=== PATIENT | female | born 1950 | race Caucasian/White ===

== ENCOUNTER 2019-06-19 08:33 | Emergency (ER) | payer OTHER ==
--- OUTSIDE RECORDS SUMMARY | 2019-06-19 08:35 | XMS REPORT ---
:1950 [facility] Address [address] [place] [address] Dr. Roach [address] [place] [id number] Care Team Providers Name Role Phone GURJIT GONZALES Unavailable Unavailable Problems This patient has no known problems. Allergies, Adverse Reactions, Alerts This patient has no known allergies or adverse reactions. Medications This patient has no known medications. Results Test Description Test Time Test Comments Text Results Atomic Results Result Comments POCT-GLUCOSE METER 2018-01-10 12:58:00 Test Item Value Reference Range Comments POC-GLUCOSE METER (BEAKER) (test 150 mg/dL 70-110 TESTED AT [facility] [address] [facility] rdoi=[id number]) [facility] [address] BASIC METABOLIC [id number] 10:59:00 Test Item Value Reference Range Comments SODIUM (BEAKER) (test 138 meq/L 136-145 dfht=870) POTASSIUM (BEAKER) (test 3.2 meq/L 3.5-5.1 sdsq=823) CHLORIDE (BEAKER) (test 107 meq/L 98-107 moyf=675) CO2 (BEAKER) (test 20 meq/L 22-29 dsin=060) BLOOD UREA NITROGEN 26 mg/dL 7-21 (BEAKER) (test kkke=366) CREATININE (BEAKER) (test 1.56 mg/dL 0.57-1.25 sino=222) GLUCOSE RANDOM (BEAKER) 142 mg/dL 70-105 (test yztg=662) CALCIUM (BEAKER) (test 10.2 mg/dL 8.4-10.2 ttfk=316) EGFR (BEAKER) (test 33 mL/min/1.73 sq m ESTIMATED GFR IS NOT fqhq=1651) ACCURATE CREATININE CLEARANCE IN PREDICTING GLOMERULAR FILTRATION RATE. ESTIMATED GFR IS NOT APPLICABLE FOR DIALYSIS PATIENTS. PROTHROMBIN TIME/[id number] 10:51:00 Test Item Value Reference Range Comments PROTIME (BEAKER) (test fnux=799) 14.0 seconds 11.7-14.7 INR (BEAKER) (test vhvp=878) 1.1 <=5.9 RECOMMENDED COUMADIN/WARFARIN INR THERAPY RANGESSTANDARD DOSE: 2.0 - 3.0 Includes: PROPHYLAXIS forvenous thrombosis, systemic embolization; TREATMENT for venous thrombosis and/or pulmonary embolus.HIGH RISK: Target INR is 2.5-3.5 for patients with mechanical heart valves.CBC W/PLT COUNT & AUTO [id number] 10:38:00 Test Item Value Reference Range Comments WHITE BLOOD CELL COUNT (BEAKER) (test dgqn=339) 10.4 K/ L 3.5-10.5 RED BLOOD CELL COUNT (BEAKER) (test aglg=949) 4.39 M/ L 3.93-5.22 HEMOGLOBIN (BEAKER) (test ueer=755) 13.1 GM/DL 11.2-15.7 HEMATOCRIT (BEAKER) (test uzyq=456) 39.8 % 34.1-44.9 MEAN CORPUSCULAR VOLUME (BEAKER) (test tksn=059) 90.7 fL 79.4-94.8 MEAN CORPUSCULAR HEMOGLOBIN (BEAKER) (test 29.8 pg 25.6-32.2 nqla=548) MEAN CORPUSCULAR HEMOGLOBIN CONC (BEAKER) (test 32.9 GM/DL 32.2-35.5 cfsf=234) RED CELL DISTRIBUTION WIDTH (BEAKER) (test 11.9 % 11.7-14.4 soqb=042) PLATELET COUNT (BEAKER) (test beor=350) 257 K/CU MM 150-450 MEAN PLATELET VOLUME (BEAKER) (test ssji=730) 10.5 fL 9.4-12.3 NUCLEATED RED BLOOD CELLS (BEAKER) (test 0 /100 WBC 0-0 zerm=412) NEUTROPHILS RELATIVE PERCENT (BEAKER) (test 67 % zuxg=155) LYMPHOCYTES RELATIVE PERCENT (BEAKER) (test 21 % iidg=030) MONOCYTES RELATIVE PERCENT (BEAKER) (test 9 % mcta=931) EOSINOPHILS RELATIVE PERCENT (BEAKER) (test 2 % vmkz=732) BASOPHILS RELATIVE PERCENT (BEAKER) (test 1 % eidm=794) NEUTROPHILS ABSOLUTE COUNT (BEAKER) (test 6.97 K/ L 1.56-6.13 smpm=456) LYMPHOCYTES ABSOLUTE COUNT (BEAKER) (test 2.15 K/ L 1.18-3.74 qgom=452) MONOCYTES ABSOLUTE COUNT (BEAKER) (test 0.95 K/ L 0.24-0.36 lchl=296) EOSINOPHILS ABSOLUTE COUNT (BEAKER) (test 0.22 K/ L 0.04-0.36 lgja=016) BASOPHILS ABSOLUTE COUNT (BEAKER) (test 0.08 K/ L 0.01-0.08 lryx=631) IMMATURE GRANULOCYTES-RELATIVE PERCENT (BEAKER) 0 % 0-1 (test afzj=9464)
[2019-06-19] MEDS ORDERED: SILVER NITRATE 1 APPL TOP ONE (10:01)
--- NOTE | 2019-06-19 10:17 | ER ---
Nurse's Notes [facility] Name: Joana Zarate Age: 68 yrs Sex: Female : 1950 Arrival Date: 06/19/2019 Time: 08:36 Bed 5 Private MD: Katalina Lentz C Diagnosis: Bitten by dog;Puncture wound without foreign body of right hand Presentation: 06/19 08:46 Presenting complaint: Patient states: puncture wound to R hand that will not stop ss oozing blood since last night after her dog bit her. Pt reports that the dog is up to date with all vaccinations. Transition of care: patient was not received from another setting of care. Onset of symptoms was June 18, 2019. Risk Assessment: Do you want to hurt yourself or someone else? Patient reports no desire to harm self or others. Initial Sepsis Screen: Does the patient meet any 2 criteria? HR > 90 bpm. Does the patient have a suspected source of infection? No. Patient's initial sepsis screen is negative. Care prior to arrival: None. 08:46 Acuity: GOLDY 3 ss 08:46 Method Of Arrival: Ambulatory ss Triage Assessment: 08:50 Bite description: animal information: Appearance: appeared well, is superficial, from sg animal, vaccination(s) is current, Animal status: known and can be quarantined. 10:00 Bite description: animal information: Animal control has been notified. sg Historical: - Allergies: 08:48 PENICILLINS; ss - PMHx: 08:48 Hypertension; stroke x2; ss - PSHx: 08:48 Micro pacemaker; ss - Immunization history:: Adult Immunizations up to date, Last tetanus immunization: up to date. - Coronavirus screen:: The patient has NOT traveled to [place], [place], or [place] in the past 14 days. Proceed with normal triage process as indicated. - Social history:: Smoking status: Patient denies any tobacco usage or history of. - Ebola Screening: : Patient denies exposure to infectious person Patient denies travel to an Ebola-affected area in the 21 days before illness onset. Screenin:46 Abuse screen: Denies threats or abuse. Denies injuries from another. Nutritional sg screening: No deficits noted. Tuberculosis screening: No symptoms or risk factors identified. Never had TB. Fall Risk None identified. Assessment: 08:52 General: Appears in no apparent distress. well groomed, well developed, well nourished, sg Behavior is calm, cooperative, appropriate for age. Pain: Complains of pain in dorsum of right hand Quality of pain is described as throbbing. Neuro: Level of Consciousness is awake, alert, obeys commands. Cardiovascular: Patient's skin is warm and dry. Chest pain is denied. Respiratory: Airway is patent Respiratory effort is even, unlabored, Respiratory pattern is regular, symmetrical. GI: No signs and/or symptoms were reported involving the gastrointestinal system. : No signs and/or symptoms were reported regarding the genitourinary system. EENT: No signs and/or symptoms were reported regarding the EENT system. Derm: Skin is intact, is healthy with good turgor, Skin is normal. Musculoskeletal: Circulation, motion, and sensation intact. Range of motion: intact in all extremities. 10:25 Reassessment: Patient appears in no apparent distress at this time. Patient and/or sg family updated on plan of care and expected duration. Pain level reassessed. Patient is alert, oriented x 3, equal unlabored respirations, skin warm/dry/pink. [employer] contacted for Dog Bite, pt stated understanding. 10:25 Reassessment: Ornamental Bronze Worker at bedside, pt has been discharged to home. intelligence officer basic sg to follow up with patient. Vital Signs: 08:48 BP 159 / 96; Pulse 116; Resp 20; Temp 98.6(TE); Pulse Ox 99% on R/A; Weight 65.77 kg; ss Height 5 ft. 4 in. (162.56 cm); Pain 0/10; 09:55 BP 141 / 83; Pulse 67; Resp 16; Pulse Ox 99% ; sv 08:48 Body Mass Index 24.89 (65.77 kg, 162.56 cm) ED Course: 08:36 Patient arrived in ED. mr 08:37 Katalina Lentz MD is Private Physician. mr 08:39 [facility] Spaulding [facility] jr8 08:39 Genaro Whalen MD is Attending Physician. jr8 08:47 Triage completed. ss 08:48 Arm band placed on right wrist. ss 08:50 Joselito Marquez, DIEGO is Primary Nurse. sg 08:51 Wound care: to puncture located on dorsum of right hand was cleaned with with Hibiclens sg and Betadine, dressed with Neosporin, Patient tolerated well. 08:52 Patient has correct armband on for positive identification. Bed in low position. sv 09:03 XRAY Hand RIGHT 3 View Sent. sv 10:14 Silver nitrate applied to pt's puncture wound to the right hand. sv 10:16 Katalina Lentz MD is Referral Physician. jr8 10:25 Patient did not have IV access during this emergency room visit. sg Administered Medications: 10:15 Drug: Silver Nitrate Applicators 1 application {Note: applied by Ambrosio OZUNA.} Route: sg Topical; Site: affected area; Outcome: 10:16 Discharge ordered by . jr8 10:25 Discharged to home ambulatory. sg 10:25 Condition: good 10:25 Discharge instructions given to patient, pt to await evaluation by Ornamental Bronze Worker prior to leaving, pt stated understanding Instructed on discharge instructions, follow up and referral plans. no drinking with medication, safety practices, wound care, Demonstrated understanding of instructions, follow-up care, medications, wound care, Prescriptions given X 1. 10:49 Patient left the ED. sg Signatures: Alejandra Ernandez, RN DIEGO Joselito Marquez RN RN sg Rivera, Mary mr Stefanie Palmer, RN Raheem Guerrero PA PA jr
--- NOTE | 2019-06-19 10:17 | EDPHYS ---
Physician Documentation [facility] Name: Joana Zarate Age: 68 yrs Sex: Female : 1950 Arrival Date: 06/19/2019 Time: 08:36 Bed 5 Private MD: Katalina Lentz C ED Physician Genaro Whalen HPI: 06/19 09:05 This 68 yrs old Female presents to ER via Ambulatory with complaints of Dog jr8 Bite. 09:05 The patient was bitten on the right hand, by a dog, for an unknown reason, at home. jr8 Onset: The symptoms/episode began/occurred acutely, last night. Animal information: The animal was reported to appear healthy. Animal's vaccinations are up to date. The animal is known and can be quarantined, Animal control has been notified. Secondary to the bite the patient reports multiple puncture wounds, that are deep, the largest being 1 cm(s). Associated signs and symptoms: The patient has no apparent associated signs or symptoms. Severity of symptoms: At their worst the symptoms were moderate, in the emergency department the symptoms are unchanged. The patient has not experienced similar symptoms in the past. The patient has not recently seen a physician. 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 Occasionally will bite from time to time for unknown reasons. Historical: - Allergies: 08:48 PENICILLINS; ss - PMHx: 08:48 Hypertension; stroke x2; ss - PSHx: 08:48 Micro pacemaker; ss - Immunization history:: Adult Immunizations up to date, Last tetanus immunization: up to date. - Coronavirus screen:: The patient has NOT traveled to [place], [place], or [place] in the past 14 days. Proceed with normal triage process as indicated. - Social history:: Smoking status: Patient denies any tobacco usage or history of. - Ebola Screening: : Patient denies exposure to infectious person Patient denies travel to an Ebola-affected area in the 21 days before illness onset. ROS: 10:12 Eyes: Negative for injury, pain, redness, and discharge, ENT: Negative for injury, jr8 pain, and discharge, Neck: Negative for injury, pain, and swelling, Cardiovascular: Negative for chest pain, palpitations, and edema, Respiratory: Negative for shortness of breath, cough, wheezing, and pleuritic chest pain, Abdomen/GI: Negative for abdominal pain, nausea, vomiting, diarrhea, and constipation, Back: Negative for injury and pain, Neuro: Negative for headache, weakness, numbness, tingling, and seizure. 10:12 MS/extremity: Positive for ecchymosis, pain, puncture, of the dorsum of right hand. Exam: 10:12 Eyes: Pupils equal round and reactive to light, extra-ocular motions intact. Lids and jr8 lashes normal. Conjunctiva and sclera are non-icteric and not injected. Cornea within normal limits. Periorbital areas with no swelling, redness, or edema. ENT: Nares patent. No nasal discharge, no septal abnormalities noted. Tympanic membranes are normal and external auditory canals are clear. Oropharynx with no redness, swelling, or masses, exudates, or evidence of obstruction, uvula midline. Mucous membranes moist. Neck: Trachea midline, no thyromegaly or masses palpated, and no cervical lymphadenopathy. Supple, full range of motion without nuchal rigidity, or vertebral point tenderness. No Meningismus. Cardiovascular: Regular rate and rhythm with a normal S1 and S2. No gallops, murmurs, or rubs. Normal PMI, no JVD. No pulse deficits. Respiratory: Lungs have equal breath sounds bilaterally, clear to auscultation and percussion. No rales, rhonchi or wheezes noted. No increased work of breathing, no retractions or nasal flaring. Abdomen/GI: Soft, non-tender, with normal bowel sounds. No distension or tympany. No guarding or rebound. No evidence of tenderness throughout. Back: No spinal tenderness. No costovertebral tenderness. Full range of motion. Skin: Warm, dry with normal turgor. Normal color with no rashes, no lesions, and no evidence of cellulitis. Neuro: Awake and alert, GCS 15, oriented to person, place, time, and situation. Cranial nerves II-XII grossly intact. Motor strength 5/5 in all extremities. Sensory grossly intact. Cerebellar exam normal. Normal gait. 10:12 Musculoskeletal/extremity: Extremities: grossly normal except: noted in the dorsum of right hand: multiple puncture wounds to dorsum right hand. one with constant oozing of blood. Vital Signs: 08:48 BP 159 / 96; Pulse 116; Resp 20; Temp 98.6(TE); Pulse Ox 99% on R/A; Weight 65.77 kg; ss Height 5 ft. 4 in. (162.56 cm); Pain 0/10; 09:55 BP 141 / 83; Pulse 67; Resp 16; Pulse Ox 99% ; sv 08:48 Body Mass Index 24.89 (65.77 kg, 162.56 cm) ss Procedures: 10:12 Performed Silver Nitrate. Hand cleaned with Hibiclens. Irrigated with NS. Dried and jr8 then small amount of Silver Nitrate applied to small oozing puncture wound. Rest of bites left open for draining to resist against infection. Pressure dressing applied . MDM: 08:43 Patient medically screened. ale 10:12 Data reviewed: vital signs, nurses notes, radiologic studies, plain films, and as a jr8 result, I will discharge patient. Data interpreted: Pulse oximetry: on room air is 99 %. Interpretation: normal. Counseling: I had a detailed discussion with the patient and/or guardian regarding: the historical points, exam findings, and any diagnostic results supporting the discharge/admit diagnosis, radiology results, the need for outpatient follow up, a family practitioner, to return to the emergency department if symptoms worsen or persist or if there are any questions or concerns that arise at home. ED course: Patient up to date on Tetanus . 06/19 08:47 Order name: XRAY Hand RIGHT 3 View jr8 Administered Medications: 10:15 Drug: Silver Nitrate Applicators 1 application {Note: applied by Ambrosio HONEYCUTT} Route: sg Topical; Site: affected area; Disposition: 06/19/19 10:16 Discharged to Home. Impression: Bitten by dog, Puncture wound without foreign body of right hand. - Condition is Stable. - Discharge Instructions: Puncture Wound, Animal Bite. - Prescriptions for Doxycycline Monohydrate 100 mg Oral Tablet - take 1 tablet by ORAL route every 12 hours for 14 days; 28 tablet. - Medication Reconciliation Form, Thank You Letter, Antibiotic Education, Prescription Opioid Use form. - Follow up: Katalina Lentz MD; When: 1 week; Reason: Wound Recheck, Recheck today's complaints, Continuance of care, Re-evaluation by your physician. - Problem is new. - Symptoms have improved. Addendum: 06/21/2019 07:53 Co-signature as Attending Physician, Genaro Whalen MD I agree with the assessment and c escobar plan of care. Signatures: Dispatcher [employer] Joselito Uriarte RN RN sg Anderson, Corey, MD MD cha Smirch, Shelby RN RN Raheem Muñoz PA PA jr8 Corrections: (The following items were deleted from the chart) 06/19 10:49 10:16 06/19/2019 10:16 Discharged to Home. Impression: Bitten by dog; Puncture wound sg without foreign body of right hand. Condition is Stable. Forms are Medication Reconciliation Form, Thank You Letter, Antibiotic Education, Prescription Opioid Use. Follow up: Katalina Lentz; When: 1 week; Reason: Wound Recheck, Recheck today's complaints, Continuance of care, Re-evaluation by your physician. Problem is new. Symptoms have improved. jr8
--- NOTE | 2019-06-19 10:53 | RAD REPORT ---
EXAM DESCRIPTION: RAD - Hand Right 3 View - 06/19/2019 9:12 am CLINICAL HISTORY: Pain;Animal bite COMPARISON: No comparisons FINDINGS: Soft tissue swelling is seen affecting the second finger. Tiny avulsion bony fragment may be present along the dorsal aspect of the DIP joint.
[2019-06-21 04:07] VITALS: TEMP 98.6; O2SAT 99
[2019-06-21 04:09] VITALS: BP 141/83
== END 2019-06-19 10:49 | disposition home or self-care (01) ==
LOC: ER 08:33
DX: S61.431A Puncture wound without foreign body of right hand, initial encounter (principal); W54.0XXA Bitten by dog, initial encounter; Y93.9 Activity, unspecified; Y92.019 Unspecified place in single-family (private) house as the place of occurrence of the external cause; Z88.0 Allergy status to penicillin
CPT/HCPCS: 99284

== ENCOUNTER 2020-08-20 17:16 | Inpatient (IN) | payer OTHER ==
--- OUTSIDE RECORDS SUMMARY | 2020-08-20 17:21 | XMS REPORT | Continuity of Care Document ---
:[address] [facility] [place], [place] t Address [address] [place] [address] Care Team Providers Name Role Phone Georgina Lentz MD Primary Care Physician RADHA GONZALES Attending Clinician Unavailable Tameka Butler Attending Clinician Lashonda Figueroa Attending Clinician Gracia Case Attending Clinician RADHA GONZALES Admitting Clinician Unavailable Tameka Butler Admitting Clinician Gracia Case Admitting Clinician Problems Condition Condition Condition Status Onset Resolution Last Treating Co mments Source Name Details Category Date Date Treatment Clinician Date Primary Primary Disease Active [facility] osteoarthr osteoarthr 01-31 Me thodi itis of itis of 00:00: st right knee right knee 00 Encounter Encounter Disease Active [facility] 01-10 [facility] recorder recorder 00:00: Medica l at end of at end of 00 Cent er battery battery life life Symptomati Symptomati Disease Active [facility] c 1-22 [facility] - bradycardi bradycardi 00:00: Me dical a a 00 Center 225.3 - Diagnosis Active 2013-052014-08-04 Me moria BENIGN HEIKE 2-01 11:04:00 l SPIN 225.3 - 00:01: [place] BENIGN HEIKE 00 SPIN Active 04/08/2014 [facility] OPID [place] POSSIBLE Diagnosis Active 2013-052014-03-11 M emoria CVA VS TIA 05-10 18:31:00 l POSSIBLE 00:00: [place] hancock CVA VS TIA 00 Active 03/10/[address] [facility] ISCHEMIC Diagnosis Active 2013-11-13 M emoria STROKE;194 11-07 15:36:00 l 5 ONSET OF ISCHEMIC 00:00: He cemann S/S STROKE;194 00 5 ONSET OF S/S Active 11/07/[address] [facility] ISCHEMIC Diagnosis Active 2011-06-17 M emoria STROKE 06-15 09:59:00 l ISCHEMIC 00:00: [place] n STROKE 00 Active 06/15/[address] [facility] N Diagnosis Active 2011-06-17 Mem oria 06-15 10:00:00 l N 00:00: [place] 00 Active 06/15/[address] [facility] Cerebrovas Problem Resolve 2014-03-13 Memoria cular d 23:33:16 l accident Estuardo (disorder) Cerebrovas cular accident (disorder) Resolved Problem 03/13/2014 [facility] OPIAbbie Kimball[place] Hyperlipid Problem Resolve 2014-03-13 Memoria emia d 23:33:16 l (disorder) [place] hancock Hyperlipid emia (disorder) Resolved Problem 03/13/2014 [facility] OPIAbbie Marte Hypertensi Problem Resolve 2014-03-13 Memoria ve d 23:33:16 l disorder, Estuardo systemic Hypertensi arterial ve (disorder) disorder, systemic arterial (disorder) Resolved Problem 03/13/2014 [facility] OPIAbbie Marte Hypothyroi Problem Resolve 2014-03-13 Memoria dism d 23:33:16 l (disorder) [place] n Hypothyroi dism (disorder) Resolved Problem 03/13/2014 [facility] OPID [place] Cardiac Problem Resolve 2014-03-13 Mem oria implant d 23:33:16 l (physical Cardiac Herm teressa object) implant (physical object) Resolved Problem 03/13/[address] [facility] Depressive Problem Resolve 2014-03-13 Memoria disorder d 23:33:16 l (disorder) [place] n Depressive disorder (disorder) Resolved Problem 03/13/[address] [facility] Intracrani Problem Resolve 2014-03-13 Memoria al d 23:33:16 l meningioma [place] n (disorder) Intracrani al meningioma (disorder) Resolved Problem 03/13/[address] [facility] Heart Problem Resolve 2014-03-13 Fabrizio ruchi murmur d 23:33:16 l (finding) Heart [place] n murmur (finding) Resolved Problem 03/13/[address] [facility] Sleep Problem Resolve 2014-03-13 Fabrizio ruchi apnea d 23:33:16 l (finding) Sleep [place] n apnea (finding) Resolved Problem 03/13/[address] [facility] BRAIN Diagnosis Active 2013-11-13 Mem oria CONDITION 15:36:00 l NOS BRAIN [place] CONDITION NOS Active [facility] CVA Diagnosis Active 2014-03-11 Mem oria 18:31:[address] l [address]A [address] Active [facility] Allergies, Adverse Reactions, Alerts Allergy Allergy Status Severity Reaction(s) Onset Inactive Treating Comm ents Source Name Type Date Date Clinician Penicill Propensi Active Rash "as a [place] ins ty to 4-17 child" Methodi adverse 00:00: st reaction 00 s to drug Penicill Drug Active Rash [facility] - [facility] Medical 00 [place] penicill penicill Active Memori a ins ins l Estuardo Family History Family Member Diagnosis Comments Start Date Stop Date Source Natural father Dementia [facility] Natural father Diabetes [facility] Natural mother Heart disease [facility] Natural [facility] Natural sister Diabetes [facility] Social History Social Habit Start Date Stop Date Quantity Comments Source Sex Assigned At [facility] Tobacco use and 2019-02-06 2019-02-06 Never used [facility] ethodist exposure 00:00:00 00:00:00 Alcohol Comment 2019-01-24 2019-01-24 occasional [facility] ethodist 00:00:00 00:00:00 Alcohol intake 2018-01-11 2018-01-11 Current [facility] es - 00:00:00 00:00:00 non-drinker of Medical Ce nter alcohol (finding) Social History 2014-03-10 2014-03-10 [facility] ermteressa 09:14:22 09:14:22 Smoking Status Start Date Stop Date Source Never smoker [facility] Medications Ordered Filled Start Stop Current Ordering Indication Dosage Frequency Signature Comments Components Source Medication Medication Date Date Medication? Clinician (SIG) Name Name aspirin 2018-05 Yes 81mg QD Take 81 mg [place] (ECOTRIN) 0-01 by mouth Method i 81 MG 12:35: daily. st enteric 45 coated tablet cyanocobala 2018-05 Yes QD Take by Kelly ston min, 0-01 mouth Methodi vitamin 12:35: daily. st B-12, 45 (VITAMIN B-12 ORAL) levothyroxi Yes 50ug QD Take 50 Kelly ston ne 4-14 mcg by Methodi (SYNTHROID, 00:00: mouth st LEVOXYL) 50 00 every mcg tablet morning. rosuvastati Yes 20mg QD Take 20 mg [facility] n (CRESTOR) 4-05 by mouth Meth el 20 MG 00:00: every st tablet 00 morning. metFORMIN Yes 500mg QD Take [address] (GLUCOPHAGE 2-24 mg by Methodi ) 500 mg 00:00: mouth st tablet 00 nightly. amLODIPine Yes 5mg QD Take 5 mg [place] (NORVASC) 5 2-24 by mouth Meth el mg tablet 00:00: nightly. st 00 clopidogrel Yes 75mg QD Take 75 mg [place] (PLAVIX) 75 2-14 by mouth Meth el mg tablet 00:00: daily. st 00 valsartan Yes 160mg QD Take [address] (DIOVAN) 1-29 mg by Methodi 160 MG 00:00: mouth st tablet 00 every morning. LEVOTHYROXI Yes 50ug QD Take [address] SODIUM 9-04 mcg by [facility] - (SYNTHROID 13:45: mouth Medica l ORAL) 07 daily . [place] metFORMIN Yes 500mg QD Take [address] (GLUCOPHAGE 9-04 mg by [facility] - ) 500 MG 13:45: mouth Medical tablet 07 daily . [place] aspirin 81 Yes 81mg QD Take [address] MG EC 9-04 by mouth [facility] - tablet 13:45: daily. Medical 07 [place] rosuvastati Yes 40mg QD Take [address] [facility] (CRESTOR) 9-04 by mouth Luke s - 40 MG 13:45: daily. Medical tablet 07 [place] valsartan Yes 160mg QD Take [address] (DIOVAN) 9-04 mg by [facility] - 160 MG 13:45: mouth Medical tablet 07 daily. Center amLODIPine Yes 5mg QD Take [address] (NORVASC) 5 04 by mouth Luke s - MG tablet 13:45: daily. Medica l 07 [place] clopidogrel Yes 75mg QD Take [address] (PLAVIX) 75 04 by mouth Luke s - mg tablet 13:45: daily. Medica l 07 [place] atorvastati 2013-05 Yes 80 mg = 1 M emoria n 80 mg -03 tab, PO, l oral tablet 18:09: Bedtime, 0 [place] 00 Refill(s) topiramate 2013-05 Yes Special Fabrizio ruchi 25 MG Oral 05-11 Instructio l Tablet 18:09: ns: Please Hillary nn [Topamax] 00 take one tablet at bedtime for on week, then take 2 tablets at bedtime from there on until your appointmen t. Levothroid 2013-05 No Notes: Memor ia 05-11 Take 1 l 12:30: hour [place] 00 before or 2 hours after meal; Enteral feeds may interefere with the absorption of this medication . (Same as:Levothr oid) Versed 2013-05 No Notes: Memoria 05-11 (Same as: l 12:22: Versed) [place] 00 Lipitor 2013-05 No Notes: Memoria 05-11 Same as l 03:00: Lipitor Estuardo 00 120 ACTUAT 2013-05 Yes Special Fabrizio ruchi Triamcinolo 05-11 Instructio l ne 00:50: ns: in [place] Acetonide 00 each 0.055 nostril MG/ACTUAT Nasal Inhaler Metformin 2013-05 Yes 250 mg = Fabrizio ruchi hydrochlori 05-11 0.5 tab, l de 500 MG 00:50: PO, Daily, He rmann Oral Tablet 00 0 Refill(s) atorvastati 2013-05 No 80 mg = 1 M emoria n 80 MG 1-03 tab, PO, l Oral Tablet 00:50: Bedtime, # Estuardo [Lipitor] 00 30 tab, 0 Refill(s) hydrochloro 2013-05 Yes 12.5 mg = M emoria thiazide -03 1 tab, PO, l 12.5 mg 00:50: Daily, # [place] n oral tablet 00 30 tab, 0 Refill(s) Olmesartan 2013-05 Yes 40 mg = 1 Me moria medoxomil 1-03 tab, PO, l 40 MG Oral 00:50: Daily, # Her damian Tablet 00 30 tab, 0 [Benicar] Refill(s) Levothyroxi 2013-05 Yes 37.5 Memori a ne Sodium 1-03 microgram l 0.025 MG 00:50: = 1.5 tab, Her damian Oral Tablet 00 PO, Daily, [Synthroid] # 30 tab, 0 Refill(s) clopidogrel 2013-05 Yes 75 mg = 1 M emoria 75 MG Oral -03 tab, PO, l Tablet 00:50: Daily, # Estuardo [Plavix] 00 30 tab, 0 Refill(s) Iohexol 2013-05 No Notes: Memoria - (Same l 16:33: as:Omnipaq Estuardo 00 ue 350). Docusate 2013-05 No Notes: Memoria Sodium 100 05-10 (Same as: l MG Oral 15:00: Colace) [place] Capsule 00 (Do Not Crush) sennosides, 2013-05 No Notes: Fabrizio ruchi RETIREMENT 8.6 MG 05-10 (Same as: l Oral Tablet 15:00: Senokot) He rmann Saline 2013-05 No Notes: Memoria Flush 0.9% 05-10 (Same as: l 15:00: BD [place] 00 Posiflush) Aspirin 81 2013-05 No Notes: Do Me moria MG Enteric 05-10 not crush l Coated 15:00: or chew. Estuardo Tablet 00 (Same As: Ecotrin) pneumococca 2013-05 No Notes: Fabrizio ruchi l capsular 05-10 (Same as: l polysacchar 15:00: Pneumovax H ermann vito type 1 00 23) vaccine / Refrigerat pneumococca e l capsular polysacchar vito type 10A vaccine / pneumococca l capsular polysacchar vito type 11A vaccine / pneumococca l capsular polysacchar vito type 12F vaccine / pneumococca l capsular polysacchar heparin, 2013-05 No Notes: Memoria porcine 05-10 porcine l 14:00: heparin [place] 00 Hydrochloro 2013-05 No 12.5 mg, Me moria thiazide 1-02 PO, Daily l 13:16: Estuardo clopidogrel 2013-05 No 75 mg = 1 M emoria 75 MG Oral 05-10 tab, PO, l Tablet 13:16: Daily Estuardo [Plavix] 00 Metformin 2013-05 No 250 mg, Memor ia 02 Daily l 13:16: [place] Triamcinolo 2013-05 No = 1 spray, Memoria ne 05-10 INHALATION l Acetonide 13:16: , BID [place] Thyroxine 2013-05 No 37.5 Memoria 05-10 microgram, l 13:16: PO, Daily Estuardo atorvastati 2013-05 No 80 mg = 1 M emoria n 80 MG 05-10 tab, PO, l Oral Tablet 13:16: Daily Hillary nn [Lipitor] Olmesartan 2013-05 No 40 mg = 1 Me moria medoxomil 05-10 tab, PO, l 40 MG Oral 13:16: Daily [place] n Tablet 00 [Benicar] Saline 2013-05 No Notes: Memoria Flush 0.9% 05-10 (Same as: l 09:11: BD [place] Posiflush) Labetalol 2013-05 No 105mmHg Fabrizio ruchi 05-10 l 09:11: [place] 00 Acetaminoph 2013-05 No Notes: Do M emoria en 05-10 not exceed l 09:11: 4 gm/day. Estuardo 00 (Same as: Tylenol) olmesartan Yes 40 mg = 2 Me moria 20 mg oral 04 tab, PO, l tablet 21:54: Daily, # [place] 00 60 tab, 3 Refill(s) Hydrochloro Yes 12.5 mg = M emoria thiazide 11-09 1 cap, PO, l 12.5 MG 21:54: Daily-12N, Herm teressa Oral 00 # 30 cap, Capsule 3 Refill(s) clopidogrel Yes 75 mg = 1 M emoria 75 mg oral 7-04 tab, PO, l tablet 21:54: Daily, # Estuardo 00 30 tab, 3 Refill(s) atorvastati Yes 80 mg = 1 M emoria n 80 mg 7-04 tab, PO, l oral tablet 21:54: Daily, # He rmann 00 30 tab, 3 Refill(s) Benicar No 40 mg, 2 Memori a 11-09 tab, l 21:00: Route: PO, Estuardo 00 Drug form: TAB, Daily, Start date: 11/09/13 16:00:00, Duration: 30 day, Stop date: 12/09/13 9:00:00 Microzide No Notes: Memori a 11-09 (Same as: l 17:00: Microzide) With food. Hydrochloro No 1 tab, Fabrizio ruchi thiazide 11-09 Route: PO, l 12.5 MG / 15:30: Drug Form: Papi cemann Olmesartan 00 TAB, medoxomil Dosing 40 MG Oral Weight Tablet 74.545, kg, Daily, Start date: 11/09/13 10:30:00, Duration: 30 day, Stop date: 12/09/13 9:00:00 Versed No Notes: Memoria 11-09 (Same as: l 12:38: Versed) aspirin 81 No Notes: Do Me moria mg tablet, 11-09 not crush l enteric 04:00: or chew. [place] n coated 00 (Same As: Ecotrin) heparin, No Notes: Memoria porcine 11-09 porcine l 04:00: heparin Plavix No Notes: Memoria 11-09 (Same As: l 03:30: Plavix) Triamcinolo No NASAL, Fabrizio ruchi ne 11-09 PRN, 0 l Acetonide 03:19: Refill(s) Her damian 00 Hydrochloro No 1 tab, PO, Memoria thiazide 11-09 Daily, # l 12.5 MG / 03:19: 90 tab, 0 Her damian Olmesartan 00 Refill(s) medoxomil 40 MG Oral Tablet [Benicar HCT 40/12.5] levothyroxi Yes 1.5, PO, Me moria ne 25 mcg 11-09 Daily, # l (0.025 mg) 03:19: 90 tab, 0 He rmann oral tablet 00 Refill(s) Crestor No 20 mg, Memoria 11-09 Route: PO, l 02:00: Drug form: [place] 00 TAB, Bedtime, Dosing Weight 74.545, kg, Start date: 11/08/13 21:00:00, Duration: 30 day, Stop date: 12/07/13 21:00:00 Midazolam No Notes: Memori a 11-08 (Same as: l 22:21: Versed) Estuardo 00 Levothroid No Notes: Memor ia 11-08 Take 1 l 16:00: hour [place] 00 before or 2 hours after meal; Enteral feeds may interefere with the absorption of this medication . (Same as:Levothr oid) Saline No Notes: Memoria Flush 0.9% 11-08 (Same as: l 14:00: BD Posiflush) Lipitor No Notes: Memoria 03 Same as l 14:00: Lipitor Docusate No Notes: Memoria Sodium 100 11-08 (Same as: l MG Oral 14:00: Colace) Estuardo Capsule 00 (Do Not Crush) sennosides, No Notes: Fabrizio ruchi RETIREMENT 8.6 MG 11-08 (Same as: l Oral Tablet 14:00: Senokot) He rm aspirin 325 No 325 mg = 1 Memoria mg tablet 03 tab, PO, l 13:31: Daily, # [place] 00 90 tab, 0 Refill(s) levothyroxi No 37.5 Memori a ne 25 mcg 11-08 microgram l (0.025 mg) 13:31: = 1.5 tab, H ermann oral tablet 00 Daily, 0 Refill(s) Rosuvastati Yes 20 mg = 1 M emoria n calcium 03 tab, PO, l 20 MG Oral 13:31: Bedtime, # H ermann Tablet 00 30 tab, 0 [Crestor] Refill(s) Hydrochloro No 1 tab, PO, Memoria thiazide 7-03 Daily, # l 12.5 MG / 13:31: 30 tab, 0 Her damian Olmesartan 00 Refill(s) medoxomil 40 MG Oral Tablet [Benicar HCT 40/12.5] Aspirin / No 81 mg, Memori a Calcium 11-08 Route: PO, l Carbonate 12:17: Drug form: He rm 00 ECTAB, Daily, Dosing Weight 74.545, kg, Start date: 11/08/13 7:17:00, Duration: 30 day, Stop date: 12/07/13 9:00:00 NS 1,000 mL No 1,000 mL, Salud emoria 11-08 Rate: 75 l 11:55: ml/hr, Infuse over: 13.3 hr, Route: IV, Dosing Weight 74.545 kg, Total Volume: 1,000, Start date: 11/08/13 6:55:00, Duration: 30 day, Stop date: 12/08/13 6:54:00 Iohexol No Special Memoria 11-08 Instructio l 07:00: ns: Dose = Estuardo 00 2.2ml/kg, Max dose = 100ml -- "To be infused by Radiology Staff ONLY" Versed No Notes: Memoria 11-08 (Same as: l 05:59: Versed) Estuardo Regular No 60 Memoria Insulin, 11-08 units) l Human 100 04:52: Stable for He rmann UNT/ML 00 28 days at Injectable room Solution temperatur e Expires in days from ____Date Dextrose No 6.25 gm, Memor ia 50% Syringe 11-08 12.5 mL, l 04:52: Route: IVP, Drug Form: INJ, Dosing Weight 74.545, kg, PRN, PRN Abnormal Lab Result, Start date: 11/07/13 23:52:00, Duration: 30 day, Stop date: 12/07/13 23:51:00 Saline No Notes: Memoria Flush 0.9% 11-08 (Same as: l 04:51: BD Posiflush) Acetaminoph No Notes: Do Salud martinesa en 11-08 not exceed l 04:51: 4 gm/day. (Same as: Tylenol) Labetalol No 105mmHg Fabrizio ruchi 11-08 l 04:51: [place] 00 Vital Signs Vital Name Observation Time Observation Value Comments Source Systolic (mm Hg) 2014-03-11 20:15:00 Fabrizio rial [place] Diastolic (mm Hg) 2014-03-11 20:15:00 Mem orial [place] Respitory Rate 2014-03-11 20:15:00 Memori al Estuardo Heart Rate 2014-03-11 19:45:00 Memorial Estuardo Diastolic (mm Hg) 2014-03-11 19:45:00 Mem orial [place] Systolic (mm Hg) 2014-03-11 19:45:00 Fabrizio rial [place] Heart Rate 2014-03-11 19:30:00 Memorial [place] Respitory Rate 2014-03-11 17:00:00 Memori al [place] Respitory Rate 2014-03-11 16:00:00 Memori al Estuardo Temperature Oral (F) 2014-03-10 10:00:00 96.4 F Memorial Estuardo Height 2014-03-10 09:02:00 165.1 cm [facility] [place] BMI Calculated 2014-03-10 09:02:00 Memori al [place]uardo Weight 2014-03-10 09:02:00 Memorial Estuardo Respitory Rate 2013-11-09 21:30:00 Memori al Estuardo Diastolic (mm Hg) 2013-11-09 21:30:00 Mem orial [place] Systolic (mm Hg) 2013-11-09 21:30:00 Fabrizio rial Estuardo Heart Rate 2013-11-09 21:30:00 Memorial Estuardo Temperature Oral (F) 2013-11-09 21:30:00 98.4 F [facility] [place] Diastolic (mm Hg) 2013-11-09 17:26:00 Mem orial [place] Systolic (mm Hg) 2013-11-09 17:26:00 Fabrizio rial [place] Heart Rate 2013-11-09 17:26:00 [facility] [place] Temperature Oral (F) 2013-11-09 17:26:00 97.3 F [facility] [place] Systolic (mm Hg) 2013-11-09 13:15:00 Fabrizio rial [place] Diastolic (mm Hg) 2013-11-09 13:15:00 Mem orial Estuardo Respitory Rate 2013-11-09 12:50:00 Memori al Estuardo Respitory Rate 2013-11-09 12:06:00 Memori al [place] Heart Rate 2013-11-08 22:15:00 Hernán Marte Weight 2013-11-08 04:39:00 Hernán Marte Height 2013-11-08 04:39:00 165.1 cm Hernán Marte BMI Calculated 2013-11-08 04:39:00 Bill Soto Procedures Procedure Date / Time Performed Performing Clinician [facility] e Cardiac conduit operation Bill Soto CAT scan of head Hernán hancock MRI - Magnetic resonance Jony Marte imaging Plan of Care Planned Activity Planned Date Details Comments Source Future Scheduled 2020-12-07 INFLUENZA VACCINE [place] [facility] Test 00:00:00 [code = INFLUENZA VACCINE] Future Scheduled 2020-05-[address] [facility] - Test 00:00:00 (12+) [code = Medical Center DEPRESSION SCREENING (12+)] Future Scheduled 2020-01-08 INFLUENZA VACCINE (#1) [facility]:00 [code = INFLUENZA Medical Ce nter VACCINE (#1)] Future Scheduled 2017-12-[address] [facility] [facility] - Test 00:00:00 WELLNESS (YEAR 2 or Medical Center FIRST YEAR if no IPPE) [code = MEDICARE ANNUAL WELLNESS (YEAR 2 or FIRST YEAR if no IPPE)] Future Scheduled 2016-12-22 PNEUMOCOCCAL 65+ YRS [facility] - Test 00:00:00 (1 of 1 - [facility] [id number]) [code = PNEUMOCOCCAL 65+ YRS (1 of 1 - [id number] PCV13)] Future Scheduled 2016-12-22 65+ PNEUMOCOCCAL [facility] Test 00:00:00 VACCINE (1 of 1 - PPSV23) [code = 65+ PNEUMOCOCCAL VACCINE (1 of 1 - PPSV23)] Future Scheduled 2001-12-22 BREAST CANCER [facility] Test 00:00:00 SCREENING [code = BREAST CANCER SCREENING] Future Scheduled 2001-12-22 COLONOSCOPY SCREENING [place] [facility] Test 00:00:00 [code = COLONOSCOPY SCREENING] Future Scheduled 2001-12-22 SHINGLES VACCINES (#1) [facility] Test 00:00:00 [code = SHINGLES VACCINES (#1)] Future Scheduled 1969-12-22 Hepatitis C screening [place] [facility] Test 00:00:00 (procedure) [code = 745071529] Future Scheduled 1966 COVID-19 VACCINE (1) [facility] Test 00:00:00 [code = COVID-19 VACCINE (1)] Future Scheduled [address] [facility] Test 00:00:00 [facility] breast (procedure) [code = 444467269] Future Scheduled [address] [facility] - Test 00:00:00 [facility] colon (procedure) [code = 512853708] Encounters Start End Encounter Admission Attending Care Care Encounter Source Date/Time Date/Time Type Type Clinicians Facility Department ID 2014-03-10 2014-03-11 Outpatient Carrie, [facility] [id number] 02:48:00 15:20:00 Afshin English 2013-11-22 2013-11-22 Outpatient Carolina, [facility] [id number] 18:13:00 23:59:00 Shubham Osullivan 2013-11-07 2013-11-09 Outpatient Manpreet [facility] [id number] 23:00:00 18:09:00 Shanel 67 Gracia Results Test Description Test Time Test Comments Results Result Comments Source POCT-GLUCOSE METER 2018-01-10 12:58:00 Test Item Value Reference Range Interpretation Comme [facility] POC-GLUCOSE METER (BEAKER) (test 150 mg/dL 70-110 H TESTED AT [facility] [address] [facility] = 1538) [facility]703 [facility] BASIC METABOLIC [id number] 10:59:00 Test Item Value Reference Range Interpretation Comments SODIUM (BEAKER) 138 meq/L 136-145 (test code = 381) POTASSIUM (BEAKER) 3.2 meq/L 3.5-5.1 L (test code = 379) CHLORIDE (BEAKER) 107 meq/L 98-107 (test code = 382) CO2 (BEAKER) (test 20 meq/L 22-29 L code = 355) BLOOD UREA NITROGEN 26 mg/dL 7-21 H (BEAKER) (test code = 354) CREATININE (BEAKER) 1.56 mg/dL 0.57-1.25 H (test code = 358) GLUCOSE RANDOM 142 mg/dL 70-105 H (BEAKER) (test code = 652) CALCIUM (BEAKER) 10.2 mg/dL 8.4-10.2 (test code = 697) EGFR (BEAKER) (test 33 mL/min/1.73 ESTIMA DORA GFR IS code = 1092) sq m NOT ACCURATE CREATININE CLEARANCE IN PREDICTING GLOMERULAR FILTRATION RATE . ESTIMATED GFR I S NOT APPLICABLE FOR DIALYSIS PATIEN TS. PROTHROMBIN TIME/[id number] 10:51:00 Test Item Value Reference Range Interpretation Comments PROTIME (BEAKER) (test code = 14.0 seconds 11.7-14.7 759) INR (BEAKER) (test code = 370) 1.1 <=5.9 RECOMMENDED COUMADIN/WARFARIN INR THERAPY RANGESSTANDARD DOSE: 2.0 - 3.0 Includes: PROPHYLAXIS forvenous thrombosis, systemic embolization; TREATMENT for venous thrombosis and/or pulmonary embolus.HIGH RISK: Target INR is 2.5-3.5 for patients with mechanical heart valves.CBC W/PLT COUNT & AUTO DIFFERENTIAL 2018-01-10 10:38:00 Test Item Value Reference Range Interpretation Comments WHITE BLOOD CELL COUNT (BEAKER) 10.4 K/ L 3.5-10.5 (test code = 775) RED BLOOD CELL COUNT (BEAKER) 4.39 M/ L 3.93-5.22 (test code = 761) HEMOGLOBIN (BEAKER) (test code = 13.1 GM/DL 11.2-15.7 410) HEMATOCRIT (BEAKER) (test code = 39.8 % 34.1-44.9 411) MEAN CORPUSCULAR VOLUME (BEAKER) 90.7 fL 79.4-94.8 (test code = 753) MEAN CORPUSCULAR HEMOGLOBIN 29.8 pg 25.6-32.2 (BEAKER) (test code = 751) MEAN CORPUSCULAR HEMOGLOBIN CONC 32.9 GM/DL 32.2-35.5 (BEAKER) (test code = 752) RED CELL DISTRIBUTION WIDTH 11.9 % 11.7-14.4 (BEAKER) (test code = 412) PLATELET COUNT (BEAKER) (test 257 K/CU MM 150-450 code = 756) MEAN PLATELET VOLUME (BEAKER) 10.5 fL 9.4-12.3 (test code = 754) NUCLEATED RED BLOOD CELLS 0 /100 WBC 0-0 (BEAKER) (test code = 413) NEUTROPHILS RELATIVE PERCENT 67 % (BEAKER) (test code = 429) LYMPHOCYTES RELATIVE PERCENT 21 % (BEAKER) (test code = 430) MONOCYTES RELATIVE PERCENT 9 % (BEAKER) (test code = 431) EOSINOPHILS RELATIVE PERCENT 2 % (BEAKER) (test code = 432) BASOPHILS RELATIVE PERCENT 1 % (BEAKER) (test code = 437) NEUTROPHILS ABSOLUTE COUNT 6.97 K/ L 1.56-6.13 H (BEAKER) (test code = 670) LYMPHOCYTES ABSOLUTE COUNT 2.15 K/ L 1.18-3.74 (BEAKER) (test code = 414) MONOCYTES ABSOLUTE COUNT (BEAKER) 0.95 K/ L 0.24-0.36 H (test code = 415) EOSINOPHILS ABSOLUTE COUNT 0.22 K/ L 0.04-0.36 (BEAKER) (test code = 416) BASOPHILS ABSOLUTE COUNT (BEAKER) 0.08 K/ L 0.01-0.08 (test code = 417) IMMATURE GRANULOCYTES-RELATIVE 0 % 0-1 PERCENT (BEAKER) (test code = 2801) CHEM [id number] 07:10:90104Jnnlotlo HermannCHEM [id number] 07:10:03481 [facility] HermannCHEM [id number] 07:10:0018[facility] HermannHEMATOLOGY 2014-03-11 07:10:002.4[facility] [id number] 07:10:003.2[facility] [id number] 07:10:005.6[facility] [id number] 07:10:000.7[facility] ZtnvwggVEGIIBFLPS8549-11-03 07:10:000.2[facility] [place] [id number] 07:10:001.0[facility] XmtnlrsEZWXFHZOLV7765-70-67 07:10:009.9 Memorial [id number] 07:10:000.1[facility] HermannHEMATOLOGY 2014-03-11 07:10:0055.1[facility] MtsvbuwPGDDYNSZRL7759-69-58 07:10:0031.9[facility] RxreameWTUYKXDUWM4050-24-08 07:10:009.6[facility] SfbdbsbXEGSXPRFJY1187-49-62 07:10:00 Test Item Value Reference Range Interpretation Comments MCH (test code = MCH) 31.4 pg 27.0-31.0 [facility] GalbjxcVLWVHMJNGI3895-29-60 07:10:49584Oacocdri HermannHEMATOLOGY 2014-03-11 07:10:0012.9[facility] TalifooWOKBHGTEBK2092-19-27 07:10:0034.4[facility] DssclohZYXXAPYRTX2180-35-11 07:10:003.97[facility] WruuwmhFNRJFGUUXU1652-20-49 07:10:0010.1[facility] JpmibgfVQVZRKLLGC9976-72-73 07:10:0091.4[facility] ZPGEJRKHCP2320-09-72 07:10:0036.3[facility] XtjmcjuCXQHUBLSXG5800-35-29 07:10:00 12.5[facility] HermannPARATHYROID ESDMPSN5261-70-02 07:10:001.16[facility] PARATHYROID ZNPYUWV3317-76-55 07:10:001.19[facility] HermannCHEM OZHGA3433-22-11 07:10:004.2[facility]annCHEM NAKFR2504-30-02 07:10:001.8[facility]annCHEM OGODX3186-15-97 07:10:0079[facility]annCHE[facility] BKIYL1068-82-64 07:10:0026 [facility]CHE[facility] MSTWG6330-23-73 07:10:0012.3[facility]annCHEM PANEL 2014-03-11 07:10:009.0[facility]annCHE[facility] DQMXO7810-05-52 07:10:000.8[facility]annCHEM BOCTB8661-77-43 07:10:64007Cayoxaul HermannCHEM LSTTO3760-13-24 07:10:004.3[facility] HermannDRUG NCWDYS4678-78-71 09:51:00See Note 5*NA*(03/10/14 3:51 AM)[facility] QSVASL0250-13-59 09:51:00Negative *NA*(03/10/14 3:51 AM)[facility] DVIUCR8730-62-29 09:51:00Negative *NA*(03/10/14 3:51 AM) [facility] WZMYXQ9164-32-09 09:51:00Negative *NA*(03/10/14 3:51 AM) [facility] BAPOBK3319-23-83 09:51:00Negative *NA*(03/10/14 3:51 AM) [facility] MTILIQ4343-07-73 09:51:00Negative *NA*(03/10/14 3:51 AM) [facility] FPUQUZ7690-58-21 09:51:00Negative *NA*(03/10/14 3:51 AM) [facility] DNJNRA7015-66-04 09:51:00Negative *NA*(03/10/14 3:51 AM) [facility] YztgbqaMJISDKJVMXLY7722-81-71 09:51:0011.3[facility] HermannELECTROLYTES 2014-03-10 09:51:001.5[facility] EmmexpqQHGLAROYFGJP7241-51-02 09:51:0021[facility] HbmfrtcHXQOSRZMBNQQ2458-60-79 09:51:002.5[facility] WldotizJGUFFDBWFXXN7152-38-14 09:51:0079[facility] TbjafodPYNCGBZYWLFM2090-59-10 09:51:0017[facility] HMEQEIBNKWGG7279-82-68 09:51:0031[facility] LynpnlqSZYSRGUREXMC1817-39-81 09:51:00 0.3[facility] MiqmjecXZKHVILZJBEN0345-49-58 09:51:0063[facility] HermannELECTROLYTES 2014-03-10 09:51:008.7[facility] IldcdxzAIEJHXKULZZX1608-79-62 09:51:006.2[facility] ZhzfbcwRJKMEICKQWGV3859-65-27 09:51:003.7[facility] JtknfspYZUDNAAJHGJI5450-22-99 09:51:28588Jpkyhqfs QqlcibmUANLOSRYLJHY2823-11-21 09:51:000.8[facility] HAVTSBXXXTOF8396-54-15 09:51:0017[facility] LxtejgnPFONLJBHWPUH4629-57-71 09:51:00 118[facility] JlzmkkmSRFFACTVOTPM2867-30-69 09:51:003.3[facility] MOYVRJZRRXCQ7139-93-26 09:51:0026[facility] GddqydkNHCMKYFAUHIM3609-06-74 09:51:00 109[facility] JpjojzdINPOVOPWLR1686-09-21 09:51:00 Test Item Value Reference Range Interpretation Comments PT (test code = PT) 13.3 s 12.0-14.7 [facility] EuqzpzhDIORJPMIXH0408-48-46 09:51:001.01[facility] HermannHEMATOLOGY 2014-03-10 09:51:00 Test Item Value Reference Range Interpretation Comments PTT (test code = PTT) 29.4 s 22.9-35.8 [facility] RmsotlbPVBIVC7800-56-64 09:51:002.72[facility] FrkxhcaBVKQSQ0743-74-69 09:51:0062[facility] BnevdxgEEZTUI0492-26-50 09:51:0017[facility] HermannLIPIDS 2014-03-10 09:51:0046[facility] LstkbnnGPOVKK4597-83-65 09:51:71731Edngjmzg FrmkyueKZNUSO0003-17-81 09:51:0083[facility]annSPECIAL INOFCVLCG5947-75-88 09:51:006.6[facility]annURINE AND WLTTZ1385-95-94 09:51:00Negative *NA*(03/10/14 3:51 AM)[facility] BJSCV2376-44-83 09:51:00Negative (03/10/14 3:51 AM)[facility] WJQUJ2796-39-77 09:51:00Negative (03/10/14 3:51 AM)[facility] HNUUQ0995-58-01 09:51:00Negative (03/10/14 3:51 AM)[facility] IHIEZ7184-32-45 09:51:001.007[facility] AND FTFRS4499-43-99 09:51:00Clear (03/10/14 3:51 AM)[facility] URINE AND HPIDB9688-11-30 09:51:006.5[facility] AND JENIR0390-57-36 09:51:00Yellow *NA*(03/10/14 3:51 AM)[facility] DiymlyvWNNRVSYDOADF0461-10-74 08:00:003.6[facility] NzxjdqzUPGHEXJCEBQG4825-66-52 08:00:83886[facility] YJFSMIIFZPYI6205-74-28 08:00:000.9[facility] EnhekstBTJLGECMZTUO5388-75-57 08:00:0017[facility] FqssjbaTMEWQKLXOVKW0503-46-04 08:00:94844[facility]jqk [facility] TOHUIYKBITLM2988-16-60 08:00:0022[facility] UekkqhbFYAIQTSMRGUK5611-10-82 08:00:00 108[facility] FwkehwkQCKWBINICKVQ1395-32-08 08:00:008.5[facility] FHAYUXLQDSPR7260-44-16 08:00:0069[facility] TsttwdtMAEWSQOOISGE3457-25-38 08:00:00 16.6[facility] TqmpcfdNEHJEYFPZE3314-11-97 08:00:000.9[facility] HermannHEMATOLOGY 2013-11-09 08:00:000.1[facility] PuvkmwjRLDXEXHGEO7203-68-58 08:00:002.4[facility] ZxqgfjiXAREFNJGHI5967-25-44 08:00:000.5[facility] RmeqxofVMEZNGFDYD8111-51-31 08:00:005.5[facility] SvlvzkgTKRHOMNRGS6919-55-66 08:00:001.1[facility] ZRQRFDDQQS0620-12-82 08:00:009.9[facility] KgsbxhcDEYOZVBQIP3951-11-66 08:00:00 26.5[facility] HgalavzIRZVQFUXBY2290-26-50 08:00:0062.0[facility]annHEMATOLOGY 2013-11-09 08:00:41791Jtnabcgu QwodtdqNRLTKFXGJF8729-96-39 08:00:009.0[facility] CpkisyrOEBBCLJXXL6898-96-93 08:00:0089.9[facility] GhvoebgPVGNSUBHZO1939-69-13 08:00:0032.9[facility] TlcdjihKXDTKXKPYT8168-58-31 08:00:0012.7[facility] KZFENAVMQV0252-34-02 08:00:0033.6[facility] RxfxqnkMNBTFUCWTH8897-82-06 08:00:00 Test Item Value Reference Range Interpretation Comments MCH (test code = MCH) 30.2 pg 27.0-31.0 [facility] AilarqqVBOBJFFGTC8639-09-96 08:00:008.9[facility]annHEMATOLOGY 2013-11-09 08:00:0011.1[facility] JrwfrssEWSYORUFDB4425-94-76 08:00:003.66[facility] HermannBACTERIAL - SGPWHXOU8721-51-67 01:05:50Negative (11/08/13 8:05 PM)[facility] YcdytjgAWYLHJXAEX9724-79-09 01:05:1939[facility] HermannVIRAL - UXMXUGHF5838-48-16 01:00:05Negative 7(11/08/13 8:00 PM)[facility] HermannVIRAL - PCTCCEIT1088-80-67 01:00:05Negative (11/08/13 8:00 PM)[facility] HermannANEMIA UXUWL2529-57-58 17:15:00 381[facility] DblhngsYNWLDOMCUW3959-91-36 17:15:0012.9[facility]annHEMATOLOGY 2013-11-08 17:15:005[facility] XrtarirQBCRUAMDNH5677-00-41 17:15:000.80[facility] IxmzkbaBDKIIYLPYB5962-29-96 17:15:00Negative (11/08/13 12:15 PM)[facility] HHRDPMZHYH7601-20-46 17:15:52601Ovsmjkdb CgqyhwnJUHEVRGQFX4937-17-74 17:15:39313 [facility] SlhsiqbDSGKJJMVWF3594-55-22 17:15:0095[facility]annHEMATOLOGY 2013-11-08 17:15:82105Utkbijdy CyigjvkVHYAKXNZWJ4451-74-32 17:15:001:80 *ABN*(11/08/13 12:15 PM)[facility] SldtdyyALOVBNWNYW6586-49-92 17:15:00<1.4 [facility] LtlknkvICWYUDBECX8556-17-81 17:15:0011.3[facility] HermannIMMUNOLOGY 2013-11-08 17:15:000.8[facility] IwjwdarXZNUSVGTIY2215-75-06 17:15:0012.6[facility] DagfzoiZONPUEGVCM1087-10-82 17:15:00Negative *NA*(11/08/13 12:15 PM)[facility] GdcuqotFKIHIOVGUU9830-62-24 17:15:0011.8[facility] PhusosjTMZDWHMLAY7678-61-94 17:15:00<1.6[facility] RmekghsFVXHAGWIGO1121-43-51 17:15:001.2[facility] DADHFSQRSL0885-33-30 17:15:0025[facility] VbmihtjLQOVVRQKWE3688-44-70 17:15:28263 [facility] ZlpwargGBPGFGOIEQ5118-00-56 17:15:00<2.9[facility] HermannIMMUNOLOGY 2013-11-08 17:15:00<0.2[facility] EapxzutJMEVJLXEFA1177-95-72 17:15:00<0.2 [facility] CzqautgAZPHZKTBQF9456-42-85 17:15:00Negative (11/08/13 12:15 PM)[facility] XgwhbcwXYYVOLWAOH6848-35-58 17:15:00Negative (11/08/13 12:15 PM)[facility] XSASYBCVPN0456-18-16 17:15:00Positive *ABN*(11/08/13 12:15 PM)[facility] IVAWEVCDXI6701-75-56 17:15:00Negative (11/08/13 12:15 PM)[facility] KGGBKQINND1750-19-99 17:15:00Non Reactive *NA*(11/08/13 12:15 PM)[facility] PAGXLMKBDY1009-09-64 05:35:34 Test Item Value Reference Range Interpretation Comments PTT (test code = PTT) 24.7 s 22.9-35.8 [facility] YizxeoxNGCGJTOPGL7531-08-32 05:35:341.03[facility] HermannHEMATOLOGY 2013-11-08 05:35:34 Test Item Value Reference Range Interpretation Comments PT (test code = PT) 13.4 s 12.0-14.7 [facility]annCHEM GROTE5024-80-16 05:35:0094[facility] HermannCHEM PANEL 2013-11-08 05:35:62870Drulenuf HermannCHEM YGCEX4818-73-30 05:35:80578Cbjgqgsw HermannCHEM HMJXU9652-36-83 05:35:000.7[facility] HermannCHEM LPFYP2205-34-68 05:35:0023[facility]annCHEM HKJMB5354-15-24 05:35:0023[facility]annCHEM XVCLY1138-95-51 05:35:000.4[facility]annCHEM MUZCO6009-94-92 05:35:0049 [facility]annCHEM QJDPO6818-27-11 05:35:003.6[facility] HermannCHEM PANEL 2013-11-08 05:35:004.1[facility]annCHEM OCRYT7347-99-04 05:35:007.0[facility]annCHEM HYOUE0329-21-88 05:35:0020[facility]annCHEM XJOAE4353-34-70 05:35:18670Pzutqony HermannCHEM CXYOP7393-90-78 05:35:0028[facility]annCHEM EPPCY9990-67-11 05:35:008.8[facility] HermannCHEM IVDMR8729-09-56 05:35:0033 [facility]annCHEM OSTDV8770-86-50 05:35:001.4[facility] HermannCHEM PANEL 2013-11-08 05:35:002.9[facility] HermannCHEM HVLUJ4443-81-25 05:35:0012.6[facility] KuggizaPYAPCBVCJD3158-74-67 05:35:0090.1[facility] DnnbhlbZNMEBQXHCI9705-73-39 05:35:00 Test Item Value Reference Range Interpretation Comments MCH (test code = MCH) 29.6 pg 27.0-31.0 [facility] KmuipoeSYNUQHSRCX0835-00-91 05:35:82446Owxyplpx HermannHEMATOLOGY 2013-11-08 05:35:0024.4[facility] FqleigrVFFGIBFSLZ1877-66-90 05:35:0012.5[facility] VbdntobNRUXYPGLMF6069-35-84 05:35:009.7[facility] TkvirjeAYWBXRPDTZ1728-19-30 05:35:0032.9[facility] HeyehbbILMEENZWPH3771-49-31 05:35:0036.6[facility] QTIBWTTZGW5641-13-20 05:35:0012.0[facility] QqhmqqtPDJUOOIPXD0178-06-77 05:35:00 4.07[facility] GknmitrHXFWIBSKJC1575-78-28 05:35:0022.0[facility] HermannHEMATOLOGY 2013-11-08 05:35:000.7[facility] VejtwueCMABVVELAU7078-35-95 05:35:000.0[facility] KzqdiwiILRLBVQNLE3374-07-68 05:35:001.7[facility] WjfryklDBNDMBDDUF6386-26-05 05:35:003.0[facility] HgfdhzuORKZBNDWJP9285-24-16 05:35:0090.0[facility] GDMBFQUHVP5502-97-30 05:35:000.0[facility] SzrgzxnEIWONFZSIS3931-12-69 05:35:00 Normal (11/08/13 12:35 AM)[facility] MeprdnkIJSFZHQXUG4401-94-76 05:35:007.0[facility] BceahreTLYRYOHKOI1320-57-59 05:35:001+ *ABN*(11/08/13 12:35 AM)[facility] MWCNSVOYNS0243-18-47 05:35:00Slight *ABN*(11/08/13 12:35 AM)[facility] HermannLIPIDS 2013-11-08 05:35:0014[facility] RmglgcgERBATJ3874-60-42 05:35:0077[facility] SESFTP9542-84-90 05:35:0046[facility] IsnkrqePEZZJD5179-88-51 05:35:67826Xinlxnxr SfvptluGSZPCH9827-20-85 05:35:0068[facility] ZvgeevlXXYJWC6150-19-19 05:35:002.98 [facility]annSPECIAL FPRAYXMHB0819-99-84 05:35:006.2[facility]annURINE AND KSRKX9079-43-60 05:35:002[facility]annURINE AND HYPOP1909-80-74 05:35:00 Negative (11/08/13 12:35 AM)[facility]URINE AND QIGTT5489-47-65 05:35:00 Negative (11/08/13 12:35 AM)[facility]UR[facility] AND TCCAC1628-85-67 05:35:00 Negative (11/08/13 12:35 AM)[facility]UR[facility] AND EVBKH1595-76-90 05:35:00 1.018[facility]annURINE AND ABDNC6048-22-59 05:35:005.5[facility]annUR[facility] AND ZHQVW0495-52-16 05:35:00Negative *NA*(11/08/13 12:35 AM)[facility]annUR[facility] AND CRKYF4603-76-34 05:35:00Yellow *NA*(11/08/13 12:35 AM)[facility]annURINE AND BHBOF8150-07-49 05:35:00Clear (11/08/13 12:35 AM)[facility]
[2020-08-20] MEDS ORDERED: ALTEPLASE 100 ML IV ONE (17:45)
[2020-08-20] MEDS ORDERED: ONDANSETRON 4 MG/2 ML VIAL ONE (17:53)
[2020-08-20 17:54] LABS: Absolute Lymphocytes (CBC) 2.4 K/uL (0.7-4.9); Basophils % 0.9 % (0-1.3); MPV 9.1 fL (7.6-11.3); RBC Red Blood Cell Count 4.59 M/uL (3.86-4.86)
--- NOTE | 2020-08-20 17:54 | RAD REPORT ---
EXAM DESCRIPTION: CT - Ct Stroke Brain Wo Cont - 08/20/2020 5:40 pm CLINICAL HISTORY: Visual disturbance COMPARISON: 2018 TECHNIQUE: Computed axial tomography of the head was obtained. All CT scans are performed using dose optimization technique as appropriate and may include automated exposure control or mA/KV adjustment according to patient size. FINDINGS: An intracranial bleed is not seen . The ventricles are normal in caliber. No extra-axial fluid collection is noted. 8 millimeter low-density left thalamus compatible with an old lacunar infarction. 14 millimeter mass abuts the anterior falx within the right frontal region. It is partially calcified and is compatible with a meningioma. No surrounding edema. It is without significant change from anna or exam. A parasellar mass measures approximately 10 millimeters and is without obvious change from the prior exam. Fluid within the sinuses/ mastoids is not seen. IMPRESSION: No acute intracranial abnormality seen. 14 millimeter meningioma along the frontal convexity abutting the anterior falx without change. No redd rrounding edema Parasellar mass without obvious change may represent a meningioma or pituitary adenoma. Nonemergent M RI pituitary gland is recommended. Dr Coates of the emergency room was notified at 5:35 p.m. August 20, 2020
[2020-08-20 17:56] LABS: Protime INR 0.97
[2020-08-20 18:16] LABS: ALT/SGPT 24 U/L (12-78); AST/SGOT 16 U/L (15-37); Albumin 4.7 g/dL (3.4-5.0); Alkaline Phosphatase 69 U/L (45-117); BUN Blood Urea Nitrogen 24 mg/dL (7-18); Bicarbonate 22 mmol/L (21-32); Bilirubin Direct 0.1 mg/dL (0-0.2); Bilirubin Total 0.6 mg/dL (0.2-1.0); Glucose Level 133 mg/dL (74-106); Magnesium 2.4 mg/dL (1.8-2.4); NT PRO-BNP 71 pg/mL (<125); Potassium 3.3 mmol/L (3.5-5.1); Protein, Total 8.3 g/dL (6.4-8.2); Sodium Level 140 mmol/L (136-145); Troponin (Emerg Dept Use Only) < 0.02 ng/mL (0.0-0.045)
--- NOTE | 2020-08-20 18:21 | RAD REPORT ---
EXAM DESCRIPTION: [facility] Single View08/20/2020 6:04 pm CLINICAL HISTORY: Dizziness COMPARISON: 2019 FINDINGS: The lungs appear clear of acute infiltrate. The heart is normal size. Cardiac monitors ov erlie the chest IMPRESSION: No acute abnormalities displayed
[2020-08-20] MEDS ORDERED: NA CHLORIDE 0.9% 500 ML ONE (18:38)
[2020-08-20] MEDS ORDERED: MECLIZINE HCL 12.5 MG TAB ONE (18:38)
[2020-08-20] MEDS ORDERED: PROMETHAZINE INJ 25 MG/ML AMP ONE (18:43)
--- NOTE | 2020-08-20 19:08 | EDPHYS ---
Physician Documentation [facility] Name: Joana Zarate Age: 69 yrs Sex: Female : 1950 Arrival Date: 08/20/2020 Time: 17:18 Bed 7 Private MD: ED Physician Robbie Coates HPI: 08/20 17:39 This 69 yrs old Female presents to ER via Unassigned with complaints of S/S cp of Possible Stroke. 17:39 The patient's problem is reported as visual difficulty, left eye blurry vision. Onset: cp The symptoms/episode began/occurred today, at 13:30. Duration: The episode is continuous. Associated signs and symptoms: Pertinent positives: dizziness, nausea, vomiting, Pertinent negatives: abdominal pain, chest pain, confusion, headache, weakness. Severity of symptoms: in the emergency department the symptoms are unchanged. Patient's baseline: Neuro: alert and fully oriented, Motor: no deficits, Ambulation: walks without assistance, Speech: normal, The patient has a previous history of CVA. Historical: - Allergies: 18:40 PENICILLINS; ld1 - PMHx: 18:40 Hypertension; micro pacemaker; stroke x2; ld1 - Immunization history:: Adult Immunizations up to date, Client reports receiving the 2nd dose of the Covid vaccine, Date received: July 16, 2020 Client reports receiving the 1st dose of the Covid vaccine, June 25, 2020. - Social history:: Smoking status: Patient denies any tobacco usage or history of. Patient/guardian denies using alcohol, street drugs. ROS: 17:40 Constitutional: Negative for body aches, chills, fever, poor PO intake. cp 17:40 Cardiovascular: Negative for chest pain, palpitations. 17:40 Respiratory: Negative for cough, shortness of breath, wheezing. 17:40 Abdomen/GI: Positive for nausea and vomiting, Negative for abdominal pain, diarrhea, constipation. 17:40 Neuro: Positive for dizziness, visual changes, Negative for altered mental status, headache, numbness, weakness. 17:40 All other systems are negative. Exam: 17:45 Constitutional: The patient appears in no acute distress, alert, awake, cp non-diaphoretic, non-toxic, well developed, well nourished, uncomfortable. 17:45 Head/Face: Normocephalic, atraumatic. cp 17:45 Eyes: Periorbital structures: appear normal, Pupils: equal, round, and reactive to light and accomodation, Extraocular movements: gaze deviation towards the lateral on left eye, Conjunctiva: normal, no exudate, no injection, Sclera: no appreciated abnormality, Lids and lashes: appear normal, bilaterally. 17:45 ENT: External ear(s): are unremarkable, Nose: is normal, Mouth: Lips: moist, Oral mucosa: pink and intact, moist, Posterior pharynx: Airway: no evidence of obstruction, patent. 17:45 Neck: ROM/movement: is normal, is supple, without pain, no range of motions limitations. 17:45 Chest/axilla: Inspection: normal, Palpation: is normal, no crepitus, no tenderness. 17:45 Cardiovascular: Rate: normal, Rhythm: regular, Edema: is not appreciated, JVD: is not appreciated. 17:45 Respiratory: the patient does not display signs of respiratory distress, Respirations: normal, no use of accessory muscles, no retractions, labored breathing, is not present, Breath sounds: are clear throughout, no decreased breath sounds, no stridor, no wheezing. 17:45 Abdomen/GI: Inspection: abdomen appears normal, Palpation: abdomen is soft and non-tender, in all quadrants. 17:45 Skin: no rash present. 17:45 Neuro: Orientation: to person, place \T\ time. Mentation: is normal, Cerebellar function: Romberg testing is negative, dysmetria is noted on the left, heel to hong testing is normal, Motor: moves all fours, strength is normal, Sensation: is normal. 17:47 Radiologist reports: no findings to indicate intracranial hemorrhage cp 17:50 ECG was reviewed by the Attending Physician. cp Vital Signs: 17:45 Weight 72.57 kg (M); sv 17:53 BP 135 / 70; Pulse 81; Resp 20; Pulse Ox 97% on R/A; Weight 72.57 kg (M); Height 5 ft. ld1 4 in. (162.56 cm); Pain 0/10; 21:01 BP 114 / 63; Pulse 77; Resp 18; Pulse Ox 99% on R/A; mg2 17:53 Body Mass Index 27.46 (72.57 kg, 162.56 cm) ld1 NIH Stroke Scale Scores: 17:45 NIHSS Score: 2 cp 17:52 NIHSS Score: 3 sv MDM: 17:28 Patient medically screened. cp 17:45 Differential diagnosis: CVA, TIA, metabolic disorder, drug effects. cp 17:54 Physician consultation: Krish Blanco MD was called at 17:53, was contacted at 17:53, cp regarding patient's condition, would like medications started, TPA, can admit and get MRI in morning. 18:37 Data reviewed: vital signs, nurses notes, lab test result(s), EKG, radiologic studies, cp CT scan, plain films, I have discussed the patient's presentation/case with the attending Emergency Department Physician; and as a result, I will admit patient. Physician consultation: Katalina Lentz MD was called at 18:36, left message on voicemail. 19:05 Physician consultation: Katalina Lentz MD was called at 19:05, left message on voicemail. cp 19:56 Physician consultation: Krish Blanco MD was called at 19:56, was contacted at 19:56, cp regarding admission, to the ICU. 08/20 17:23 Order name: Basic Metabolic Panel; Complete Time: 18:20 cp 08/20 18:20 Interpretation: Normal except: K 3.3; CL 108; GLUC 133; BUN 24; GFR 43. cp 08/20 17:23 Order name: CBC with Diff; Complete Time: 18:20 cp 08/20 18:20 Interpretation: Normal except: WBC 13.40. cp 08/20 17:23 Order name: LFT's; Complete Time: 18:20 cp 08/20 17:23 Order name: Magnesium; Complete Time: 18:20 cp 08/20 17:23 Order name: NT PRO-BNP; Complete Time: 18:20 cp 08/20 17:23 Order name: PT-INR; Complete Time: 18:20 cp 08/20 17:23 Order name: Troponin (emerg Dept Use Only); Complete Time: 18:20 cp 08/20 17:45 Order name: Glucose, Ancillary Testing; Complete Time: 18:20 EDMS 08/20 20:31 Order name: SARS-COV-2 RT PCR; Complete Time: 21:29 EDMS 08/20 23:36 Order name: Glucose, Ancillary Testing EDMS 08/21 05:44 Order name: Creatine Phosphokinase EDHI 08/21 05:44 Order name: CKMB Creatine Kinase MB EDHI 08/21 05:44 Order name: Troponin I EDHI 08/20 17:23 Order name: XRAY Chest (1 view); Complete Time: 21:29 cp 08/20 17:33 Order name: CT Stroke Brain w/o Contrast; Complete Time: 18:17 cp 08/20 18:25 Order name: CT Head Angio; Complete Time: 21:29 cp 08/20 18:25 Order name: CT Neck Angio; Complete Time: 21:29 cp 08/20 20:41 Order name: Echo with Doppler EDMS 08/20 20:41 Order name: Stroke Protocol EDHI 08/20 20:41 Order name: Carotid Artery Bilateral EDHI 08/21 05:44 Order name: Lipid Profile EDHI 08/21 07:34 Order name: Glucose, Ancillary Testing EDHI 08/21 08:34 Order name: US EDHI 08/21 08:58 Order name: Hemoglobin A1c EDHI 08/21 11:57 Order name: Glucose, Ancillary Testing EDHI 08/21 17:09 Order name: Glucose, Ancillary Testing EDHI 08/20 17:23 Order name: EKG; Complete Time: 17:24 cp 08/20 17:23 Order name: Cardiac monitoring; Complete Time: 17:43 cp 08/20 17:23 Order name: EKG - Nurse/Tech; Complete Time: 17:43 cp 08/20 17:23 Order name: IV Saline Lock; Complete Time: 17:43 cp 08/20 17:23 Order name: Labs collected and sent; Complete Time: 17:43 cp 08/20 17:23 Order name: O2 Per Protocol; Complete Time: 17:43 cp 08/20 17:23 Order name: O2 Sat Monitoring; Complete Time: 17:43 cp 08/20 20:34 Order name: CONS Physician Consult EDHI 08/20 20:41 Order name: Regular EDHI 08/21 10:18 Order name: Diet Ada 1800 Asif; Complete Time: 10:18 ld1 EC:50 Rate is 94 beats/min. Rhythm is regular. CA interval is normal. QRS interval is normal. cp QT interval is normal. Interpreted by me. Reviewed by me. Administered Medications: 17:35 Drug: Zofran (Ondansetron) 4 mg Route: IVP; Site: right antecubital; ld1 19:00 Follow up: Response: No adverse reaction ld1 17:45 Drug: Phenergan 12.5 mg Route: IVP; Site: right antecubital; ld1 18:20 Follow up: Response: Nausea is decreased ld1 17:52 Drug: Alteplase (Bolus for Stroke) - Activase 0.09 mg/kg {Co-Signature: narciso (Alejandra Ernandez RN).} Route: IV Thrombolytics; Infused Over: 1 mins; 23:35 Follow up: Response: No adverse reaction 17:53 Drug: Alteplase {Co-Signature: narciso (Alejandra Ernandez RN).} Route: IV Thrombolytics; Rate: ld1 calculated rate; 23:34 Follow up: Response: No adverse reaction 23:34 Follow up: Response: No adverse reaction 18:32 Drug: Meclizine 25 mg Route: PO; ld1 19:00 Follow up: Response: No adverse reaction ld1 18:32 Drug: NS 0.9% 500 ml Route: IV; Rate: bolus; Site: right antecubital; ld1 23:35 Follow up: Response: No adverse reaction; IV Status: Completed infusion 19:48 Drug: foLIC Acid 1 mg Route: IVPB; Site: left antecubital; mg2 23:34 Follow up: Response: No adverse reaction; IV Status: Completed infusion 19:49 Drug: Potassium Effervescent Tablet 50 mEq Route: PO; mg2 23:34 Follow up: Response: No adverse reaction Point of Care Testing: Blood Glucose: 17:31 Blood Glucose: 123 mg/dL; sv Ranges: Critical Glucose Levels:Adult <50 mg/dl or >400 mg/dl <40 mg/dl or >180 mg/dl Disposition: 19:10 Chart complete. cp 08/22 06:48 Co-signature as Attending Physician, Robbie Coates MD I agree with the assessment and kdr plan of care. Disposition: 08/20/20 19:07 Hospitalization ordered by Katalina Lentz for Inpatient Admission. Preliminary diagnosis are Nausea and vomiting, Visual disturbances - left eye, Dizziness and giddiness. - Bed requested for [facility] ER HOLD. - Status is Inpatient Admission. hb - Condition is Stable. - Problem is new. - Symptoms have improved. NIH Stroke Scale - NIH Stroke Score Date: 08/20/2020 Time: 17:45 Total Score = 2 1a. Level of Consciousness (LOC) - 0(Alert) 1b. Level of Consciousness (LOC) (Year \T\ Age) - 0(Both) 1c. LOC Commands (Open \T\ Closes Eyes/Gsa Coordinator) - 0(Both) 2. Best Gaze (Lateral Gaze Paresis) - 1(Partial gaze palsy) 3. Visual Field Loss - 0(No visual loss) 4. Facial Palsy - 0(Normal) 5a. Left Arm: Motor (10-second hold) - 0(No drift) 5b. Right Arm: Motor (10-second hold) - 0(No drift) 6a. Left Leg: Motor (5-second hold - always test supine) - 0(No drift) 6b. Right Leg: Motor (5-second hold - always test supine) - 0(No drift) 7. Limb Ataxia (finger/nose \T\ heel/hong - test with eyes open) - 1(Present in one limb) 8. Sensory Loss (pinprick arms/legs/face) - 0(Normal) 9. Best Language: Aphasia (description/naming/reading) - 0(No aphasia) 10. Dysarthria (speech clarity - read or repeat words) - 0(Normal) 11. Extinction and Inattention (visual/tactile/auditory/spatial/personal) - 0(No abnormality) Initials: cp NIH Stroke Scale - NIH Stroke Score Date: 08/20/2020 Time: 17:52 Total Score = 3 1a. Level of Consciousness (LOC) - 0(Alert) 1b. Level of Consciousness (LOC) (Year \T\ Age) - 0(Both) 1c. LOC Commands (Open \T\ Closes Eyes/Gsa Coordinator) - 0(Both) 2. Best Gaze (Lateral Gaze Paresis) - 1(Partial gaze palsy) 3. Visual Field Loss - 1(Partial hemianopia) 4. Facial Palsy - 0(Normal) 5a. Left Arm: Motor (10-second hold) - 0(No drift) 5b. Right Arm: Motor (10-second hold) - 0(No drift) 6a. Left Leg: Motor (5-second hold - always test supine) - 0(No drift) 6b. Right Leg: Motor (5-second hold - always test supine) - 0(No drift) 7. Limb Ataxia (finger/nose \T\ heel/hong - test with eyes open) - 1(Present in one limb) 8. Sensory Loss (pinprick arms/legs/face) - 0(Normal) 9. Best Language: Aphasia (description/naming/reading) - 0(No aphasia) 10. Dysarthria (speech clarity - read or repeat words) - 0(Normal) 11. Extinction and Inattention (visual/tactile/auditory/spatial/personal) - 0(No abnormality) Initials: sv Signatures: Dispatcher [employer] [facility] Robbie Coates MD MD kdr Obdulio Palmer, DIESEL MACHINIST-C DIESEL MACHINIST-Cla1 Genaro Vasquez PA PA cp Yolanda Posadas, RN RN Juanito Smith 2 Pawel Carlson RN RN [facility] Dana Naqvi RN RN ld1 Jana Connelly RN Alejandra Ernandez RN sv Corrections: (The following items were deleted from the chart) 08/20 18:24 18:15 Head Angio+CT.RAD.BRZ ordered. [facility] EDHI 18:24 18:15 Neck Angio+CT.RAD.BRZ ordered. [facility] EDHI 18:48 18:20 MR STROKE PROTOCOL+MRI.RAD.BRZ ordered. [facility] 19:12 19:07 Hospitalization Ordered by A Tor [place] for Inpatient Admission. Preliminary cp diagnosis is Cerebral infarction. Bed requested for Intensive Care Unit. Status is Inpatient Admission. Condition is Stable. Problem is new. Symptoms have improved. cp 19:50 17:43 CORONAVIRUS+MR.LAB.BRZ ordered. [facility] EDHI 21:25 19:12 08/20/2020 19:07 Hospitalization Ordered by A Tor [place] for Inpatient [facility] Admission. Preliminary diagnosis is Nausea and vomiting; Visual disturbances - left eye; Dizziness and giddiness. Bed requested for Intensive Care Unit. Status is Inpatient Admission. Condition is Stable. Problem is new. Symptoms have improved. cp 08/21 17:09 08/20 21:25 08/20/2020 19:07 Hospitalization Ordered by A Tor [place] for Inpatient Admission. Preliminary diagnosis is Nausea and vomiting; Visual disturbances - left eye; Dizziness and giddiness. Bed requested for [facility] ER HOLD. Status is Inpatient Admission. Condition is Stable. Problem is new. Symptoms have improved. mw2
--- NOTE | 2020-08-20 19:08 | ER ---
Nurse's Notes [facility] Name: Joana Zarate Age: 69 yrs Sex: Female : 1950 Arrival Date: 08/20/2020 Time: 17:18 Bed 7 Private MD: Diagnosis: Nausea and vomiting;Visual disturbances-left eye;Dizziness and giddiness Presentation: 08/20 17:25 Chief complaint: EMS states: EMS toned out for vision loss and N/V. Patient stated she ld1 had a stroke 5 years ago and received TPA for previous stroke. 17:25 Coronavirus screen: Client denies travel out of the [place] in the last 14 days. At this ld1 time, the client does not indicate any symptoms associated with coronavirus-19. Ebola Screen: No symptoms or risks identified at this time. 17:25 Method Of Arrival: EMS: [facility] ld1 18:35 An acute neurological deficit is present. The charge nurse has been notified. The ld1 patients blood glucose was checked prior to arriving to the hospital and was found to be hyperglycemic. The charge nurse has been notified. Initial Sepsis Screen: Does the patient meet any 2 criteria? No. Patient's initial sepsis screen is negative. Does the patient have a suspected source of infection? No. Patient's initial sepsis screen is negative. Risk Assessment: Do you want to hurt yourself or someone else? Patient reports no desire to harm self or others. Onset of symptoms was August 20, 2020 at 13:30. Care prior to arrival: Medication(s) given: zofran 8 mg. 18:35 Acuity: GOLDY 2 ld1 Triage Assessment: 18:40 The onset of the patients symptoms was more than three but less than six hours ago. ld1 General: Appears in no apparent distress. uncomfortable, Behavior is calm, cooperative, appropriate for age. Pain: Denies pain. EENT: Eyes Patient reports of vision loss/impairment of left eye.. Reports blurred vision in left eye Diplopia. Neuro: Level of Consciousness is awake, alert, obeys commands, Oriented to person, place, time, situation, Appropriate for age Operations Representative are equal bilaterally Moves all extremities. Weakness in left arm(s) Speech is normal, Facial symmetry appears normal, Intact Left eye deviates to the left.. Reports blurred vision diplopia, dizziness, since 08/20/2020 1330. Cardiovascular: Denies chest pain, Capillary refill < 3 seconds Patient's skin is warm and dry. Rhythm is regular. Respiratory: Airway is patent Respiratory effort is even, unlabored, Respiratory pattern is regular, symmetrical. GI: Pt is actively vomiting clear fluid, Reports nausea. : No deficits noted. Derm: No deficits noted. Musculoskeletal: No deficits noted. 18:58 The onset of the patients symptoms was. ld1 Stroke Activation: Symptom onset < 3 hours Physician: Stroke Attending; Name: ; Notified At: ; Arrived At: Physician: Chief Stroke Resident; Name: ; Notified At: ; Arrived At: Physician: Stroke Resident; Name: ; Notified At: ; Arrived At: Physician: ED Attending; Name: Dr. Coates; Notified At: 17:20; Arrived At: Physician: ED Resident; Name: ; Notified At: ; Arrived At: Historical: - Allergies: 18:40 PENICILLINS; ld1 - PMHx: 18:40 Hypertension; micro pacemaker; stroke x2; ld1 - Immunization history:: Adult Immunizations up to date, Client reports receiving the 2nd dose of the Covid vaccine, Date received: July 16, 2020 Client reports receiving the 1st dose of the Covid vaccine, June 25, 2020. - Social history:: Smoking status: Patient denies any tobacco usage or history of. Patient/guardian denies using alcohol, street drugs. Screenin:55 Abuse screen: Denies threats or abuse. Denies injuries from another. Nutritional ld1 screening: No deficits noted. Tuberculosis screening: No symptoms or risk factors identified. Fall Risk Total Torres Fall Scale indicates No Risk (0-24 pts). Assessment: 17:22 Reassessment: Pt to CT via stretcher by Dana CORTEZ. sv 17:30 Reassessment: Pt back from CT. sv 17:52 VAN Scoring: Arm Drift: Patients demonstrates NO arm weakness. Patient is VAN Negative. sv T-PA (Activase) Screening: Indications: Definite evidence of stroke, ischemic, embolic, or hypertensive: Yes. Treatment will start within 4.5 hours onset of symptoms: Yes. No evidence of intracranial hemorrhage or CT of head and no evidence of peripheral hemorrhage or recent CVA: Yes. Consent for thrombolytic therapy: Yes. 17:53 Reassessment: See TPA vital signs flowsheet. ld1 18:30 Patient has been NPO before screening. The patient is alert, and able to follow ld1 commands. The patient does not exhibit slurred or garbled speech. The patient is not exhibiting difficulty speaking. The patient does not exhibit difficulty understanding words. The patient is able to swallow own secretions with no drooling or need for suction. Patient tolerated one teaspoon of water. No drooling, immediate coughing, gurgling, or clearing of the throat was noted. The patient tolerated 90mL of water. No drooling, immediate coughing, gurgling, or clearing of the throat was noted. The patient passed the bedside swallow screening. Oral medications may be given as ordered. Contact Physician for further diet orders. Provider notified of bedside swallow screening results: Genaro OZUNA. 18:59 Reassessment: Patient appears in no apparent distress at this time. No changes from ld1 previously documented assessment. Patient and/or family updated on plan of care and expected duration. Pain level reassessed. Patient is alert, oriented x 3, equal unlabored respirations, skin warm/dry/pink. GI: Patient currently denies nausea. 19:10 General: Appears in no apparent distress. Behavior is calm, cooperative, appropriate wh for age. Pain: Denies pain. Neuro: Level of Consciousness is awake, alert, obeys commands, Oriented to person, place, time, situation, Appropriate for age Operations Representative are equal bilaterally Moves all extremities. Gait is steady, Speech is normal, Facial symmetry appears normal. Cardiovascular: Heart tones S1 S2. Respiratory: Airway is patent Respiratory effort is even, unlabored, Respiratory pattern is regular, symmetrical. GI: Abdomen is flat, non-distended. : No signs and/or symptoms were reported regarding the genitourinary system. EENT: No signs and/or symptoms were reported regarding the EENT system. Derm: Skin is intact, is healthy with good turgor, Skin is pink, warm \T\ dry. normal. Musculoskeletal: Circulation, motion, and sensation intact. 21:01 Reassessment: Patient appears in no apparent distress at this time. Patient and/or mg2 family updated on plan of care and expected duration. Pain level reassessed. Patient is alert, oriented x 3, equal unlabored respirations, skin warm/dry/pink. 22:00 Reassessment: Patient appears in no apparent distress at this time. Patient and/or wh family updated on plan of care and expected duration. Pain level reassessed. Patient is alert, oriented x 3, equal unlabored respirations, skin warm/dry/pink. Vital Signs: 17:45 Weight 72.57 kg (M); sv 17:53 BP 135 / 70; Pulse 81; Resp 20; Pulse Ox 97% on R/A; Weight 72.57 kg (M); Height 5 ft. ld1 4 in. (162.56 cm); Pain 0/10; 21:01 BP 114 / 63; Pulse 77; Resp 18; Pulse Ox 99% on R/A; mg2 17:53 Body Mass Index 27.46 (72.57 kg, 162.56 cm) ld1 NIH Stroke Scale Scores: 17:45 NIHSS Score: 2 cp 17:52 NIHSS Score: 3 sv ED Course: 17:18 Patient arrived in ED. ds1 17:18 Maintain EMS IV. Dressing intact. Good blood return noted. Site clean \T\ dry. Gauge \T\ sv site: 18G R AC. 17:22 Genaro Vasquez PA is PHCP. cp 17:22 Robbie Coates MD is Attending Physician. cp 17:39 CT Stroke Brain w/o Contrast In Process Unspecified. EDMS 17:40 Inserted saline lock: 18 gauge in left antecubital area, using aseptic technique. sv 18:04 XRAY Chest (1 view) In Process Unspecified. EDMS 18:18 Dana Naqvi, RN is Primary Nurse. ld1 18:38 Triage completed. ld1 18:55 No provider procedures requiring assistance completed. ld1 18:55 Patient has correct armband on for positive identification. Bed in low position. Call ld1 light in reach. Side rails up X2. weed eradicator on. Pulse ox on. NIBP on. Door closed. Noise minimized. Warm blanket given. 19:07 Katalina Lentz MD is Hospitalizing Provider. cp 19:14 Primary Nurse role handed off by Dana Naqvi, RN mw2 19:15 Report given to Pawel CORTEZ and Jana CORTEZ. sv 19:54 CT Head Angio In Process Unspecified. EDMS 19:54 CT Neck Angio In Process Unspecified. EDMS 21:01 Arm band placed on. mg2 22:00 Patient admitted, IV remains in place. 23:30 Jana Connelly RN is Primary Nurse. 08/21 08:37 Primary Nurse role handed off by Jana Connelly RN 09:31 Yolanda Posadas, RN is Primary Nurse. hb Administered Medications: 08/20 17:35 Drug: Zofran (Ondansetron) 4 mg Route: IVP; Site: right antecubital; ld1 19:00 Follow up: Response: No adverse reaction ld1 17:45 Drug: Phenergan 12.5 mg Route: IVP; Site: right antecubital; ld1 18:20 Follow up: Response: Nausea is decreased ld1 17:52 Drug: Alteplase (Bolus for Stroke) - Activase 0.09 mg/kg {Co-Signature: narciso (Alejandra Ernandez RN).} Route: IV Thrombolytics; Infused Over: 1 mins; 23:35 Follow up: Response: No adverse reaction 17:53 Drug: Alteplase {Co-Signature: narciso (Alejandra Ernandez RN).} Route: IV Thrombolytics; Rate: ld1 calculated rate; 23:34 Follow up: Response: No adverse reaction 23:34 Follow up: Response: No adverse reaction 18:32 Drug: Meclizine 25 mg Route: PO; ld1 19:00 Follow up: Response: No adverse reaction ld1 18:32 Drug: NS 0.9% 500 ml Route: IV; Rate: bolus; Site: right antecubital; ld1 23:35 Follow up: Response: No adverse reaction; IV Status: Completed infusion 19:48 Drug: foLIC Acid 1 mg Route: IVPB; Site: left antecubital; mg2 23:34 Follow up: Response: No adverse reaction; IV Status: Completed infusion 19:49 Drug: Potassium Effervescent Tablet 50 mEq Route: PO; mg2 23:34 Follow up: Response: No adverse reaction Point of Care Testing: Blood Glucose: 17:31 Blood Glucose: 123 mg/dL; sv Ranges: Outcome: 19:07 Decision to Hospitalize by Provider. cp 22:00 Admitted to ER Hold. Please see [facility] for further documentation. 22:00 Condition: stable 22:00 Instructed on the need for admit. 04/15 17:09 Patient left the ED. hb NIH Stroke Scale - NIH Stroke Score Date: 08/20/2020 Time: 17:45 Total Score = 2 1a. Level of Consciousness (LOC) - 0(Alert) 1b. Level of Consciousness (LOC) (Year \T\ Age) - 0(Both) 1c. LOC Commands (Open \T\ Closes Eyes/Director Of Catering) - 0(Both) 2. Best Gaze (Lateral Gaze Paresis) - 1(Partial gaze palsy) 3. Visual Field Loss - 0(No visual loss) 4. Facial Palsy - 0(Normal) 5a. Left Arm: Motor (10-second hold) - 0(No drift) 5b. Right Arm: Motor (10-second hold) - 0(No drift) 6a. Left Leg: Motor (5-second hold - always test supine) - 0(No drift) 6b. Right Leg: Motor (5-second hold - always test supine) - 0(No drift) 7. Limb Ataxia (finger/nose \T\ heel/hong - test with eyes open) - 1(Present in one limb) 8. Sensory Loss (pinprick arms/legs/face) - 0(Normal) 9. Best Language: Aphasia (description/naming/reading) - 0(No aphasia) 10. Dysarthria (speech clarity - read or repeat words) - 0(Normal) 11. Extinction and Inattention (visual/tactile/auditory/spatial/personal) - 0(No abnormality) Initials: cp NIH Stroke Scale - NIH Stroke Score Date: 08/20/2020 Time: 17:52 Total Score = 3 1a. Level of Consciousness (LOC) - 0(Alert) 1b. Level of Consciousness (LOC) (Year \T\ Age) - 0(Both) 1c. LOC Commands (Open \T\ Closes Eyes/Director Of Catering) - 0(Both) 2. Best Gaze (Lateral Gaze Paresis) - 1(Partial gaze palsy) 3. Visual Field Loss - 1(Partial hemianopia) 4. Facial Palsy - 0(Normal) 5a. Left Arm: Motor (10-second hold) - 0(No drift) 5b. Right Arm: Motor (10-second hold) - 0(No drift) 6a. Left Leg: Motor (5-second hold - always test supine) - 0(No drift) 6b. Right Leg: Motor (5-second hold - always test supine) - 0(No drift) 7. Limb Ataxia (finger/nose \T\ heel/hong - test with eyes open) - 1(Present in one limb) 8. Sensory Loss (pinprick arms/legs/face) - 0(Normal) 9. Best Language: Aphasia (description/naming/reading) - 0(No aphasia) 10. Dysarthria (speech clarity - read or repeat words) - 0(Normal) 11. Extinction and Inattention (visual/tactile/auditory/spatial/personal) - 0(No abnormality) Initials: sv Signatures: Dispatcher [employer] Alejandra Lema RN RN sv Kamila Smith ds1 Genaro Vasquez PA PA cp Baxter, Heather RN DIEGO Jana Connelly RN RN Juanito Smith mw2 Pawel Carlson RN RN [facility] Dana Naqvi RN RN ld1 Alejandra Ernandez RN sv Corrections: (The following items were deleted from the chart) 08/20 23:34 19:15 The onset of the patients symptoms was more than three but less than six wh hours ago, wh
[2020-08-20] MEDS ORDERED: POTASSIUM 25 MEQ EFFERV TAB ONE (19:42)
[2020-08-20] MEDS ORDERED: NA CHLORIDE 0.9% 100 ML ONE (19:42)
[2020-08-20] MEDS ORDERED: FOLIC ACID 5 MG/ML VIAL ONE (19:43)
--- NOTE | 2020-08-20 20:10 | RAD REPORT ---
EXAM DESCRIPTION: Daphnie Angio08/20/2020 7:54 pm CLINICAL HISTORY: Blurred vision COMPARISON: None TECHNIQUE: 50 cc Isovue 370 was administered intravenously. 3D MIP reconstruction performed All CT scans are performed using dose optimization technique as appropriate and may include automated exposure control or mA/KV adjustment according to patient size. FINDINGS: Mild plaque is present within the common, internal external carotid arteries. The vertebral arteries are codominant without visualization an abnormality. IMPRESSION: Mild plaque within the carotid arteries NASCET criteria used. Mild 0-49% stenosis Moderate 50-69% stenosis Severe 70-99% stenosis
--- NOTE | 2020-08-20 20:16 | RAD REPORT ---
EXAM DESCRIPTION: CTHead angio08/20/2020 7:54 pm CLINICAL HISTORY: Blurred vision COMPARISON: None TECHNIQUE: CT angiogram of the head was obtained. 3D MIPS reconstruction performed. All CT scans are performed using dose optimization technique as appropriate and may include automated exposure control or mA/KV adjustment according to patient size. FINDINGS: The basilar, internal carotid, anterior cerebral, middle cerebral and posterior cerebral a rteries are normal caliber. An aneurysm is not seen. origin of the posterior cerebral arteries. A significant stenosis is not noted. IMPRESSION: No acute abnormality is displayed
[2020-08-20] MEDS: NA CHLORIDE 0.9% 1,000 ML IV SCH (21:00)
[2020-08-21] MEDS ORDERED: NA CHLORIDE 0.9% 1,000 ML ONE (00:15)
[2020-08-21 01:16] VITALS: BMI 27.4
[2020-08-21 05:44] LABS: CKMB Creatine Kinase MB 1.4 ng/mL (0.3-3.6); Creatine Phosphokinase 72 U/L (26-192); HDL Cholesterol 54 mg/dL (40-60); LDL Cholesterol, Calculated 74 (<130); Troponin I < 0.02 ng/mL (0.0-0.045)
--- NOTE | 2020-08-21 06:17 | HP ---
Date of Admission: 08/20/2020 DICTATION ENDS HERE. KAE/MODL Voice ID: [id number] MTDD
[2020-08-21] MEDS ORDERED: D50W 25 GM/50 ML SYRINGE IV PRN (06:32)
[2020-08-21] MEDS ORDERED: GLUCAGON 1 MG/VIAL IM PRN (06:32)
[2020-08-21] MEDS: INSULIN -REGULAR HUMAN 50 UNIT/0.5 ML ML SQ SCH ×3 (07:28→16:30)
--- NOTE | 2020-08-21 07:35 | EKG ---
Test Date: 2020-08-20 Test Time: 17:35:13 Inventory Checker: JUAN CARLOS MEASUREMENT RESULTS: Intervals: Rate: 94 NM: 162 QRSD: 94 QT: 386 QTc: 482 [place]: P: 36 NM: 162 QRS: -20 T: 58 INTERPRETIVE STATEMENTS: Normal sinus rhythm Possible Left atrial enlargement Left ventricular hypertrophy Nonspecific ST and T wave abnormality Abnormal ECG Compared to ECG 05/15/2017 10:36:44 Left ventricular hypertrophy now present ST (T wave) deviation now present Myocardial infarct finding no longer present Electronically Signed On 08-21-20 07:34:33 CDT by Stephen Snyder
[2020-08-21] MEDS ORDERED: PNEUMOCOCCAL VACCINE 0.5 ML IMVAC ONE ×3 (08:00→10:01)
--- NOTE | 2020-08-21 08:34 | RAD REPORT ---
EXAM DESCRIPTION: US - CP - 08/21/2020 8:19 am CLINICAL HISTORY: left eye blurry vision Headache, drowsiness COMPARISON: Neck Angio dated 08/20/2020 TECHNIQUE: Real-time sonographic evaluation of both carotid systems was performed. Doppler interroga tion was performed with waveform tracing bilaterally. FINDINGS: Normal high resistance waveforms are noted in both external carotid arteries. The common c arotid arteries and internal carotid arteries show normal low resistance waveforms. Mild hard plaque is seen in both carotid bulbs. Peak systolic and end diastolic velocity values and t he ICA/CCA ratios are in the non-hemodynamically significant range. Antegrade flow seen in both vertebral arteries. IMPRESSION: Mild hard plaque is seen in both carotid bulbs. No evidence of a hemodynamically significant stenosis.
[2020-08-21] MEDS ORDERED: ASPIRIN EC 81 MG TAB PO SCH (09:00)
[2020-08-21] MEDS ORDERED: CLOPIDOGREL 75 MG TABLET PO SCH (09:00)
[2020-08-21] MEDS ORDERED: FOLIC ACID 1 MG TABLET PO SCH (09:00)
[2020-08-21] MEDS ORDERED: FOLIC ACID 1 MG TABLET ONE (09:29)
[2020-08-21] MEDS ORDERED: ASPIRIN EC 81 MG TAB PO ONE (09:29)
[2020-08-21] MEDS ORDERED: CLOPIDOGREL 75 MG TABLET ONE (09:29)
[2020-08-21 09:46] VITALS: O2SAT 96
[2020-08-21] MEDS: NA CHLORIDE 0.9% 1,000 ML IV SCH (10:20)
--- NOTE | 2020-08-21 10:44 | CON ---
Date of Consultation: 08/21/2020 Reason For Consultation: The patient was admitted on 08/20/[address] Lentz for CVA. I saw the zac ent on 08/21/2020. History Of Present Illness: Ms. Zarate is a 69-year-old woman. Has had CVA in the past. She has a hi story of pacemaker placed by Dr. Barnes in [place]. She has a history of hypertension, diabetes, dysl ipidemia. Came in with nystagmus of the left eye, sudden onset, slightly improved since yesterday, b ut is still there. No acute stroke noted by CTA. So far, she has an old lacunar infarct. She has m eningioma according to CTA of the head. She had a CTA of the neck arteries, which was negative. Car otid Doppler was pending. Echocardiogram is pending. She had an echo in 2018 that was normal. Her EKG showed normal sinus rhythm with left ventricular hypertrophy. The patient denied any palpitation , chest pain, nausea, vomiting, diaphoresis, PND, orthopnea, pedal edema, or syncope. Denied any fev er or chills. Past Medical History: As stated above. Medications: Include amlodipine, valsartan, Crestor, metformin, aspirin, and Plavix. Allergies: TO PENICILLIN. Review of Systems: Negative. Social History: Negative. Family History: Negative. Physical Examination: Vital Signs: Stable. Sinus rhythm. HEENT: Negative. Neck: Supple with no bruit. Chest: Clear. Cardiac: Revealed a regular rhythm and rate. No murmurs, gallops, or rubs. Abdomen: Benign. Extremities: Revealed no clubbing, cyanosis, or edema. Diagnostic Data: As stated earlier. Impression And Plan: Acute cerebrovascular accident affecting the left eye. Workup will include an echocardiogram MRI of her head. We will check her pacemaker by [employer]. We will check o n the results from Dr. Barnes's office to rule out atrial fibrillation . Neurology consulta tion is pending. I agree with increased Crestor from 20 to 40, continue aspirin and Plavix. Conside r increasing aspirin dose. Consider Aggrenox. I will leave that up to Dr. Lentz and Dr. Blanco. H er other issues including hypertension, diabetes, and dyslipidemia seem to be stable at this point. I will continue to follow her. I would consider getting a 1-month MRI as an outpatient. MIHAI Voice ID: [id number] Report ID: [id number]
[2020-08-21 16:53] VITALS: BP 118/74; TEMP 97.3
[2020-08-21] MEDS ORDERED: ENOXAPARIN 30 MG/0.3 ML SQ SCH (17:00)
--- NOTE | 2020-08-21 18:35 | HP ---
Date of Admission: 08/21/2020 Chief Complaint: Double vision and had nausea, vomiting. History Of Present Illness: This is a 69-year-old very pleasant female patient, who has a prior history of stroke about 5-6 years ago or so and at that time she received care in [place]. She has been doing very well and takes her medications regularly, sees her neurologist in [place] from time to time. She also sees outdoor adventure instructor, Dr. Barnes. The patient was doing fine in her normal usual state of health until yesterday afternoon all of a sudden she started to have problem where she describes has double vision and the objects that she was looking at were going in circles as she describes. She had nausea and vomiting associated with done. She called 911 and was brought into the emergency room. After she arrived in the emergency room, she was evaluated by ER physician and tPA was given. I was contacted for admission to the hospital yesterday evening. I saw her this morning. She was in the emergency room as an ICU admission. Overnight, her condition has remained stable and she denies any more nausea, vomiting. She still has some diplopia and the way she describes her eyesight objects that she looks goes in circles when she looks at it. No chest pain. No palpitation. No shortness of breath. No fever or chills. Allergies: TO PENICILLIN. Medications: Amlodipine 5 mg 2 times a day, aspirin 81 mg daily, Clopidogrel 75 mg daily, levothyroxine 75 mcg daily, metformin 500 mg daily, rosuvastatin 20 mg daily, valsartan 320 mg daily, and vitamin B12 500 mcg daily. Review of Systems: CRITICAL CARE CNS: As mentioned above. GI: As mentioned above. All other systems reviewed and negative. Past Medical History: Significant for prior history of stroke from which she has recovered completely and this was few years ago. Past Medical History also significant for hypothyroidism, type 2 diabetes mellitus, hypertension, hyperlipidemia, chronic kidney disease, and anemia due to chronic kidney disease. Past Surgical History: Cataract surgery, pacemaker placement, D and C, and knee surgery. Family History: Father had dementia, hypertension and diabetes. Mother had hypertension. Siblings with diabetes and hypertension. Social History: Negative for smoking. Use of alcohol occasionally. Physical Examination: Vital Signs: Last vital signs this morning; temperature 98, pulse 60, respiratory rate 17, blood pressure 111/60, height 5 feet 4 inches, weight 159 pounds. General: Awake, alert, oriented, not in distress. HEENT: Head atraumatic, normocephalic. Conjunctivae nonerythematous. Sclerae white. Mouth, no thrush or edema noted. Ears/Nose, no mass, lesion, discharge noted. Neck: Supple. No JVD, lymph nodes, bruit, thyromegaly noted. Lungs: Bilateral good equal air entry. Clear to auscultation. No rhonchi. No rales. Heart: Normal heart sounds, no murmur or gallop. Abdomen: Soft, bowel sounds normal. No guarding, rigidity, tenderness, mass, hepatosplenomegaly, distention, or bruit noted. Extremities: No leg edema. No calf tenderness. Skin: No rash, ulcer, cellulitis. Lymphatics: No lymph node enlargement in neck, supraclavicular, infraclavicular region. Neuro: The patient does have nystagmus present in her left eye. Otherwise, no focal neurological deficits noted on exam. Chest: Unremarkable. External Genitalia: Deferred. Rectal: Deferred. Laboratory Data: White count 13.4, hemoglobin 13.6, platelets 270. Sodium 140, potassium 3.3, chloride 108, bicarb 22, BUN 24, creatinine 1.23, glucose 133. Liver function tests unremarkable. Troponin less than 0.02. COVID-19 test negative. Chest x-ray, no acute cardiopulmonary changes. CAT scan of the head, no acute intracranial changes presence of 14 mm meningioma unchanged from before, and the patient also was noted to have parasellar mass which could be either meningioma or pituitary adenoma. CT angiogram of the intracranial arteries was negative. CT angiogram of the carotid shows mild plaquing. Impression: 1. Probable stroke. 2. Diplopia with nystagmus, left eye. 3. Hypertension. 4. Hyperlipidemia. 5. Type 2 diabetes mellitus. 6. Hypothyroidism. Plan: We will go ahead and admit the patient to hospital for further evaluation and management of this problem. The patient is appropriate for inpatient and is expected to spend 2 midnights in hospital. The patient received tPA last night and at home she takes aspirin and Plavix, which she reports that she has been taking those medications regularly along with all her other medications. We will continue aspirin and Plavix, start on folic acid, continue IV fluid, and Neurology consultation has been requested from Dr. Blanco who was contacted from emergency room yesterday. I did try to reach out to him and we will try to communicate with our outdoor adventure instructor and Neurology, and we will request evaluation from both of these services. At this point, we will not give any antihypertensive medication. Considering current blood pressure medication, diabetes will be managed with insulin sliding scale. We will consult Physical Therapy. I did call the patient's outdoor adventure instructor, Dr. 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 We will need to have [employer] get involved and Dr. Barnes believes that this is MRI compatible device plateau. We will need to have [employer] come out if possible interrogate this device as our concern is we need to find out if there is any possibility of atrial fibrillation or not. Echo will be done today. We will follow up on that, and details and plan of treatment discussed with the patient this morning. KAE/MODL Voice ID: [id number] VANDA
[2020-08-21] MEDS ORDERED: ROSUVASTATIN 10 MG TAB PO SCH (21:00)
--- NOTE | 2020-08-21 22:35 | CON ---
Reason For Consultation: Consultation called by Dr. Lentz because of possible stroke. History Of Present Illness: Ms. Zarate is a 69-year-old patient, who reportedly had a prior history of stroke and risk factors of hypertension, and 2 strokes. She also has a cardiac pacemaker. On the August around 1:30 in the afternoon, she developed onset of double vision with blurry vision in reportedly left eye, dizziness, nausea, and vomiting. She came to [facility] at 1718 hours . She had a negative head CT scan. Since she was within the timeframe for Alteplase and her contrai ndications were none, and she was on Plavix and aspirin, she received tPA per protocol, was 10% over minute and 90% over the remaining hour. The patient does note that her symptoms since onset yesterda y appeared to have improved slightly and she has less dizziness with nausea. Since she has a pacemak er, she is not able to get an MRI. Her head and neck CT angiogram did not identify any significant a bnormalities. Carotid artery ultrasound showed mild heart plaque with no evidence of hemodynamically significant stenosis. Since the possibility of additional stroke was identified and she did receive tPA and she could not get an MRI because of her pacemaker at least at [facility], she was transferred to [place] to have the study done there. Her EKG showed a normal sinus rhythm with left atrial enlargement, left ventricular hypertrophy. Her blood work showed a slightly elevated white b lood cell count of 13.4, but was otherwise unremarkable. Coagulation panel was normal. Chemistries show slightly low potassium of 3.4, chloride 108, BUN 24, glucose ranged from 105 to 133. Hemoglobin A1c 6.6. Liver function studies normal. LDL cholesterol 74, HDL cholesterol 54, triglycerides 75, cholesterol total 143. COVID-19 was negative. Past Medical History: As indicated. Allergies: PENICILLIN. Family History: Noncontributory. Social History: No alcohol, tobacco, or IV drug use. Review of Systems: She denies any recent fevers, chills, nausea, vomiting, myalgias, or arthralgias, and these are other than mentioned and psychiatric issues. No gastrointestinal or genitourinary issues. Physical Examination: Vital Signs: Blood pressure 118/74, pulse 89, respiratory rate 15, temperature 97.3, oxygen saturati on 100%. She is 159 pounds, 5 feet 4 inches. General: Ms. Zarate is resting in bed, in no acute distress. HEENT: She is normocephalic, atraumatic. Sclerae anicteric. Oropharynx is pink and moist. Neck: Supple. Chest: Clear. Heart: Regular. Extremities: No edema, cyanosis, or clubbing. Neurological: She is alert and oriented to situation, place, and person. Cranial nerves are remarka ble for a right medial rectus palsy with difficulty looking to the left where she has double vision a nd covering the right eye removes the outer image of the double vision from view and again while look ing to the left, she has [id number] double vision, covering the left eye removes the inner image. Otherwise, her cranial nerves are intact. Motor, 5/5 strength proximally and distally. Sensory exam intact in the upper and lower extremities. Coordination intact in the upper and lower extremities. Gait, she will ambulate with physical therapy. Assessment: Ms. 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 Her symptoms are improving. It is not clear that she has had a stroke and we can not get an MRI with pacemaker at this hospital. Plan: 1.Continue aspirin, Plavix, folic acid, statin. 2.She may be transferred to [place] to have MRI to rule out the presence of a stroke and for further management. The patient should have aggressive management of diabetes mellitus. 3.Follow up with Dr. Blanco's clinic 1 month later. GENA/HARINDER Voice ID: [id number] Report ID: [id number]
--- NOTE | 2020-08-22 00:26 | DS ---
Date of Discharge: 08/21/2020 Disposition: Transfer to [facility]. Discharge Diagnoses: 1. Stroke. 2. Hypertension. 3. Hyperlipidemia. 4. Diabetes mellitus, type 2. 5. Chronic kidney disease stage 3A. 6. Hypothyroidism. Discharge Medications And Instructions: See copy of transfer order for more details. Hospital Course: This is a 69-year-old very pleasant female patient with prior history of stroke, came into emergency room with complaints of double vision, little bit headache, nausea, vomiting. Please see dictated H and P for more information. After the patient was evaluated in the emergency room, she received tPA and she was admitted to the hospital overnight to ICU. Her condition got stabilized. When I saw her this morning, she did not have any headache, no nausea, no vomiting. She continued to have some diplopia and described her problem as if objects are going round and round when she looks at any object. No slurred speech. No difficulty with swallowing. No tingling, numbness, or weakness of extremities. Her neurological exam was significant for presence of nystagmus of the left eye. Hemodynamically, she was stable. Initially when she came into emergency room after CAT scan of the head which was done and came back negative for any acute intracranial changes, she received tPA. This morning, we started her anti-platelet therapy, which is aspirin 81 mg daily and Plavix 75 mg daily. We also started her on folic acid 1 mg daily. Normally at home, she takes Crestor 20 mg at bedtime and we decided to go up on the dose from 20 to 40 mg. She did not require any antihypertensive medication as her blood pressure was stable. Permissive hypertension will be allowed in the immediate phase and then strict blood pressure control will be necessary. We were planning to do MRI and I did talk to her district resource officer, Dr. Addison, this morning and he informed me that the patient actually had a 26 second long pause while she was sleeping and that required placement of pacemaker and what she has is an intraventricular wireless pacemaker that has been in place for last few years and this is [employer] Micra type of pacemaker. The patient also has a loop recorder in place. There is no prior history of atrial fibrillation, but that is one of the concern we have. [employer] was contacted by ER nurse and she called me back and notified me that as per her discussion with [employer], this pacemaker is compatible with MRI and there is certain protocol that Radiology Department will need to follow and nurse communicated this protocol with the Radiology Department, otherwise [employer] informed her that they did not need to do any further changes on the pacemaker setting prior to MRI and the rep did not need to come out to the hospital. Subsequently, I received a phone call from Radiology MRI Department, who informed me that she also called [employer] and talked to their [employer] rep and she was told that [employer] rep will need to come out, change the setting for the MRI and during this MRI, the patient will need to be on monitoring coordinator and our hospital does not have a monitoring coordinator that is compatible to go in the MRI room for monitoring purposes, so MRI of the brain was canceled and with that in mind, we decided to go ahead and transfer her to [place] for higher level of care. Her prior stroke was 5 to 6 years ago and she was at [facility] and that is where she requested to be transferred, so transfer was initiated and I did talk to Neurology fellow who contacted me per request and all the details were discussed with her. The patient was accepted and was transferred via ground ambulance in stable condition. Details and plan of treatment discussed with the patient. I also talked over district resource officer and neurologist, Dr. Blanco, and both of this specialists did evaluate the patient. KAE/MODL Voice ID: [id number] Report ID: [id number] VANDA
--- NOTE | 2020-08-22 07:51 | ECHO ---
HEIGHT: 5 ft 4 in WEIGHT: 159 lb 15.831 oz DATE OF STUDY: 08/21/[address]: Genaro Vasquez 2-DIMENSIONAL: YES M.MODE: YES DOPPLER: YES COLOR FLOW: YES TDS: PORTABLE: DEFINITY: BUBBLE STUDY: DIAGNOSIS: LEFT EYE BLURRY VISION CARDIAC HISTORY: CATHERIZATION: NO SURGERY: NO PROSTHETIC VALVE: NO PACEMAKER: YES MEASUREMENTS (cm) DIASTOLIC (NORMALS) SYSTOLIC (NORMALS) IVSd 0.8 (0.6-1.2) LA Diam 2.1 (1.9-4.0) LVEF 55-60% LVIDd 3.5 (3.5-5.7) LVIDs 2.3 (2.0-3.5) %FS 36% LVPWd 0.9 (0.6-1.2) Ao Diam 2.8 (2.0-3.7) 2 DIMENSIONAL ASSESSMENT: RIGHT ATRIUM: NORMAL LEFT ATRIUM: NORMAL RIGHT VENTRICLE: NORMAL LEFT VENTRICLE: NORMAL TRICUSPID VALVE: NORMAL MITRAL VALVE: NORMAL PULMONIC VALVE: NORMAL AORTIC VALVE: NORMAL PERICARDIAL EFFUSION: NONE AORTIC ROOT: NORMAL LEFT VENTRICULAR WALL MOTION: NORMAL DOPPLER/COLOR FLOW: NORMAL COMMENTS: NORMAL LEFT VENTRICULAR EJECTION FRACTION 55-60%. NORMAL WALL MOTION. NORMAL STUDY. TECHNOLOGIST: MERVAT QUIROZ
== END 2020-08-21 17:08 | disposition short-term general hospital (02) | DRG 63 ==
LOC: ER 17:16 → ERHOLD 20:31
PROVIDERS: ADMIT Internal Medicine; ATTEND Internal Medicine
DX: I63.9 Cerebral infarction, unspecified (principal); I12.9 Hypertensive chronic kidney disease with stage 1 through stage 4 chronic kidney disease, or unspecified chronic kidney disease; N18.32 Chronic kidney disease, stage 3b; E11.22 Type 2 diabetes mellitus with diabetic chronic kidney disease; E78.5 Hyperlipidemia, unspecified; E03.9 Hypothyroidism, unspecified; H55.00 Unspecified nystagmus; H53.8 Other visual disturbances; H53.2 Diplopia; R42 Dizziness and giddiness; R29.702 NIHSS score 2; Z88.0 Allergy status to penicillin; Z86.73 Personal history of transient ischemic attack (TIA), and cerebral infarction without residual deficits; Z95.0 Presence of cardiac pacemaker; Z79.82 Long term (current) use of aspirin; Z79.02 Long term (current) use of antithrombotics/antiplatelets; Z79.890 Hormone replacement therapy; Z79.899 Other long term (current) drug therapy; Z20.822 Contact with and (suspected) exposure to COVID-19; Z23 Encounter for immunization
CPT/HCPCS: 36415; 70450; 70496; 70498; 71045; 80048; 80061; 80076; 82550; 82553; 82947; 83036; 83735; 83880; 84484; 85025; 85610; 90471; 90732; 92977; 93005; 93306; 93880; 96361; 96365; 96366; 96375; 97112; 97161; 99291; J2405; J2550; J2997; J7030; J7040; Q9967; U0003

== ENCOUNTER 2023-03-23 22:52 | Observation (INO) | payer OTHER ==
--- OUTSIDE RECORDS SUMMARY | 2023-03-23 23:09 | XMS REPORT | Continuity of Care Document ---
:1950 Author Organization [facility] t Address [address] [place] [address] [address] [place] [address] Care Team Providers Name Role Phone NIURKA MILES Primary Care Physician Unavailable Agapito WAKEFIELD, Geoff Huston Attending Clinician Ame JOHNSTON, Verónica Catherine Attending Clinician [phone] Gurjit Barnes MD Attending Clinician GURJIT BARNES Attending Clinician Unavailable Mendel Sanon MD Attending Clinician NATALIE SANCHEZ Attending Clinician Unavailable Physician, Non Associated Attending Clinician Unavailable Diana WAKEFILED, Provider Not In Attending Clinician Unavailable Galina Gunderson Attending Clinician Reji Levine Attending Clinician Afshin Butler Attending Clinician Shubham Figueroa Attending Clinician Shanel Case Attending Clinician Darrion Darnell Admitting Clinician GURJIT BARNES Admitting Clinician Unavailable Afshin Butler Admitting Clinician Shanel Case Admitting Clinician Payers Payer Name Policy Type Policy Number Effective Date Expiration Date S andres [employer] MEDICARE [id number] 2018 2018 HMO 00:00:00 00:00:00 Problems Condition Condition Condition Status Onset Resolution Last Treating Co mments Source Name Details Category Date Date Treatment Clinician Date Cerebrovas Cerebrovas Disease Active 2020-05 Last U T cular cular 0-12 [facility] accident accident 00:00: t & Plan: (CVA) due (CVA) due 00 Formattin to to g of this embolism embolism note of of might be posterior posterior different cerebral cerebral from the artery artery original. Ischemia with visual symptoms that resolved following TPA on two occasions . She has a normal examinati on, including normal HVF testing and OCT. Will return should new symptoms develop or recur and persist. G45.9 G45.9 Diagnosis Active 2020-10-17 [facility] Active 09-22 10:44:00 l 09/22/2020 00:00: [place] hancock [address] STROKE STROKE Diagnosis Active 2020-09-16 [facility] Active 08-21 21:54:00 l 08/21/2020 00:00: [place] hancock [address] Primary Primary Disease Active [facility] osteoarthr osteoarthr 01-31 [facility] 00:00: Hospita right knee right knee 00 l Encounter Encounter Disease Active [facility]10 [facility] recorder recorder 00:[facility]: Medica l at end of at end of 00 Cent er battery battery life life Symptomati Symptomati Disease Active [facility] 1[facility]22 [facility] bradycardi bradycardi 00:00: dicdaniel a a 00 [place] 225.3 - 225.3 - Diagnosis Active 2013-052014-08-04 [facility] BENIGN HEIKE BENIGN HEIKE 06-09 11:04:00 l SPIN SPIN 00:01: [place] Active 00 04/08/2014 [place] POSSIBLE POSSIBLE Diagnosis Active 2013-052014-03-11 [facility] CVA VS TIA CVA VS TIA 05-10 18:31:00 l Active 00:00: [place] 03/10/2014 00 [facility] 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 [facility] ISCHEMIC ISCHEMIC Diagnosis Active 2013-11-13 [facility] STROKE;194 STROKE;194 11-07 15:36:00 l 5 ONSET OF 5 ONSET OF 00:00: He rmann S/S S/S Active 00 11/07/2013 [facility] N N Active Diagnosis Active 2011-06-17 Memoria 06/15/201106-15 10:00:00 l [facility] 00:00: [address] ISCHEMIC ISCHEMIC Diagnosis Active 2011-06-17 [facility] STROKE STROKE 06-15 09:59:00 l Active 00:00: [place] 06/15/2011 00 [facility] Cardiac Cardiac Problem Resolve 2020-10-09 M emoria implant implant d 23:05:09 l (physical (physical Herm teressa object) object) Resolved Problem 10/09/2020 monitor implant [facility] Cerebrovas Cerebrova Problem Resolve 2020-10-09 Memoria cular scular d 23:05:09 l accident accident [place] n (disorder) (disorder) Resolved Problem 10/09/2020 [facility] [place] Depressive Depressiv Problem Resolve 2020-10-09 Memoria disorder e disorder d 23:05:09 l (disorder) (disorder) Papi rmann Resolved Problem 10/09/2020 [facility] Hyperlipid Problem Resolve 2020-10-09 Memoria emia Hyperlipid d 23:05:09 l (disorder) emia [place] n (disorder) Resolved Problem 10/09/2020 [facility] OPIAbbie [place] Hypertensi Problem Resolve 2020-10-09 Memoria ve Hypertensi d 23:05:09 l disorder, ve [place] systemic disorder, arterial systemic (disorder) arterial (disorder) Resolved Problem 10/09/2020 [facility] [place] Hypothyroi Problem Resolve 2020-10-09 Memoria dism Hypothyroi d 23:05:09 l (disorder) dism [place] n (disorder) Resolved Problem 10/09/2020 [facility] [place] 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:05:09 l meningioma meningioma He rmann (disorder) (disorder) Resolved Problem 10/09/2020 [facility] Heart Heart Problem Resolve 2020-10-09 Fabrizio ruchi murmur murmur d 23:05:09 l (finding) (finding) Rehana teressa Resolved Problem 10/09/2020 [facility] Sleep Sleep Problem Resolve 2020-10-09 Fabrizio ruchi apnea apnea d 23:05:09 l (finding) (finding) Herm teressa Resolved Problem 10/09/2020 [facility] XFE STROKE XFE Diagnosis Active 2020-08-21 [facility] STROKE 18:19:00 l Active [facility] CVA CVA Diagnosis Active 2014-03-11 Mem oria Active 18:31:00 l [facility] BRAIN BRAIN Diagnosis Active 2013-11-13 Me moria CONDITION CONDITION 15:36:00 l NOS NOS Active [place] n [facility] Allergies, Adverse Reactions, Alerts Allergy Allergy Status Severity Reaction(s) Onset Inactive Treating Comm ents Source Name Type Date Date Clinician Penicill Propensi Active Rash "as a Method i ins ty to 4-[address] [address] adverse 00:00: Hospita reaction 00 l s to drug Penicill Propensi Active Rash "as a Method i ins ty to 4-[address] adverse 00:00: Hospita reaction 00 l s to drug Penicill Allergy Active Rash Other [facility] ins to 01-01 reaction( Health substan 00:00: s): e 00 Itching/H brigitte/Rash "as a child""as a child""as a child" Penicill Drug Active [facility] PENICILL Allergy Active Low Rash [facility] INS 01-01 00:00: 00 Penicill Drug Active Rash [facility] penicill penicill Active [facility]ori a ins ins l [place] Family History Family Member Diagnosis Comments Start Date Stop Date Source Natural father Dementia [facility] Natural father Diabetes [facility] Natural mother Heart disease [facility] Natural mother Hypertension [facility] Natural sister Diabetes [facility] Social History Social Habit Start Date Stop Date Quantity Comments Source Sexual orientation [facility] Exposure to Not sure [facility] SARS-CoV-2 (event) History of Social 2019-02-05 2019-02-[address] function 00:00:00 00:00:00 Hospital Alcohol Comment 2019-01-24 2019-01-24 occasional [facility] 00:00:00 00:00:00 Hospital Tobacco use and 2019-01-24 2019-01-24 Smokeless tobacco [facility] exposure 00:00:00 00:00:00 non-user Hospital Alcohol intake 2018-01-11 2018-01-11 Current [facility] es 00:00:00 00:00:00 non-drinker of Medical Ce nter alcohol (finding) Social History 2013-11-08 2013-11-08 [facility] 05:03:54 05:03:54 Sex Ass[birth year] [facility] 00:[facility] Smoking Status Start Date Stop Date Source Tobacco smoking consumption unknown [facility] Never smoked tobacco [facility] Medications Ordered Filled Start Stop Current Ordering Indication Dosage Frequency Signature Comments Components Source Medication Medication Date Date Medication? Clinician (SIG) Name Name traMADoL Yes TAKE 1 Methodi (ULTRAM) 50 9-06 TABLET (50 st mg tablet 00:00: MG TOTAL) Hos gerber 00 BY MOUTH l EVERY 6 HOURS NEEDED ACUTE MODERATE PAIN FOR UP TO 8 DAYS traMADoL Yes TAKE 1 [facility] (ULTRAM) 50 9-06 TABLET (50 st mg tablet 00:00: MG TOTAL) Hos gerber 00 BY MOUTH l EVERY 6 HOURS NEEDED ACUTE MODERATE PAIN FOR UP TO 8 DAYS traMADoL Yes TAKE 1 Method[facility] (ULTRAM) 50 9-06 TABLET (50 st mg tablet 00:00: MG TOTAL) Hos gerber 00 BY MOUTH l EVERY 6 HOURS NEEDED ACUTE MODERATE PAIN FOR UP TO 8 DAYS traMADoL 2022- [place] [id number] 50mg Q6H Take 1 Metho di (ULTRAM) 50 12-15 tablet (50 s t mg tablet 00:00: 00:00 mg total) Ho spita 00 :00 by mouth l every 6 (six) hours as needed for moderate pain for up to 8 days .acute pain. traMADoL 2022- [place] [id number] 50mg Q6H Take 1 Metho di (ULTRAM) 50 12-15 tablet (50 s t mg tablet 00:00: 00:00 mg total) Ho spita 00 :00 by mouth l every 6 (six) hours as needed for moderate pain for up to 8 days .acute pain. traMADoL 2022- [place] [id number] 50mg Q6H Take 1 Metho di (ULTRAM) 50 12-15 tablet (50 s t mg tablet 00:00: 00:00 mg total) Ho spita 00 :00 by mouth l every 6 (six) hours as needed for moderate pain for up to 8 days .acute pain. levothyroxi 2020-05 Yes 50ug QD Take 50 UT ne 0-12 mcg by Health (Synthroid) 08:57: mouth 1 100 MCG/5ML 32 (one) time solution each day. metFORMIN 2020-05 Yes 500mg QD Take 500 UT (Glucophage 0-12 mg by Health ) 500 MG 08:57: mouth 1 tablet 32 (one) time each day. levothyroxi 2020-05 Yes 50ug QD Take 50 UT ne 0-12 mcg by Health (Synthroid) 08:57: mouth 1 100 MCG/5ML 32 (one) time solution each day. rosuvastati 2020-05 Yes 40mg QD Take 40 mg UT n (Crestor) 0-12 by mouth 1 He alth 40 MG 08:57: (one) time tablet 32 each day. metFORMIN 2020-05 Yes 500mg QD Take 500 UT (Glucophage 0-12 mg by Health ) 500 MG 08:57: mouth 1 tablet 32 (one) time each day. rosuvastati 2020-05 Yes 40mg QD Take 40 mg UT n (Crestor) 0-12 by mouth 1 He alth 40 MG 08:57: (one) time tablet 32 each day. aspirin 81 2020-05 Yes 81mg QD Take 81 mg U T MG EC 0-12 by mouth 1 Health tablet 08:57: (one) time 32 each day. aspirin 81 2020-05 Yes 81mg QD Take 81 mg U T MG EC 0-12 by mouth 1 Health tablet 08:57: (one) time 32 each day. clopidogrel 2020-05 Yes 75mg QD Take 75 mg UT (Plavix) 75 0-12 by mouth 1 He alth MG tablet 08:57: (one) time 32 each day. clopidogrel 2020-05 Yes 75mg QD Take 75 mg UT (Plavix) 75 0-12 by mouth 1 He alth MG tablet 08:57: (one) time 32 each day. carvedilol Yes UT (Coreg) 9-02 Health 3.125 MG 00:00: tablet 00 carvedilol Yes UT (Coreg) 9-02 Health 3.125 MG 00:00: tablet 00 ALPRAZolam 2020- No UT (Xanax) 1 5-27 10-12 Health MG tablet 00:00: 00:00 00 :00 ALPRAZolam 0 2020- No UT (Xanax) 1 5-27 10-12 Health MG tablet 00:00: 00:00 00 :00 cephalexin Yes UT (Keflex) 5-10 Health 500 MG 00:00: capsule 00 cephalexin 0 Yes UT (Keflex) 5-10 Health 500 MG 00:00: capsule 00 carvedilol Yes 3.125mg 3.125 mg. UT (Coreg) 4-29 Health 3.125 MG 00:00: tablet 00 amLODIPine Yes 5mg 5 mg. UT (Norvasc) 5 4-29 Health MG tablet 00:00: 00 carvedilol Yes 3.125mg 3.125 mg. UT (Coreg) 4-29 Health 3.125 MG 00:00: tablet 00 amLODIPine 0 Yes 5mg 5 mg. UT (Norvasc) 5 4-29 Health MG tablet 00:00: 00 carvedilol 0 Yes 3.125 mg = M emoria 3.13 MG 4-17 1 tab, PO, l Oral Tablet 17:56: BID, # 60 H ermann [Coreg] 00 tab, 0 Refill(s) carvedilol 0 Yes 3.125 mg = M emoria 3.13 MG 4-17 1 tab, PO, l Oral Tablet 17:56: BID, # 60 H ermann [Coreg] 00 tab, 0 Refill(s) carvedilol Yes 3.125 mg = M emoria 3.13 MG 4-17 1 tab, PO, l Oral Tablet 17:56: BID, # 60 H ermann [Coreg] 00 tab, 0 Refill(s) carvedilol 2020-0 Yes 3.125 mg = M emoria 3.13 MG 4-17 1 tab, PO, l Oral Tablet 17:56: BID, # 60 H ermann [Coreg] 00 tab, 0 Refill(s) carvedilol 2020-0 Yes 3.125 mg = M emoria 3.13 MG 4-17 1 tab, PO, l Oral Tablet 17:56: BID, # 60 H ermann [Coreg] 00 tab, 0 Refill(s) Aspirin 81 2020-0 Yes 81 mg = 1 Me moria MG Chewable 4-17 tab, PO, l Tablet 17:55: Daily, Estuardo 00 tab, 0 Refill(s) Vitamin 2020-0 Yes 500 Memoria B-12 500 4-17 microgram l mcg oral 17:55: = 1 tab, Hillary nn tablet 00 PO, Daily, # 30 tab, 0 Refill(s) Aspirin 81 2020-0 Yes 81 mg = 1 Me moria MG Chewable 4-17 tab, PO, l Tablet 17:55: Daily, [place] 00 tab, 0 Refill(s) Vitamin 2020-0 Yes 500 Memoria B-12 500 4-17 microgram l mcg oral 17:55: = 1 tab, Hillary nn tablet 00 PO, Daily, # 30 tab, 0 Refill(s) Aspirin 81 2020-0 Yes 81 mg = 1 Me moria MG Chewable 4-17 tab, PO, l Tablet 17:55: Daily, [place] 00 tab, 0 Refill(s) Vitamin 2020-0 Yes 500 Memoria B-12 500 4-17 microgram l mcg oral 17:55: = 1 tab, Hillary nn tablet 00 PO, Daily, # 30 tab, 0 Refill(s) Aspirin 81 2020-0 Yes 81 mg = 1 Me moria MG Chewable 4-17 tab, PO, l Tablet 17:55: Daily, [place] 00 tab, 0 Refill(s) Vitamin 202-0 Yes 500 Memoria B-12 500 4-17 microgram l mcg oral 17:55: = 1 tab, Hillary nn tablet 00 PO, Daily, # 30 tab, 0 Refill(s) Aspirin 81 2021-0 Yes 81 mg = 1 Me moria MG Chewable 4-17 tab, PO, l Tablet 17:55: Daily, [place] 00 tab, 0 Refill(s) Vitamin 0 Yes 500 Memoria B-12 500 4-17 microgram l mcg oral 17:55: = 1 tab, Hillary nn tablet 00 PO, Daily, # 30 tab, 0 Refill(s) Amlodipine Yes 5 mg, PO, Me moria 4-17 BID, 0 l 17:54: Refill(s) Amlodipine Yes 5 mg, PO, Me moria 4-17 BID, 0 l 17:54: Refill(s) Amlodipine Yes 5 mg, PO, Me moria 4-17 BID, 0 l 17:54: Refill(s) Amlodipine Yes 5 mg, PO, Me moria 4-17 BID, 0 l 17:54: Refill(s) Amlodipine Yes 5 mg, PO, Me moria 4-17 BID, 0 l 17:54: Refill(s) Rosuvastati Yes 20 mg = 1 M emoria n calcium 4-17 tab, PO, l 20 MG Oral 17:53: Bedtime, # H ermann Tablet 00 30 tab, 0 [Crestor] Refill(s) Rosuvastati Yes 20 mg = 1 M emoria n calcium 4-17 tab, PO, l 20 MG Oral 17:53: Bedtime, # H ermann Tablet 00 30 tab, 0 [Crestor] Refill(s) Rosuvastati Yes 20 mg = 1 M emoria n calcium 4-17 tab, PO, l 20 MG Oral 17:53: Bedtime, # H ermann Tablet 00 30 tab, 0 [Crestor] Refill(s) Rosuvastati Yes 20 mg = 1 M emoria n calcium 4-17 tab, PO, l 20 MG Oral 17:53: Bedtime, # H ermann Tablet 00 30 tab, 0 [Crestor] Refill(s) Rosuvastati Yes 20 mg = 1 M emoria n calcium 4-17 tab, PO, l 20 MG Oral 17:53: Bedtime, # H ermann Tablet 00 30 tab, 0 [Crestor] Refill(s) valsartan Yes 320 mg = 1 Me moria 320 mg oral 4-17 tab, PO, l tablet 17:51: Daily, # [place] 00 30 tab, 0 Refill(s) valsartan Yes 320 mg = 1 Me moria 320 mg oral 4-17 tab, PO, l tablet 17:51: Daily, # Estuardo 00 30 tab, 0 Refill(s) valsartan Yes 320 mg = 1 Me moria 320 mg oral 4-17 tab, PO, l tablet 17:51: Daily, # Estuardo 00 30 tab, 0 Refill(s) valsartan Yes 320 mg = 1 Me moria 320 mg oral 4-17 tab, PO, l tablet 17:51: Daily, # [place] 00 30 tab, 0 Refill(s) valsartan Yes 320 mg = 1 Me moria 320 mg oral 4-17 tab, PO, l tablet 17:51: Daily, # [place] 00 30 tab, 0 Refill(s) Docusate No Notes: Memoria Sodium 50 4-16 (Same as l MG / 14:00: Senokot-S) Estuardo sennosides, 00 Equiv. to LONG-TERM 8.6 MG [place] Oral Tablet e. Miralax No Notes: Memoria 4-16 Dissolve l 14:00: in 8 oz of Estuardo 00 water or juice. (Same as: Miralax) Docusate No Notes: Memoria Sodium 50 4-16 (Same as l MG / 14:00: Senokot-S) Estuardo sennosides, 00 Equiv. to LONG-TERM 8.6 MG [place] Oral Tablet e. Miralax No Notes: Memoria 4-16 Dissolve l 14:00: in 8 oz of [place] 00 water or juice. (Same as: Miralax) Docusate No Notes: Memoria Sodium 50 4-16 (Same as l MG / 14:00: Senokot-S) [place] sennosides, 00 Equiv. to LONG-TERM 8.6 MG [place] Oral Tablet e. Miralax No Notes: Memoria 4-16 Dissolve l 14:00: in 8 oz of [place] 00 water or juice. (Same as: Miralax) Docusate No Notes: Memoria Sodium 50 4-16 (Same as l MG / 14:00: Senokot-S) [place]ardo sennosides, 00 Equiv. to LONG-TERM 8.6 MG [place] Oral Tablet e. Miralax No Notes: Memoria 4-16 Dissolve l 14:00: in 8 oz of [place] 00 water or juice. (Same as: Miralax) Docusate No Notes: Memoria Sodium 50 4-16 (Same as l MG / 14:00: Senokot-S) [place] sennosides, 00 Equiv. to LONG-TERM 8.6 MG [place] Oral Tablet e. Miralax No Notes: Memoria 4-16 Dissolve l 14:00: in 8 oz of [place] 00 water or juice. (Same as: Miralax) heparin No Notes: Memoria 4-16 porcine l 05:00: heparin [place] 00 heparin No Notes: Memoria 4-16 porcine l 05:00: heparin [place] 00 heparin No Notes: Memoria 4-16 porcine l 05:00: heparin [place] 00 heparin No Notes: Memoria 4-16 porcine l 05:00: heparin [place] 00 heparin No Notes: Memoria 4-16 porcine l 05:00: heparin [place] 00 Aspirin No Notes: Do Memor ia 4-16 not crush l 04:48: or chew. [place] 00 (Same As: Ecotrin) Plavix No Notes: Memoria 4-16 (Same As: l 04:48: Plavix) [place] 00 Aspirin No Notes: Do Memor ia 4-16 not crush l 04:48: or chew. [place] 00 (Same As: Ecotrin) Plavix No Notes: Memoria 4-16 (Same As: l 04:48: Plavix) [place] 00 Aspirin No Notes: Do Memor ia 4-16 not crush l 04:48: or chew. [place] 00 (Same As: Ecotrin) Plavix No Notes: Memoria 4-16 (Same As: l 04:48: Plavix) [place] 00 Aspirin No Notes: Do Memor ia 4-16 not crush l 04:48: or chew. [place] 00 (Same As: Ecotrin) Plavix No Notes: Memoria 4-16 (Same As: l 04:48: Plavix) [place] 00 Aspirin No Notes: Do Memor ia 4-16 not crush l 04:48: or chew. [place] 00 (Same As: Ecotrin) Plavix No Notes: Memoria 4-16 (Same As: l 04:48: Plavix) Ativan No Notes: Memoria 4-16 (Same as: l 02:30: Ativan) Ativan No Notes: Memoria 4-16 (Same as: l 02:30: Ativan) [place] 00 Ativan No Notes: Memoria 4-16 (Same as: l 02:30: Ativan) [place] 00 Ativan No Notes: Memoria 4-16 (Same as: l 02:30: Ativan) [place] 00 Ativan No Notes: Memoria 4-16 (Same as: l 02:30: Ativan) Docusate No Notes: Memoria 4-16 (Same as: l 02:00: Colace) [place] 00 (Do Not Crush) atorvastati No Notes: Fabrizio ruchi n 4-16 Same as l 02:00: Lipitor Saline No Notes: Memoria Flush 0.9% 4-16 (Same as: l 02:00: BD Posiflush) Docusate No Notes: Memoria 4-16 (Same as: l 02:00: Colace) (Do Not Crush) atorvastati No Notes: Fabrizio ruchi n 4-16 Same as l 02:00: Lipitor [place] 00 Saline No Notes: Memoria Flush 0.9% 4-16 (Same as: l 02:00: BD [place] 00 Posiflush) Docusate No Notes: Memoria 4-16 (Same as: l 02:00: Colace) [place] 00 (Do Not Crush) atorvastati No Notes: Fabrizio ruchi n 4-16 Same as l 02:00: Lipitor [place] 00 Saline No Notes: Memoria Flush 0.9% 4-16 (Same as: l 02:00: BD [place] 00 Posiflush) Docusate No Notes: Memoria 4-16 (Same as: l 02:00: Colace) [place] 00 (Do Not Crush) atorvastati No Notes: Fabrizio ruchi n 4-16 Same as l 02:00: Lipitor [place] 00 Saline No Notes: Memoria Flush 0.9% 4-16 (Same as: l 02:00: BD [place] 00 Posiflush) Docusate No Notes: Memoria 4-16 (Same as: l 02:00: Colace) [place] 00 (Do Not Crush) atorvastati No Notes: Fabrizio ruchi n 4-16 Same as l 02:00: Lipitor [place] 00 Saline No Notes: Memoria Flush 0.9% 4-16 (Same as: l 02:00: BD [place] 00 Posiflush) Bisacodyl No Notes: Memori a 4-16 (Same As: l 00:17: Dulcolax, [place] 00 Bisco-Lax) Saline No Notes: Memoria Flush 0.9% 4-16 (Same as: l 00:17: BD [place] 00 Posiflush) Bisacodyl No Notes: Memori a 4-16 (Same As: l 00:17: Dulcolax, [place] 00 Bisco-Lax) Saline No Notes: Memoria Flush 0.9% 4-16 (Same as: l 00:17: BD [place] 00 Posiflush) Bisacodyl No Notes: Memori a 4-16 (Same As: l 00:17: Dulcolax, [place] 00 Bisco-Lax) Saline No Notes: Memoria Flush 0.9% 4-16 (Same as: l 00:17: BD [place] 00 Posiflush) Bisacodyl No Notes: Memori a 4-16 (Same As: l 00:17: Dulcolax, [place] 00 Bisco-Lax) Saline No Notes: Memoria Flush 0.9% 4-16 (Same as: l 00:17: BD [place] 00 Posiflush) Bisacodyl No Notes: Memori a 4-16 (Same As: l 00:17: Dulcolax, [place] 00 Bisco-Lax) Saline No Notes: Memoria Flush 0.9% 4-16 (Same as: l 00:17: BD [place] 00 Posiflush) rosuvastati Yes 20mg 20 mg. [facility] n (Crestor) 1-28 Health 20 MG 00:00: tablet 00 rosuvastati Yes 20mg 20 mg. UT n (Crestor) 1-28 Health 20 MG 00:00: tablet 00 aspirin 2018-05 Yes 81mg QD Take 81 mg Meth el (ECOTRIN) 0-[address] 81 MG 17:35: daily. Hospita enteric 45 l coated tablet cyanocobala 2018-05 Yes QD Take by Met hodi min, 0-[address] vitamin 17:35: daily. Hospita B-12, 45 l (VITAMIN B-12 ORAL) cyanocobala 2018-05 Yes QD Take by Met hodi min, 0-[address] vitamin 12:35: daily. Hospita B-12, 45 l (VITAMIN B-12 ORAL) aspirin 2018-05 Yes 81mg QD Take 81 mg Meth el (ECOTRIN) 0-[address] 81 MG 12:35: daily. Hospita enteric 45 l coated tablet cyanocobala 2018-05 Yes QD Take by Met hodi min, 0-[address] vitamin 12:35: daily. Hospita B-12, 45 l (VITAMIN B-12 ORAL) aspirin 2018-05 Yes 81mg QD Take 81 mg Meth el (ECOTRIN) 0-[address] 81 MG 12:35: daily. Hospita enteric 45 l coated tablet cyanocobala 2018-05 Yes QD Take by Met hodi min, 0-[address] vitamin 12:35: daily. Hospita B-12, 45 l (VITAMIN B-12 ORAL) aspirin 2018-05 Yes 81mg QD Take 81 mg Meth el (ECOTRIN) 0-[address] 81 MG 12:35: daily. Hospita enteric 45 l coated tablet cyanocobala 2018-05 Yes QD Take by Met hodi min, 0-[address] vitamin 12:35: daily. Hospita B-12, 45 l (VITAMIN B-12 ORAL) aspirin 2018-05 Yes 81mg QD Take 81 mg Meth el (ECOTRIN) 0-[address] 81 MG 12:35: daily. Hospita enteric 45 l coated tablet cyanocobala 2018-05 Yes QD Take by Met hodi min, 0-[address] vitamin 12:35: daily. Hospita B-12, 45 l (VITAMIN B-12 ORAL) aspirin 2018-05 Yes 81mg QD Take 81 mg Meth el (ECOTRIN) 0-[address] 81 MG 12:35: daily. Hospita enteric 45 l coated tablet cyanocobala 2018-05 Yes QD Take by Met hodi min, 0-[address] vitamin 12:35: daily. Hospita B-12, 45 l (VITAMIN B-12 ORAL) aspirin 2018-05 Yes 81mg QD Take 81 mg Meth el (ECOTRIN) 0-[address] 81 MG 12:35: daily. Hospita enteric 45 l coated tablet cyanocobala 2018-05 Yes QD Take by Met hodi min, 0-[address] vitamin 12:35: daily. Hospita B-12, 45 l (VITAMIN B-12 ORAL) aspirin 2018-05 Yes 81mg QD Take 81 mg Meth el (ECOTRIN) 0-[address] 81 MG 12:35: daily. Hospita enteric 45 l coated tablet levothyroxi Yes 50ug QD Take 50 Met hodi ne 4-[address] (SYNTHROID, 00:00: mouth Hospi ta LEVOXYL) 50 00 every l mcg tablet morning. levothyroxi 2019-0 Yes 50ug QD Take 50 Met hodi ne 4-[address] (SYNTHROID, 00:00: mouth Hospi ta LEVOXYL) 50 00 every l mcg tablet morning. levothyroxi 2019-0 Yes 50ug QD Take 50 Met hodi ne 4-[address] (SYNTHROID, 00:00: mouth Hospi ta LEVOXYL) 50 00 every l mcg tablet morning. levothyroxi 2019-0 Yes 50ug QD Take 50 Met hodi ne 4-[address] (SYNTHROID, 00:00: mouth Hospi ta LEVOXYL) 50 00 every l mcg tablet morning. levothyroxi 2019-0 Yes 50ug QD Take 50 Met hodi ne 4-[address] (SYNTHROID, 00:00: mouth Hospi ta LEVOXYL) 50 00 every l mcg tablet morning. levothyroxi 2019-0 Yes 50ug QD Take 50 Met hodi ne 4-[address] (SYNTHROID, 00:00: mouth Hospi ta LEVOXYL) 50 00 every l mcg tablet morning. levothyroxi 2019-0 Yes 50ug QD Take 50 Met hodi ne 4-[address] (SYNTHROID, 00:00: mouth Hospi ta LEVOXYL) 50 00 every l mcg tablet morning. levothyroxi 2019-0 Yes 50ug QD Take 50 Met hodi ne 4-[address] (SYNTHROID, 00:00: mouth Hospi ta LEVOXYL) 50 00 every l mcg tablet morning. rosuvastati 2019-0 Yes 20mg QD Take 20 mg Methodi n (CRESTOR) 4-[address] 20 MG 00:00: every Hospita tablet 00 morning. l rosuvastati 2019-0 Yes 20mg QD Take 20 mg Methodi n (CRESTOR) 4-[address] 20 MG 00:00: every Hospita tablet 00 morning. l rosuvastati 2019-0 Yes 20mg QD Take 20 mg Methodi n (CRESTOR) 4-[address] 20 MG 00:00: every Hospita tablet 00 morning. l rosuvastati 2019-0 Yes 20mg QD Take 20 mg Methodi n (CRESTOR) 4-[address] 20 MG 00:00: every Hospita tablet 00 morning. l rosuvastati 2019-0 Yes 20mg QD Take 20 mg Methodi n (CRESTOR) 4-[address] 20 MG 00:00: every Hospita tablet 00 morning. l rosuvastati 2019-0 Yes 20mg QD Take 20 mg Methodi n (CRESTOR) 4-[address] 20 MG 00:00: every Hospita tablet 00 morning. l rosuvastati 2019-0 Yes 20mg QD Take 20 mg Methodi n (CRESTOR) 4-[address] 20 MG 00:00: every Hospita tablet 00 morning. l rosuvastati 2019-0 Yes 20mg QD Take 20 mg Methodi n (CRESTOR) 4-[address] 20 MG 00:00: every Hospita tablet 00 morning. l metFORMIN 2019-0 Yes 500mg QD Take 500 Met hodi (GLUCOPHAGE 2-[address] ) 500 mg 00:00: mouth Hospita tablet 00 nightly. l amLODIPine 2019-0 Yes 5mg QD Take 5 mg [facility] (NORVASC) 5 2-[address] mg tablet 00:00: [facility] metFORMIN 2019-0 Yes 500mg QD Take 500 [facility] (GLUCOPHAGE 2-[address] ) 500 mg 00:00: [facility] tablet 00 nightly. l amLODIPine 2019-0 Yes 5mg QD Take 5 mg [facility] (NORVASC) 5 2-[address] mg tablet 00:00: [facility] 00 l metFORMIN 2019-0 Yes 500mg QD Take 500 [facility] (GLUCOPHAGE 2-[address] ) 500 mg 00:00: [facility] tablet 00 nightly. l amLODIPine 2019-0 Yes 5mg QD Take 5 mg [facility] (NORVASC) 5 2-[address] mg tablet 00:00: [facility] l metFORMIN 2019-0 Yes 500mg QD Take 500 [facility] (GLUCOPHAGE 2-[address] ) 500 mg 00:00: [facility] tablet 00 nightly. l amLODIPine 2019-0 Yes 5mg QD Take 5 mg [facility] (NORVASC) 5 2-[address] mg tablet 00:00: [facility] 00 l metFORMIN 2019-0 Yes 500mg QD Take 500 [facility] (GLUCOPHAGE 2-[address] ) 500 mg 00:00: [facility] tablet 00 nightly. l amLODIPine 2019-0 Yes 5mg QD Take 5 mg [facility] (NORVASC) 5 2-[address] mg tablet 00:00: [facility] 00 l metFORMIN 2019-0 Yes 500mg QD Take 500 [facility] (GLUCOPHAGE 2-[address] ) 500 mg 00:00: [facility] tablet 00 nightly. l amLODIPine 2019-0 Yes 5mg QD Take 5 mg [facility] (NORVASC) 5 2-[address] mg tablet 00:00: [facility]ly[facility] 00 l metFORMIN 2019-0 Yes 500mg QD Take 500 [facility] (GLUCOPHAGE 2-[address] ) 500 mg 00:00: [facility] tablet 00 nightly. l amLODIPine 2019-0 Yes 5mg QD Take 5 mg [facility] (NORVASC) 5 2-[address] mg tablet 00:00: [facility]ly[facility] 00 l metFORMIN 2019-0 Yes 500mg QD Take 500 [facility] (GLUCOPHAGE 2-[address] ) 500 mg 00:00: [facility] tablet 00 nightly. l amLODIPine 2019-0 Yes 5mg QD Take 5 mg [facility] (NORVASC) 5 2-[address] mg tablet 00:00: [facility]ly[facility] 00 l clopidogrel 2019-0 Yes 75mg QD Take 75 mg [facility] (PLAVIX) 75 2-[address] mg tablet 00:00: daily. [facility] 00 [facility] clopidogrel 2019-0 Yes 75mg QD Take 75 mg [facility] (PLAVIX) 75 2-[address] mg tablet 00:00: daily. [facility] clopidogrel 2019-0 Yes 75mg QD Take 75 mg [facility] (PLAVIX) 75 2-[address] mg tablet 00:00: daily. [facility] 00 l clopidogrel 2019-0 Yes 75mg QD Take 75 mg [facility] (PLAVIX) 75 2-[address] mg tablet 00:00: daily. [facility] 00 l clopidogrel 2019-0 Yes 75mg QD Take 75 mg [facility] (PLAVIX) 75 2-[address] mg tablet 00:00: daily. [facility] 00 l clopidogrel 2019-0 Yes 75mg QD Take 75 mg [facility] (PLAVIX) 75 2-[address] mg tablet 00:00: daily. [facility] clopidogrel 2019- Yes 75mg QD Take 75 mg [facility] (PLAVIX) 75 2-[address] mg tablet 00:00: daily. [facility] clopidogrel 2018-0 Yes 75mg QD Take 75 mg [facility] (PLAVIX) 75 2-[address] mg tablet 00:00: daily. [facility] 00 l valsartan Yes 160mg QD Take 160 [facility] (DIOVAN) 1-[address] 160 MG 00:00: [facility] tablet 00 every l morning. valsartan Yes 160mg QD Take 160 [facility] (DIOVAN) 1-[address] 160 MG 00:00: [facility] tablet 00 every l morning. valsartan 0 Yes 160mg QD Take 160 [facility] (DIOVAN) 1-[address] 160 MG 00:00: [facility] tablet 00 every l morning. valsartan Yes 160mg QD Take 160 [facility] (DIOVAN) 1-[address] 160 MG 00:00: [facility] tablet 00 every l morning. valsartan Yes 160mg QD Take 160 [facility] (DIOVAN) 1-[address] 160 MG 00:00: [facility] tablet 00 every l morning. valsartan 0 Yes 160mg QD Take 160 [facility] (DIOVAN) 1-[address] 160 MG 00:00: [facility] tablet 00 every l morning. valsartan Yes 160mg QD Take 160 [facility] (DIOVAN) 1-[address] 160 MG 00:00: [facility] tablet 00 every l morning. valsartan 0 Yes 160mg QD Take 160 [facility] (DIOVAN) 1-[address] 160 MG 00:00: [facility] tablet 00 every l morning. metFORMIN 0 Yes 500mg QD Take [address] [facility] (GLUCOPHAGE 9-04 [facility] ) 500 MG 13:45: [facility] tablet 07 daily . [facility] aspirin 81 2017-0 Yes 81mg QD Take [address] [facility] 01-[facility] 13:45: daily. [facility] 07 [facility] rosuvastati 0 Yes 40mg QD Take [address] [facility] (CRESTOR) 9-04 [facility] 40 MG 13:45: daily. Medical tablet 07 [place] valsartan 2018-0 Yes 160mg QD Take [address] [facility] (DIOVAN) 9-04 [facility] 160 MG 13:45: [facility] tablet 07 daily. Center amLODIPine 2018-0 Yes 5mg QD Take [address] [facility] [address] [facility] (NORVASC) 5 9-04 [facility] MG tablet 13:45: daily. Medica l 07 [place] clopidogrel 2018-0 Yes 75mg QD Take [address] [facility] (PLAVIX) 75 9-04 [facility] mg tablet 13:45: daily. Medica l 07 [place] LEVOTHYROXI 2018-0 Yes 50ug QD Take [address] [facility] [address] NE SODIUM 9-04 mcg [facility] (SYNTHROID 13:45: [facility] ORAL) 07 daily . Center metFORMIN 2017-0 Yes 500mg QD Take [address] [facility] [address] (GLUCOPHAGE 9-04 [facility] ) 500 MG 13:45: mouth [facility] tablet 07 daily . [place] aspirin 81 Yes 81mg QD Take [address] MG EC 9-04 [facility] tablet 13:45: daily. [facility] 07 [place] rosuvastati 2017-0 Yes 40mg QD Take [address] [facility] (CRESTOR) 9-04 [facility] 40 MG 13:45: daily. Medical tablet 07 [place] valsartan 2018-0 Yes 160mg QD Take [address] [facility] [address] (DIOVAN) 9-04 [facility] 160 MG 13:45: mouth [facility] tablet 07 daily. [place] amLODIPine 2018-0 Yes 5mg QD Take [address] [facility] [address] [facility] (NORVASC) 5 9-04 [facility] MG tablet 13:45: daily. Medica l [address] [place] [address] clopidogrel 2017-0 Yes 75mg QD Take [address] [facility] (PLAVIX) 75 9-04 [facility] mg tablet 13:45: daily. Medica l [address] [place] [address] LEVOTHYROXI 2018-0 Yes 50ug QD Take [address] [facility] NE SODIUM 9-04 mcg [facility] (SYNTHROID 13:45: [facility] ORAL) 07 daily . [place] metFORMIN 2018-0 Yes 500mg QD Take [address] [facility] [address] (GLUCOPHAGE 9-04 [facility] ) 500 MG 13:45: mouth Medical tablet 07 daily . [place] aspirin 81 2017-0 Yes 81mg QD Take [address] MG EC 9-04 [facility] tablet 13:45: daily. Medical 07 [place] rosuvastati 2018-0 Yes 40mg QD Take [address] [facility] (CRESTOR) 9-04 [facility] 40 MG 13:45: daily. Medical tablet 07 [place] valsartan 2018-0 Yes 160mg QD Take [address] [facility] [address] (DIOVAN) 9-04 [facility] 160 MG 13:45: mouth [facility] tablet 07 daily. Center amLODIPine 2018-0 Yes 5mg QD Take [address] [facility] [address] [facility] (NORVASC) 5 9-04 [facility] MG tablet 13:45: daily. Medica l 07 [place] clopidogrel 2018-0 Yes 75mg QD Take [address] [facility] (PLAVIX) 75 9-04 [facility] mg tablet 13:45: daily. Med[facility] l [address] [place] [address] LEVOTHYROXI 2018-0 Yes 50ug QD Take [address] [facility] NE SODIUM 9-04 mcg [facility] (SYNTHROID 13:45: [facility] ORAL) 07 daily . [place] metFORMIN 2018-0 Yes 500mg QD Take [address] [facility] [address] (GLUCOPHAGE 9-04 [facility] ) 500 MG 13:45: mouth Medical tablet 07 daily . [place] aspirin 81 2018-0 Yes 81mg QD Take [address] MG EC 9-04 [facility] tablet 13:45: daily. [facility] 07 [place] rosuvastati 2018-0 Yes 40mg QD Take [address] [facility] (CRESTOR) 9-04 [facility] 40 MG 13:45: daily. Medical tablet 07 [place] valsartan 2018-0 Yes 160mg QD Take [address] [facility] [address] (DIOVAN) 9-04 [facility] 160 MG 13:45: mouth [facility] tablet 07 daily. [place] amLODIPine 2018-0 Yes 5mg QD Take [address] [facility] [address] [facility] (NORVASC) 5 9-04 [facility] MG tablet 13:45: daily. Medica l 07 [place] clopidogrel 2018-0 Yes 75mg QD Take [address] [facility] (PLAVIX) 75 9-04 [facility] mg tablet 13:45: daily. Medica l 07 [place] LEVOTHYROXI 2018-0 Yes 50ug QD Take [address] NE SODIUM 9-04 mcg [facility] (SYNTHROID 13:45: [facility] ORAL) 07 daily . [facility] metFORMIN 2018-0 Yes 500mg QD Take [address] [facility] [address] (GLUCOPHAGE 9-04 [facility] ) 500 MG 13:45: mouth Medical tablet 07 daily . [place] aspirin 81 2018-0 Yes 81mg QD Take [address] MG EC 9-04 [facility] tablet 13:45: daily. Medical 07 [place] rosuvastati 2018-0 Yes 40mg QD Take [address] [facility] (CRESTOR) 9-04 [facility] 40 MG 13:45: daily. Medical tablet 07 [place] valsartan 2018-0 Yes 160mg QD Take [address] [facility] [address] (DIOVAN) 9-04 [facility] 160 MG 13:45: mouth [facility] tablet 07 daily. [place] amLODIPine 2018-0 Yes 5mg QD Take [address] [facility] [address] [facility] (NORVASC) 5 9-04 [facility] MG tablet 13:45: daily. Medica l [address] [place] [address] clopidogrel 2018-0 Yes 75mg QD Take [address] [facility] (PLAVIX) 75 9-04 [facility] mg tablet 13:45: daily. Medica l [address] [place] [address] LEVOTHYROXI 2018-0 Yes 50ug QD Take [address] NE SODIUM 9-04 mcg [facility] (SYNTHROID 13:45: mouth Med[facility] l ORAL) 07 daily . [place] metFORMIN 2018-0 Yes 500mg QD Take [address] [facility] (GLUCOPHAGE 9-04 [facility] ) 500 MG 13:45: mouth Medical tablet 07 daily . [place] aspirin 81 [address]80 Yes 81mg QD Take [address] MG EC 9-04 [facility] tablet 13:45: daily. [facility] 07 [place] rosuvastati 2018-0 Yes 40mg QD Take [address] [facility] (CRESTOR) 9-04 [facility] 40 MG 13:45: daily. Medical tablet 07 [place] valsartan 2018-0 Yes 160mg QD Take [address] [facility] [address] (DIOVAN) 9-04 [facility] 160 MG 13:45: mouth Medical tablet 07 daily. [place] amLODIPine 2018-0 Yes 5mg QD Take [address] (NORVASC) 5 9-04 [facility] MG tablet 13:45: daily. Medica l [address] [place] [address] clopidogrel 2018-0 Yes 75mg QD Take [address] [facility] [address] (PLAVIX) 75 9-04 [facility] mg tablet 13:45: daily. Medica l [address] [place] [address] LEVOTHYROXI 2018-0 Yes 50ug QD Take [address] NE SODIUM 9-04 mcg [facility] (SYNTHROID 13:45: mouth [facility] l ORAL) 07 daily . Center metFORMIN 2018-0 Yes 500mg QD Take [address] [facility] (GLUCOPHAGE 9-04 mg [facility] ) 500 MG 13:45: mouth Medical tablet 07 daily . [place] aspirin 81 0 Yes 81mg QD Take [address] MG EC 9-04 [facility] tablet 13:45: daily. Medical 07 [place] rosuvastati 0 Yes 40mg QD Take [address] [facility] (CRESTOR) 9-04 [facility] 40 MG 13:45: daily. Medical tablet 07 [place] valsartan Yes 160mg QD Take [address] [facility] [address] (DIOVAN) 9-04 [facility] 160 MG 13:45: mouth Medical tablet 07 daily. [place] amLODIPine Yes 5mg QD Take [address] [facility] [address] [facility] (NORVASC) 5 9-04 [facility] MG tablet 13:45: daily. Medica l 07 [place] clopidogrel Yes 75mg QD Take [address] [facility] [address] (PLAVIX) 75 9-04 [facility] mg tablet 13:45: daily. Medica l 07 [place] LEVOTHYROXI 0 Yes 50ug QD Take [address] NE SODIUM 9-04 [facility]cg [facility] (SYNTHROID 13:45: mouth Medica l ORAL) 07 daily . [place] LEVOTHYROXI 0 Yes 50ug QD Take [address] NE SODIUM 9-04 mcg [facility] (SYNTHROID 13:45: mouth Medica l ORAL) 07 daily . [place] metFORMIN Yes 500mg QD Take [address] [facility] [address] (GLUCOPHAGE 9-04 mg [facility] ) 500 MG 13:45: mouth Medical tablet 07 daily . [place] aspirin 81 Yes 81mg QD Take [address] MG EC 9-04 [facility] tablet 13:45: daily. Medical 07 [place] rosuvastati 0 Yes 40mg QD Take [address] [facility] (CRESTOR) 9-04 [facility] 40 MG 13:45: daily. Medical tablet 07 [place] valsartan 0 Yes 160mg QD Take [address] [facility] [address] (DIOVAN) 9-04 [facility] 160 MG 13:45: mouth Medical tablet 07 daily. [place] amLODIPine Yes 5mg QD Take [address] (NORVASC) 5 01-10 [facility] MG tablet 13:45: daily. Medica l 07 [place] clopidogrel Yes 75mg QD Take [address] [facility] [address] (PLAVIX) 75 01-10 [facility] mg tablet 13:45: daily. Medica l [address] [place] [address] atorvastati 2013-05 Yes 80 mg = 1 M emoria n 80 mg 1-03 tab, PO, l oral tablet 18:09: Bedtime, 0 [place] 00 Refill(s) topiramate 2013-05 Yes Special Fabrizio ruchi 25 MG Oral -03 Instructio l Tablet 18:09: ns: Please Hillary nn [Topamax] 00 take one tablet at bedtime for on week, then take 2 tablets at bedtime from there on until your appointmen t. atorvastati 2013-05 Yes 80 mg = 1 M emoria n 80 mg 1-03 tab, PO, l oral tablet 18:09: Bedtime, 0 [place] 00 Refill(s) topiramate 2013-05 Yes Special Fabrizio ruchi 25 MG Oral 1-03 Instructio l Tablet 18:09: ns: Please Hillary nn [Topamax] 00 take one tablet at bedtime for on week, then take 2 tablets at bedtime from there on until your appointmen t. atorvastati 2013-05 Yes 80 mg = 1 M emoria n 80 mg 1-03 tab, PO, l oral tablet 18:09: Bedtime, 0 [place] 00 Refill(s) topiramate 2013-05 Yes Special Fabrizio ruchi 25 MG Oral 1-03 Instructio l Tablet 18:09: ns: Please Hillary nn [Topamax] 00 take one tablet at bedtime for on week, then take 2 tablets at bedtime from there on until your appointmen t. atorvastati 2013-05 Yes 80 mg = 1 M emoria n 80 mg 1-03 tab, PO, l oral tablet 18:09: Bedtime, 0 [place] 00 Refill(s) topiramate 2013-05 Yes Special Fabrizio ruchi 25 MG Oral 1-03 Instructio l Tablet 18:09: ns: Please Hillary nn [Topamax] 00 take one tablet at bedtime for on week, then take 2 tablets at bedtime from there on until your appointmen t. atorvastati 2013-05 Yes 80 mg = 1 M emoria n 80 mg - tab, PO, l oral tablet 18:09: Bedtime, 0 [place] 00 Refill(s) topiramate 2013-05 Yes Special Fabrizio ruchi 25 MG Oral 05-11 Instructio l Tablet 18:09: ns: Please [facility] nn [Topamax] 00 take one tablet at bedtime for on week, then take 2 tablets at bedtime from there on until your appointmen t. Levothroid 2013-05 No Notes: [facility] 1- Take 1 l 12:30: hour [place] 00 before or 2 hours after meal; Enteral feeds may interefere with the absorption of this medication . (Same as:Levothr oid) Levothroid 2013-05 No Notes: [facility] - Take 1 l 12:30: hour [place] 00 before or 2 hours after meal; Enteral feeds may interefere with the absorption of this medication . (Same as:Levothr oid) Levothroid 2013-05 No Notes: [facility] 1-03 Take 1 l 12:30: hour [place] 00 before or 2 hours after meal; Enteral feeds may interefere with the absorption of this medication . (Same as:Levothr oid) Levothroid 2013-05 No Notes: [facility] 1-03 Take 1 l 12:30: hour [place] 00 before or 2 hours after meal; Enteral feeds may interefere with the absorption of this medication . (Same as:Levothr oid) Levothroid 2013-05 No Notes: [facility] - Take 1 l 12:30: hour [place] 00 before or 2 hours after meal; Enteral feeds may interefere with the absorption of this medication . (Same as:Levothr oid) Versed 2013-05 No Notes: [facility] 1- (Same as: l 12:22: Versed) [place] Versed 2013-05 No Notes: [facility] 1- (Same as: l 12:22: Versed) [place] Versed 2013-05 No Notes: [facility] 1- (Same as: l 12:22: Versed) [place] Versed 2013-05 No Notes: [facility] 1- (Same as: l 12:22: Versed) [place] 00 Versed 2013-05 No Notes: [facility] 05-11 (Same as: l 12:22: Versed) [place] Lipitor 2013-05 No Notes: [facility] 05-11 Same as l 03:00: Lipitor [place] 00 Lipitor 2013-05 No Notes: [facility] 05-11 Same as l 03:00: Lipitor [place] 00 Lipitor 2013-05 No Notes: [facility] 05-11 Same as l 03:00: Lipitor [place] 00 Lipitor 2013-05 No Notes: [facility] 05-11 Same as l 03:00: Lipitor [place] 00 Lipitor 2013-05 No Notes: [facility] 05-11 Same as l 03:00: Lipitor [place] 00 120 ACTUAT 2013-05 Yes [facility] Fabrizio ruchi Triamcinolo 05-11 Instructio l ne 00:50: ns: in [place] Acetonide 00 each 0.055 nostril MG/ACTUAT Nasal Inhaler Metformin 2013-05 Yes 250 mg = Fabrizio ruchi hydrochlori 05-11 0.5 tab, l de 500 MG 00:50: PO, Daily, [facility] Oral Tablet 00 0 Refill(s) atorvastati 2013-05 No 80 mg = 1 M emoria n 80 MG 03 tab, PO, l Oral Tablet 00:50: Bedtime, Margarita Marte [Lipitor] 00 30 tab, 0 Refill(s) hydrochloro 2013-05 Yes 12.5 mg = M emoria thiazide 05-11 1 tab, PO, l 12.5 mg 00:50: Daily, # [place] n oral tablet 00 30 tab, 0 Refill(s) Olmesartan 2013-05 Yes 40 mg = 1 Me [facility] medoxomil 03 tab, PO, l 40 MG Oral 00:50: Daily, # Her damian Tablet 00 30 tab, 0 [Benicar] Refill(s) Levothyroxi 2013-05 Yes 37.5 Memori a ne Sodium 03 microgram l 0.025 MG 00:50: = 1.5 tab, Her damian Oral Tablet 00 PO, Daily, [Synthroid] # 30 tab, 0 Refill(s) clopidogrel 2013-05 Yes 75 mg = 1 M emoria 75 MG Oral 03 tab, PO, l Tablet 00:50: Daily, # [place] [Plavix] 00 30 tab, 0 Refill(s) 120 ACTUAT 2013-05 Yes Special Fabrizio r[facility] Triamcinolo 05-11 Instructio l ne 00:50: ns: in [place] Acetonide 00 each 0.055 nostril MG/ACTUAT Nasal Inhaler Metformin 2013-05 Yes 250 mg = Fabrizio ruchi hydrochlori 05-11 0.5 tab, l de 500 MG 00:50: PO, Daily, [facility] Oral Tablet 00 0 Refill(s) atorvastati 2013-05 No 80 mg = 1 M emoria n 80 MG -03 tab, PO, l Oral Tablet 00:50: Bedtime, # [place] [Lipitor] 00 30 tab, 0 Refill(s) hydrochloro 2013-05 Yes 12.5 mg = M emoria thiazide 05-11 1 tab, PO, l 12.5 mg 00:50: Daily, # [place] oral tablet 00 30 tab, 0 Refill(s) Olmesartan 2013-05 Yes 40 mg = 1 Me [facility] medoxomil 03 tab, PO, l 40 MG Oral 00:50: Daily, # [facility] dam[facility] Tablet 00 30 tab, 0 [Benicar] Refill(s) Levothyroxi 2013-05 Yes 37.5 [facility]ori a ne Sodium 1-03 microgram l 0.025 MG 00:50: = 1.5 tab, Her damian Oral Tablet 00 PO, Daily, [Synthroid] # 30 tab, 0 Refill(s) clopidogrel 2013-05 Yes 75 mg = 1 M emoria 75 MG Oral 03 tab, PO, l Tablet 00:50: Daily, # [place] [Plavix] 00 30 tab, 0 Refill(s) 120 ACTUAT 2013-05 Yes [facility] Triamcinolo 05-11 Instructio l ne 00:50: ns: in [place] Acetonide 00 each 0.055 nostril MG/ACTUAT Nasal Inhaler Metformin 2013-05 Yes 250 mg = Fabrizio ruchi hydrochlori 05-11 0.5 tab, l de 500 MG 00:50: PO, Daily, [place] [facility] Oral Tablet 00 0 Refill(s) atorvastati 2013-05 No 80 mg = 1 M emoria n 80 MG -03 tab, PO, l Oral Tablet 00:50: Bedtime, # [place] [Lipitor] 00 30 tab, 0 Refill(s) hydrochloro 2013-05 Yes 12.5 mg = M emoria thiazide 05-11 1 tab, PO, l 12.5 mg 00:50: Daily, # [place] oral tablet 00 30 tab, 0 Refill(s) Olmesartan 2013-05 Yes 40 mg = 1 Me mor[facility] medoxomil 03 tab, PO, l 40 MG Oral 00:50: Daily, # [facility] dam[facility] Tablet 00 30 tab, 0 [Benicar] Refill(s) Levothyroxi 2013-05 Yes 37.5 Memori a ne Sodium 03 microgram l 0.025 MG 00:50: = 1.5 tab, Her dam[facility] Oral Tablet 00 PO, Daily, [Synthroid] # 30 tab, 0 Refill(s) clopidogrel 2013-05 Yes 75 mg = 1 M emoria 75 MG Oral 05-11 tab, PO, l Tablet 00:50: Daily, # [place] [Plavix] 00 30 tab, 0 Refill(s) 120 ACTUAT 2013-05 Yes Special Fab[facility]io [facility] Triamcinolo 05-11 Instructio l ne 00:50: ns: in [place] Acetonide 00 each 0.055 nostril MG/ACTUAT Nasal Inhaler Metformin 2013-05 Yes 250 mg = Fabrizio ruchi hydrochlori 05-11 0.5 tab, l de 500 MG 00:50: PO, Daily, [facility] Oral Tablet 00 0 Refill(s) atorvastati 2013-05 No 80 mg = 1 M emoria n 80 MG 05-11 tab, PO, l Oral Tablet 00:50: Bedtime, # [place] [Lipitor] 00 30 tab, 0 Refill(s) hydrochloro 2013-05 Yes 12.5 mg = M emoria thiazide 05-11 1 tab, PO, l 12.5 mg 00:50: Daily, # [place] oral tablet 00 30 tab, 0 Refill(s) Olmesartan 2013-05 Yes 40 mg = 1 Me moria medoxomil 03 tab, PO, l 40 MG Oral 00:50: [...] [place] [Plavix] 00 30 tab, 0 Refill(s) 120 ACTUAT 2013-05 Yes Special Fabrizio ruchi Triamcinolo 05-11 Instructio l ne 00:50: ns: in [place] Acetonide 00 each 0.055 nostril MG/ACTUAT Nasal Inhaler Metformin 2013-05 Yes 250 mg = Fabrizio ruchi hydrochlori 05-11 0.5 tab, l de 500 MG 00:50: PO, Daily, [place] [facility] Oral Tablet 00 0 Refill(s) atorvastati 2013-05 No 80 mg = 1 M emoria n 80 MG -03 tab, PO, l Oral Tablet 00:50: Bedtime, # [place] [Lipitor] 00 30 tab, 0 Refill(s) hydrochloro 2013-05 Yes 12.5 mg = M emoria thiazide 05-11 1 tab, PO, l 12.5 mg 00:50: Daily, # [place] oral tablet 00 30 tab, 0 Refill(s) Olmesartan 2013-05 Yes 40 mg = 1 Me mor[facility] medoxomil 03 tab, PO, l 40 MG Oral 00:50: [...] 0 Refill(s) Iohexol 2013-05 No Notes: [facility]oria 05-10 (Same l 16:33: as:Omnipaq [place] 00 ue 350). Iohexol 2013-05 No Notes: [facility] 05-10 (Same l 16:33: as:Omnipaq [place] 00 ue 350). Iohexol 2013-05 No Notes: [facility] - (Same l 16:33: as:Omnipaq [place] 00 ue 350). Iohexol 2013-05 No Notes: [facility] - (Same l 16:33: as:Omnipaq [place] 00 ue 350). Iohexol 2013-05 No Notes: [facility] - (Same l 16:33: as:Omnipaq [place] 00 ue 350). Docusate 2013-05 No Notes: [facility] Sodium 100 -02 (Same as: l MG Oral 15:00: Colace) [place] Capsule 00 (Do Not Crush) sennosides, 2013-05 No Notes: Fabrizio ruchi LONG-TERM 8.6 MG -02 (Same as: l Oral Tablet 15:00: Senokot) [place] 00 Saline 2013-05 No Notes: [facility] Flush 0.9% 1-02 (Same as: l 15:00: BD [place] 00 Posiflush) Aspirin 81 2013-05 No Notes: Do Me moria MG Enteric -02 not crush l Coated 15:00: or chew. [place] Tablet 00 (Same As: Ecotrin) pneumococca 2013-05 No Notes: Fabrizio ruchi l capsular - (Same as: l polysacchar 15:00: Pneumovax [facility] [place] vito type 1 00 23) vaccine / Refrigerat pneumococca e l capsular polysacchar viot type 10A vaccine / pneumococca l capsular polysacchar vito type 11A vaccine / pneumococca l capsular polysacchar vito type 12F vaccine / pneumococca l capsular polysacchar Docusate 2013-05 No Notes: [facility] Sodium 100 1-02 (Same as: l MG Oral 15:00: Colace) [place] Capsule 00 (Do Not Crush) sennosides, 2013-05 No Notes: Fabrizio ruchi LONG-TERM 8.6 MG 1-02 (Same as: l Oral Tablet 15:00: Senokot) [place] 00 Saline 2013-05 No Notes: [facility] Flush 0.9% 1-02 (Same as: l 15:00: BD [place] 00 Posiflush) Aspirin 81 2013-05 No Notes: Do Me moria MG Enteric 1-02 not crush l Coated 15:00: or chew. [place] Tablet 00 (Same As: Ecotrin) pneumococca 2013-05 No Notes: Fabrizio ruchi l capsular 1-02 (Same as: l polysacchar 15:00: Pneumovax [facility] vito type 1 00 23) vaccine / Refrigerat pneumococca e l capsular polysacchar vito type 10A vaccine / pneumococca l capsular polysacchar vito type 11A vaccine / pneumococca l capsular polysacchar vito type 12F vaccine / pneumococca l capsular polysacchar Docusate 2013-05 No Notes: [facility] Sodium 100 1-02 (Same as: l MG Oral 15:00: Colace) [place] Capsule 00 (Do Not Crush) [facility], 2013-05 No Notes: Fabrizio ruchi LONG-TERM 8.6 MG 1-02 (Same as: l Oral Tablet 15:00: Senokot) [place] 00 Saline 2013-05 No Notes: [facility] Flush 0.9% 1-02 (Same as: l 15:00: BD [place] 00 Posiflush) Aspirin 81 2013-05 No Notes: Do Me moria MG Enteric 1-02 not crush l Coated 15:00: or chew. [place] Tablet 00 (Same As: Ecotrin) pneumococca 2013-05 No Notes: Fabrizio ruchi l capsular 1-02 (Same as: l polysacchar 15:00: Pneumovax [facility] vito type 1 00 23) vaccine / Refrigerat pneumococca e l capsular polysacchar vito type 10A vaccine / pneumococca l capsular polysacchar vito type 11A vaccine / pneumococca l capsular polysacchar viot type 12F vaccine / pneumococca l capsular polysacchar Docusate 2013-05 No Notes: [facility] Sodium 100 1-02 (Same as: l MG Oral 15:00: Colace) [place] Capsule 00 (Do Not Crush) [facility], 2013-05 No Notes: Fabrizio ruchi LONG-TERM 8.6 MG 1-02 (Same as: l Oral Tablet 15:00: Senokot) [place] 00 Saline 2013-05 No Notes: [facility] Flush 0.9% 1-02 (Same as: l 15:00: BD [place] 00 Posiflush) Aspirin 81 2013-05 No Notes: Do Me moria MG Enteric 1-02 not crush l Coated 15:00: or chew. [place] Tablet 00 (Same As: Ecotrin) pneumococca 2013-05 No Notes: Fabrizio ruchi l capsular 1-02 (Same as: l polysacchar 15:00: Pneumovax [facility] vito type 1 00 23) vaccine / Refrigerat pneumococca e l capsular polysacchar vito type 10A vaccine / pneumococca l capsular polysacchar vito type 11A vaccine / pneumococca l capsular polysacchar vito type 12F vaccine / pneumococca l capsular polysacchar Docusate 2013-05 No Notes: [facility]oria Sodium 100 1-02 (Same as: l MG Oral 15:00: Colace) [place] Capsule 00 (Do Not Crush) sennosides, 2013-05 No Notes: Fabrizio ruchi LONG-TERM 8.6 MG -02 (Same as: l Oral Tablet 15:00: Senokot) [place] 00 Saline 2013-05 No Notes: [facility] Flush 0.9% 05-10 (Same as: l 15:00: BD [place] 00 Posiflush) Aspirin 81 2013-05 No Notes: Do Me moria MG Enteric -02 not crush l Coated 15:00: or chew. [place] Tablet 00 (Same As: Ecotrin) pneumococca 2013-05 No Notes: Fabrizio ruchi l capsular -02 (Same as: l polysacchar 15:00: Pneumovax H ermann vito type 1 00 23) vaccine / Refrigerat pneumococca e l capsular polysacchar vito type 10A vaccine / pneumococca l capsular polysacchar vito type 11A vaccine / pneumococca l capsular polysacchar vito type 12F vaccine / pneumococca l capsular polysacchar heparin, 2013-05 No Notes: Memoria porcine 1-02 porcine l 14:00: heparin Estuardo 00 heparin, 2013-05 No Notes: [facility]oria porcine 1-02 porcine l 14:00: heparin [place] 00 heparin, 2013-05 No Notes: [facility]oria porcine 1-02 porcine l 14:00: heparin [place] 00 heparin, 2013-05 No Notes: [facility] porcine 1-02 porcine l 14:00: heparin Estuardo 00 heparin, 2013-05 No Notes: [facility] porcine 1-02 porcine l 14:00: heparin [place] 00 Hydrochloro 2013-05 No 12.5 mg, Me moria thiazide -02 PO, Daily l 13:16: [place] 00 clopidogrel 2013-05 No 75 mg = 1 M emoria 75 MG Oral 1-02 tab, PO, l Tablet 13:16: Daily [place] [Plavix] Metformin 2013-05 No 250 mg, Memor ia 02 Daily l 13:16: [place] 00 Triamcinolo 2013-05 No = 1 spray, Memoria ne 1-02 INHALATION l Acetonide 13:16: , BID Thyroxine 2013-05 No 37.5 Memoria 1-02 microgram, l 13:16: PO, Daily [place] 00 atorvastati 2013-05 No 80 mg = 1 M emoria n 80 MG 1-02 tab, PO, l Oral Tablet 13:16: Daily Hillary nn [Lipitor] Olmesartan 2013-05 No 40 mg = 1 Me moria medoxomil 1-02 tab, PO, l 40 MG Oral 13:16: Daily [place] n Tablet 00 [Benicar] Hydrochloro 2013-05 No 12.5 mg, Me moria thiazide -02 PO, Daily l 13:16: [place] 00 clopidogrel 2013-05 No 75 mg = 1 M emoria 75 MG Oral 1-02 tab, PO, l Tablet 13:16: Daily [place] [Plavix] Metformin 2013-05 No 250 mg, Memor ia 102 Daily l 13:16: Triamcinolo 2013-05 No = 1 spray, Memoria ne -02 INHALATION l Acetonide 13:16: , BID Thyroxine 2013-05 No 37.5 Memoria 1-02 microgram, l 13:16: PO, Daily atorvastati 2013-05 No 80 mg = 1 M emoria n 80 MG 1-02 tab, PO, l Oral Tablet 13:16: Daily Hillary nn [Lipitor] 00 Olmesartan 2013-05 No 40 mg = 1 Me moria medoxomil 1-02 tab, PO, l 40 MG Oral 13:16: Daily Vetnura n Tablet 00 [Benicar] Hydrochloro 2013-05 No 12.5 mg, Me moria thiazide 1-02 PO, Daily l 13:16: [place] clopidogrel 2013-05 No 75 mg = 1 M emoria 75 MG Oral 1-02 tab, PO, l Tablet 13:16: Daily [place] [Plavix] Metformin 2013-05 No 250 mg, Memor ia 1-02 Daily l 13:16: Triamcinolo 2013-05 No = 1 spray, Memoria ne 1-02 INHALATION l Acetonide 13:16: , BID Thyroxine 2013-05 No 37.5 Memoria 1-02 microgram, l 13:16: PO, Daily atorvastati 2013-05 No 80 mg = 1 M emoria n 80 MG 1-02 tab, PO, l Oral Tablet 13:16: Daily Hillary nn [Lipitor] 00 Olmesartan 2013-05 No 40 mg = 1 Me moria medoxomil 1-02 tab, PO, l 40 MG Oral 13:16: Daily [place] n Tablet 00 [Benicar] Hydrochloro 2013-05 No 12.5 mg, Me moria thiazide 02 PO, Daily l 13:16: clopidogrel 2013-05 No 75 mg = 1 M emoria 75 MG Oral 1-02 tab, PO, l Tablet 13:16: Daily [place] [Plavix] Metformin 2013-05 No 250 mg, Memor ia 1-02 Daily l 13:16: Triamcinolo 2013-05 No = 1 spray, Memoria ne 1-02 INHALATION l Acetonide 13:16: , BID Thyroxine 2013-05 No 37.5 Memoria 1-02 microgram, l 13:16: PO, Daily [place] 00 atorvastati 2013-05 No 80 mg = 1 M emoria n 80 MG 1-02 tab, PO, l Oral Tablet 13:16: Daily Hillary nn [Lipitor] 00 Olmesartan 2013-05 No 40 mg = 1 Me moria medoxomil 1-02 tab, PO, l 40 MG Oral 13:16: Daily [place] n Tablet 00 [Benicar] Hydrochloro 2013-05 No 12.5 mg, Me moria thiazide -02 PO, Daily l 13:16: [place] 00 clopidogrel 2013-05 No 75 mg = 1 M emoria 75 MG Oral 1-02 tab, PO, l Tablet 13:16: Daily [place] [Plavix] Metformin 2013-05 No 250 mg, Memor ia 1-02 Daily l 13:16: [place] 00 Triamcinolo 2013-05 No = 1 spray, Memoria ne -02 INHALATION l Acetonide 13:16: , BID [place] 00 Thyroxine 2013-05 No 37.5 Memoria -02 microgram, l 13:16: PO, Daily [place] atorvastati 2013-05 No 80 mg = 1 M emoria n 80 MG 05-10 tab, PO, l Oral Tablet 13:16: Daily Hillary nn [Lipitor] 00 Olmesartan 2013-05 No 40 mg = 1 Me moria medoxomil 05-10 tab, PO, l 40 MG Oral 13:16: Daily [place] n Tablet 00 [Benicar] Saline 2013-05 No Notes: Memoria Flush 0.9% -02 (Same as: l 09:11: BD [place] 00 Posiflush) Labetalol 2013-05 No 105mmHg Fabrizio ruchi 02 l 09:11: [place] 00 Acetaminoph 2013-05 No Notes: Do M emoria en 05-10 not exceed l 09:11: 4 gm/day. [place] 00 (Same as: Tylenol) Saline 2013-05 No Notes: Memoria Flush 0.9% -02 (Same as: l 09:11: BD [place] 00 Posiflush) Labetalol 2013-05 No 105mmHg Fabrizio ruchi -02 l 09:11: [place] 00 Acetaminoph 2013-05 No Notes: Do M emoria en 05-10 not exceed l 09:11: 4 gm/day. [place] 00 (Same as: Tylenol) Saline 2013-05 No Notes: Memoria Flush 0.9% -02 (Same as: l 09:11: BD [place] 00 Posiflush) Labetalol 2013-05 No 105mmHg Fabrizio ruchi -02 l 09:11: [place] 00 Acetaminoph 2013-05 No Notes: Do M emoria en 05-10 not exceed l 09:11: 4 gm/day. [place] 00 (Same as: Tylenol) Saline 2013-05 No Notes: Memoria Flush 0.9% 1-02 (Same as: l 09:11: BD [place] 00 Posiflush) Labetalol 2013-05 No 105mmHg Fabrizio ruchi -02 l 09:11: [place] 00 Acetaminoph 2013-05 No Notes: Do M emoria en 05-10 not exceed l 09:11: 4 gm/day. [place] 00 (Same as: Tylenol) Saline 2013-05 No Notes: Memoria Flush 0.9% 05-10 (Same as: l 09:11: BD [place] Posiflush) Labetalol 2013-05 No 105mmHg Fabrizio ruchi 05-10 l 09:11: [place] 00 Acetaminoph 2013-05 No Notes: Do M emoria en 05-10 not exceed l 09:11: 4 gm/day. [place] 00 (Same as: Tylenol) olmesartan Yes 40 mg = 2 Me moria 20 mg oral 7-04 tab, PO, l tablet 21:54: Daily, # [place] 00 60 tab, 3 Refill(s) Hydrochloro 0 Yes 12.5 mg = M emoria thiazide 7-04 1 cap, PO, l 12.5 MG 21:54: Daily-12N, Herm teressa Oral 00 # 30 cap, Capsule 3 Refill(s) clopidogrel Yes 75 mg = 1 M emoria 75 mg oral 7-04 tab, PO, l tablet 21:54: Daily, # [place] 00 30 tab, 3 Refill(s) atorvastati Yes 80 mg = 1 M emoria n 80 mg 7-04 tab, PO, l oral tablet 21:54: Daily, # [place] 00 30 tab, 3 Refill(s) olmesartan Yes 40 mg = 2 Me moria 20 mg oral 7-04 tab, PO, l tablet 21:54: Daily, # [place] 00 60 tab, 3 Refill(s) Hydrochloro 2013-0 Yes 12.5 mg = M emoria thiazide 7-04 1 cap, PO, l 12.5 MG 21:54: Daily-12N, Herm teressa Oral 00 # 30 cap, Capsule 3 Refill(s) clopidogrel 0 Yes 75 mg = 1 M emoria 75 mg oral 7-04 tab, PO, l tablet 21:54: Daily, # [place] 00 30 tab, 3 Refill(s) atorvastati Yes 80 mg = 1 M emoria n 80 mg 7-04 tab, PO, l oral tablet 21:54: Daily, # [place] 00 30 tab, 3 Refill(s) olmesartan 2013- Yes 40 mg = 2 Me moria 20 mg oral 7-04 tab, PO, l tablet 21:54: Daily, # [place] 00 60 tab, 3 Refill(s) Hydrochloro 2013-0 Yes 12.5 mg = M emoria thiazide 7-04 1 cap, PO, l 12.5 MG 21:54: Daily-12N, Herm teressa Oral 00 # 30 cap, Capsule 3 Refill(s) clopidogrel 2013-0 Yes 75 mg = 1 M emoria 75 mg oral 7-04 tab, PO, l tablet 21:54: Daily, # [place] 00 30 tab, 3 Refill(s) atorvastati Yes 80 mg = 1 M emoria n 80 mg 7-04 tab, PO, l oral tablet 21:54: Daily, # [place] 00 30 tab, 3 Refill(s) olmesartan Yes 40 mg = 2 Me moria 20 mg oral 7-04 tab, PO, l tablet 21:54: Daily, # [place] 00 60 tab, 3 Refill(s) Hydrochloro 2013-0 Yes 12.5 mg = M emoria thiazide 7- 1 cap, PO, l 12.5 MG 21:54: Daily-12N, Herm teressa Oral 00 # 30 cap, Capsule 3 Refill(s) clopidogrel 2013-0 Yes 75 mg = 1 M emoria 75 mg oral 7-04 tab, PO, l tablet 21:54: Daily, # [place] 00 30 tab, 3 Refill(s) atorvastati 2013-0 Yes 80 mg = 1 M emoria n 80 mg 7-04 tab, PO, l oral tablet 21:54: Daily, # [place] 00 30 tab, 3 Refill(s) olmesartan 2013- Yes 40 mg = 2 Me moria 20 mg oral 7-04 tab, PO, l tablet 21:54: Daily, # [place] 00 60 tab, 3 Refill(s) Hydrochloro 2013-0 Yes 12.5 mg = M emoria thiazide 7-04 1 cap, PO, l 12.5 MG 21:54: Daily-12N, Herm teressa Oral 00 # 30 cap, Capsule 3 Refill(s) clopidogrel 2013-0 Yes 75 mg = 1 M emoria 75 mg oral 7-04 tab, PO, l tablet 21:54: Daily, # [place] 00 30 tab, 3 Refill(s) atorvastati 2013-0 Yes 80 mg = 1 M emoria n 80 mg 7-04 tab, PO, l oral tablet 21:54: Daily, # [place] 00 30 tab, 3 Refill(s) Benicar 2014-0 No 40 mg, 2 Memori a 7-04 tab, l 21:00: Route: PO, [place] 00 Drug form: TAB, Daily, Start date: 11/09/13 16:00:00, Duration: 30 day, Stop date: 12/09/13 9:00:00 Benicar 2014-0 No 40 mg, 2 Memori a 7-04 tab, l 21:00: Route: PO, [place] 00 Drug form: TAB, Daily, Start date: 11/09/13 16:00:00, Duration: 30 day, Stop date: 12/09/13 9:00:00 Benicar 2014-0 No 40 mg, 2 Memori a 7-04 tab, l 21:00: Route: PO, [place] 00 Drug form: TAB, Daily, Start date: 11/09/13 16:00:00, Duration: 30 day, Stop date: 12/09/13 9:00:00 Benicar 2014-0 No 40 mg, 2 Memori a 7-04 tab, l 21:00: Route: PO, [place] 00 Drug form: TAB, Daily, Start date: 11/09/13 16:00:00, Duration: 30 day, Stop date: 12/09/13 9:00:00 Benicar 2014-0 No 40 mg, 2 Memori a 7-04 tab, l 21:00: Route: PO, [place] 00 Drug form: TAB, Daily, Start date: 11/09/13 16:00:00, Duration: 30 day, Stop date: 12/09/13 9:00:00 Microzide 2013-0 No Notes: Memori a 7-04 (Same as: l 17:00: Microzide) With food. Microzide 2013-0 No Notes: Memori a 7-04 (Same as: l 17:00: Microzide) [place] 00 With food. Microzide No Notes: Memori a 7-04 (Same as: l 17:00: Microzide) With food. Microzide No Notes: Memori a 7-04 (Same as: l 17:00: Microzide) With food. Microzide No Notes: Memori a 7-04 (Same as: l 17:00: Microzide) With food. Hydrochloro No 1 tab, Fabrizio ruchi thiazide 7-04 Route: PO, l 12.5 MG / 15:30: Drug Form: [place] r[place] Olmesartan 00 TAB, medoxomil Dosing 40 MG Oral Weight Tablet 74.545, kg, Daily, Start date: 11/09/13 10:30:00, Duration: 30 day, Stop date: 12/09/13 9:00:00 Hydrochloro No 1 tab, Fabrizio ruchi thiazide 7-04 Route: PO, l 12.5 MG / 15:30: Drug Form: Papi rmann Olmesartan 00 TAB, medoxomil Dosing 40 MG Oral Weight Tablet 74.545, kg, Daily, Start date: 11/09/13 10:30:00, Duration: 30 day, Stop date: 12/09/13 9:00:00 Hydrochloro No 1 tab, Fabrizio ruchi thiazide 7-04 Route: PO, l 12.5 MG / 15:30: Drug Form: Papi rmann Olmesartan 00 TAB, medoxomil Dosing 40 MG Oral Weight Tablet 74.545, kg, Daily, Start date: 11/09/13 10:30:00, Duration: 30 day, Stop date: 12/09/13 9:00:00 Hydrochloro No 1 tab, Fabrizio ruchi thiazide 7-04 Route: PO, l 12.5 MG / 15:30: Drug Form: He r[place] Olmesartan 00 TAB, medoxomil Dosing 40 MG Oral Weight Tablet 74.545, kg, Daily, Start date: 11/09/13 10:30:00, Duration: 30 day, Stop date: 12/09/13 9:00:00 Hydrochloro 2013-0 No 1 tab, Fabrizio ruchi thiazide 7-04 Route: PO, l 12.5 MG / 15:30: Drug Form: Papi mccoy Olmesartan 00 TAB, medoxomil Dosing 40 MG Oral Weight Tablet 74.545, kg, Daily, Start date: 11/09/13 10:30:00, Duration: 30 day, Stop date: 12/09/13 9:00:00 Versed No Notes: Memoria 7- (Same as: l 12:38: Versed) Versed No Notes: Memoria 7- (Same as: l 12:38: Versed) [place] 00 Versed No Notes: Memoria 7- (Same as: l 12:38: Versed) Versed No Notes: Memoria 7- (Same as: l 12:38: Versed) Versed No Notes: Memoria 7- (Same as: l 12:38: Versed) aspirin No Notes: Do Me moria mg tablet, 11-09 not crush l enteric 04:00: or chew. [place] n coated (Same As: Ecotrin) heparin, No Notes: Memoria porcine 7-04 porcine l 04:00: heparin aspirin No Notes: Do Me moria mg tablet, 11-09 not crush l enteric 04:00: or chew. [place] n coated (Same As: Ecotrin) heparin, No Notes: Memoria porcine 7-04 porcine l 04:00: heparin aspirin No Notes: Do Me moria mg tablet, 7 not crush l enteric 04:00: or chew. [place] n coated (Same As: Ecotrin) heparin, No Notes: Memoria porcine 7-04 porcine l 04:00: heparin aspirin No Notes: Do Me moria mg tablet, 7- not crush l enteric 04:00: or chew. [place] n coated 00 (Same As: Ecotrin) heparin, No Notes: Memoria porcine 7-04 porcine l 04:00: heparin aspirin No Notes: Do Me moria mg tablet, 7- not crush l enteric 04:00: or chew. [place] coated 00 (Same As: Ecotrin) heparin, No Notes: Memoria porcine - porcine l 04:00: heparin Plavix No Notes: Memoria 7- (Same As: l 03:30: Plavix) Plavix No Notes: Memoria 7- (Same As: l 03:30: Plavix) Plavix No Notes: Memoria 11-09 (Same As: l 03:30: Plavix) Plavix No Notes: Memoria - (Same As: l 03:30: Plavix) Plavix No Notes: Memoria 11-09 (Same As: l 03:30: Plavix) Triamcinolo No NASAL, Fabrizio ruchi ne 11-09 PRN, 0 l Acetonide 03:19: Refill(s) Her damian Hydrochloro No 1 tab, PO, Memoria thiazide 7- Daily, # l 12.5 MG / 03:19: 90 tab, 0 Her damian Olmesartan 00 Refill(s) medoxomil 40 MG Oral Tablet [Benicar HCT 40/12.5] levothyroxi Yes 1.5, PO, Me moria ne 25 mcg 7-04 Daily, # l (0.025 mg) 03:19: 90 tab, 0 He rmann oral tablet 00 Refill(s) Triamcinolo No NASAL, Fabrizio ruchi ne 11-09 PRN, 0 l Acetonide 03:19: Refill(s) Her damian Hydrochloro No 1 tab, PO, Memoria thiazide 7-04 Daily, # l 12.5 MG / 03:19: 90 tab, 0 Her damian Olmesartan 00 Refill(s) medoxomil 40 MG Oral Tablet [Benicar HCT 40/12.5] levothyroxi Yes 1.5, PO, Me moria ne 25 mcg 7-04 Daily, # l (0.025 mg) 03:19: 90 tab, 0 He rmann oral tablet 00 Refill(s) Triamcinolo No NASAL, Fabrizio ruchi ne 7-04 PRN, 0 l Acetonide 03:19: Refill(s) Her damian Hydrochloro No 1 tab, PO, Memoria thiazide 7-04 Daily, # l 12.5 MG / 03:19: 90 tab, 0 Her damian Olmesartan 00 Refill(s) medoxomil 40 MG Oral Tablet [Benicar HCT 40/12.5] levothyroxi Yes 1.5, PO, Me moria ne 25 mcg 7-04 Daily, # l (0.025 mg) 03:19: 90 tab, 0 He rmann oral tablet 00 Refill(s) Triamcinolo No NASAL, Fabrizio ruchi ne 7-04 PRN, 0 l Acetonide 03:19: Refill(s) Her damian Hydrochloro No 1 tab, PO, Memoria thiazide 7-04 Daily, # l 12.5 MG / 03:19: 90 tab, 0 Her damian Olmesartan 00 Refill(s) medoxomil 40 MG Oral Tablet [Benicar HCT 40/12.5] levothyroxi Yes 1.5, PO, Me moria ne 25 mcg 7-04 Daily, # l (0.025 mg) 03:19: 90 tab, 0 He rmann oral tablet 00 Refill(s) Triamcinolo No NASAL, Fabrizio ruchi ne 7-04 PRN, 0 l Acetonide 03:19: Refill(s) Her damian Hydrochloro No 1 tab, PO, Memoria thiazide 7-04 Daily, # l 12.5 MG / 03:19: 90 tab, 0 Her damian Olmesartan 00 Refill(s) medoxomil 40 MG Oral Tablet [Benicar HCT 40/12.5] levothyroxi Yes 1.5, PO, Me moria ne 25 mcg 7-04 Daily, # l (0.025 mg) 03:19: 90 tab, 0 He rmann oral tablet 00 Refill(s) Crestor No 20 mg, Memoria 7-04 Route: PO, l 02:00: Drug form: [place] 00 TAB, Bedtime, Dosing Weight 74.545, kg, Start date: 11/08/13 21:00:00, Duration: 30 day, Stop date: 12/07/13 21:00:00 Crestor 2014-0 No 20 mg, Memoria 7-04 Route: PO, l 02:00: Drug form: [place] 00 TAB, Bedtime, Dosing Weight 74.545, kg, Start date: 11/08/13 21:00:00, Duration: 30 day, Stop date: 12/07/13 21:00:00 Crestor 2014-0 No 20 mg, Memoria 7-04 Route: PO, l 02:00: Drug form: [place] 00 TAB, Bedtime, Dosing Weight 74.545, kg, Start date: 11/08/13 21:00:00, Duration: 30 day, Stop date: 12/07/13 21:00:00 Crestor 2014-0 No 20 mg, Memoria 7-04 Route: PO, l 02:00: Drug form: [place] 00 TAB, Bedtime, Dosing Weight 74.545, kg, Start date: 11/08/13 21:00:00, Duration: 30 day, Stop date: 12/07/13 21:00:00 Crestor 2014-0 No 20 mg, Memoria 7-04 Route: PO, l 02:00: Drug form: [place] 00 TAB, Bedtime, Dosing Weight 74.545, kg, Start date: 11/08/13 21:00:00, Duration: 30 day, Stop date: 12/07/13 21:00:00 Midazolam 2013-0 No Notes: Memori a 7-03 (Same as: l 22:21: Versed) Midazolam 2013-0 No Notes: Memori a 7-03 (Same as: l 22:21: Versed) Midazolam 2013- No Notes: Memori a 7-03 (Same as: l 22:21: Versed) Midazolam 2013- No Notes: Memori a 7-03 (Same as: l 22:21: Versed) Midazolam No Notes: Memori a 7-03 (Same as: l 22:21: Versed) Levothroid 2013- No Notes: Memor ia 7-03 Take 1 l 16:00: hour [place] 00 before or 2 hours after meal; Enteral feeds may interefere with the absorption of this medication . (Same as:Levothr oid) Levothroid No Notes: Memor ia 7-03 Take 1 l 16:00: hour [place] 00 before or 2 hours after meal; Enteral feeds may interefere with the absorption of this medication . (Same as:Levothr oid) Levothroid No Notes: Memor ia 7-03 Take 1 l 16:00: hour [place] 00 before or 2 hours after meal; Enteral feeds may interefere with the absorption of this medication . (Same as:Levothr oid) Levothroid No Notes: Memor ia 7-03 Take 1 l 16:00: hour [place] 00 before or 2 hours after meal; Enteral feeds may interefere with the absorption of this medication . (Same as:Levothr oid) Levothroid No Notes: Memor ia 7-03 Take 1 l 16:00: hour [place] 00 before or 2 hours after meal; Enteral feeds may interefere with the absorption of this medication . (Same as:Levothr oid) Saline No Notes: Memoria Flush 0.9% 7-03 (Same as: l 14:00: BD [place] 00 Posiflush) Lipitor No Notes: Memoria 7-03 Same as l 14:00: Lipitor [place] 00 Docusate No Notes: Memoria Sodium 100 7-03 (Same as: l MG Oral 14:00: Colace) [place] Capsule 00 (Do Not Crush) sennosides, No Notes: Fabrizio ruchi LONG-TERM 8.6 MG 7-03 (Same as: l Oral Tablet 14:00: Senokot) He r[place] 00 Saline No Notes: Memoria Flush 0.9% 7-03 (Same as: l 14:00: BD [place] 00 Posiflush) Lipitor No Notes: Memoria 7-03 Same as l 14:00: Lipitor [place] 00 Docusate No Notes: Memoria Sodium 100 7-03 (Same as: l MG Oral 14:00: Colace) [place] Capsule 00 (Do Not Crush) sennosides, No Notes: Fabrizio ruchi LONG-TERM 8.6 MG 7-03 (Same as: l Oral Tablet 14:00: Senokot) He rm Saline No Notes: Memoria Flush 0.9% 7-03 (Same as: l 14:00: BD [place] 00 Posiflush) Lipitor No Notes: Memoria 7-03 Same as l 14:00: Lipitor [place] 00 Docusate No Notes: Memoria Sodium 100 7-03 (Same as: l MG Oral 14:00: Colace) [place] Capsule 00 (Do Not Crush) sennosides, No Notes: Fabrizio ruchi LONG-TERM 8.6 MG 7-03 (Same as: l Oral Tablet 14:00: Senokot) He rm Saline No Notes: Memoria Flush 0.9% 7-03 (Same as: l 14:00: BD [place] 00 Posiflush) Lipitor No Notes: Memoria 7-03 Same as l 14:00: Lipitor [place] 00 Docusate No Notes: Memoria Sodium 100 7-03 (Same as: l MG Oral 14:00: Colace) [place] Capsule 00 (Do Not Crush) Saline No Notes: Memoria Flush 0.9% 7-03 (Same as: l 14:00: BD [place] 00 Posiflush) Lipitor No Notes: Memoria 7-03 Same as l 14:00: Lipitor [place] 00 Docusate No Notes: Memoria Sodium 100 7-03 (Same as: l MG Oral 14:00: Colace) [place] Capsule 00 (Do Not Crush) sennosides, No Notes: Fabrizio ruchi LONG-TERM 8.6 MG 7-03 (Same as: l Oral Tablet 14:00: Senokot) He rm sennosides, No Notes: Fabrizio ruchi LONG-TERM 8.6 MG 7-03 (Same as: l Oral Tablet 14:00: Senokot) He rm Rosuvastati Yes 20 mg = 1 M emoria n calcium 7-03 tab, PO, l 20 MG Oral 13:31: Bedtime, # H ermann Tablet 00 30 tab, 0 [Crestor] Refill(s) Hydrochloro No 1 tab, PO, Memoria thiazide 7-03 Daily, # l 12.5 MG / 13:31: 30 tab, 0 Her damian Olmesartan 00 Refill(s) medoxomil 40 MG Oral Tablet [Benicar HCT 40/12.5] aspirin 325 No 325 mg = 1 Memoria mg tablet 7-03 tab, PO, l 13:31: Daily, # [place] 00 90 tab, 0 Refill(s) levothyroxi No 37.5 Memori a ne 25 mcg 7-03 microgram l (0.025 mg) 13:31: = 1.5 tab, H ermann oral tablet 00 Daily, 0 Refill(s) Rosuvastati Yes 20 mg = 1 M emoria n calcium 7-03 tab, PO, l 20 MG Oral 13:31: Bedtime, # H ermann Tablet 00 30 tab, 0 [Crestor] Refill(s) Hydrochloro No 1 tab, PO, Memoria thiazide 7- Daily, # l 12.5 MG / 13:31: 30 tab, 0 Her damian Olmesartan 00 Refill(s) medoxomil 40 MG Oral Tablet [Benicar HCT 40/12.5] aspirin 325 No 325 mg = 1 Memoria mg tablet 7-03 tab, PO, l 13:31: Daily, # [place] 00 90 tab, 0 Refill(s) levothyroxi No 37.5 Memori a ne 25 mcg 7-03 microgram l (0.025 mg) 13:31: = 1.5 tab, H ermann oral tablet 00 Daily, 0 Refill(s) Rosuvastati Yes 20 mg = 1 M emoria n calcium 7-03 tab, PO, l 20 MG Oral 13:31: Bedtime, # H ermann Tablet 00 30 tab, 0 [Crestor] Refill(s) Hydrochloro No 1 tab, PO, Memoria thiazide 7-03 Daily, # l 12.5 MG / 13:31: 30 tab, 0 Her damian Olmesartan 00 Refill(s) medoxomil 40 MG Oral Tablet [Benicar HCT 40/12.5] aspirin 325 No 325 mg = 1 Memoria mg tablet 03 tab, PO, l 13:31: Daily, # [place] 00 90 tab, 0 Refill(s) levothyroxi No 37.5 Memori a ne 25 mcg 7-03 microgram l (0.025 mg) 13:31: = 1.5 tab, H ermann oral tablet 00 Daily, 0 Refill(s) Rosuvastati Yes 20 mg = 1 M [facility] n calcium 11-08 tab, PO, l 20 MG Oral 13:31: Bedtime, # H ermann Tablet 00 30 tab, 0 [Crestor] Refill(s) Hydrochloro No 1 tab, PO, Memoria thiazide 11-08 Daily, # l 12.5 MG / 13:31: 30 tab, 0 Her damian Olmesartan 00 Refill(s) medoxomil 40 MG Oral Tablet [Benicar HCT 40/12.5] aspirin 325 No 325 mg = 1 Memoria mg tablet 11-08 tab, PO, l 13:31: Daily, # [place] 00 90 tab, 0 Refill(s) levothyroxi No 37.5 Memori a ne 25 mcg 7-03 microgram l (0.025 mg) 13:31: = 1.5 tab, H ermann oral tablet 00 Daily, 0 Refill(s) Rosuvastati Yes 20 mg = 1 M [facility] calcium 11-08 tab, PO, l 20 MG Oral 13:31: Bedtime, # H ermann Tablet 00 30 tab, 0 [Crestor] Refill(s) Hydrochloro No 1 tab, PO, Memoria thiazide 11-08 Daily, # l 12.5 MG / 13:31: 30 tab, 0 Her damian Olmesartan 00 Refill(s) medoxomil 40 MG Oral Tablet [Benicar HCT 40/12.5] aspirin 325 No 325 mg = 1 Memoria mg tablet -03 tab, PO, l 13:31: Daily, # [place] 00 90 tab, 0 Refill(s) levothyroxi No 37.5 Memori a ne 25 mcg 7-03 microgram l (0.025 mg) 13:31: = 1.5 tab, H ermann oral tablet 00 Daily, 0 Refill(s) Aspirin / 2013-0 No 81 mg, Memori a Calcium 7- Route: PO, l Carbonate 12:17: Drug form: Papi mccoy ECTAB, Daily, Dosing Weight 74.545, kg, Start date: 11/08/13 7:17:00, Duration: 30 day, Stop date: 12/07/13 9:00:00 Aspirin / 2014-0 No 81 mg, Memori a Calcium 7- Route: PO, l Carbonate 12:17: Drug form: Papi ECTAB, Daily, Dosing Weight 74.545, kg, Start date: 11/08/13 7:17:00, Duration: 30 day, Stop date: 12/07/13 9:00:00 Aspirin / 2014-0 No 81 mg, Memori a Calcium 7- Route: PO, l Carbonate 12:17: Drug form: Papi ECTAB, Daily, Dosing Weight 74.545, kg, Start date: 11/08/13 7:17:00, Duration: 30 day, Stop date: 12/07/13 9:00:00 Aspirin / 2014-0 No 81 mg, Memori a Calcium 7- Route: PO, l Carbonate 12:17: Drug form: Papi ECTAB, Daily, Dosing Weight 74.545, kg, Start date: 11/08/13 7:17:00, Duration: 30 day, Stop date: 12/07/13 9:00:00 Aspirin / 2014-0 No 81 mg, Memori a Calcium 7- Route: PO, l Carbonate 12:17: Drug form: Papi ECTAB, Daily, Dosing Weight 74.545, kg, Start date: 11/08/13 7:17:00, Duration: 30 day, Stop date: 12/07/13 9:00:00 NS 1,000 mL 2013-0 No 1,000 mL, M emoria - Rate: 75 l 11:55: ml/hr, Infuse over: 13.3 hr, Route: IV, Dosing Weight 74.545 kg, Total Volume: 1,000, Start date: 11/08/13 6:55:00, Duration: 30 day, Stop date: 12/08/13 6:54:00 NS 1,000 mL 2014-0 No 1,000 mL, M emoria 7 Rate: 75 l 11:55: ml/hr, [place] 00 Infuse over: 13.3 hr, Route: IV, Dosing Weight 74.545 kg, Total Volume: 1,000, Start date: 11/08/13 6:55:00, Duration: 30 day, Stop date: 12/08/13 6:54:00 NS 1,000 mL 2013-0 No 1,000 mL, M emoria 7 Rate: 75 l 11:55: ml/hr, [place] 00 Infuse over: 13.3 hr, Route: IV, Dosing Weight 74.545 kg, Total Volume: 1,000, Start date: 11/08/13 6:55:00, Duration: 30 day, Stop date: 12/08/13 6:54:00 NS 1,000 mL 2013-0 No 1,000 mL, M emoria 11-08 Rate: 75 l 11:55: ml/hr, [place] 00 Infuse over: 13.3 hr, Route: IV, Dosing Weight 74.545 kg, Total Volume: 1,000, Start date: 11/08/13 6:55:00, Duration: 30 day, Stop date: 12/08/13 6:54:00 NS 1,000 mL 2013-0 No 1,000 mL, M emoria 11-08 Rate: 75 l 11:55: ml/hr, [place] 00 Infuse over: 13.3 hr, Route: IV, Dosing Weight 74.545 kg, Total Volume: 1,000, Start date: 11/08/13 6:55:00, Duration: 30 day, Stop date: 12/08/13 6:54:00 Iohexol 2013-0 No Special [facility] 7-03 Instructio l 07:00: ns: Dose = [place] 00 2.2ml/kg, Max dose = 100ml -- "To be infused by Radiology Staff ONLY" Iohexol 2013-0 No Special [facility] 7-03 Instructio l 07:00: ns: Dose = [place] 00 2.2ml/kg, Max dose = 100ml -- "To be infused by Radiology Staff ONLY" Iohexol 0 No [facility] 7-03 Instructio l 07:00: ns: Dose = [place] 00 2.2ml/kg, Max dose = 100ml -- "To be infused by Radiology Staff ONLY" Iohexol No [facility] 11-08 Instructio l 07:00: ns: Dose = [place] 00 2.2ml/kg, Max dose = 100ml -- "To be infused by Radiology Staff ONLY" Iohexol No Special [facility] 11-08 Instructio l 07:00: ns: Dose = [place] 00 2.2ml/kg, Max dose = 100ml -- "To be infused by Radiology Staff ONLY" Versed No Notes: [facility] - (Same as: l 05:59: Versed) [place] Versed No Notes: [facility] - (Same as: l 05:59: Versed) [place] Versed No Notes: [facility] - (Same as: l 05:59: Versed) [place] Versed No Notes: [facility] - (Same as: l 05:59: Versed) [place] Versed No Notes: [facility] - (Same as: l 05:59: Versed) [place] Regular No 60 units) Fabrizio ruchi Insulin, 11-08 Stable for l Human 100 04:52: 28 days at [facility] UNT/ML 00 room Injectable temperatur Solution e Expires in days from ____Date Dextrose No 6.25 gm, [facility] 50% Syringe 11-08 12.5 mL, l 04:52: Route: [place] IVP, Drug Form: INJ, Dosing Weight 74.545, kg, PRN, PRN Abnormal Lab Result, Start date: 11/07/13 23:52:00, Duration: 30 day, Stop date: 12/07/13 23:51:00 Regular No 60 units) Fabrizio ruchi Insulin, 11-08 Stable for l Human 100 04:52: 28 days at [facility] UNT/ML 00 room Injectable temperatur Solution e Expires in days from ____Date Dextrose 2013-0 No 6.25 gm, [facility] 50% Syringe 7- 12.5 mL, l 04:52: Route: [place] 00 IVP, Drug Form: INJ, Dosing Weight 74.545, kg, PRN, PRN Abnormal Lab Result, Start date: 11/07/13 23:52:00, Duration: 30 day, Stop date: 12/07/13 23:51:00 Regular 2013-0 No 60 units) Fabrizio ruchi Insulin, 7-03 Stable for l Human 100 04:52: 28 days at [facility] UNT/ML 00 room Injectable temperatur Solution e Expires in days from ____Date Dextrose 2013-0 No 6.25 gm, Memor ia 50% Syringe 7- 12.5 mL, l 04:52: Route: [place] 00 IVP, Drug Form: INJ, Dosing Weight 74.545, kg, PRN, PRN Abnormal Lab Result, Start date: 11/07/13 23:52:00, Duration: 30 day, Stop date: 12/07/13 23:51:00 Regular 2013-0 No 60 units) Fabrizio ruchi Insulin, 7-03 Stable for la Human 100 04:52: 28 days at [facility] UNT/ML 00 room Injectable temperatur Solution e Expires in days from ____Date Dextrose 2013-0 No 6.25 gm, Memor ia 50% Syringe 7 12.5 mL, l 04:52: Route: [place] 00 IVP, Drug Form: INJ, Dosing Weight 74.545, kg, PRN, PRN Abnormal Lab Result, Start date: 11/07/13 23:52:00, Duration: 30 day, Stop date: 12/07/13 23:51:00 Regular 2013-0 No 60 units) Fabrizio ruchi Insulin, 7-03 Stable for l Human 100 04:52: 28 days at [facility] UNT/ML 00 room Injectable temperatur Solution e Expires in days from ____Date Dextrose 2013-0 No 6.25 gm, Memor ia 50% Syringe 11-08 12.5 mL, l 04:52: Route: [place] 00 IVP, Drug Form: INJ, Dosing Weight 74.545, kg, PRN, PRN Abnormal Lab Result, Start date: 11/07/13 23:52:00, Duration: 30 day, Stop date: 12/07/13 23:51:00 Saline No Notes: Memoria Flush 0.9% 7-03 (Same as: l 04:51: BD [place] 00 Posiflush) Acetaminoph No Notes: Do M emoria en 11-08 not exceed l 04:51: 4 gm/day. [place] 00 (Same as: Tylenol) Labetalol No 105mmHg Fabrizio ruchi 7-03 l 04:51: [place] 00 Saline No Notes: Memoria Flush 0.9% 7- (Same as: l 04:51: BD [place] 00 Posiflush) Acetaminoph No Notes: Do M emoria en 11-08 not exceed l 04:51: 4 gm/day. [place] (Same as: Tylenol) Labetalol No 105mmHg Fabrizio ruchi 7-03 l 04:51: [place] 00 Saline No Notes: Memoria Flush 0.9% 7-03 (Same as: l 04:51: BD [place] 00 Posiflush) Acetaminoph No Notes: Do M emoria en 11-08 not exceed l 04:51: 4 gm/day. [place] 00 (Same as: Tylenol) Labetalol No 105mmHg Fabrizio ruchi 7-03 l 04:51: [place] 00 Saline No Notes: [facility]oria Flush 0.9% 7-03 (Same as: l 04:51: BD [place] 00 Posiflush) Acetaminoph No Notes: Do M emoria en 11-08 not exceed l 04:51: 4 gm/day. [place] (Same as: Tylenol) Labetalol No 105mmHg Fabrizio ruchi 7-03 l 04:51: [place] 00 Saline No Notes: Memoria Flush 0.9% 7-03 (Same as: l 04:51: BD [place] 00 Posiflush) Acetaminoph No Notes: Do M emoria en 11-08 not exceed l 04:51: 4 gm/day. [place] (Same as: Tylenol) Labetalol No 105mmHg Fabrizio ruchi 11-08 l 04:51: [place] 00 Vital Signs Vital Name Observation Time Observation Value Comments Source Systolic blood 2022-11-26 14:18:00 126 mm[Hg] [facility] pressure Diastolic blood 2022-11-26 14:18:00 69 mm[Hg] [facility] pressure Heart rate 2022-11-26 14:18:00 60 /min [facility] Oxygen saturation in 2022-11-26 14:15:00 98 /min [facility] Arterial blood by Pulse oximetry Body height 2022-11-26 12:59:00 162.6 cm [facility] Body weight 2022-11-26 12:59:00 65.772 kg [facility] BMI 2022-11-26 12:59:00 24.89 kg/m2 [facility] Systolic blood 2021-12-01 15:35:00 123 mm[Hg] [facility] Diastolic blood 2021-12-01 15:35:00 69 mm[Hg] [facility] Heart rate 2021-12-01 15:35:00 67 /min [facility] Respiratory rate 2021-12-01 15:35:00 16 /min [facility] Oxygen saturation in 2021-12-01 15:35:00 94 /min [facility] Arterial blood by Medical Ce nter Pulse oximetry Body height 2021-12-01 13:00:00 162.6 cm [facility] Body weight 2021-12-01 13:00:00 65.772 kg [facility] BMI 2021-12-01 13:00:00 24.89 kg/m2 [facility] Height 2020-10-07 20:59:00 162.56 cm [facility] [place] Weight 2020-10-07 20:59:00 [facility] [place] BMI Calculated 2020-10-07 20:59:00 Memori al [place] Systolic (mm Hg) 2020-10-07 20:25:00 Fabrizio rial [place] Diastolic (mm Hg) 2020-10-07 20:25:00 Mem orial [place] Systolic (mm Hg) 2020-10-07 20:20:00 Fabrizio rial [place] Diastolic (mm Hg) 2020-10-07 20:20:00 Mem orial [place] Systolic (mm Hg) 2020-10-07 20:15:00 Fabrizio rial [place] Diastolic (mm Hg) 2020-10-07 20:15:00 Mem orial [place] Respitory Rate 2020-08-23 17:00:00 Memori al [place] Systolic (mm Hg) 2020-08-23 17:00:00 Fabrizio rial [place] Diastolic (mm Hg) 2020-08-23 17:00:00 Mem orial [place] Temperature Oral (F) 2020-08-23 16:30:00 97.7 F [facility] [place] Respitory Rate 2020-08-23 16:00:00 Memori al [place] Respitory Rate 2020-08-23 15:00:00 [facility] [place] Systolic (mm Hg) 2020-08-23 13:00:00 Fabrizio rial [place] Diastolic (mm Hg) 2020-08-23 13:00:00 Mem orial [place] Temperature Oral (F) 2020-08-23 12:56:00 97.7 F [facility] [place] Systolic (mm Hg) 2020-08-23 11:00:00 Fabrizio rial [place] Diastolic (mm Hg) 2020-08-23 11:00:00 Mem orial [place] Temperature Oral (F) 2020-08-23 10:00:00 97.6 F [facility] [place] Height 2020-08-22 01:00:00 162.56 cm [facility] [place] Weight 2020-08-22 01:00:00 [facility] [place] BMI Calculated 2020-08-22 01:00:00 Memori [facility] [place] Systolic (mm Hg) 2014-03-11 20:15:00 Fabrizio rial [place] Diastolic (mm Hg) 2014-03-11 20:15:00 Mem orial [place] Respitory Rate 2014-03-11 20:15:00 [facility] [place] Heart Rate 2014-03-11 19:45:00 [facility] [place] Diastolic (mm Hg) 2014-03-11 19:45:00 Mem orial [place] Systolic (mm Hg) 2014-03-11 19:45:00 Fabrizio rial [place] Heart Rate 2014-03-11 19:30:00 [facility] [place] Respitory Rate 2014-03-11 17:00:00 [facility] [place] Respitory Rate 2014-03-11 16:00:00 [facility] [place] Temperature Oral (F) 2014-03-10 10:00:00 96.4 F [facility] [place] Height 2014-03-10 09:02:00 165.1 cm [facility] [place] BMI Calculated 2014-03-10 09:02:00 [facility] [place] Weight 2014-03-10 09:02:00 [facility] [place] Respitory Rate 2013-11-09 21:30:00 Mem[facility] [place] Diastolic (mm Hg) 2013-11-09 21:30:00 Mem orial [place] Systolic (mm Hg) 2013-11-09 21:30:00 Fabrizio rial [place] Heart Rate 2013-11-09 21:30:00 [facility] [place] Temperature Oral (F) 2013-11-09 21:30:00 98.4 F [facility] [place] Diastolic (mm Hg) 2013-11-09 17:26:00 Mem orial [place] Systolic (mm Hg) 2013-11-09 17:26:00 Fabrizio rial [place] Heart Rate 2013-11-09 17:26:00 [facility] [place] Temperature Oral (F) 2013-11-09 17:26:00 97.3 F [facility] [place] Systolic (mm Hg) 2013-11-09 13:15:00 Fabrizio rial [place] Diastolic (mm Hg) 2013-11-09 13:15:00 Mem orial [place] Respitory Rate 2013-11-09 12:50:00 Memori al [place] Respitory Rate 2013-11-09 12:06:00 Memori al [place] Heart Rate 2013-11-08 22:15:00 [facility] [place] Weight 2013-11-08 04:39:00 [facility] [place] Height 2013-11-08 04:39:00 165.1 cm [facility] [place] BMI Calculated 2013-11-08 04:39:00 Memori al [place] Procedures Procedure Date / Time Performing Clinician Source Performed MRI HIP WO CONTRAST LT 2022-11-26 14:13:32 Verónica Muller [facility] [place] CV SOLEDAD PROCEDURE 2022-11-26 [facility] 2 VW 2022-11-26 12:20[facility] 2022-10-27 [facility]:00[facility] MAJOR JT/BURSA W/O US NE ARTHROCENTESIS 2022-02-02 18:00:[address] [facility] [place] ASPIR&/INJ MAJOR JT/BURSA Florin W/O US XR HIP 2-3 VIEWS LEFT 2022-02-02 17:46:55 Verónica Muller [facility] TRANSESOPHAGEAL ECHO 2021-12-01 12:52:[facility] W[facility] PULSED DOPPLER 2021-12-01 12:52:55 [facility] COLOR-FLOW MAPPING 2021-12-01 12:52:55 [facility] OCT, OPTIC NERVE - OU - 2021-02-17 14:38:17 Mendel Sanon [facility] BOTH EYES OCT, OPTIC NERVE - OU - 2021-02-17 14:38:17 Mendel Sanon [facility] BOTH EYES AGUILAR VISUAL FIELD - OU 2021-02-17 14:31:44 Mendel Sanon [facility] - BOTH EYES AGUILAR VISUAL FIELD - OU 2021-02-17 14:31:44 Mendel Sanon [facility] - BOTH EYES MRI BRAIN WO CONTRAST 2020-10-07 19:51:00 System, Provider Not [facility] In MRI BRAIN WO CONTRAST 2020-10-07 19:51:00 System, Provider Not [facility] In MRI - Magnetic resonance Jony Marte imaging Cardiac conduit operation Bill Soto CAT scan of head Hernán hancock Plan of Care Planned Activity Planned Date Details Comments Source Future Scheduled 2023-03-05 Screening for [facility] Test 00:30:24 malignant neoplasm of colon (procedure) [code = 982664006] Future Scheduled 2023-03-05 Screening for [facility] Test 00:30:24 malignant neoplasm of colon (procedure) [code = 020455161] Future Scheduled 2023-03-05 [facility] Test 00:30:24 malignant neoplasm of colon (procedure) [code = 261341312] Future Scheduled 2023-03-05 Hepatitis C screening [facility] Test 00:30:24 (procedure) [code = 836130585] Future Scheduled 2023-03-05 BREAST CANCER [facility] Test 00:30:24 SCREENING [code = BREAST CANCER SCREENING] Future Scheduled 2023-03-05 Screening for [facility] Test 00:30:24 malignant neoplasm of colon (procedure) [code = 473758811] Future Scheduled 2023-03-05 Screening for [facility] Test 00:30:24 malignant neoplasm of colon (procedure) [code = 527685853] Future Scheduled 2023-03-05 SHINGLES VACCINES (1 [facility] Test 00:30:24 of 2) [code = SHINGLES VACCINES (1 of 2)] Future Scheduled 2023-03-05 65+ PNEUMOCOCCAL [facility] Test 00:30:24 VACCINE (2 - PCV) [code = 65+ PNEUMOCOCCAL VACCINE (2 - PCV)] Future Scheduled 2023-03-05 COVID-19 VACCINE (3 - [facility] Test 00:30:24 season) [code = COVID-19 VACCINE (3 - season)] Future Scheduled 2023-03-05 INFLUENZA VACCINE (#1) [facility] Test 00:30:24 [code = INFLUENZA VACCINE (#1)] Future Scheduled 2023-03-05 Screening for [facility] Test 00:30:24 malignant neoplasm of colon (procedure) [code = 985949682] Future Scheduled 2023-03-05 Screening for [facility] Test 00:30:24 malignant neoplasm of colon (procedure) [code = 645810796] Future Scheduled 2023-03-05 Screening for [facility] Test 00:30:24 malignant neoplasm of colon (procedure) [code = 018779952] Future Scheduled 2023-03-05 Hepatitis C screening [facility] Test 00:30:24 (procedure) [code = 615371750] Future Scheduled 2023-03-05 BREAST CANCER [facility] Test 00:30:24 SCREENING [code = BREAST CANCER SCREENING] Future Scheduled 2023-03-05 Screening for [facility] Test 00:30:24 malignant neoplasm of colon (procedure) [code = 659431187] Future Scheduled 2023-03-05 [facility] Test 00:30:24 malignant neoplasm of colon (procedure) [code = 595723744] Future Scheduled 2023-03-05 SHINGLES VACCINES (1 [facility] Test 00:30:24 of 2) [code = SHINGLES VACCINES (1 of 2)] Future Scheduled 2023-03-05 65+ PNEUMOCOCCAL [facility] Test 00:30:24 VACCINE (2 - PCV) [code = 65+ PNEUMOCOCCAL VACCINE (2 - PCV)] Future Scheduled 2023-03-05 COVID-19 VACCINE (3 - [facility] Test 00:30:24 season) [code = COVID-19 VACCINE (3 - season)] Future Scheduled 2023-03-05 INFLUENZA VACCINE (#1) [facility] Test 00:30:24 [code = INFLUENZA VACCINE (#1)] Future Scheduled 2023-02-19 Screening for [facility] Test 17:44:58 malignant neoplasm of colon (procedure) [code = 602105231] Future Scheduled 2023-02-19 Screening for [facility] Test 17:44:58 malignant neoplasm of colon (procedure) [code = 990378228] Future Scheduled 2023-02-19 Screening for [facility] Test 17:44:58 malignant neoplasm of colon (procedure) [code = 919270064] Future Scheduled 2023-02-19 Hepatitis C screening [facility] Test 17:44:58 (procedure) [code = 365357161] Future Scheduled 2023-02-19 BREAST CANCER [facility] Test 17:44:58 SCREENING [code = BREAST CANCER SCREENING] Future Scheduled 2023-02-19 Screening for [facility] Test 17:44:58 malignant neoplasm of colon (procedure) [code = 208695681] Future Scheduled 2023-02-19 Screening for [facility] Test 17:44:58 malignant neoplasm of colon (procedure) [code = 755748641] Future Scheduled 2023-02-19 SHINGLES VACCINES ([address] [facility] Test 17:44:58 of 2) [code = SHINGLES VACCINES (1 of 2)] Future Scheduled 2023-02-19 RSV VACCINES > 60 YR [facility] Test 17:44:58 (1 - 1-dose 60+ series) [code = RSV VACCINES > 60 YR (1 - 1-dose 60+ series)] Future Scheduled 2023-02-19 65+ [facility]AL [facility] Test 17:44:58 VACCINE (2 - PCV) [code = 65+ PNEUMOCOCCAL VACCINE (2 - PCV)] Future Scheduled 2023-02-19 COVID-19 VACCINE (3 - [facility] Test 17:44:58 season) [code = COVID-19 VACCINE (3 - season)] Future Scheduled 2023-02-19 INFLUENZA VACCINE (#1) [facility] Test 17:44:58 [code = INFLUENZA VACCINE (#1)] Future Scheduled 2022-04-24 65+ [facility]OCOCCAL [facility] Test 21:37:55 VACCINE (2 - PCV) [code = 65+ PNEUMOCOCCAL VACCINE (2 - PCV)] Future Scheduled 2022-04-24 INFLUENZA VACC[address] [facility] Test 21:37:55 [code = INFLUENZA VACCINE] Future Scheduled 2022-04-24 COVID-19 VACCINE (#1) [facility] Test 21:37:55 [code = COVID-19 VACCINE (#1)] Future Scheduled 2022-04-24 Hepatitis C screening [facility] Test 21:37:55 (procedure) [code = 074071834] Future Scheduled 2022-04-24 BREAST CANCER [facility] Test 21:37:55 SCREENING [code = BREAST CANCER SCREENING] Future Scheduled 2022-04-24 COLONOSCOPY SCREENING [facility] Test 21:37:55 [code = COLONOSCOPY SCREENING] Future Scheduled 2022-04-24 SHINGLES VACCINES (1 [facility] Test 21:37:55 of 2) [code = SHINGLES VACCINES (1 of 2)] Future Scheduled 2022-04-24 65+ [facility]OCOCCAL [facility] Test 21:37:55 VACCINE (2 - PCV) [code = 65+ PNEUMOCOCCAL VACCINE (2 - PCV)] Future Scheduled 2022-04-24 INFLUENZA VACCINE [facility] Test 21:37:55 [code = INFLUENZA VACCINE] Future Scheduled 2022-04-24 COVID-19 VACCINE (#1) [facility] Test 21:37:55 [code = COVID-19 VACCINE (#1)] Future Scheduled 2022-04-24 [facility] Test 21:37:55 (procedure) [code = 541277921] Future Scheduled 2022-04-24 BREAST CANCER [facility] Test 21:37:55 SCREENING [code = BREAST CANCER SCREENING] Future Scheduled 2022-04-24 COLONOSCOPY SCREENING [facility] Test 21:37:55 [code = COLONOSCOPY SCREENING] Future Scheduled 2022-04-24 SHINGLES VACCINES (1 [facility] Test 21:37:55 of 2) [code = SHINGLES VACCINES (1 of 2)] Future Scheduled 2022-04-24 65+ [facility]OCOCCAL [facility] Test 21:37:55 VACCINE (2 - PCV) [code = 65+ PNEUMOCOCCAL VACCINE (2 - PCV)] Future Scheduled 2022-04-24 INFLUENZA VACCINE [facility] Test 21:37:55 [code = INFLUENZA VACCINE] Future Scheduled 2022-04-24 COVID-19 VACCINE (#1) [facility] Test 21:37:55 [code = COVID-19 VACCINE (#1)] Future Scheduled 2022-04-24 Hepatitis C screening [facility] Test 21:37:55 (procedure) [code = 300851963] Future Scheduled 2022-04-24 [facility]AST [facility]CER [facility] Test 21:37:55 SCREENING [code = BREAST CANCER SCREENING] Future Scheduled 2022-04-24 COLONOSCOPY SCREENING [facility] Test 21:37:55 [code = COLONOSCOPY SCREENING] Future Scheduled 2022-04-24 SHINGLES VACCINES (1 [facility] Test 21:37:55 of 2) [code = SHINGLES VACCINES (1 of 2)] Future Scheduled 2022-04-24 65+ [facility]OCOCCAL [facility] Test 21:37:55 VACCINE (2 - PCV) [code = 65+ PNEUMOCOCCAL VACCINE (2 - PCV)] Future Scheduled 2022-04-24 INFLUENZA VACCINE [facility] Test 21:37:55 [code = INFLUENZA VACCINE] Future Scheduled 2022-04-24 COVID-19 [facility] (#[facility] Test 21:37:55 [code = COVID-19 VACCINE (#1)] Future Scheduled 2022-04-24 [facility] Test 21:37:55 (procedure) [code = 740609710] Future Scheduled 2022-04-24 BREAST CANCER [facility] Test 21:37:55 SCREENING [code = BREAST CANCER SCREENING] Future Scheduled 2022-04-24 COLONOSCOPY SCREENING [facility] Test 21:37:55 [code = COLONOSCOPY SCREENING] Future Scheduled 2022-04-24 SHINGLES VACCINES (1 [facility] Test 21:37:55 of 2) [code = SHINGLES VACCINES (1 of 2)] Future Scheduled COVID-19 VACCINE (1) [facility] [code = COVID-19 VACCINE (1)] Future Scheduled [facility] Test (procedure) [code = 497872419] Future Scheduled BREAST [facility] Test SCREENING [code = BREAST CANCER SCREENING] Future Scheduled COLONOSCOPY SCREENING [facility] Test [code = COLONOSCOPY SCREENING] Future Scheduled [facility]LES [facility]ACCINES (#[facility] [code = SHINGLES VACCINES (#1)] Future Scheduled 65+ [facility] VACCINE (1 of 1 - PPSV23) [code = 65+ PNEUMOCOCCAL VACCINE (1 of 1 - PPSV23)] Future Scheduled INFLUENZA VACCINE [facility] Test [code = INFLUENZA VACCINE] Encounters Start End Encounter Admission Attending Care Care Encounter Source Date/Time Date/Time Type Type Clinicians Facility Department ID 2022-09-06 Outpatient [facility] [id number] [place] 06:41:27 [id number] [facility] 2022-06-14 Outpatient [facility] [id number] [place] 10:46:23 [id number] [facility] 2022-06-09 Outpatient [facility] [id number] [place] 21:38:16 [id number] [facility] 2022-03-16 Outpatient [facility] [id number] [place] 07:50:21 [id number] [facility] 2022-02-02 [facility] [id number] Memoria 15:07:36 r Medical 00 l [facility] 2022-02-02 [facility] [id number] Memoria 15:07:36 r Medical 01 l [facility] 2021-02-17 Outpatient [facility] [id number] [place] 09:15:08 [facility] 2021-02-17 [facility] [id number] [place] 09:15:08 Health 2023-02-14 2023-02-14 Refill Agapito, 1.2.840.1 [id number] Methodi 00:00:00 00:00:00 Geoff [address]uston 26766.1.[address] 3.430.2.7 Hospit a .3.755091 l .8 2023-02-14 2023-02-14 Refill Agapito, 1.2.840.1 [id number] Methodi 00:00:00 00:00:00 Geoff Huston [address] 3.430.2.7 Hospit a .3.146343 l .8 2023-01-11 2023-01-11 Refill Agapito, 1.2.840.1 [id number] Methodi 00:00:00 00:00:00 Geoff Bat[address]ay [address]83.[address] 3.430.2.7 Hospit a .3.082767 l .8 2023-01-11 2023-01-11 Refill Agapito, 1.2.840.1 [id number] Methodi 00:00:00 00:00:00 Geoff [address]19[address] 3.430.2.7 Hospit a .3.213012 l .8 2022-12-15 2022-12-15 Neftali Altman, 1.2.840.1 [id number] Methodi 00:00:00 00:00:00 Only Geoff Batistay 13650.1.[address] 3.430.2.7 Hospit a .3.340065 l .8 2022-12-15 2022-12-15 Cristiano Altman, 1.2.840.1 [id number] [id number] Methodi 00:00:00 00:00:00 Geoff Batistay 41230.1.[address] 3.430.2.7 Hospit a .3.709291 l .8 2022-12-15 2022-12-15 Neftali Altman, 1.2.840.1 [id number] Methodi 00:00:00 00:00:00 Only Geoff Kessler50.1.[address] 3.430.2.7 Hospit a .3.755727 l .8 2022-12-15 2022-12-15 [facility], 1.2.840.1 [id number] Methodi 00:00:00 00:00:00 Geoff Huston 82779.1.[address] 3.430.2.7 Hospit a .3.840444 l .8 2022-11-26 2022-11-26 [facility] 1.2.840.1 [id number] Methodi 08:59:20 23:59:00 Encounter Geoff Huston 64577.1.[address] 3.430.2.7 Hospit a .3.306713 l .8 2022-11-26 2022-11-26 [facility] 1.2.840.1 [id number] Methodi 08:59:20 23:59:00 Encounter Geoff Huston 89409.1.[address] 3.430.2.7 Hospit a .3.788255 l .8 2022-11-26 2022-11-26 [facility] 1.2.840.1 [id number] Methodi 08:15:00 08:58:00 Encounter Geoff Huston 23157.1.[address] 3.430.2.7 Hospit a .3.825929 l .8 2022-11-26 2022-11-26 [facility] 1.2.840.1 [id number] Methodi 08:15:00 08:58:00 Encounter Geoff Huston 44712.1.[address] 3.430.2.7 Hospit a .3.094500 l .8 2022-11-26 2022-11-26 [facility] Minh Mullerer Florin 1.2.840.1 [id number] Methodi 07:12:35 08:14:00 Encounter AgapitoGeoff 34107.1.[address] 3.430.2.7 Hospit a .3.856922 l .8 2022-11-26 2022-11-26 [facility] Verónica Muller 1.2.840.1 [id number] Methodi 07:12:35 08:14:00 Encounter Geoff Altman 71677.1.[address] 3.430.2.7 Hospit a .3.793264 l .8 2022-11-26 2022-11-26 [facility] [id number] Methodi 06:57:31 07:11:00 Encounter Geoff Huston 24903.1.[address] 3.430.2.7 Hospit a .3.902239 l .8 2022-11-26 2022-11-26 [facility] 1.2.840.1 [id number] Methodi 06:57:31 07:11:00 Encounter Geoff Huston 31900.1.[address] 3.430.2.7 Hospit a .3.096302 l .8 2022-11-19 2022-11-19 Orders Ame, 1.2.840.1 [id number] [id number] Methodi 00:00:00 00:00:00 Only Verónica 55866.1.[address] Flor[place] 3.430.2.7 Hospit a .3.846175 l .8 2022-11-19 2022-11-19 Telephone Agapito, 1.2.840.1 [id number] 2100 [id number] Methodi 00:00:00 00:00:00 Geoff Huston [address]9.[address] 3.430.2.7 Hospit a .3.130950 l .8 2022-11-19 2022-11-19 Orders Ame, 1.2.840.1 [id number] 2099 [id number] Methodi 00:00:00 00:00:00 Only Verónica 95184.1.[address] [place] 3.430.2.7 Hospit a .3.943017 l .8 2022-11-19 2022-11-19 Telephone Agapito, 1.2.840.1 [id number] [id number] Methodi 00:00:00 00:00:00 Geoff Huston [address]322.1.[address] 3.430.2.7 Hospit a .3.308443 l .8 2022-10-27 2022-10-27 Office Agapito, 1.2.840.1 [id number] Methodi 13:00:00 14:19:11 Visit Geoff Huston 59039.1.[address] 3.430.2.7 Hospit a .3.229501 l .8 2022-10-27 2022-10-27 Office Agapito, 1.2.840.1 [id number] Methodi 13:00:00 14:19:11 Visit Geoff Huston 84252.1.[address] 3.430.2.7 Hospit a .3.785442 l .8 2022-02-02 2022-02-02 Office Ame, 1.2.840.1 [id number] Methodi 13:00:00 14:00:40 Visit Verónica 74052.1.[address] Florin 3.430.2.7 Hospit a .3.741654 l .8 2022-02-02 2022-02-02 [facility] [id number] [place] 00:00:00 00:00:00 VERÓNICA Juna i st 2021-12-01 2021-12-01 [facility] Gurjit Barnes [facility] [id number] [facility] 12:52:55 23:59:00 [facility] 2021-12-01 2021-12-01 Outpatient GURJIT BARNES [facility] [id number] SLE 00:00:00 23:59:00 2021-12-01 2021-12-01 Outside Gurjit Barnes [facility] [id number] [facility] 00:00:00 00:00:00 Orders [facility] 2021-02-17 2021-02-17 Office DIAMOND Sanon 6400 1.2.840.114 [id number] [place] 08:45:07 08:55:07 Visit Mendel DENG 350.1.13.58 Health [id number] 2021-02-17 2021-02-17 Office DIAMOND SANON 6400 [id number] [place] 08:45:07 08:55:07 Visit MENDEL TORRES [id number] Health 9.2.7.2.686 [id number] 2020-10-07 2020-10-08 Outpatient [facility] [id number] Memoria 18:23:00 04:59:[address] 2020-10-07 2020-10-07 Outpatient LAURA, [facility] MED 7501 [facility] 13:23:00 23:59:00 [facility] 2020-10-07 2020-10-07 Outpatient Physician, [facility] [id number] 13:23:00 23:59:00 Non 01 Associated 2020-09-25 2020-09-25 EXT MHH OP System, EXT MSRDP [id number] [place] 00:00:00 00:00:00 Provider LOCATION [id number] Health Not In 9.2.7.2.686 [id number] 2020-09-25 2020-09-25 EXT MHH OP System, EXT MSRDP 1.2.840.114 1 [id number] [place] 00:00:00 00:00:00 Provider LOCATION [id number] Health Not In 9.2.7.2.686 [id number] 2020-08-21 2020-08-[address] [facility] [id number] Mem[place] 23:22:00 23:00:[address] 2020-08-21 2020-08-23 Outpatient Jalyn [facility] [id number] 18:22:00 18:00:00 Galina Dorantes 2020-08-21 2020-08-23 Outpatient Jalyn [facility] [id number] 18:22:00 18:00:00 Galina Dorantes 2020-08-21 2020-08-21 Emergency [facility]Fl[facility] [id number] [place] 23:11:13 23:11:00 r [place] 00 l [facility] 2020-08-21 2020-08-21 Outpatient Julianna [facility] [id number] 18:11:13 18:11:00 Reji Verduzco 2014-03-10 2014-03-11 Inpatient [facility]Fl[facility] [id number] Mem[place] 08:48:00 21:20:00 [facility] 06 l [facility] 2014-03-10 2014-03-11 Outpatient Carrie, 2.16.840. 2.16.840.1. [id number] 02:48:00 15:20:00 Senaitjazack [id number] Tameka 3.615.0.1 5.0.917 19 9544-07-17 2013-11-23 Outpt Diag nullFlavo [facility] [id number] Memoria 23:13:00 04:59:00 Services r Outpatient 00 l [facility] 2013-11-22 2013-11-22 Outpatient [place], 2.16.840. 2.16.840.1. [id number] 18:13:00 23:59:00 Shubham Gallego [id number] 3.615.0.1 5.0.832 95 4148-07-03 2013-11-09 Inpatient nullFlavo [facility] [id number] Mem[place] 04:00:00 23:09:00 [facility] 67 l [facility] 2013-11-07 2013-11-09 Outpatient Manpreet, 2.16.840. 2.16.840.1. [id number] 23:00:00 18:09:00 Shanel [id number] Gracia 3.615.0.1 5.0.101 01 Results Test Description Test Time Test Comments Results Result Comments Source HEMATOLOGY 2020-08-23 10:45:00 Test Item Value Reference Range Interpretation Comme nts RBC (test code = RBC) 4.13 4.20-5.40 [facility]cbjixpTPYBIZYTTY7502-35-29 10:45:00 Test Item Value Reference Range Interpretation Comments Hgb (test code = Hgb) 12.8 12.0-16.0 [place] [address]-04-17 10:45:00 Test Item Value Reference Range Interpretation Comments Hct (test code = Hct) 37.1 36.0-48.0 [place] 588881-04-17 10:45:00 Test Item Value Reference Range Interpretation Comments MCV (test code = MCV) 89.8 80.0-98.0 [place] 588881-04-17 10:45:00 Test Item Value Reference Range Interpretation Comments MCH (test code = MCH) 30.9 pg 27.0-31.0 [place] 588881-04-17 10:45:00 Test Item Value Reference Range Interpretation Comments MCHC (test code = MCHC) 34.5 32.0-36.0 [place] 588881-04-17 10:45:00 Test Item Value Reference Range Interpretation Comments RDW (test code = RDW) 13.0 11.5-14.5 [place] 588881-04-17 10:45:00 Test Item Value Reference Range Interpretation Comments Platelet (test code = Platelet) 209 133-450 [place] 588881-04-17 10:45:00 Test Item Value Reference Range Interpretation Comments MPV (test code = MPV) 8.7 7.4-10.4 [facility]2021-04-17 10:45:00 Test Item Value Reference Range Interpretation Comments Glucose Lvl (test code = Glucose Lvl) 104 70-99 [facility]2021-04-17 10:45:00 Test Item Value Reference Range Interpretation Comments BUN (test code = BUN) 22 7-22 [place] 692801-04-17 10:45:00 Test Item Value Reference Range Interpretation Comments Creatinine Lvl (test code = Creatinine 1.18 0.50-1.40 Lvl) [place] 692801-04-17 10:45:00 Test Item Value Reference Range Interpretation Comments Sodium Lvl (test code = Sodium Lvl) 139 135-145 [place] 692801-04-17 10:45:00 Test Item Value Reference Range Interpretation Comments Potassium Lvl (test code = Potassium 3.7 3.5-5.1 Lvl) [place] 692801-04-17 10:45:00 Test Item Value Reference Range Interpretation Comments Chloride Lvl (test code = Chloride Lvl) 109 95-109 [place] 692801-04-17 10:45:00 Test Item Value Reference Range Interpretation Comments CO2 (test code = CO2) 23 24-32 [place] 692801-04-17 10:45:00 Test Item Value Reference Range Interpretation Comments Calcium Lvl (test code = Calcium Lvl) 8.7 8.5-10.5 [place] 692801-04-17 10:45:00 Test Item Value Reference Range Interpretation Comments AGAP (test code = AGAP) 10.7 10.0-20.0 [place] 692801-04-17 10:45:00 Test Item Value Reference Range Interpretation Comments eGFR (test code = eGFR) 48 [place] 588881-04-17 10:45:00 Test Item Value Reference Range Interpretation Comments Segs (test code = Segs) 55.8 45.0-75.0 [place] 588881-04-17 10:45:00 Test Item Value Reference Range Interpretation Comments Lymphocytes (test code = Lymphocytes) 26.4 20.0-40.0 [place] [address]-04-17 10:45:00 Test Item Value Reference Range Interpretation Comments Monocytes (test code = Monocytes) 12.5 2.0-12.0 [place] 588881-04-17 10:45:00 Test Item Value Reference Range Interpretation Comments Eosinophils (test code = 4.5 See_Comment [A utomated message] The Eosinophils) system which ge nerated this result tra nsmitted reference range : <=4.0. The reference r rajeev was not used to int erpret this result as normal/abnormal . [place] 588881-04-17 10:45:00 Test Item Value Reference Range Interpretation Comments Basophils (test code = 0.8 See_Comment [Aut omated message] The Basophils) system which ge nerated this result tra nsmitted reference range : <=1.0. The reference r rajeev was not used to int erpret this result as normal/abnormal . [place] 588881-04-17 10:45:00 Test Item Value Reference Range Interpretation Comments Neutrophils # (test code = Neutrophils 5.0 1.5-8.1 #) [facility] CenterAciasvvZSAIOPYNTC0636-89-77 10:45:00 Test Item Value Reference Range Interpretation Comments Lymphocytes # (test code = Lymphocytes 2.4 1.0-5.5 #) [facility] CenterVufqgaoCCXECPCBHL6156-62-77 10:45:00 Test Item Value Reference Range Interpretation Comments Monocytes # (test code 1.1 See_Comment [Aut omated message] The = Monocytes #) system which generated this result tra nsmitted reference range : <=0.8. The reference r rajeev was not used to int erpret this result as normal/abnormal . [facility] CenterGwdtyhaIVTKKBGKAY0741-85-45 10:45:00 Test Item Value Reference Range Interpretation Comments Eosinophils # (test code 0.4 See_Comment [A utomated message] The = Eosinophils #) system whic h generated this result tra nsmitted reference range : <=0.5. The reference r rajeev was not used to int erpret this result as normal/abnormal . [facility] CenterWmhfxuaNCIGFJEPBE8243-16-67 10:45:00 Test Item Value Reference Range Interpretation Comments Basophils # (test code 0.1 See_Comment [Aut omated message] The = Basophils #) system which generated this result tra nsmitted reference range : <=0.2. The reference r rajeev was not used to int erpret this result as normal/abnormal . [facility] CenterEpjukpiCOGVNQALIC2485-98-20 10:45:00 Test Item Value Reference Range Interpretation Comments WBC (test code = WBC) 9.0 3.7-10.4 [facility] CenterWuctrmqEVPUWHCDOY0038-10-40 10:45:00 Test Item Value Reference Range Interpretation Comments RBC (test code = RBC) 4.13 4.20-5.40 [place] 588881-04-17 10:45:00 Test Item Value Reference Range Interpretation Comments Hgb (test code = Hgb) 12.8 12.0-16.0 [place] 588881-04-17 10:45:00 Test Item Value Reference Range Interpretation Comments Hct (test code = Hct) 37.1 36.0-48.0 [place] 588881-04-17 10:45:00 Test Item Value Reference Range Interpretation Comments MCV (test code = MCV) 89.8 80.0-98.0 [place] [address]-04-17 10:45:00 Test Item Value Reference Range Interpretation Comments MCH (test code = MCH) 30.9 pg 27.0-31.0 [place] 588881-04-17 10:45:00 Test Item Value Reference Range Interpretation Comments MCHC (test code = MCHC) 34.5 32.0-36.0 [place] 692801-04-17 10:45:00 Test Item Value Reference Range Interpretation Comments Glucose Lvl (test code = Glucose Lvl) 104 70-99 [place] 692801-04-17 10:45:00 Test Item Value Reference Range Interpretation Comments BUN (test code = BUN) 22 7-22 [place] 692801-04-17 10:45:00 Test Item Value Reference Range Interpretation Comments Creatinine Lvl (test code = Creatinine 1.18 0.50-1.40 Lvl) [facility]2021-04-17 10:45:00 Test Item Value Reference Range Interpretation Comments Sodium Lvl (test code = Sodium Lvl) 139 135-145 [facility]2021-04-17 10:45:00 Test Item Value Reference Range Interpretation Comments Potassium Lvl (test code = Potassium 3.7 3.5-5.1 Lvl) [facility]2021-04-17 10:45:00 Test Item Value Reference Range Interpretation Comments Chloride Lvl (test code = Chloride Lvl) 109 95-109 [place] 588881-04-17 10:45:00 Test Item Value Reference Range Interpretation Comments RDW (test code = RDW) 13.0 11.5-14.5 [place] 692801-04-17 10:45:00 Test Item Value Reference Range Interpretation Comments CO2 (test code = CO2) 23 24-32 [place] 692801-04-17 10:45:00 Test Item Value Reference Range Interpretation Comments Calcium Lvl (test code = Calcium Lvl) 8.7 8.5-10.5 [place] 692801-04-17 10:45:00 Test Item Value Reference Range Interpretation Comments AGAP (test code = AGAP) 10.7 10.0-20.0 [place] 692801-04-17 10:45:00 Test Item Value Reference Range Interpretation Comments eGFR (test code = eGFR) 48 [facility] CenterTdtjlwqHYQIJPAJKH4183-48-02 10:45:00 Test Item Value Reference Range Interpretation Comments Segs (test code = Segs) 55.8 45.0-75.0 [facility] CenterHaqcahtQTTYRLFFFW4517-61-05 10:45:00 Test Item Value Reference Range Interpretation Comments Lymphocytes (test code = Lymphocytes) 26.4 20.0-40.0 [place] 588881-04-17 10:45:00 Test Item Value Reference Range Interpretation Comments Monocytes (test code = Monocytes) 12.5 2.0-12.0 [place] 588881-04-17 10:45:00 Test Item Value Reference Range Interpretation Comments Eosinophils (test code = 4.5 See_Comment [A utomated message] The Eosinophils) system which ge nerated this result tra nsmitted reference range : <=4.0. The reference r rajeev was not used to int erpret this result as normal/abnormal . [facility] CenterElwpjlgASNJQRXOPO5094-67-26 10:45:00 Test Item Value Reference Range Interpretation Comments Basophils (test code = 0.8 See_Comment [Aut omated message] The Basophils) system which ge nerated this result tra nsmitted reference range : <=1.0. The reference r rajeev was not used to int erpret this result as normal/abnormal . [facility] CenterSsitznaOPCZCQZVAJ8761-74-61 10:45:00 Test Item Value Reference Range Interpretation Comments Neutrophils # (test code = Neutrophils 5.0 1.5-8.1 #) [facility] CenterUulftkyTMDQVDQAWJ7322-69-93 10:45:00 Test Item Value Reference Range Interpretation Comments Platelet (test code = Platelet) 209 133-450 [place] 588881-04-17 10:45:00 Test Item Value Reference Range Interpretation Comments Lymphocytes # (test code = Lymphocytes 2.4 1.0-5.5 #) [place] 588881-04-17 10:45:00 Test Item Value Reference Range Interpretation Comments Monocytes # (test code 1.1 See_Comment [Aut omated message] The = Monocytes #) system which generated this result tra nsmitted reference range : <=0.8. The reference r rajeev was not used to int erpret this result as normal/abnormal . [place] 588881-04-17 10:45:00 Test Item Value Reference Range Interpretation Comments Eosinophils # (test code 0.4 See_Comment [A utomated message] The = Eosinophils #) system whic h generated this result tra nsmitted reference range : <=0.5. The reference r rajeev was not used to int erpret this result as normal/abnormal . [facility] CenterHhlmxkqTSHALHXEHM0655-23-69 10:45:00 Test Item Value Reference Range Interpretation Comments Basophils # (test code 0.1 See_Comment [Aut omated message] The = Basophils #) system which generated this result tra nsmitted reference range : <=0.2. The reference r rajeev was not used to int erpret this result as normal/abnormal . [facility] CenterQcbtshnETKWDGXMHB7025-09-30 10:45:00 Test Item Value Reference Range Interpretation Comments WBC (test code = WBC) 9.0 3.7-10.4 [facility] CenterRpckbjlBLQDYUPLZW4162-96-09 10:45:00 Test Item Value Reference Range Interpretation Comments RBC (test code = RBC) 4.13 4.20-5.40 [facility] CenterFmtoktmNKFBEHIAVP7454-70-58 10:45:00 Test Item Value Reference Range Interpretation Comments Hgb (test code = Hgb) 12.8 12.0-16.0 [facility] CenterYnwophrYKRGCWQBQS6712-79-79 10:45:00 Test Item Value Reference Range Interpretation Comments Hct (test code = Hct) 37.1 36.0-48.0 [facility] CenterRlriyfjKEGPLGDGKH7976-01-20 10:45:00 Test Item Value Reference Range Interpretation Comments MCV (test code = MCV) 89.8 80.0-98.0 [facility] CenterObryyenHNVTMZUOZT9549-72-66 10:45:00 Test Item Value Reference Range Interpretation Comments MCH (test code = MCH) 30.9 pg 27.0-31.0 [place] 588881-04-17 10:45:00 Test Item Value Reference Range Interpretation Comments MPV (test code = MPV) 8.7 7.4-10.4 [place] 588881-04-17 10:45:00 Test Item Value Reference Range Interpretation Comments MCHC (test code = MCHC) 34.5 32.0-36.0 [facility] CenterBkhkwvrCMHHFVLTTS7678-44-95 10:45:00 Test Item Value Reference Range Interpretation Comments RDW (test code = RDW) 13.0 11.5-14.5 [place] [address]-04-17 10:45:00 Test Item Value Reference Range Interpretation Comments Platelet (test code = Platelet) 209 133-450 [place] 588881-04-17 10:45:00 Test Item Value Reference Range Interpretation Comments MPV (test code = MPV) 8.7 7.4-10.4 [place] 692801-04-17 10:45:00 Test Item Value Reference Range Interpretation Comments Glucose Lvl (test code = Glucose Lvl) 104 70-99 [place] 692801-04-17 10:45:00 Test Item Value Reference Range Interpretation Comments BUN (test code = BUN) 22 7-22 [place] 692801-04-17 10:45:00 Test Item Value Reference Range Interpretation Comments Creatinine Lvl (test code = Creatinine 1.18 0.50-1.40 Lvl) [place] 692801-04-17 10:45:00 Test Item Value Reference Range Interpretation Comments Sodium Lvl (test code = Sodium Lvl) 139 135-145 [place] 692801-04-17 10:45:00 Test Item Value Reference Range Interpretation Comments Potassium Lvl (test code = Potassium 3.7 3.5-5.1 Lvl) [facility]2021-04-17 10:45:00 Test Item Value Reference Range Interpretation Comments Chloride Lvl (test code = Chloride Lvl) 109 95-109 [place] 692801-04-17 10:45:00 Test Item Value Reference Range Interpretation Comments CO2 (test code = CO2) 23 24-32 [place] 692801-04-17 10:45:00 Test Item Value Reference Range Interpretation Comments Calcium Lvl (test code = Calcium Lvl) 8.7 8.5-10.5 [place] 692801-04-17 10:45:00 Test Item Value Reference Range Interpretation Comments AGAP (test code = AGAP) 10.7 10.0-20.0 [place] 692801-04-17 10:45:00 Test Item Value Reference Range Interpretation Comments eGFR (test code = eGFR) 48 [place] 588881-04-17 10:45:00 Test Item Value Reference Range Interpretation Comments Segs (test code = Segs) 55.8 45.0-75.0 [place] 588881-04-17 10:45:00 Test Item Value Reference Range Interpretation Comments Lymphocytes (test code = Lymphocytes) 26.4 20.0-40.0 [place] 588881-04-17 10:45:00 Test Item Value Reference Range Interpretation Comments Monocytes (test code = Monocytes) 12.5 2.0-12.0 [place] 588881-04-17 10:45:00 Test Item Value Reference Range Interpretation Comments Eosinophils (test code = 4.5 See_Comment [A utomated message] The Eosinophils) system which ge nerated this result tra nsmitted reference range : <=4.0. The reference r rajeev was not used to int erpret this result as normal/abnormal . [facility] CenterIghwnfjDSSYSHTUQD1439-64-65 10:45:00 Test Item Value Reference Range Interpretation Comments Basophils (test code = 0.8 See_Comment [Aut omated message] The Basophils) system which ge nerated this result tra nsmitted reference range : <=1.0. The reference r rajeev was not used to int erpret this result as normal/abnormal . [facility] CenterLsalgmeEHVDXTPGWH8499-48-64 10:45:00 Test Item Value Reference Range Interpretation Comments Neutrophils # (test code = Neutrophils 5.0 1.5-8.1 #) [facility] CenterWwkyjygWEQVQYRSYN7715-57-55 10:45:00 Test Item Value Reference Range Interpretation Comments Lymphocytes # (test code = Lymphocytes 2.4 1.0-5.5 #) [facility] CenterXseylviYPNKVNXMMQ2058-05-80 10:45:00 Test Item Value Reference Range Interpretation Comments Monocytes # (test code 1.1 See_Comment [Aut omated message] The = Monocytes #) system which generated this result tra nsmitted reference range : <=0.8. The reference r rajeev was not used to int erpret this result as normal/abnormal . [facility] CenterLdmwrycHUCOXILJGH7427-29-88 10:45:00 Test Item Value Reference Range Interpretation Comments Eosinophils # (test code 0.4 See_Comment [A utomated message] The = Eosinophils #) system whic h generated this result tra nsmitted reference range : <=0.5. The reference r rajeev was not used to int erpret this result as normal/abnormal . [facility] CenterMojzhwtYYABMWHPYJ9827-50-27 10:45:00 Test Item Value Reference Range Interpretation Comments Basophils # (test code 0.1 See_Comment [Aut omated message] The = Basophils #) system which generated this result tra nsmitted reference range : <=0.2. The reference r rajeev was not used to int erpret this result as normal/abnormal . [facility] CenterYkyuryfHXTVHQRUAW7893-31-30 10:45:00 Test Item Value Reference Range Interpretation Comments WBC (test code = WBC) 9.0 3.7-10.4 [facility] CenterTopafluPIWBDSHHKW0792-82-53 10:45:00 Test Item Value Reference Range Interpretation Comments RBC (test code = RBC) 4.13 4.20-5.40 [place] 588881-04-17 10:45:00 Test Item Value Reference Range Interpretation Comments Hgb (test code = Hgb) 12.8 12.0-16.0 [place] 588881-04-17 10:45:00 Test Item Value Reference Range Interpretation Comments Hct (test code = Hct) 37.1 36.0-48.0 [facility] CenterGsymafyCTGPPIQOGL9339-93-65 10:45:00 Test Item Value Reference Range Interpretation Comments MCV (test code = MCV) 89.8 80.0-98.0 [place] 588881-04-17 10:45:00 Test Item Value Reference Range Interpretation Comments MCH (test code = MCH) 30.9 pg 27.0-31.0 [place] 588881-04-17 10:45:00 Test Item Value Reference Range Interpretation Comments MCHC (test code = MCHC) 34.5 32.0-36.0 [place] 588881-04-17 10:45:00 Test Item Value Reference Range Interpretation Comments RDW (test code = RDW) 13.0 11.5-14.5 [facility] CenterVoqoaelFURTYHZIIG2916-51-00 10:45:00 Test Item Value Reference Range Interpretation Comments Platelet (test code = Platelet) 209 133-450 [facility] CenterIjbkkluSZKEXEAQCC6364-88-68 10:45:00 Test Item Value Reference Range Interpretation Comments MPV (test code = MPV) 8.7 7.4-10.4 [place] 692801-04-17 10:45:00 Test Item Value Reference Range Interpretation Comments Glucose Lvl (test code = Glucose Lvl) 104 70-99 [place] 692801-04-17 10:45:00 Test Item Value Reference Range Interpretation Comments BUN (test code = BUN) 22 7-22 [place] 692801-04-17 10:45:00 Test Item Value Reference Range Interpretation Comments Creatinine Lvl (test code = Creatinine 1.18 0.50-1.40 Lvl) [place] 692801-04-17 10:45:00 Test Item Value Reference Range Interpretation Comments Sodium Lvl (test code = Sodium Lvl) 139 135-145 [place] 692801-04-17 10:45:00 Test Item Value Reference Range Interpretation Comments Potassium Lvl (test code = Potassium 3.7 3.5-5.1 Lvl) [place] 692801-04-17 10:45:00 Test Item Value Reference Range Interpretation Comments Chloride Lvl (test code = Chloride Lvl) 109 95-109 [place] 692801-04-17 10:45:00 Test Item Value Reference Range Interpretation Comments CO2 (test code = CO2) 23 24-32 [place] 692801-04-17 10:45:00 Test Item Value Reference Range Interpretation Comments Calcium Lvl (test code = Calcium Lvl) 8.7 8.5-10.5 [place] 692801-04-17 10:45:00 Test Item Value Reference Range Interpretation Comments AGAP (test code = AGAP) 10.7 10.0-20.0 [place] 692801-04-17 10:45:00 Test Item Value Reference Range Interpretation Comments eGFR (test code = eGFR) 48 [place] 588881-04-17 10:45:00 Test Item Value Reference Range Interpretation Comments Segs (test code = Segs) 55.8 45.0-75.0 [place] [address]-04-17 10:45:00 Test Item Value Reference Range Interpretation Comments Lymphocytes (test code = Lymphocytes) 26.4 20.0-40.0 [place] 588881-04-17 10:45:00 Test Item Value Reference Range Interpretation Comments Monocytes (test code = Monocytes) 12.5 2.0-12.0 [place] 588881-04-17 10:45:00 Test Item Value Reference Range Interpretation Comments Eosinophils (test code = 4.5 See_Comment [A utomated message] The Eosinophils) system which ge nerated this result tra nsmitted reference range : <=4.0. The reference r rajeev was not used to int erpret this result as normal/abnormal . [place] 588881-04-17 10:45:00 Test Item Value Reference Range Interpretation Comments Basophils (test code = 0.8 See_Comment [Aut omated message] The Basophils) system which ge nerated this result tra nsmitted reference range : <=1.0. The reference r rajeev was not used to int erpret this result as normal/abnormal . [place] 588881-04-17 10:45:00 Test Item Value Reference Range Interpretation Comments Neutrophils # (test code = Neutrophils 5.0 1.5-8.1 #) [place] 588881-04-17 10:45:00 Test Item Value Reference Range Interpretation Comments Lymphocytes # (test code = Lymphocytes 2.4 1.0-5.5 #) [place] 588881-04-17 10:45:00 Test Item Value Reference Range Interpretation Comments Monocytes # (test code 1.1 See_Comment [Aut omated message] The = Monocytes #) system which generated this result tra nsmitted reference range : <=0.8. The reference r rajeev was not used to int erpret this result as normal/abnormal . [place] 588881-04-17 10:45:00 Test Item Value Reference Range Interpretation Comments Eosinophils # (test code 0.4 See_Comment [A utomated message] The = Eosinophils #) system wh h generated this result tra nsmitted reference range : <=0.5. The reference r rajeev was not used to int erpret this result as normal/abnormal . [place] 588881-04-17 10:45:00 Test Item Value Reference Range Interpretation Comments Basophils # (test code 0.1 See_Comment [Aut omated message] The = Basophils #) system which generated this result tra nsmitted reference range : <=0.2. The reference r rajeev was not used to int erpret this result as normal/abnormal . [facility] CenterDbxmuraLESPLKEWEO5181-65-62 10:45:00 Test Item Value Reference Range Interpretation Comments WBC (test code = WBC) 9.0 3.7-10.4 [facility] CenterUeccfurQCLBVILZUL4835-48-01 10:45:00 Test Item Value Reference Range Interpretation Comments RBC (test code = RBC) 4.13 4.20-5.40 [place] 588881-04-17 10:45:00 Test Item Value Reference Range Interpretation Comments Hgb (test code = Hgb) 12.8 12.0-16.0 [place] 588881-04-17 10:45:00 Test Item Value Reference Range Interpretation Comments Hct (test code = Hct) 37.1 36.0-48.0 [place] 588881-04-17 10:45:00 Test Item Value Reference Range Interpretation Comments MCV (test code = MCV) 89.8 80.0-98.0 [place] 588881-04-17 10:45:00 Test Item Value Reference Range Interpretation Comments MCH (test code = MCH) 30.9 pg 27.0-31.0 [facility] CenterXgexfusOIWRWANZKK5495-01-08 10:45:00 Test Item Value Reference Range Interpretation Comments MCHC (test code = MCHC) 34.5 32.0-36.0 [facility] CenterQomsztaLZIKZTXBFB1588-20-83 10:45:00 Test Item Value Reference Range Interpretation Comments RDW (test code = RDW) 13.0 11.5-14.5 [facility] CenterVlqzfflJFDURWAWHX6639-93-68 10:45:00 Test Item Value Reference Range Interpretation Comments Platelet (test code = Platelet) 209 133-450 [facility] CenterZawtncgSKOVSFTJHG7228-19-37 10:45:00 Test Item Value Reference Range Interpretation Comments MPV (test code = MPV) 8.7 7.4-10.4 [facility]2021-04-17 10:45:00 Test Item Value Reference Range Interpretation Comments Glucose Lvl (test code = Glucose Lvl) 104 70-99 [facility]2021-04-17 10:45:00 Test Item Value Reference Range Interpretation Comments BUN (test code = BUN) 22 7-22 [facility]2021-04-17 10:45:00 Test Item Value Reference Range Interpretation Comments Creatinine Lvl (test code = Creatinine 1.18 0.50-1.40 Lvl) [place] 692801-04-17 10:45:00 Test Item Value Reference Range Interpretation Comments Sodium Lvl (test code = Sodium Lvl) 139 135-145 [place] 692801-04-17 10:45:00 Test Item Value Reference Range Interpretation Comments Potassium Lvl (test code = Potassium 3.7 3.5-5.1 Lvl) [place] 692801-04-17 10:45:00 Test Item Value Reference Range Interpretation Comments Chloride Lvl (test code = Chloride Lvl) 109 95-109 [place] 692801-04-17 10:45:00 Test Item Value Reference Range Interpretation Comments CO2 (test code = CO2) 23 24-32 [place] [address]-04-17 10:45:00 Test Item Value Reference Range Interpretation Comments Calcium Lvl (test code = Calcium Lvl) 8.7 8.5-10.5 [place] 692801-04-17 10:45:00 Test Item Value Reference Range Interpretation Comments AGAP (test code = AGAP) 10.7 10.0-20.0 [place] 692801-04-17 10:45:00 Test Item Value Reference Range Interpretation Comments eGFR (test code = eGFR) 48 [place] [address]-04-17 10:45:00 Test Item Value Reference Range Interpretation Comments Segs (test code = Segs) 55.8 45.0-75.0 [place] [address]-04-17 10:45:00 Test Item Value Reference Range Interpretation Comments Lymphocytes (test code = Lymphocytes) 26.4 20.0-40.0 [place] [address]-04-17 10:45:00 Test Item Value Reference Range Interpretation Comments Monocytes (test code = Monocytes) 12.5 2.0-12.0 [place] [address]-04-17 10:45:00 Test Item Value Reference Range Interpretation Comments Eosinophils (test code = 4.5 See_Comment [A utomated message] The Eosinophils) system which ge nerated this result tra nsmitted reference range : <=4.0. The reference r rajeev was not used to int erpret this result as normal/abnormal . [facility] CenterNskcflzSOETRNPVIZ3808-02-81 10:45:00 Test Item Value Reference Range Interpretation Comments Basophils (test code = 0.8 See_Comment [Aut omated message] The Basophils) system which ge nerated this result tra nsmitted reference range : <=1.0. The reference r rajeev was not used to int erpret this result as normal/abnormal . [facility] CenterQfbjlyxZGXZKKTZPK6487-08-37 10:45:00 Test Item Value Reference Range Interpretation Comments Neutrophils # (test code = Neutrophils 5.0 1.5-8.1 #) [facility]aKhovcclZCITHTHRJR9758-73-44 10:45:00 Test Item Value Reference Range Interpretation Comments Lymphocytes # (test code = Lymphocytes 2.4 1.0-5.5 #) [facility] AlpenaIibflcoLCZLNYSKZM5606-42-79 10:45:00 Test Item Value Reference Range Interpretation Comments Monocytes # (test code 1.1 See_Comment [Aut omated message] The = Monocytes #) system which generated this result tra nsmitted reference range : <=0.8. The reference r rajeev was not used to int erpret this result as normal/abnormal . [facility] CenterGoxhghkMXGHZAIVXX2832-18-47 10:45:00 Test Item Value Reference Range Interpretation Comments Eosinophils # (test code 0.4 See_Comment [A utomated message] The = Eosinophils #) system whic h generated this result tra nsmitted reference range : <=0.5. The reference r rajeev was not used to int erpret this result as normal/abnormal . [facility] CenterPdxybjwXTEHCEZIRO8702-62-76 10:45:00 Test Item Value Reference Range Interpretation Comments Basophils # (test code 0.1 See_Comment [Aut omated message] The = Basophils #) system which generated this result tra nsmitted reference range : <=0.2. The reference r rajeev was not used to int erpret this result as normal/abnormal . [facility] CenterKqmifroJGFHHQVXSM8074-77-51 10:45:00 Test Item Value Reference Range Interpretation Comments WBC (test code = WBC) 9.0 3.7-10.4 [facility] KEUTVLZ1205-92-14 06:55:00 Test Item Value Reference Range Interpretation Comments Troponin-I (test code 0.02 See_Comment [Auto mated message] The = Troponin-I) system which g enerated this result transmit dora reference range : <=0.40. The reference r rajeev was not used to interpr et this result as merritt l/abnormal. [facility] [id number] 06:55:00 Test Item Value Reference Range Interpretation Comments Total Protein (test code = Total 6.6 6.4-8.4 Protein) [address]04-16 06:55:00 Test Item Value Reference Range Interpretation Comments Albumin Lvl (test code = Albumin Lvl) 3.6 3.5-5.[address]04-16 06:55:00 Test Item Value Reference Range Interpretation Comments ALT (test code = ALT) 20 See_Comment [Auto mated message] The system which ge nerated this result transmit dora reference range : <=65. The reference range was not used to interpr et this result as merritt l/abnormal. [facility] [id number] 06:55:00 Test Item Value Reference Range Interpretation Comments AST (test code = AST) 16 See_Comment [Auto mated message] The system which ge nerated this result transmit dora reference range : <=37. The reference range was not used to interpr et this result as merritt l/abnormal. [facility] [id number] 06:55:00 Test Item Value Reference Range Interpretation Comments Alk Phos (test code = Alk Phos) 58 39-136 [facility] [id number] 06:55:00 Test Item Value Reference Range Interpretation Comments Bili Total (test code = Bili Total) 0.6 0.2-1.3 [facility] [id number] 06:55:00 Test Item Value Reference Range Interpretation Comments Bili Direct (test code 0.1 See_Comment [Aut omated message] The = Bili Direct) system which generated this result tra nsmitted reference range : <=0.3. The reference r rajeev was not used to int erpret this result as merritt l/abnormal. [facility] [id number] 06:55:00 Test Item Value Reference Range Interpretation Comments Bili Indirect (test 0.5 See_Comment [Automa dora message] The code = Bili Indirect) system which generated this result tra nsmitted reference range : <=1.0. The reference r rajeev was not used to int erpret this result as normal/abnormal . [place] 692801-04-16 06:55:00 Test Item Value Reference Range Interpretation Comments Globulin (test code = Globulin) 3.0 2.7-4.2 [place] 692801-04-16 06:55:00 Test Item Value Reference Range Interpretation Comments A/G Ratio (test code = A/G Ratio) 1.2 1 0.7-1.6 [place] 692801-04-16 06:55:00 Test Item Value Reference Range Interpretation Comments Glucose Lvl (test code = Glucose Lvl) 118 70-99 [place] 692801-04-16 06:55:00 Test Item Value Reference Range Interpretation Comments BUN (test code = BUN) 20 7-22 [place] 692801-04-16 06:55:00 Test Item Value Reference Range Interpretation Comments Creatinine Lvl (test code = Creatinine 1.05 0.50-1.40 Lvl) [place] 692801-04-16 06:55:00 Test Item Value Reference Range Interpretation Comments Sodium Lvl (test code = Sodium Lvl) 138 135-145 [place] 692801-04-16 06:55:00 Test Item Value Reference Range Interpretation Comments Potassium Lvl (test code = Potassium 4.0 3.5-5.1 Lvl) [place] 692801-04-16 06:55:00 Test Item Value Reference Range Interpretation Comments Chloride Lvl (test code = Chloride Lvl) 108 95-109 [place] 692801-04-16 06:55:00 Test Item Value Reference Range Interpretation Comments CO2 (test code = CO2) 23 24-32 [place] 692801-04-16 06:55:00 Test Item Value Reference Range Interpretation Comments Calcium Lvl (test code = Calcium Lvl) 9.1 8.5-10.5 [place] 692801-04-16 06:55:00 Test Item Value Reference Range Interpretation Comments AGAP (test code = AGAP) 11.0 10.0-20.0 [place] 692801-04-16 06:55:00 Test Item Value Reference Range Interpretation Comments eGFR (test code = eGFR) 55 [facility]2021-04-16 06:55:00 Test Item Value Reference Range Interpretation Comments Magnesium Lvl (test code = Magnesium 2.2 1.8-2.4 Lvl) [facility]2021-04-16 06:55:00 Test Item Value Reference Range Interpretation Comments Phosphorus (test code = Phosphorus) 3.4 2.5-4.5 [facility] CenterIijbxyqYSRLPWEAKV1641-40-96 06:55:00 Test Item Value Reference Range Interpretation Comments WBC (test code = WBC) 9.5 3.7-10.4 [place] 588881-04-16 06:55:00 Test Item Value Reference Range Interpretation Comments RBC (test code = RBC) 3.99 4.20-5.40 [place] 588881-04-16 06:55:00 Test Item Value Reference Range Interpretation Comments Hgb (test code = Hgb) 12.3 12.0-16.0 [place] 588881-04-16 06:55:00 Test Item Value Reference Range Interpretation Comments Hct (test code = Hct) 36.0 36.0-48.0 [place] 588881-04-16 06:55:00 Test Item Value Reference Range Interpretation Comments MCV (test code = MCV) 90.4 80.0-98.0 [place] [address]-04-16 06:55:00 Test Item Value Reference Range Interpretation Comments MCH (test code = MCH) 30.9 pg 27.0-31.0 [facility] CenterOmorziaIMSBMBNHQE2672-42-14 06:55:00 Test Item Value Reference Range Interpretation Comments MCHC (test code = MCHC) 34.2 32.0-36.0 [place] 588881-04-16 06:55:00 Test Item Value Reference Range Interpretation Comments RDW (test code = RDW) 13.2 11.5-14.5 [place] 588881-04-16 06:55:00 Test Item Value Reference Range Interpretation Comments Platelet (test code = Platelet) 220 133-450 [facility] CenterKymffnkQJAGLOKHCP3729-14-95 06:55:00 Test Item Value Reference Range Interpretation Comments MPV (test code = MPV) 8.8 7.4-10.4 [place] 588881-04-16 06:55:00 Test Item Value Reference Range Interpretation Comments Segs (test code = Segs) 56.6 45.0-75.0 [place] 588881-04-16 06:55:00 Test Item Value Reference Range Interpretation Comments Lymphocytes (test code = Lymphocytes) 26.2 20.0-40.0 [place] 588881-04-16 06:55:00 Test Item Value Reference Range Interpretation Comments Monocytes (test code = Monocytes) 13.2 2.0-12.0 [place] 588881-04-16 06:55:00 Test Item Value Reference Range Interpretation Comments Eosinophils (test code = 3.3 See_Comment [A utomated message] The Eosinophils) system which ge nerated this result tra nsmitted reference range : <=4.0. The reference r rajeev was not used to int erpret this result as normal/abnormal . [place] 588881-04-16 06:55:00 Test Item Value Reference Range Interpretation Comments Basophils (test code = 0.7 See_Comment [Aut omated message] The Basophils) system which ge nerated this result tra nsmitted reference range : <=1.0. The reference r rajeev was not used to int erpret this result as normal/abnormal . [place] 588881-04-16 06:55:00 Test Item Value Reference Range Interpretation Comments Neutrophils # (test code = Neutrophils 5.4 1.5-8.1 #) [place] 588881-04-16 06:55:00 Test Item Value Reference Range Interpretation Comments Lymphocytes # (test code = Lymphocytes 2.5 1.0-5.5 #) [place] 588881-04-16 06:55:00 Test Item Value Reference Range Interpretation Comments Monocytes # (test code 1.3 See_Comment [Aut omated message] The = Monocytes #) system which generated this result tra nsmitted reference range : <=0.8. The reference r rajeev was not used to int erpret this result as normal/abnormal . [place] 588881-04-16 06:55:00 Test Item Value Reference Range Interpretation Comments Eosinophils # (test code 0.3 See_Comment [A utomated message] The = Eosinophils #) system whic h generated this result tra nsmitted reference range : <=0.5. The reference r rajeev was not used to int erpret this result as normal/abnormal . [facility] CenterLdvexouFOJIYKJFYQ5154-24-47 06:55:00 Test Item Value Reference Range Interpretation Comments Basophils # (test code 0.1 See_Comment [Aut omated message] The = Basophils #) system which generated this result tra nsmitted reference range : <=0.2. The reference r rajeev was not used to int erpret this result as normal/abnormal . [facility] CenterannPARATHYROID [id number] 06:55:00 Test Item Value Reference Range Interpretation Comments Ca Ion WB (test code = Ca Ion WB) 1.13 1.05-1.25 [facility] CenterannPARATHYROID [id number] 06:55:00 Test Item Value Reference Range Interpretation Comments Ca Norm WB (test code = Ca Norm WB) 1.11 1.05-1.25 [facility] [id number] 06:55:00 Test Item Value Reference Range Interpretation Comments Troponin-I (test code 0.02 See_Comment [Auto mated message] The = Troponin-I) system which g enerated this result transmit dora reference range : <=0.40. The reference r rajeev was not used to interpr et this result as merritt l/abnormal. [facility] [employer] [id number] 06:55:00 Test Item Value Reference Range Interpretation Comments Total Protein (test code = Total 6.6 6.4-8.4 Protein) [facility] [employer] [id number] 06:55:00 Test Item Value Reference Range Interpretation Comments Albumin Lvl (test code = Albumin Lvl) 3.6 3.5-5.0 [facility] [id number] 06:55:00 Test Item Value Reference Range Interpretation Comments ALT (test code = ALT) 20 See_Comment [Auto mated message] The system which ge nerated this result transmit dora reference range : <=65. The reference range was not used to interpr et this result as merritt l/abnormal. [facility] [employer] [id number] 06:55:00 Test Item Value Reference Range Interpretation Comments AST (test code = AST) 16 See_Comment [Auto mated message] The system which ge nerated this result transmit dora reference range : <=37. The reference range was not used to interpr et this result as merritt l/abnormal. [facility] [id number] 06:55:00 Test Item Value Reference Range Interpretation Comments Alk Phos (test code = Alk Phos) 58 39-136 [facility] [id number] 06:55:00 Test Item Value Reference Range Interpretation Comments Troponin-I (test code 0.02 See_Comment [Auto mated message] The = Troponin-I) system which g enerated this result transmit dora reference range : <=0.40. The reference r rajeev was not used to interpr et this result as merritt l/abnormal. [facility] [id number] 06:55:00 Test Item Value Reference Range Interpretation Comments Bili Total (test code = Bili Total) 0.6 0.2-1.3 [facility] [id number] 06:55:00 Test Item Value Reference Range Interpretation Comments Bili Direct (test code 0.1 See_Comment [Aut omated message] The = Bili Direct) system which generated this result tra nsmitted reference range : <=0.3. The reference r rajeev was not used to int erpret this result as merritt l/abnormal. [facility] [id number] 06:55:00 Test Item Value Reference Range Interpretation Comments Bili Indirect (test 0.5 See_Comment [Automa dora message] The code = Bili Indirect) system which generated this result tra nsmitted reference range : <=1.0. The reference r rajeev was not used to int erpret this result as normal/abnormal . [facility] [id number] 06:55:00 Test Item Value Reference Range Interpretation Comments Globulin (test code = Globulin) 3.0 2.7-4.2 [facility] [id number] 06:55:00 Test Item Value Reference Range Interpretation Comments A/G Ratio (test code = A/G Ratio) 1.2 1 0.7-1.6 [place] 692801-04-16 06:55:00 Test Item Value Reference Range Interpretation Comments Glucose Lvl (test code = Glucose Lvl) 118 70-99 [facility] [id number] 06:55:00 Test Item Value Reference Range Interpretation Comments BUN (test code = BUN) 20 7-22 [place] 692801-04-16 06:55:00 Test Item Value Reference Range Interpretation Comments Creatinine Lvl (test code = Creatinine 1.05 0.50-1.40 Lvl) [place] 692801-04-16 06:55:00 Test Item Value Reference Range Interpretation Comments Sodium Lvl (test code = Sodium Lvl) 138 135-145 [place] 692801-04-16 06:55:00 Test Item Value Reference Range Interpretation Comments Potassium Lvl (test code = Potassium 4.0 3.5-5.1 Lvl) [place] 692801-04-16 06:55:00 Test Item Value Reference Range Interpretation Comments Total Protein (test code = Total 6.6 6.4-8.4 Protein) [place] 692801-04-16 06:55:00 Test Item Value Reference Range Interpretation Comments Chloride Lvl (test code = Chloride Lvl) 108 95-109 [place] 692801-04-16 06:55:00 Test Item Value Reference Range Interpretation Comments CO2 (test code = CO2) 23 24-32 [place] 692801-04-16 06:55:00 Test Item Value Reference Range Interpretation Comments Calcium Lvl (test code = Calcium Lvl) 9.1 8.5-10.5 [facility]2021-04-16 06:55:00 Test Item Value Reference Range Interpretation Comments AGAP (test code = AGAP) 11.0 10.0-20.0 [place] 692801-04-16 06:55:00 Test Item Value Reference Range Interpretation Comments eGFR (test code = eGFR) 55 [place] 692801-04-16 06:55:00 Test Item Value Reference Range Interpretation Comments Magnesium Lvl (test code = Magnesium 2.2 1.8-2.4 Lvl) [place] 692801-04-16 06:55:00 Test Item Value Reference Range Interpretation Comments Phosphorus (test code = Phosphorus) 3.4 2.5-4.5 [place] 588881-04-16 06:55:00 Test Item Value Reference Range Interpretation Comments WBC (test code = WBC) 9.5 3.7-10.4 [place] 588881-04-16 06:55:00 Test Item Value Reference Range Interpretation Comments RBC (test code = RBC) 3.99 4.20-5.40 [place] 588881-04-16 06:55:00 Test Item Value Reference Range Interpretation Comments Hgb (test code = Hgb) 12.3 12.0-16.0 [facility] [id number] 06:55:00 Test Item Value Reference Range Interpretation Comments Albumin Lvl (test code = Albumin Lvl) 3.6 3.5-5.0 [place] 588881-04-16 06:55:00 Test Item Value Reference Range Interpretation Comments Hct (test code = Hct) 36.0 36.0-48.0 [place] 588881-04-16 06:55:00 Test Item Value Reference Range Interpretation Comments MCV (test code = MCV) 90.4 80.0-98.0 [place] 588881-04-16 06:55:00 Test Item Value Reference Range Interpretation Comments MCH (test code = MCH) 30.9 pg 27.0-31.0 [facility] CenterQiouoqpXDTHLNGRGR5778-03-10 06:55:00 Test Item Value Reference Range Interpretation Comments MCHC (test code = MCHC) 34.2 32.0-36.0 [facility]aLnqohqxHWTJFOZPOU6060-53-72 06:55:00 Test Item Value Reference Range Interpretation Comments RDW (test code = RDW) 13.2 11.5-14.5 [facility] CenterCxgkicqKYCGHOFMAO9870-24-43 06:55:00 Test Item Value Reference Range Interpretation Comments Platelet (test code = Platelet) 220 133-450 [facility] [id number] 06:55:00 Test Item Value Reference Range Interpretation Comments MPV (test code = MPV) 8.8 7.4-10.4 [place] 588881-04-16 06:55:00 Test Item Value Reference Range Interpretation Comments Segs (test code = Segs) 56.6 45.0-75.0 [place] 588881-04-16 06:55:00 Test Item Value Reference Range Interpretation Comments Lymphocytes (test code = Lymphocytes) 26.2 20.0-40.0 [facility] CenterIsyadgcCNULHMQSAB1132-16-49 06:55:00 Test Item Value Reference Range Interpretation Comments Monocytes (test code = Monocytes) 13.2 2.0-12.0 [place] 692801-04-16 06:55:00 Test Item Value Reference Range Interpretation Comments ALT (test code = ALT) 20 See_Comment [Auto mated message] The system which ge nerated this result transmit dora reference range : <=65. The reference range was not used to interpr et this result as merritt l/abnormal. [place] 588881-04-16 06:55:00 Test Item Value Reference Range Interpretation Comments Eosinophils (test code = 3.3 See_Comment [A utomated message] The Eosinophils) system which ge nerated this result tra nsmitted reference range : <=4.0. The reference r rajeev was not used to int erpret this result as normal/abnormal . [place] [address]-04-16 06:55:00 Test Item Value Reference Range Interpretation Comments Basophils (test code = 0.7 See_Comment [Aut omated message] The Basophils) system which ge nerated this result tra nsmitted reference range : <=1.0. The reference r rajeev was not used to int erpret this result as normal/abnormal . [place] [address]-04-16 06:55:00 Test Item Value Reference Range Interpretation Comments Neutrophils # (test code = Neutrophils 5.4 1.5-8.1 #) [place] [address]-04-16 06:55:00 Test Item Value Reference Range Interpretation Comments Lymphocytes # (test code = Lymphocytes 2.5 1.0-5.5 #) [place] [address]-04-16 06:55:00 Test Item Value Reference Range Interpretation Comments Monocytes # (test code 1.3 See_Comment [Aut omated message] The = Monocytes #) system which generated this result tra nsmitted reference range : <=0.8. The reference r rajeev was not used to int erpret this result as normal/abnormal . [place] [address]-04-16 06:55:00 Test Item Value Reference Range Interpretation Comments Eosinophils # (test code 0.3 See_Comment [A utomated message] The = Eosinophils #) system whic h generated this result tra nsmitted reference range : <=0.5. The reference r rajeev was not used to int erpret this result as normal/abnormal . [facility] CenterDzhubzcNHHXLMFBNU5079-45-53 06:55:00 Test Item Value Reference Range Interpretation Comments Basophils # (test code 0.1 See_Comment [Aut omated message] The = Basophils #) system which generated this result tra nsmitted reference range : <=0.2. The reference r rajeev was not used to int erpret this result as normal/abnormal . [place] 288351-04-16 06:55:00 Test Item Value Reference Range Interpretation Comments Ca Ion WB (test code = Ca Ion WB) 1.13 1.05-1.25 [place] 288351-04-16 06:55:00 Test Item Value Reference Range Interpretation Comments Ca Norm WB (test code = Ca Norm WB) 1.11 1.05-1.25 96 [address]04[address]16 06:55:00 Test Item Value Reference Range Interpretation Comments AST (test code = AST) 16 See_Comment [Auto mated message] The system which ge nerated this result transmit dora reference range : <=37. The reference range was not used to interpr et this result as emrritt l/abnormal. [place] 692801-04-16 06:55:00 Test Item Value Reference Range Interpretation Comments Alk Phos (test code = Alk Phos) 58 39-136 [address]04-16 06:55:00 Test Item Value Reference Range Interpretation Comments Bili Total (test code = Bili Total) 0.6 0.2-1.[address]04-16 06:55:00 Test Item Value Reference Range Interpretation Comments Bili Direct (test code 0.1 See_Comment [Aut omated message] The = Bili Direct) system which generated this result tra nsmitted reference range : <=0.3. The reference r rajeev was not used to int erpret this result as merritt l/abnormal. [address]04-16 06:55:00 Test Item Value Reference Range Interpretation Comments Bili Indirect (test 0.5 See_Comment [Automa dora message] The code = Bili Indirect) system which generated this result tra nsmitted reference range : <=1.0. The reference r rajeev was not used to int erpret this result as normal/abnormal . [place] 692801-04-16 06:55:00 Test Item Value Reference Range Interpretation Comments Globulin (test code = Globulin) 3.0 2.7-4.2 [place] 692801-04-16 06:55:00 Test Item Value Reference Range Interpretation Comments A/G Ratio (test code = A/G Ratio) 1.2 1 0.7-1.6 [place] 692801-04-16 06:55:00 Test Item Value Reference Range Interpretation Comments Glucose Lvl (test code = Glucose Lvl) 118 70-99 [place] 692801-04-16 06:55:00 Test Item Value Reference Range Interpretation Comments BUN (test code = BUN) 20 7-22 [place] 692801-04-16 06:55:00 Test Item Value Reference Range Interpretation Comments Creatinine Lvl (test code = Creatinine 1.05 0.50-1.40 Lvl) [place] 692801-04-16 06:55:00 Test Item Value Reference Range Interpretation Comments Sodium Lvl (test code = Sodium Lvl) 138 135-145 [place] 692801-04-16 06:55:00 Test Item Value Reference Range Interpretation Comments Potassium Lvl (test code = Potassium 4.0 3.5-5.1 Lvl) [facility]2021-04-16 06:55:00 Test Item Value Reference Range Interpretation Comments Chloride Lvl (test code = Chloride Lvl) 108 95-109 [place] 692801-04-16 06:55:00 Test Item Value Reference Range Interpretation Comments CO2 (test code = CO2) 23 24-32 [place] 692801-04-16 06:55:00 Test Item Value Reference Range Interpretation Comments Calcium Lvl (test code = Calcium Lvl) 9.1 8.5-10.5 [place] 692801-04-16 06:55:00 Test Item Value Reference Range Interpretation Comments AGAP (test code = AGAP) 11.0 10.0-20.0 [place] 692801-04-16 06:55:00 Test Item Value Reference Range Interpretation Comments eGFR (test code = eGFR) 55 [place] 692801-04-16 06:55:00 Test Item Value Reference Range Interpretation Comments Magnesium Lvl (test code = Magnesium 2.2 1.8-2.4 Lvl) [facility]2021-04-16 06:55:00 Test Item Value Reference Range Interpretation Comments Phosphorus (test code = Phosphorus) 3.4 2.5-4.5 [facility]BiwzsmuLEWUXAFQKR3440-76-49 06:55:00 Test Item Value Reference Range Interpretation Comments WBC (test code = WBC) 9.5 3.7-10.4 [facility] CenterSxnemgzAJFXMPBKYJ5563-59-45 06:55:00 Test Item Value Reference Range Interpretation Comments RBC (test code = RBC) 3.99 4.20-5.40 [facility] CenterPgwueqxAUHQPRTKPX6467-65-46 06:55:00 Test Item Value Reference Range Interpretation Comments Hgb (test code = Hgb) 12.3 12.0-16.0 [facility] CenterBnuytgoTMDOPETNZF1381-52-90 06:55:00 Test Item Value Reference Range Interpretation Comments Hct (test code = Hct) 36.0 36.0-48.0 [facility] CenterYrpncebLVBOGPVEJA4612-02-13 06:55:00 Test Item Value Reference Range Interpretation Comments MCV (test code = MCV) 90.4 80.0-98.0 [facility] CenterIwwnlmfEVPCALGXKA4127-69-59 06:55:00 Test Item Value Reference Range Interpretation Comments MCH (test code = MCH) 30.9 pg 27.0-31.0 [facility] CenterGvwncjaVQFUHPWKQH9015-44-55 06:55:00 Test Item Value Reference Range Interpretation Comments MCHC (test code = MCHC) 34.2 32.0-36.0 [facility] CenterFczgvdvIIJGKVDADB7051-89-52 06:55:00 Test Item Value Reference Range Interpretation Comments RDW (test code = RDW) 13.2 11.5-14.5 [facility] CenterQjwilgdTCCAWHJEQD9668-67-05 06:55:00 Test Item Value Reference Range Interpretation Comments Platelet (test code = Platelet) 220 133-450 [facility]dhfsmwNDZFMZJERI1160-68-53 06:55:00 Test Item Value Reference Range Interpretation Comments MPV (test code = MPV) 8.8 7.4-10.4 [facility] CenterFmqiuskSLHEGRTAST8942-95-40 06:55:00 Test Item Value Reference Range Interpretation Comments Segs (test code = Segs) 56.6 45.0-75.0 [facility] CenterTeyswaiFHOYQVXLBI7818-36-52 06:55:00 Test Item Value Reference Range Interpretation Comments Lymphocytes (test code = Lymphocytes) 26.2 20.0-40.0 [facility] CenterImelxrbWXQTCRLLTB7649-65-24 06:55:00 Test Item Value Reference Range Interpretation Comments Monocytes (test code = Monocytes) 13.2 2.0-12.0 [facility] CenterRabjahyUJQLWDTCCN7476-47-21 06:55:00 Test Item Value Reference Range Interpretation Comments Eosinophils (test code = 3.3 See_Comment [A utomated message] The Eosinophils) system which ge nerated this result tra nsmitted reference range : <=4.0. The reference r rajeev was not used to int erpret this result as normal/abnormal . [facility] CenterDnfelhfCNTSJTMSOX3754-47-68 06:55:00 Test Item Value Reference Range Interpretation Comments Basophils (test code = 0.7 See_Comment [Aut omated message] The Basophils) system which ge nerated this result tra nsmitted reference range : <=1.0. The reference r rajeev was not used to int erpret this result as normal/abnormal . [facility] CenterJazlsifJUCYQAYICF0792-29-83 06:55:00 Test Item Value Reference Range Interpretation Comments Neutrophils # (test code = Neutrophils 5.4 1.5-8.1 #) [facility] CenterXsavvalHXUUCCLPTT6634-23-27 06:55:00 Test Item Value Reference Range Interpretation Comments Lymphocytes # (test code = Lymphocytes 2.5 1.0-5.5 #) [facility]2021-04-16 06:55:00 Test Item Value Reference Range Interpretation Comments Troponin-I (test code 0.02 See_Comment [Auto mated message] The = Troponin-I) system which g enerated this result transmit dora reference range : <=0.40. The reference r rajeev was not used to interpr et this result as merritt l/abnormal. [facility] CenterXqjqzxqXHSMGFDADG4825-27-23 06:55:00 Test Item Value Reference Range Interpretation Comments Monocytes # (test code 1.3 See_Comment [Aut omated message] The = Monocytes #) system which generated this result tra nsmitted reference range : <=0.8. The reference r rajeev was not used to int erpret this result as normal/abnormal . [address]04-16 06:55:00 Test Item Value Reference Range Interpretation Comments Total Protein (test code = Total 6.6 6.4-8.4 Protein) [address]04-16 06:55:00 Test Item Value Reference Range Interpretation Comments Albumin Lvl (test code = Albumin Lvl) 3.6 3.5-5.0 [address]04-16 06:55:00 Test Item Value Reference Range Interpretation Comments ALT (test code = ALT) 20 See_Comment [Auto mated message] The system which ge nerated this result transmit dora reference range : <=65. The reference range was not used to interpr et this result as merritt l/abnormal. [address]04-16 06:55:00 Test Item Value Reference Range Interpretation Comments AST (test code = AST) 16 See_Comment [Auto mated message] The system which ge nerated this result transmit dora reference range : <=37. The reference range was not used to interpr et this result as merritt l/abnormal. [address]04-16 06:55:00 Test Item Value Reference Range Interpretation Comments Alk Phos (test code = Alk Phos) 58 39-136 [address]04-16 06:55:00 Test Item Value Reference Range Interpretation Comments Bili Total (test code = Bili Total) 0.6 0.2-1.3 [address]04-16 06:55:00 Test Item Value Reference Range Interpretation Comments Bili Direct (test code 0.1 See_Comment [Aut omated message] The = Bili Direct) system which generated this result tra nsmitted reference range : <=0.3. The reference r rajeev was not used to int erpret this result as merritt l/abnormal. [address]04-16 06:55:00 Test Item Value Reference Range Interpretation Comments Bili Indirect (test 0.5 See_Comment [Automa dora message] The code = Bili Indirect) system which generated this result tra nsmitted reference range : <=1.0. The reference r rajeev was not used to int erpret this result as normal/abnormal . [facility]2021-04-16 06:55:00 Test Item Value Reference Range Interpretation Comments Globulin (test code = Globulin) 3.0 2.7-4.2 [place] 692801-04-16 06:55:00 Test Item Value Reference Range Interpretation Comments A/G Ratio (test code = A/G Ratio) 1.2 1 0.7-1.6 [facility] CenterRocqfauSDLMOXXUPN8224-90-45 06:55:00 Test Item Value Reference Range Interpretation Comments Eosinophils # (test code 0.3 See_Comment [A utomated message] The = Eosinophils #) system whic h generated this result tra nsmitted reference range : <=0.5. The reference r rajeev was not used to int erpret this result as normal/abnormal . [place] 692801-04-16 06:55:00 Test Item Value Reference Range Interpretation Comments Glucose Lvl (test code = Glucose Lvl) 118 70-99 [place] 692801-04-16 06:55:00 Test Item Value Reference Range Interpretation Comments BUN (test code = BUN) 20 7-22 [place] 692801-04-16 06:55:00 Test Item Value Reference Range Interpretation Comments Creatinine Lvl (test code = Creatinine 1.05 0.50-1.40 Lvl) [place] 692801-04-16 06:55:00 Test Item Value Reference Range Interpretation Comments Sodium Lvl (test code = Sodium Lvl) 138 135-145 [place] 692801-04-16 06:55:00 Test Item Value Reference Range Interpretation Comments Potassium Lvl (test code = Potassium 4.0 3.5-5.1 Lvl) [place] 692801-04-16 06:55:00 Test Item Value Reference Range Interpretation Comments Chloride Lvl (test code = Chloride Lvl) 108 95-109 [place] 692801-04-16 06:55:00 Test Item Value Reference Range Interpretation Comments CO2 (test code = CO2) 23 24-32 [place] 692801-04-16 06:55:00 Test Item Value Reference Range Interpretation Comments Calcium Lvl (test code = Calcium Lvl) 9.1 8.5-10.5 [place] 692801-04-16 06:55:00 Test Item Value Reference Range Interpretation Comments AGAP (test code = AGAP) 11.0 10.0-20.0 [facility]2021-04-16 06:55:00 Test Item Value Reference Range Interpretation Comments eGFR (test code = eGFR) 55 [facility] CenterRpxlhnoPDWTSOCFWT3429-52-31 06:55:00 Test Item Value Reference Range Interpretation Comments Basophils # (test code 0.1 See_Comment [Aut omated message] The = Basophils #) system which generated this result tra nsmitted reference range : <=0.2. The reference r rajeev was not used to int erpret this result as normal/abnormal . [facility] CenterAccele[facility] GYRJW5249-22-83 06:55:00 Test Item Value Reference Range Interpretation Comments Magnesium Lvl (test code = Magnesium 2.2 1.8-2.4 Lvl) [facility]2021-04-16 06:55:00 Test Item Value Reference Range Interpretation Comments Phosphorus (test code = Phosphorus) 3.4 2.5-4.5 [facility] CenterBpmpxxdYDNSNGLOBP1045-72-95 06:55:00 Test Item Value Reference Range Interpretation Comments WBC (test code = WBC) 9.5 3.7-10.4 [facility] CenterFygmjefAANXCLRMCH8165-83-53 06:55:00 Test Item Value Reference Range Interpretation Comments RBC (test code = RBC) 3.99 4.20-5.40 [facility] CenterGxfrdczLKQHWGGUOR9562-67-49 06:55:00 Test Item Value Reference Range Interpretation Comments Hgb (test code = Hgb) 12.3 12.0-16.0 [place] [address]-04-16 06:55:00 Test Item Value Reference Range Interpretation Comments Hct (test code = Hct) 36.0 36.0-48.0 [place] 588881-04-16 06:55:00 Test Item Value Reference Range Interpretation Comments MCV (test code = MCV) 90.4 80.0-98.0 [place] 588881-04-16 06:55:00 Test Item Value Reference Range Interpretation Comments MCH (test code = MCH) 30.9 pg 27.0-31.0 [place] [address]-04-16 06:55:00 Test Item Value Reference Range Interpretation Comments MCHC (test code = MCHC) 34.2 32.0-36.0 [facility] CenterZsgnjakRSNTWDNRZC8063-60-34 06:55:00 Test Item Value Reference Range Interpretation Comments RDW (test code = RDW) 13.2 11.5-14.5 [facility] CenterPARATHYROID EIQBAWK0013-29-95 06:55:00 Test Item Value Reference Range Interpretation Comments Ca Ion WB (test code = Ca Ion WB) 1.13 1.05-1.25 [facility] CenterPfjpmzjSPZEYWBSSB8187-73-31 06:55:00 Test Item Value Reference Range Interpretation Comments Platelet (test code = Platelet) 220 133-450 [facility] CenterTmcxxphYGWDTCDJFL2550-39-77 06:55:00 Test Item Value Reference Range Interpretation Comments MPV (test code = MPV) 8.8 7.4-10.4 [facility] CenterSkfvpouJZOGHPANPY4240-20-96 06:55:00 Test Item Value Reference Range Interpretation Comments Segs (test code = Segs) 56.6 45.0-75.0 [facility] CenterXnmylbzHSTUSIRVKP1993-85-69 06:55:00 Test Item Value Reference Range Interpretation Comments Lymphocytes (test code = Lymphocytes) 26.2 20.0-40.0 [facility] CenterOwodblxUEHURAWFDG9554-54-35 06:55:00 Test Item Value Reference Range Interpretation Comments Monocytes (test code = Monocytes) 13.2 2.0-12.0 [facility] CenterOxwszksPAHAFMTJLH7132-20-99 06:55:00 Test Item Value Reference Range Interpretation Comments Eosinophils (test code = 3.3 See_Comment [A utomated message] The Eosinophils) system which ge nerated this result tra nsmitted reference range : <=4.0. The reference r rajeev was not used to int erpret this result as normal/abnormal . [facility] CenterJuuqqkqDCZIKLYYQA6215-51-03 06:55:00 Test Item Value Reference Range Interpretation Comments Basophils (test code = 0.7 See_Comment [Aut omated message] The Basophils) system which ge nerated this result tra nsmitted reference range : <=1.0. The reference r rajeev was not used to int erpret this result as normal/abnormal . [facility] CenterTxyulxbKYWAVDXVZK9458-00-96 06:55:00 Test Item Value Reference Range Interpretation Comments Neutrophils # (test code = Neutrophils 5.4 1.5-8.1 #) [facility] CenterXamumqlSIDAIGJJRS7742-23-52 06:55:00 Test Item Value Reference Range Interpretation Comments Lymphocytes # (test code = Lymphocytes 2.5 1.0-5.5 #) [facility] CenterTrvutqkOVUNWAEQEK2455-42-64 06:55:00 Test Item Value Reference Range Interpretation Comments Monocytes # (test code 1.3 See_Comment [Aut omated message] The = Monocytes #) system which generated this result tra nsmitted reference range : <=0.8. The reference r rajeev was not used to int erpret this result as normal/abnormal . [facility] MKOQPMB4135-97-95 06:55:00 Test Item Value Reference Range Interpretation Comments Ca Norm WB (test code = Ca Norm WB) 1.11 1.05-1.25 [facility]aSrbbbniAGOHYBOYUQ3091-89-65 06:55:00 Test Item Value Reference Range Interpretation Comments Eosinophils # (test code 0.3 See_Comment [A utomated message] The = Eosinophils #) system whic h generated this result tra nsmitted reference range : <=0.5. The reference r rajeev was not used to int erpret this result as normal/abnormal . [facility] AlpenaJexgqtbYNHGIZRHWS4582-40-72 06:55:00 Test Item Value Reference Range Interpretation Comments Basophils # (test code 0.1 See_Comment [Aut omated message] The = Basophils #) system which generated this result tra nsmitted reference range : <=0.2. The reference r rajeev was not used to int erpret this result as normal/abnormal . [facility] QYOWPKZ1126-15-67 06:55:00 Test Item Value Reference Range Interpretation Comments Ca Ion WB (test code = Ca Ion WB) 1.13 1.05-1.25 [facility] CenterPARATHYROID FEZPENK4564-98-15 06:55:00 Test Item Value Reference Range Interpretation Comments Ca Norm WB (test code = Ca Norm WB) 1.11 1.05-1.25 [facility] CenterCARDIAC PGOGAOZ5769-76-26 06:55:00 Test Item Value Reference Range Interpretation Comments Troponin-I (test code 0.02 See_Comment [Auto mated message] The = Troponin-I) system which g enerated this result transmit dora reference range : <=0.40. The reference r rajeev was not used to interpr et this result as merritt l/abnormal. [address]04-16 06:55:00 Test Item Value Reference Range Interpretation Comments Total Protein (test code = Total 6.6 6.4-8.4 Protein) [address]04-16 06:55:00 Test Item Value Reference Range Interpretation Comments Albumin Lvl (test code = Albumin Lvl) 3.6 3.5-5.0 [address]04-16 06:55:00 Test Item Value Reference Range Interpretation Comments ALT (test code = ALT) 20 See_Comment [Auto mated message] The system which ge nerated this result transmit dora reference range : <=65. The reference range was not used to interpr et this result as merritt l/abnormal. [address]04-16 06:55:00 Test Item Value Reference Range Interpretation Comments AST (test code = AST) 16 See_Comment [Auto mated message] The system which ge nerated this result transmit dora reference range : <=37. The reference range was not used to interpr et this result as merritt l/abnormal. [place] 692801-04-16 06:55:00 Test Item Value Reference Range Interpretation Comments Alk Phos (test code = Alk Phos) 58 39-136 [address]04-16 06:55:00 Test Item Value Reference Range Interpretation Comments Bili Total (test code = Bili Total) 0.6 0.2-1.3 [address]04-16 06:55:00 Test Item Value Reference Range Interpretation Comments Bili Direct (test code 0.1 See_Comment [Aut omated message] The = Bili Direct) system which generated this result tra nsmitted reference range : <=0.3. The reference r rajeev was not used to int erpret this result as merritt l/abnormal. [address]04-16 06:55:00 Test Item Value Reference Range Interpretation Comments Bili Indirect (test 0.5 See_Comment [Automa dora message] The code = Bili Indirect) system which generated this result tra nsmitted reference range : <=1.0. The reference r rajeev was not used to int erpret this result as normal/abnormal . [place] [address]-04-16 06:55:00 Test Item Value Reference Range Interpretation Comments Globulin (test code = Globulin) 3.0 2.7-4.2 [place] 692801-04-16 06:55:00 Test Item Value Reference Range Interpretation Comments A/G Ratio (test code = A/G Ratio) 1.2 1 0.7-1.6 [place] 692801-04-16 06:55:00 Test Item Value Reference Range Interpretation Comments Glucose Lvl (test code = Glucose Lvl) 118 70-99 [place] 692801-04-16 06:55:00 Test Item Value Reference Range Interpretation Comments BUN (test code = BUN) 20 7-22 [place] 692801-04-16 06:55:00 Test Item Value Reference Range Interpretation Comments Creatinine Lvl (test code = Creatinine 1.05 0.50-1.40 Lvl) [place] 692801-04-16 06:55:00 Test Item Value Reference Range Interpretation Comments Sodium Lvl (test code = Sodium Lvl) 138 135-145 [place] 692801-04-16 06:55:00 Test Item Value Reference Range Interpretation Comments Potassium Lvl (test code = Potassium 4.0 3.5-5.1 Lvl) [place] 692801-04-16 06:55:00 Test Item Value Reference Range Interpretation Comments Chloride Lvl (test code = Chloride Lvl) 108 95-109 [place] 692801-04-16 06:55:00 Test Item Value Reference Range Interpretation Comments CO2 (test code = CO2) 23 24-32 [place] 692801-04-16 06:55:00 Test Item Value Reference Range Interpretation Comments Calcium Lvl (test code = Calcium Lvl) 9.1 8.5-10.5 [place] 692801-04-16 06:55:00 Test Item Value Reference Range Interpretation Comments AGAP (test code = AGAP) 11.0 10.0-20.0 [place] 692801-04-16 06:55:00 Test Item Value Reference Range Interpretation Comments eGFR (test code = eGFR) 55 [place] 692801-04-16 06:55:00 Test Item Value Reference Range Interpretation Comments Magnesium Lvl (test code = Magnesium 2.2 1.8-2.4 Lvl) [facility]2021-04-16 06:55:00 Test Item Value Reference Range Interpretation Comments Phosphorus (test code = Phosphorus) 3.4 2.5-4.5 [facility] CenterXqycwbrKLKXQPEGHY0291-13-00 06:55:00 Test Item Value Reference Range Interpretation Comments WBC (test code = WBC) 9.5 3.7-10.4 [facility] CenterLvgvdisTUGOMLZEMG1739-86-98 06:55:00 Test Item Value Reference Range Interpretation Comments RBC (test code = RBC) 3.99 4.20-5.40 [facility] CenterQupsmqyJUJMBOCANA7219-74-95 06:55:00 Test Item Value Reference Range Interpretation Comments Hgb (test code = Hgb) 12.3 12.0-16.0 [facility] CenterOruujtjQKJENEUPON3747-80-18 06:55:00 Test Item Value Reference Range Interpretation Comments Hct (test code = Hct) 36.0 36.0-48.0 [facility] CenterVxaiurkAJUJXSPLPS1646-03-48 06:55:00 Test Item Value Reference Range Interpretation Comments MCV (test code = MCV) 90.4 80.0-98.0 [facility] CenterLpcgnuaBRDLTNUZKQ1819-27-55 06:55:00 Test Item Value Reference Range Interpretation Comments MCH (test code = MCH) 30.9 pg 27.0-31.0 [facility] CenterPivdvskMUVYHMSJKT8292-91-38 06:55:00 Test Item Value Reference Range Interpretation Comments MCHC (test code = MCHC) 34.2 32.0-36.0 [facility] CenterAyhqodqWUHGHMMFQB3512-38-78 06:55:00 Test Item Value Reference Range Interpretation Comments RDW (test code = RDW) 13.2 11.5-14.5 [facility] CenterUipzxsdWQXNIIMYNZ1408-24-44 06:55:00 Test Item Value Reference Range Interpretation Comments Platelet (test code = Platelet) 220 133-450 [facility] CenterPgzdqleQASJCMKSAT0500-39-50 06:55:00 Test Item Value Reference Range Interpretation Comments MPV (test code = MPV) 8.8 7.4-10.4 [facility] CenterWzaumkxEGJESCPLPK4708-05-61 06:55:00 Test Item Value Reference Range Interpretation Comments Segs (test code = Segs) 56.6 45.0-75.0 [place] 588881-04-16 06:55:00 Test Item Value Reference Range Interpretation Comments Lymphocytes (test code = Lymphocytes) 26.2 20.0-40.0 [place] 588881-04-16 06:55:00 Test Item Value Reference Range Interpretation Comments Monocytes (test code = Monocytes) 13.2 2.0-12.0 [place] 588881-04-16 06:55:00 Test Item Value Reference Range Interpretation Comments Eosinophils (test code = 3.3 See_Comment [A utomated message] The Eosinophils) system which ge nerated this result tra nsmitted reference range : <=4.0. The reference r rajeev was not used to int erpret this result as normal/abnormal . [place] 588881-04-16 06:55:00 Test Item Value Reference Range Interpretation Comments Basophils (test code = 0.7 See_Comment [Aut omated message] The Basophils) system which ge nerated this result tra nsmitted reference range : <=1.0. The reference r rajeev was not used to int erpret this result as normal/abnormal . [facility] CenterNyehemmWBGEJLERRQ1454-09-22 06:55:00 Test Item Value Reference Range Interpretation Comments Neutrophils # (test code = Neutrophils 5.4 1.5-8.1 #) [place] 588881-04-16 06:55:00 Test Item Value Reference Range Interpretation Comments Lymphocytes # (test code = Lymphocytes 2.5 1.0-5.5 #) [facility] [id number] 06:55:00 Test Item Value Reference Range Interpretation Comments Monocytes # (test code 1.3 See_Comment [Aut omated message] The = Monocytes #) system which generated this result tra nsmitted reference range : <=0.8. The reference r rajeev was not used to int erpret this result as normal/abnormal . [place] [id number] 06:55:00 Test Item Value Reference Range Interpretation Comments Eosinophils # (test code 0.3 See_Comment [A utomated message] The = Eosinophils #) system whic h generated this result tra nsmitted reference range : <=0.5. The reference r rajeev was not used to int erpret this result as normal/abnormal . [place] [id number] 06:55:00 Test Item Value Reference Range Interpretation Comments Basophils # (test code 0.1 See_Comment [Aut omated message] The = Basophils #) system which generated this result tra nsmitted reference range : <=0.2. The reference r rajeev was not used to int erpret this result as normal/abnormal . [facility] [id number] 06:55:00 Test Item Value Reference Range Interpretation Comments Ca Ion WB (test code = Ca Ion WB) 1.13 1.05-1.25 [facility]ann[facility]ENTERATHYROID [id number] 06:55:00 Test Item Value Reference Range Interpretation Comments Ca Norm WB (test code = Ca Norm WB) 1.11 1.05-1.25 [facility] [id number] 03:30:00 Test Item Value Reference Range Interpretation Comments Coronavirus (COVID-19) Not Detected (08/21/20 MEL (test code = 10:30 PM) Coronavirus (COVID-19) MEL) [facility] [id number] 03:30:00 Test Item Value Reference Range Interpretation Comments Coronavirus (COVID-19) Not Detected (08/21/20 MEL (test code = 10:30 PM) Coronavirus (COVID-19) MEL) [facility] [id number] 03:30:00 Test Item Value Reference Range Interpretation Comments Coronavirus (COVID-19) Not Detected (08/21/20 MEL (test code = 10:30 PM) Coronavirus (COVID-19) MEL) [facility] [id number] 03:30:00 Test Item Value Reference Range Interpretation Comments Coronavirus (COVID-19) Not Detected (08/21/20 MEL (test code = 10:30 PM) Coronavirus (COVID-19) MEL) [facility] [id number] 03:30:00 Test Item Value Reference Range Interpretation Comments Coronavirus (COVID-19) Not Detected (08/21/20 MEL (test code = 10:30 PM) Coronavirus (COVID-19) MEL) [facility] [id number] 02:50:00 Test Item Value Reference Range Interpretation Comments U Amph Scr (test code Negative *NA*(08/21/20 = U Amph Scr) 9:50 PM) [facility] [id number] 02:50:00 Test Item Value Reference Range Interpretation Comments U Stacey Scr (test code Negative *NA*(08/21/20 = U Stacey Scr) 9:50 PM) [facility] [id number] 02:50:00 Test Item Value Reference Range Interpretation Comments U Benzodiaz Scr (test Negative *NA*(08/21/20 code = U Benzodiaz Scr) 9:50 PM) [facility] [id number] 02:50:00 Test Item Value Reference Range Interpretation Comments U Cocaine Scr (test Negative *NA*(08/21/20 code = U Cocaine Scr) 9:50 PM) [facility] [id number] 02:50:00 Test Item Value Reference Range Interpretation Comments U Cannab Scr (test Negative *NA*(08/21/20 code = U Cannab Scr) 9:50 PM) [facility] [id number] 02:50:00 Test Item Value Reference Range Interpretation Comments U Opiate Scr (test Negative *NA*(08/21/20 code = U Opiate Scr) 9:50 PM) [facility] [id number] 02:50:00 Test Item Value Reference Range Interpretation Comments U Phencyclidine Scr (test Negative code = U Phencyclidine *NA*(08/21/20 9:50 Scr) PM) [facility] [id number] 02:50:00 Test Item Value Reference Range Interpretation Comments UDS Note (test code = See Note (08/21/20 9:50 UDS Note) PM) [facility] [id number] 02:50:00 Test Item Value Reference Range Interpretation Comments PT (test code = PT) 14.0 s 12.0-14.7 [facility] [id number] 02:50:00 Test Item Value Reference Range Interpretation Comments INR (test code = INR) 1.09 1 0.85-1.17 [facility] [id number] 02:50:00 Test Item Value Reference Range Interpretation Comments PTT (test code = PTT) 25.4 s 22.9-35.8 [facility] [id number] 02:50:00 Test Item Value Reference Range Interpretation Comments UA Color (test code = Light Yellow UA Color) *NA*(08/21/20 9:50 PM) [facility] AND [id number] 02:50:00 Test Item Value Reference Range Interpretation Comments UA Turbidity (test code = Clear (08/21/20 9:50 UA Turbidity) PM) [facility] AND [id number] 02:50:00 Test Item Value Reference Range Interpretation Comments UA Spec Grav (test code = UA Spec 1.016 1 Grav) [facility] AND [id number] 02:50:00 Test Item Value Reference Range Interpretation Comments UA pH (test code = UA pH) 6.0 1 5.0-8.0 [facility] AND [id number] 02:50:00 Test Item Value Reference Range Interpretation Comments UA Protein (test code = UA Negative mg/dL Protein) [facility] AND [id number] 02:50:00 Test Item Value Reference Range Interpretation Comments UA Glucose (test code = UA Negative mg/dL Glucose) [facility] AND [id number] 02:50:00 Test Item Value Reference Range Interpretation Comments UA Ketones (test code = UA Negative mg/dL Ketones) [facility] AND [id number] 02:50:00 Test Item Value Reference Range Interpretation Comments UA Bili (test code = Negative *NA*(08/21/20 UA Bili) 9:50 PM) [facility] AND [id number] 02:50:00 Test Item Value Reference Range Interpretation Comments UA Blood (test code = Small *ABN*(08/21/20 UA Blood) 9:50 PM) [facility] AND [id number] 02:50:00 Test Item Value Reference Range Interpretation Comments UA Urobilinogen (test code = UA no gt 0.1-1.0 Urobilinogen) [facility] AND [id number] 02:50:00 Test Item Value Reference Range Interpretation Comments UA Nitrite (test code Negative (08/21/20 9:50 = UA Nitrite) PM) [facility] AND [id number] 02:50:00 Test Item Value Reference Range Interpretation Comments UA Leuk Est (test Negative (08/21/20 9:50 code = UA Leuk Est) PM) [facility] [id number] 02:50:00 Test Item Value Reference Range Interpretation Comments UA WBC (test code = 3 See_Comment [Automa dora message] The UA WBC) system which ge nerated this result transmit dora reference range : <=5. The reference range was not used to interpr et this result as merritt l/abnormal. [facility] [id number] 02:50:00 Test Item Value Reference Range Interpretation Comments UA RBC (test code = 2 See_Comment [Automa dora message] The UA RBC) system which ge nerated this result transmit dora reference range : <=2. The reference range was not used to interpr et this result as merritt l/abnormal. [facility] [id number] 02:50:00 Test Item Value Reference Range Interpretation Comments UA Mucus (test code = UA Mucus) Few /LPF [facility] [id number] 02:50:00 Test Item Value Reference Range Interpretation Comments UA Sq Epi (test code = UA Sq Epi) None Seen [facility] [id number] 02:50:00 Test Item Value Reference Range Interpretation Comments U Amph Scr (test code Negative *NA*(08/21/20 = U Amph Scr) 9:50 PM) [facility] [id number] 02:50:00 Test Item Value Reference Range Interpretation Comments U Stacey Scr (test code Negative *NA*(08/21/20 = U Stacey Scr) 9:50 PM) [facility] [id number] 02:50:00 Test Item Value Reference Range Interpretation Comments U Benzodiaz Scr (test Negative *NA*(08/21/20 code = U Benzodiaz Scr) 9:50 PM) [facility] [id number] 02:50:00 Test Item Value Reference Range Interpretation Comments U Cocaine Scr (test Negative *NA*(08/21/20 code = U Cocaine Scr) 9:50 PM) [facility] [id number] 02:50:00 Test Item Value Reference Range Interpretation Comments U Cannab Scr (test Negative *NA*(08/21/20 code = U Cannab Scr) 9:50 PM) [facility] [id number] 02:50:00 Test Item Value Reference Range Interpretation Comments U Opiate Scr (test Negative *NA*(08/21/20 code = U Opiate Scr) 9:50 PM) [facility] [id number] 02:50:00 Test Item Value Reference Range Interpretation Comments U Phencyclidine Scr (test Negative code = U Phencyclidine *NA*(08/21/20 9:50 Scr) PM) [facility] [id number] 02:50:00 Test Item Value Reference Range Interpretation Comments UDS Note (test code = See Note (08/21/20 9:50 UDS Note) PM) [facility] [id number] 02:50:00 Test Item Value Reference Range Interpretation Comments PT (test code = PT) 14.0 s 12.0-14.7 [facility] [id number] 02:50:00 Test Item Value Reference Range Interpretation Comments INR (test code = INR) 1.09 1 0.85-1.17 [facility] [id number] 02:50:00 Test Item Value Reference Range Interpretation Comments PTT (test code = PTT) 25.4 s 22.9-35.8 [facility] [id number] 02:50:00 Test Item Value Reference Range Interpretation Comments UA Color (test code = Light Yellow UA Color) *NA*(08/21/20 9:50 PM) [facility] [id number] 02:50:00 Test Item Value Reference Range Interpretation Comments UA Turbidity (test code = Clear (08/21/20 9:50 UA Turbidity) PM) [facility] [id number] 02:50:00 Test Item Value Reference Range Interpretation Comments UA Spec Grav (test code = UA Spec 1.016 1 Grav) [facility] [id number] 02:50:00 Test Item Value Reference Range Interpretation Comments UA pH (test code = UA pH) 6.0 1 5.0-8.0 [facility] [id number] 02:50:00 Test Item Value Reference Range Interpretation Comments UA Protein (test code = UA Negative mg/dL Protein) [facility] [id number] 02:50:00 Test Item Value Reference Range Interpretation Comments UA Glucose (test code = UA Negative mg/dL Glucose) [facility] AND [id number] 02:50:00 Test Item Value Reference Range Interpretation Comments UA Ketones (test code = UA Negative mg/dL Ketones) [facility] AND [id number] 02:50:00 Test Item Value Reference Range Interpretation Comments UA Bili (test code = Negative *NA*(08/21/20 UA Bili) 9:50 PM) [facility] AND [id number] 02:50:00 Test Item Value Reference Range Interpretation Comments UA Blood (test code = Small *ABN*(08/21/20 UA Blood) 9:50 PM) [facility] AND [id number] 02:50:00 Test Item Value Reference Range Interpretation Comments UA Urobilinogen (test code = UA no gt 0.1-1.0 Urobilinogen) [facility] AND [id number] 02:50:00 Test Item Value Reference Range Interpretation Comments UA Nitrite (test code Negative (08/21/20 9:50 = UA Nitrite) PM) [facility] AND [id number] 02:50:00 Test Item Value Reference Range Interpretation Comments UA Leuk Est (test Negative (08/21/20 9:50 code = UA Leuk Est) PM) [facility] AND [id number] 02:50:00 Test Item Value Reference Range Interpretation Comments UA WBC (test code = 3 See_Comment [Automa dora message] The UA WBC) system which ge nerated this result transmit dora reference range : <=5. The reference range was not used to interpr et this result as merritt l/abnormal. [facility] AND [id number] 02:50:00 Test Item Value Reference Range Interpretation Comments UA RBC (test code = 2 See_Comment [Automa dora message] The UA RBC) system which ge nerated this result transmit dora reference range : <=2. The reference range was not used to interpr et this result as merritt l/abnormal. [facility] AND [id number] 02:50:00 Test Item Value Reference Range Interpretation Comments UA Mucus (test code = UA Mucus) Few /LPF [facility] AND [id number] 02:50:00 Test Item Value Reference Range Interpretation Comments UA Sq Epi (test code = UA Sq Epi) None Seen [facility] [id number] 02:50:00 Test Item Value Reference Range Interpretation Comments U Amph Scr (test code Negative *NA*(08/21/20 = U Amph Scr) 9:50 PM) [facility] [id number] 02:50:00 Test Item Value Reference Range Interpretation Comments U Stacey Scr (test code Negative *NA*(08/21/20 = U Stacey Scr) 9:50 PM) [facility] [id number] 02:50:00 Test Item Value Reference Range Interpretation Comments U Benzodiaz Scr (test Negative *NA*(08/21/20 code = U Benzodiaz Scr) 9:50 PM) [facility] [id number] 02:50:00 Test Item Value Reference Range Interpretation Comments U Cocaine Scr (test Negative *NA*(08/21/20 code = U Cocaine Scr) 9:50 PM) [facility] [id number] 02:50:00 Test Item Value Reference Range Interpretation Comments U Cannab Scr (test Negative *NA*(08/21/20 code = U Cannab Scr) 9:50 PM) [facility] [id number] 02:50:00 Test Item Value Reference Range Interpretation Comments U Opiate Scr (test Negative *NA*(08/21/20 code = U Opiate Scr) 9:50 PM) [facility] [id number] 02:50:00 Test Item Value Reference Range Interpretation Comments U Phencyclidine Scr (test Negative code = U Phencyclidine *NA*(08/21/20 9:50 Scr) PM) [facility] [id number] 02:50:00 Test Item Value Reference Range Interpretation Comments UDS Note (test code = See Note (08/21/20 9:50 UDS Note) PM) [facility] [id number] 02:50:00 Test Item Value Reference Range Interpretation Comments PT (test code = PT) 14.0 s 12.0-14.7 [facility] [id number] 02:50:00 Test Item Value Reference Range Interpretation Comments INR (test code = INR) 1.09 1 0.85-1.17 [facility] [id number] 02:50:00 Test Item Value Reference Range Interpretation Comments PTT (test code = PTT) 25.4 s 22.9-35.8 [facility] [id number] 02:50:00 Test Item Value Reference Range Interpretation Comments UA Color (test code = Light Yellow UA Color) *NA*(08/21/20 9:50 PM) [facility] [id number] 02:50:00 Test Item Value Reference Range Interpretation Comments UA Turbidity (test code = Clear (08/21/20 9:50 UA Turbidity) PM) [facility] [id number] 02:50:00 Test Item Value Reference Range Interpretation Comments UA Spec Grav (test code = UA Spec 1.016 1 Grav) [facility] [id number] 02:50:00 Test Item Value Reference Range Interpretation Comments UA pH (test code = UA pH) 6.0 1 5.0-8.0 [facility] [id number] 02:50:00 Test Item Value Reference Range Interpretation Comments U Amph Scr (test code Negative *NA*(08/21/20 = U Amph Scr) 9:50 PM) [facility] [id number] 02:50:00 Test Item Value Reference Range Interpretation Comments UA Protein (test code = UA Negative mg/dL Protein) [facility] [id number] 02:50:00 Test Item Value Reference Range Interpretation Comments UA Glucose (test code = UA Negative mg/dL Glucose) [facility] [id number] 02:50:00 Test Item Value Reference Range Interpretation Comments UA Ketones (test code = UA Negative mg/dL Ketones) [facility] [id number] 02:50:00 Test Item Value Reference Range Interpretation Comments UA Bili (test code = Negative *NA*(08/21/20 UA Bili) 9:50 PM) [facility] [id number] 02:50:00 Test Item Value Reference Range Interpretation Comments UA Blood (test code = Small *ABN*(08/21/20 UA Blood) 9:50 PM) [facility] [id number] 02:50:00 Test Item Value Reference Range Interpretation Comments UA Urobilinogen (test code = UA no gt 0.1-1.0 Urobilinogen) [facility] [id number] 02:50:00 Test Item Value Reference Range Interpretation Comments UA Nitrite (test code Negative (08/21/20 9:50 = UA Nitrite) PM) [facility] [id number] 02:50:00 Test Item Value Reference Range Interpretation Comments UA Leuk Est (test Negative (08/21/20 9:50 code = UA Leuk Est) PM) [facility] [id number] 02:50:00 Test Item Value Reference Range Interpretation Comments UA WBC (test code = 3 See_Comment [Automa dora message] The UA WBC) system which ge nerated this result transmit dora reference range : <=5. The reference range was not used to interpr et this result as merritt l/abnormal. [facility] [id number] 02:50:00 Test Item Value Reference Range Interpretation Comments UA RBC (test code = 2 See_Comment [Automa dora message] The UA RBC) system which ge nerated this result transmit dora reference range : <=2. The reference range was not used to interpr et this result as merritt l/abnormal. [facility] [id number] 02:50:00 Test Item Value Reference Range Interpretation Comments U Stacey Scr (test code Negative *NA*(08/21/20 = U Stacey Scr) 9:50 PM) [facility] [id number] 02:50:00 Test Item Value Reference Range Interpretation Comments UA Mucus (test code = UA Mucus) Few /LPF [facility] [id number] 02:50:00 Test Item Value Reference Range Interpretation Comments UA Sq Epi (test code = UA Sq Epi) None Seen [facility] [id number] 02:50:00 Test Item Value Reference Range Interpretation Comments U Benzodiaz Scr (test Negative *NA*(08/21/20 code = U Benzodiaz Scr) 9:50 PM) [facility] [id number] 02:50:00 Test Item Value Reference Range Interpretation Comments U Cocaine Scr (test Negative *NA*(08/21/20 code = U Cocaine Scr) 9:50 PM) [facility] [id number] 02:50:00 Test Item Value Reference Range Interpretation Comments U Cannab Scr (test Negative *NA*(08/21/20 code = U Cannab Scr) 9:50 PM) [facility] [id number] 02:50:00 Test Item Value Reference Range Interpretation Comments U Opiate Scr (test Negative *NA*(08/21/20 code = U Opiate Scr) 9:50 PM) [facility] [id number] 02:50:00 Test Item Value Reference Range Interpretation Comments U Phencyclidine Scr (test Negative code = U Phencyclidine *NA*(08/21/20 9:50 Scr) PM) [facility] [id number] 02:50:00 Test Item Value Reference Range Interpretation Comments UDS Note (test code = See Note (08/21/20 9:50 UDS Note) PM) [facility] [id number] 02:50:00 Test Item Value Reference Range Interpretation Comments PT (test code = PT) 14.0 s 12.0-14.7 [facility] [id number] 02:50:00 Test Item Value Reference Range Interpretation Comments INR (test code = INR) 1.09 1 0.85-1.17 [facility] [id number] 02:50:00 Test Item Value Reference Range Interpretation Comments PTT (test code = PTT) 25.4 s 22.9-35.8 [facility] [id number] 02:50:00 Test Item Value Reference Range Interpretation Comments UA Color (test code = Light Yellow UA Color) *NA*(08/21/20 9:50 PM) [facility] [id number] 02:50:00 Test Item Value Reference Range Interpretation Comments UA Turbidity (test code = Clear (08/21/20 9:50 UA Turbidity) PM) [facility] [id number] 02:50:00 Test Item Value Reference Range Interpretation Comments UA Spec Grav (test code = UA Spec 1.016 1 Grav) [facility] [id number] 02:50:00 Test Item Value Reference Range Interpretation Comments UA pH (test code = UA pH) 6.0 1 5.0-8.0 [facility] [id number] 02:50:00 Test Item Value Reference Range Interpretation Comments UA Protein (test code = UA Negative mg/dL Protein) [facility] [id number] 02:50:00 Test Item Value Reference Range Interpretation Comments UA Glucose (test code = UA Negative mg/dL Glucose) [facility] [id number] 02:50:00 Test Item Value Reference Range Interpretation Comments UA Ketones (test code = UA Negative mg/dL Ketones) [facility] [id number] 02:50:00 Test Item Value Reference Range Interpretation Comments UA Bili (test code = Negative *NA*(08/21/20 UA Bili) 9:50 PM) [facility] AND [id number] 02:50:00 Test Item Value Reference Range Interpretation Comments UA Blood (test code = Small *ABN*(08/21/20 UA Blood) 9:50 PM) [facility] AND [id number] 02:50:00 Test Item Value Reference Range Interpretation Comments UA Urobilinogen (test code = UA no gt 0.1-1.0 Urobilinogen) [facility] AND [id number] 02:50:00 Test Item Value Reference Range Interpretation Comments UA Nitrite (test code Negative (08/21/20 9:50 = UA Nitrite) PM) [facility] AND [id number] 02:50:00 Test Item Value Reference Range Interpretation Comments UA Leuk Est (test Negative (08/21/20 9:50 code = UA Leuk Est) PM) [facility] AND [id number] 02:50:00 Test Item Value Reference Range Interpretation Comments UA WBC (test code = 3 See_Comment [Automa dora message] The UA WBC) system which ge nerated this result transmit dora reference range : <=5. The reference range was not used to interpr et this result as merritt l/abnormal. [facility] AND [id number] 02:50:00 Test Item Value Reference Range Interpretation Comments UA RBC (test code = 2 See_Comment [Automa dora message] The UA RBC) system which ge nerated this result transmit dora reference range : <=2. The reference range was not used to interpr et this result as merritt l/abnormal. [facility] [id number] 02:50:00 Test Item Value Reference Range Interpretation Comments UA Mucus (test code = UA Mucus) Few /LPF [facility] [id number] 02:50:00 Test Item Value Reference Range Interpretation Comments UA Sq Epi (test code = UA Sq Epi) None Seen [facility] [id number] 02:50:00 Test Item Value Reference Range Interpretation Comments U Amph Scr (test code Negative *NA*(08/21/20 = U Amph Scr) 9:50 PM) [facility] [id number] 02:50:00 Test Item Value Reference Range Interpretation Comments U Stacey Scr (test code Negative *NA*(08/21/20 = U Stacey Scr) 9:50 PM) [facility] [id number] 02:50:00 Test Item Value Reference Range Interpretation Comments U Benzodiaz Scr (test Negative *NA*(08/21/20 code = U Benzodiaz Scr) 9:50 PM) [facility] [id number] 02:50:00 Test Item Value Reference Range Interpretation Comments U Cocaine Scr (test Negative *NA*(08/21/20 code = U Cocaine Scr) 9:50 PM) [facility] [id number] 02:50:00 Test Item Value Reference Range Interpretation Comments U Cannab Scr (test Negative *NA*(08/21/20 code = U Cannab Scr) 9:50 PM) [facility] [id number] 02:50:00 Test Item Value Reference Range Interpretation Comments U Opiate Scr (test Negative *NA*(08/21/20 code = U Opiate Scr) 9:50 PM) [facility] [id number] 02:50:00 Test Item Value Reference Range Interpretation Comments U Phencyclidine Scr (test Negative code = U Phencyclidine *NA*(08/21/20 9:50 Scr) PM) [facility] [id number] 02:50:00 Test Item Value Reference Range Interpretation Comments UDS Note (test code = See Note (08/21/20 9:50 UDS Note) PM) [facility] [id number] 02:50:00 Test Item Value Reference Range Interpretation Comments PT (test code = PT) 14.0 s 12.0-14.7 [id number] 02:50:00 Test Item Value Reference Range Interpretation Comments INR (test code = INR) 1.09 1 0.85-1.17 [facility] CenterMwmomlsZDBTFXNPRM6209-40-78 02:50:00 Test Item Value Reference Range Interpretation Comments PTT (test code = PTT) 25.4 s 22.9-35.8 [facility] AND [id number] 02:50:00 Test Item Value Reference Range Interpretation Comments UA Color (test code = Light Yellow UA Color) *NA*(08/21/20 9:50 PM) [facility] AND [id number] 02:50:00 Test Item Value Reference Range Interpretation Comments UA Turbidity (test code = Clear (08/21/20 9:50 UA Turbidity) PM) [facility] AND [id number] 02:50:00 Test Item Value Reference Range Interpretation Comments UA Spec Grav (test code = UA Spec 1.016 1 Grav) [facility] AND [id number] 02:50:00 Test Item Value Reference Range Interpretation Comments UA pH (test code = UA pH) 6.0 1 5.0-8.0 [facility] AND [id number] 02:50:00 Test Item Value Reference Range Interpretation Comments UA Protein (test code = UA Negative mg/dL Protein) [facility] AND [id number] 02:50:00 Test Item Value Reference Range Interpretation Comments UA Glucose (test code = UA Negative mg/dL Glucose) [facility] AND [id number] 02:50:00 Test Item Value Reference Range Interpretation Comments UA Ketones (test code = UA Negative mg/dL Ketones) [facility] AND [id number] 02:50:00 Test Item Value Reference Range Interpretation Comments UA Bili (test code = Negative *NA*(08/21/20 UA Bili) 9:50 PM) [facility] AND [id number] 02:50:00 Test Item Value Reference Range Interpretation Comments UA Blood (test code = Small *ABN*(08/21/20 UA Blood) 9:50 PM) [facility] AND [id number] 02:50:00 Test Item Value Reference Range Interpretation Comments UA Urobilinogen (test code = UA no gt 0.1-1.0 Urobilinogen) [facility] [id number] 02:50:00 Test Item Value Reference Range Interpretation Comments UA Nitrite (test code Negative (08/21/20 9:50 = UA Nitrite) PM) [facility] [id number] 02:50:00 Test Item Value Reference Range Interpretation Comments UA Leuk Est (test Negative (08/21/20 9:50 code = UA Leuk Est) PM) [facility] [id number] 02:50:00 Test Item Value Reference Range Interpretation Comments UA WBC (test code = 3 See_Comment [Automa dora message] The UA WBC) system which ge nerated this result transmit dora reference range : <=5. The reference range was not used to interpr et this result as merritt l/abnormal. [facility] AND [id number] 02:50:00 Test Item Value Reference Range Interpretation Comments UA RBC (test code = 2 See_Comment [Automa dora message] The UA RBC) system which ge nerated this result transmit dora reference range : <=2. The reference range was not used to interpr et this result as merritt l/abnormal. [facility] AND [id number] 02:50:00 Test Item Value Reference Range Interpretation Comments UA Mucus (test code = UA Mucus) Few /LPF [facility] [id number] 02:50:00 Test Item Value Reference Range Interpretation Comments UA Sq Epi (test code = UA Sq Epi) None Seen [facility] RehanaannCARDIAC [id number] 02:04:00 Test Item Value Reference Range Interpretation Comments Troponin-I (test code 0.02 See_Comment [Auto mated message] The = Troponin-I) system which g enerated this result transmit odra reference range : <=0.40. The reference r rajeev was not used to interpr et this result as merritt l/abnormal. [facility] KmdeuncCDLRPZ1679-41-81 02:04:00 Test Item Value Reference Range Interpretation Comments Trig (test code = Trig) 106 [facility] DzzafzgWCREQJ2310-69-22 02:04:00 Test Item Value Reference Range Interpretation Comments Chol (test code = Chol) 137 [facility] [id number] 02:04:00 Test Item Value Reference Range Interpretation Comments HDL (test code = HDL) 52 [facility] EtovhjuQMCFRZ9851-52-36 02:04:00 Test Item Value Reference Range Interpretation Comments CHD Risk (test code = CHD Risk) 2.63 1 3.90-5.80 [facility]DdlyvrqGDAFCL1556-35-97 02:04:00 Test Item Value Reference Range Interpretation Comments LDL (Calculated) (test code = LDL 64 (Calculated)) [facility] RekchmiUKCULI3349-43-32 02:04:00 Test Item Value Reference Range Interpretation Comments VLDL (test code = VLDL) 21 1 [facility] CenterannSPECIAL FWVBGNPGI8469-60-22 02:04:00 Test Item Value Reference Range Interpretation Comments Hgb A1C (test code = Hgb A1C) 6.8 [facility] [id number] 02:04:00 Test Item Value Reference Range Interpretation Comments Troponin-I (test code 0.02 See_Comment [Auto mated message] The = Troponin-I) system which g enerated this result transmit dora reference range : <=0.40. The reference r rajeev was not used to interpr et this result as merritt l/abnormal. [facility] BrqlbuuRMTPQH6250-90-50 02:04:00 Test Item Value Reference Range Interpretation Comments Trig (test code = Trig) 106 [facility] CenterRfurgemFIQMQF7237-80-28 02:04:00 Test Item Value Reference Range Interpretation Comments Chol (test code = Chol) 137 [facility] CenterWvlshnxXWFKAD7978-63-44 02:04:00 Test Item Value Reference Range Interpretation Comments HDL (test code = HDL) 52 [facility] CenterQcsrvjpJBMAFZ6495-08-44 02:04:00 Test Item Value Reference Range Interpretation Comments CHD Risk (test code = CHD Risk) 2.63 1 3.90-5.80 [facility] YppafjgPQPBUE7550-84-37 02:04:00 Test Item Value Reference Range Interpretation Comments LDL (Calculated) (test code = LDL 64 (Calculated)) [facility] CenterWlpqenkNVANVI4980-03-18 02:04:00 Test Item Value Reference Range Interpretation Comments VLDL (test code = VLDL) 21 1 [facility] CenterannSPECIAL DAZIYOTXW7947-60-37 02:04:00 Test Item Value Reference Range Interpretation Comments Hgb A1C (test code = Hgb A1C) 6.8 [facility] CenterannCARDIAC RTLPCOR1551-07-76 02:04:00 Test Item Value Reference Range Interpretation Comments Troponin-I (test code 0.02 See_Comment [Auto mated message] The = Troponin-I) system which g enerated this result transmit dora reference range : <=0.40. The reference r rajeev was not used to interpr et this result as merritt l/abnormal. [facility] CenterRhretnuZCLRCD1416-87-53 02:04:00 Test Item Value Reference Range Interpretation Comments Trig (test code = Trig) 106 [facility] CenterTvzssvrUMMPDH5471-67-37 02:04:00 Test Item Value Reference Range Interpretation Comments Chol (test code = Chol) 137 [facility] CenterHpfwylxRGXWNA7075-20-24 02:04:00 Test Item Value Reference Range Interpretation Comments HDL (test code = HDL) 52 [facility] CenterJqjfvzvQWWQAS9030-91-55 02:04:00 Test Item Value Reference Range Interpretation Comments CHD Risk (test code = CHD Risk) 2.63 1 3.90-5.80 [facility] CenterKkvojtoQMNDXR3576-45-00 02:04:00 Test Item Value Reference Range Interpretation Comments LDL (Calculated) (test code = LDL 64 (Calculated)) [facility] CenterMmtjqvhMJKNTN7591-30-31 02:04:00 Test Item Value Reference Range Interpretation Comments VLDL (test code = VLDL) 21 1 [facility] [id number] 02:04:00 Test Item Value Reference Range Interpretation Comments Hgb A1C (test code = Hgb A1C) 6.8 [facility] CenterannCARDIAC [id number] 02:04:00 Test Item Value Reference Range Interpretation Comments Troponin-I (test code 0.02 See_Comment [Auto mated message] The = Troponin-I) system which g enerated this result transmit dora reference range : <=0.40. The reference r rajeev was not used to interpr et this result as merritt l/abnormal. [facility] CenterTbfneywESMYQE4563-77-56 02:04:00 Test Item Value Reference Range Interpretation Comments Trig (test code = Trig) 106 [facility] CenterNlzmotcBYQPGR3140-17-90 02:04:00 Test Item Value Reference Range Interpretation Comments Chol (test code = Chol) 137 [facility] CenterEfuflzeYRVPES8537-63-89 02:04:00 Test Item Value Reference Range Interpretation Comments HDL (test code = HDL) 52 [facility] FkmqgbgTELAZC0880-85-34 02:04:00 Test Item Value Reference Range Interpretation Comments CHD Risk (test code = CHD Risk) 2.63 1 3.90-5.80 [facility] CenterAhoomwbKKBZLZ0710-19-98 02:04:00 Test Item Value Reference Range Interpretation Comments LDL (Calculated) (test code = LDL 64 (Calculated)) [facility] CenterDdnlpxmMFKILI1379-53-19 02:04:00 Test Item Value Reference Range Interpretation Comments VLDL (test code = VLDL) 21 1 [facility]annSPECIAL AFZZJKJMB7039-78-07 02:04:00 Test Item Value Reference Range Interpretation Comments Hgb A1C (test code = Hgb A1C) 6.8 [facility] [id number] 02:04:00 Test Item Value Reference Range Interpretation Comments Troponin-I (test code 0.02 See_Comment [Auto mated message] The = Troponin-I) system which g enerated this result transmit dora reference range : <=0.40. The reference r rajeev was not used to interpr et this result as merritt l/abnormal. [facility] CenterBegbholKHFTYY6888-08-32 02:04:00 Test Item Value Reference Range Interpretation Comments Trig (test code = Trig) 106 [facility] CenterAsbjromGYUNVB5361-89-44 02:04:00 Test Item Value Reference Range Interpretation Comments Chol (test code = Chol) 137 [facility] CenterImxazhrVNYSGO4467-84-75 02:04:00 Test Item Value Reference Range Interpretation Comments HDL (test code = HDL) 52 [facility] CenterVeouddcHPRUCL6998-49-65 02:04:00 Test Item Value Reference Range Interpretation Comments CHD Risk (test code = CHD Risk) 2.63 1 3.90-5.80 [facility] CenterPieexlhXPVIVJ4403-56-32 02:04:00 Test Item Value Reference Range Interpretation Comments LDL (Calculated) (test code = LDL 64 (Calculated)) [facility] CenterBbdzsmjNTMPUU2662-41-26 02:04:00 Test Item Value Reference Range Interpretation Comments VLDL (test code = VLDL) 21 1 [facility] CenterannSPECIAL AVEVDUKPF2878-25-11 02:04:00 Test Item Value Reference Range Interpretation Comments Hgb A1C (test code = Hgb A1C) 6.8 [facility]-GLUCOSE [id number] 12:58:00 Test Item Value Reference Range Interpretation Comments POC-GLUCOSE METER 150 mg/dL 70-110 H TESTED AT [facility] 6720 (BEAKER) (test code = [place] 1538) [address] BASIC METABOLIC [id number] 10:59:00 Test Item Value Reference Range Interpretation [...] NOT APPLICABLE FOR DIALYSIS PATIEN TS. PROTHROMBIN TIME/[id number] 10:51:00 Test Item Value Reference Range Interpretation Comments PROTIME (BEAKER) (test code = 14.0 seconds 11.7-14.7 759) INR (BEAKER) (test code = 370) 1.1 <=5.9 RECOMMENDED COUMADIN/WARFARIN INR THERAPY RANGESSTANDARD DOSE: 2.0 - 3.0 Includes: PROPHYLAXIS for venous thrombosis, systemic embolization; TREATMENT for venous thrombosis and/or pulmonary embolus.HIGH RISK: Target INR is 2.5-3.5 for patients with mechanical heart valves.CBC W/PLT COUNT & AUTO PEVLRJNCVKJJ6170-50-97 10:38:00 Test Item Value Reference Range Interpretation [...] 0-1 PERCENT (BEAKER) (test code = 2801) [id number] 07:10:00 Test Item Value Reference Range Interpretation Comments MCV (test code = MCV) 91.4 80.0-98.0 [facility] CenterKxgdhkgJEQTQFDQPD7898-88-00 07:10:00 Test Item Value Reference Range Interpretation Comments Hct (test code = Hct) 36.3 36.0-48.0 [facility] CenterQmfdlrjUZLXRSFXVA4283-40-45 07:10:00 Test Item Value Reference Range Interpretation Comments Hgb (test code = Hgb) 12.5 12.0-16.0 [facility]2014-11-03 07:10:00 Test Item Value Reference Range Interpretation Comments Ca Norm WB (test code = Ca Norm WB) 1.16 1.05-1.25 [facility]2014-11-03 07:10:00 Test Item Value Reference Range Interpretation Comments Ca Ion WB (test code = Ca Ion WB) 1.19 1.05-1.25 [facility]2014-11-03 07:10:00 Test Item Value Reference Range Interpretation Comments Phosphorus (test code = Phosphorus) 4.2 2.5-4.5 [facility]2014-11-03 07:10:00 Test Item Value Reference Range Interpretation Comments Magnesium Lvl (test code = Magnesium 1.8 1.8-2.4 Lvl) [facility]2014-11-03 07:10:00 Test Item Value Reference Range Interpretation Comments eGFR (test code = eGFR) 79 [facility]2014-11-03 07:10:00 Test Item Value Reference Range Interpretation Comments CO2 (test code = CO2) 26 24-32 [facility]2014-11-03 07:10:00 Test Item Value Reference Range Interpretation Comments AGAP (test code = AGAP) 12.3 10.0-20.0 [facility]2014-11-03 07:10:00 Test Item Value Reference Range Interpretation Comments Calcium Lvl (test code = Calcium Lvl) 9.0 8.5-10.5 [facility]2014-11-03 07:10:00 Test Item Value Reference Range Interpretation Comments Creatinine Lvl (test code = Creatinine 0.8 0.5-1.4 Lvl) [facility]2014-11-03 07:10:00 Test Item Value Reference Range Interpretation Comments Sodium Lvl (test code = Sodium Lvl) 142 135-145 [facility]2014-11-03 07:10:00 Test Item Value Reference Range Interpretation Comments Potassium Lvl (test code = Potassium 4.3 3.5-5.1 Lvl) [facility]2014-11-03 07:10:00 Test Item Value Reference Range Interpretation Comments Chloride Lvl (test code = Chloride Lvl) 108 95-109 [facility]2014-11-03 07:10:00 Test Item Value Reference Range Interpretation Comments Glucose Lvl (test code = Glucose Lvl) 129 70-99 [facility]2014-11-03 07:10:00 Test Item Value Reference Range Interpretation Comments BUN (test code = BUN) 18 7-22 [facility] CenterVdbmakuWGOTSWRAUA0262-69-20 07:10:00 Test Item Value Reference Range Interpretation Comments Eosinophils (test code = 2.4 See_Comment [A utomated message] The Eosinophils) system which ge nerated this result tra nsmitted reference range : <=4.0. The reference r rajeev was not used to int erpret this result as normal/abnormal . [facility] CenterNtrdiarYHHJAEWPUU2473-67-68 07:10:00 Test Item Value Reference Range Interpretation Comments Lymphocytes # (test code = Lymphocytes 3.2 1.0-5.5 #) [facility] CenterZzrckyrKZHPCVENSZ9434-56-69 07:10:00 Test Item Value Reference Range Interpretation Comments Segs-Bands # (test code = Segs-Bands #) 5.6 1.5-8.1 [facility] CenterYflnhbtOWNSUFIJHT9375-31-92 07:10:00 Test Item Value Reference Range Interpretation Comments Basophils (test code = 0.7 See_Comment [Aut omated message] The Basophils) system which ge nerated this result tra nsmitted reference range : <=1.0. The reference r rajeev was not used to int erpret this result as normal/abnormal . [facility] CenterMddhukfFXTSXWWDHI7977-57-92 07:10:00 Test Item Value Reference Range Interpretation Comments Eosinophils # (test code 0.2 See_Comment [A utomated message] The = Eosinophils #) system whic h generated this result tra nsmitted reference range : <=0.5. The reference r rajeev was not used to int erpret this result as normal/abnormal . [place]644-11-03 07:10:00 Test Item Value Reference Range Interpretation Comments Monocytes # (test code 1.0 See_Comment [Aut omated message] The = Monocytes #) system which generated this result tra nsmitted reference range : <=0.8. The reference r rajeev was not used to int erpret this result as normal/abnormal . [facility] CenterSywladxJVUEDTJUXG8958-86-00 07:10:00 Test Item Value Reference Range Interpretation Comments Monocytes (test code = Monocytes) 9.9 2.0-12.0 [facility] CenterKopcxitKBKIOUZLMX4769-46-64 07:10:00 Test Item Value Reference Range Interpretation Comments Basophils # (test code 0.1 See_Comment [Aut omated message] The = Basophils #) system which generated this result tra nsmitted reference range : <=0.2. The reference r rajeev was not used to int erpret this result as normal/abnormal . [facility] CenterDbpmgfrSNCHVGQMXK4885-33-91 07:10:00 Test Item Value Reference Range Interpretation Comments Segs (test code = Segs) 55.1 45.0-75.0 [facility] CenterUjxirkyTOYOWNRJND4309-19-94 07:10:00 Test Item Value Reference Range Interpretation Comments Lymphocytes (test code = Lymphocytes) 31.9 20.0-40.0 [facility] CenterVhawokzNPDEFAAWRZ5556-50-05 07:10:00 Test Item Value Reference Range Interpretation Comments MPV (test code = MPV) 9.6 7.4-10.4 [facility] CenterChucodpAUGFJPNFGE4851-94-13 07:10:00 Test Item Value Reference Range Interpretation Comments MCH (test code = MCH) 31.4 pg 27.0-31.0 [facility] CenterZirmsolGYLEHYVZSX0593-94-42 07:10:00 Test Item Value Reference Range Interpretation Comments Platelet (test code = Platelet) 222 133-450 [facility] CenterZdayamsIMXCVTQXJX9196-04-90 07:10:00 Test Item Value Reference Range Interpretation Comments RDW (test code = RDW) 12.9 11.5-14.5 [facility] CenterDxqevspKEFNRPHPDB8321-80-83 07:10:00 Test Item Value Reference Range Interpretation Comments MCHC (test code = MCHC) 34.4 32.0-36.0 [facility] CenterSjwjyejUKUWXRYLWM3384-60-23 07:10:00 Test Item Value Reference Range Interpretation Comments RBC (test code = RBC) 3.97 4.20-5.40 [facility] CenterAhhnqjqUIBSHDPFXE7710-81-91 07:10:00 Test Item Value Reference Range Interpretation Comments WBC (test code = WBC) 10.1 3.7-10.4 [facility] CenterRchgbotBAFNNJFWXG9986-96-72 07:10:00 Test Item Value Reference Range Interpretation Comments MCV (test code = MCV) 91.4 80.0-98.0 [facility] CenterFiaeaenJHJIFLZINP9592-53-77 07:10:00 Test Item Value Reference Range Interpretation Comments Hct (test code = Hct) 36.3 36.0-48.0 [facility] CenterBoindzhJLBZZWNXRF4572-68-08 07:10:00 Test Item Value Reference Range Interpretation Comments Hgb (test code = Hgb) 12.5 12.0-16.0 [facility] RRZJEXC9604-32-22 07:10:00 Test Item Value Reference Range Interpretation Comments Ca Norm WB (test code = Ca Norm WB) 1.16 1.05-1.25 [facility]2014-11-03 07:10:00 Test Item Value Reference Range Interpretation Comments Ca Ion WB (test code = Ca Ion WB) 1.19 1.05-1.25 [facility]2014-11-03 07:10:00 Test Item Value Reference Range Interpretation Comments Phosphorus (test code = Phosphorus) 4.2 2.5-4.5 [facility]2014-11-03 07:10:00 Test Item Value Reference Range Interpretation Comments Magnesium Lvl (test code = Magnesium 1.8 1.8-2.4 Lvl) [facility]2014-11-03 07:10:00 Test Item Value Reference Range Interpretation Comments eGFR (test code = eGFR) 79 [facility]2014-11-03 07:10:00 Test Item Value Reference Range Interpretation Comments CO2 (test code = CO2) 26 24-32 [facility]2014-11-03 07:10:00 Test Item Value Reference Range Interpretation Comments AGAP (test code = AGAP) 12.3 10.0-20.0 [facility]2014-11-03 07:10:00 Test Item Value Reference Range Interpretation Comments Calcium Lvl (test code = Calcium Lvl) 9.0 8.5-10.5 [facility]2014-11-03 07:10:00 Test Item Value Reference Range Interpretation Comments Creatinine Lvl (test code = Creatinine 0.8 0.5-1.4 Lvl) [facility]2014-11-03 07:10:00 Test Item Value Reference Range Interpretation Comments Sodium Lvl (test code = Sodium Lvl) 142 135-145 [facility]2014-11-03 07:10:00 Test Item Value Reference Range Interpretation Comments Potassium Lvl (test code = Potassium 4.3 3.5-5.1 Lvl) [facility]2014-11-03 07:10:00 Test Item Value Reference Range Interpretation Comments Chloride Lvl (test code = Chloride Lvl) 108 95-109 [facility]2014-11-03 07:10:00 Test Item Value Reference Range Interpretation Comments Glucose Lvl (test code = Glucose Lvl) 129 70-99 [facility]2014-11-03 07:10:00 Test Item Value Reference Range Interpretation Comments BUN (test code = BUN) 18 7-22 [facility] CenterAxldfqwAUQBBXPWZB0872-98-00 07:10:00 Test Item Value Reference Range Interpretation Comments Eosinophils (test code = 2.4 See_Comment [A utomated message] The Eosinophils) system which ge nerated this result tra nsmitted reference range : <=4.0. The reference r rajeev was not used to int erpret this result as normal/abnormal . [facility] CenterSgvnwcjWVPPBXUXXJ8867-53-46 07:10:00 Test Item Value Reference Range Interpretation Comments Lymphocytes # (test code = Lymphocytes 3.2 1.0-5.5 #) [facility] CenterXvhgeohETUHGUMKVV6330-31-38 07:10:00 Test Item Value Reference Range Interpretation Comments Segs-Bands # (test code = Segs-Bands #) 5.6 1.5-8.1 [facility] CenterIxfgawmHSTPYLBQBD3993-81-09 07:10:00 Test Item Value Reference Range Interpretation Comments Basophils (test code = 0.7 See_Comment [Aut omated message] The Basophils) system which ge nerated this result tra nsmitted reference range : <=1.0. The reference r rajeev was not used to int erpret this result as normal/abnormal . [facility] CenterEkkyugjAMFZAIBTYE8173-70-66 07:10:00 Test Item Value Reference Range Interpretation Comments Eosinophils # (test code 0.2 See_Comment [A utomated message] The = Eosinophils #) system whic h generated this result tra nsmitted reference range : <=0.5. The reference r rajeev was not used to int erpret this result as normal/abnormal . [facility] CenterVkxvndnBZUEEPTRBF2745-26-52 07:10:00 Test Item Value Reference Range Interpretation Comments Monocytes # (test code 1.0 See_Comment [Aut omated message] The = Monocytes #) system which generated this result tra nsmitted reference range : <=0.8. The reference r rajeev was not used to int erpret this result as normal/abnormal . [facility] CenterMiltxkaEOIKCQYSUV9300-90-60 07:10:00 Test Item Value Reference Range Interpretation Comments Monocytes (test code = Monocytes) 9.9 2.0-12.0 [facility] CenterNlcyhgnLHJWSRIMWN5707-86-24 07:10:00 Test Item Value Reference Range Interpretation Comments Basophils # (test code 0.1 See_Comment [Aut omated message] The = Basophils #) system which generated this result tra nsmitted reference range : <=0.2. The reference r rajeev was not used to int erpret this result as normal/abnormal . [facility] CenterLwytwzuRBOPTOIGUL0311-18-70 07:10:00 Test Item Value Reference Range Interpretation Comments Segs (test code = Segs) 55.1 45.0-75.0 [facility] CenterFeqtfjrRUSAVAKFWA7195-55-17 07:10:00 Test Item Value Reference Range Interpretation Comments Lymphocytes (test code = Lymphocytes) 31.9 20.0-40.0 [facility] CenterVhepmadNOSFLZEHGB6861-57-17 07:10:00 Test Item Value Reference Range Interpretation Comments MPV (test code = MPV) 9.6 7.4-10.4 [facility] CenterWsyrdkgDFKLFJKBTP1691-46-77 07:10:00 Test Item Value Reference Range Interpretation Comments MCH (test code = MCH) 31.4 pg 27.0-31.0 [facility] [facility]itwybyUXYYSJUHBW8779-44-12 07:10:00 Test Item Value Reference Range Interpretation Comments Platelet (test code = Platelet) 222 133-450 [facility] CenterRsmvhneXMSSIUQCJA0470-48-98 07:10:00 Test Item Value Reference Range Interpretation Comments RDW (test code = RDW) 12.9 11.5-14.5 [facility] CenterVawhdtaHIGODZJYPZ7788-19-85 07:10:00 Test Item Value Reference Range Interpretation Comments MCHC (test code = MCHC) 34.4 32.0-36.0 [facility] CenterDbxbrcoVCGMAZNNIT5587-70-73 07:10:00 Test Item Value Reference Range Interpretation Comments RBC (test code = RBC) 3.97 4.20-5.40 [facility] CenterUcpvkyoXVDVJABWXQ2197-47-49 07:10:00 Test Item Value Reference Range Interpretation Comments WBC (test code = WBC) 10.1 3.7-10.4 [facility] CenterVoorbqwKCZMWJQZGI2986-89-40 07:10:00 Test Item Value Reference Range Interpretation Comments MCV (test code = MCV) 91.4 80.0-98.0 [facility] CenterAbuikhjRCRPQDTCAL0544-10-51 07:10:00 Test Item Value Reference Range Interpretation Comments Hct (test code = Hct) 36.3 36.0-48.0 [facility] CenterWbquspjYJEUIBADPT4406-79-55 07:10:00 Test Item Value Reference Range Interpretation Comments Hgb (test code = Hgb) 12.5 12.0-16.0 [facility]ATH[facility] LATSBVE3770-99-78 07:10:00 Test Item Value Reference Range Interpretation Comments Ca Norm WB (test code = Ca Norm WB) 1.16 1.05-1.25 [facility] ANJTQAL0948-35-04 07:10:00 Test Item Value Reference Range Interpretation Comments Ca Ion WB (test code = Ca Ion WB) 1.19 1.05-1.25 [facility]2014-11-03 07:10:00 Test Item Value Reference Range Interpretation Comments Phosphorus (test code = Phosphorus) 4.2 2.5-4.5 [facility]2014-11-03 07:10:00 Test Item Value Reference Range Interpretation Comments Magnesium Lvl (test code = Magnesium 1.8 1.8-2.4 Lvl) [facility]2014-11-03 07:10:00 Test Item Value Reference Range Interpretation Comments eGFR (test code = eGFR) 79 [facility]2014-11-03 07:10:00 Test Item Value Reference Range Interpretation Comments CO2 (test code = CO2) 26 24-32 [facility]2014-11-03 07:10:00 Test Item Value Reference Range Interpretation Comments AGAP (test code = AGAP) 12.3 10.0-20.0 [facility]2014-11-03 07:10:00 Test Item Value Reference Range Interpretation Comments Calcium Lvl (test code = Calcium Lvl) 9.0 8.5-10.5 [facility]2014-11-03 07:10:00 Test Item Value Reference Range Interpretation Comments Creatinine Lvl (test code = Creatinine 0.8 0.5-1.4 Lvl) [facility]2014-11-03 07:10:00 Test Item Value Reference Range Interpretation Comments Sodium Lvl (test code = Sodium Lvl) 142 135-145 [facility]2014-11-03 07:10:00 Test Item Value Reference Range Interpretation Comments Potassium Lvl (test code = Potassium 4.3 3.5-5.1 Lvl) [place] 821144-11-03 07:10:00 Test Item Value Reference Range Interpretation Comments Chloride Lvl (test code = Chloride Lvl) 108 95-109 [facility]2014-11-03 07:10:00 Test Item Value Reference Range Interpretation Comments Glucose Lvl (test code = Glucose Lvl) 129 70-99 [facility]2014-11-03 07:10:00 Test Item Value Reference Range Interpretation Comments BUN (test code = BUN) 18 7-22 [facility] CenterNvosibfOMTBEUHABA6080-90-21 07:10:00 Test Item Value Reference Range Interpretation Comments Eosinophils (test code = 2.4 See_Comment [A utomated message] The Eosinophils) system which ge nerated this result tra nsmitted reference range : <=4.0. The reference r rajeev was not used to int erpret this result as normal/abnormal . [facility] CenterNrnbkugPHOBKMRTIQ0609-27-68 07:10:00 Test Item Value Reference Range Interpretation Comments Lymphocytes # (test code = Lymphocytes 3.2 1.0-5.5 #) [facility] CenterMwjngqvXSWDDAVBSH6393-31-39 07:10:00 Test Item Value Reference Range Interpretation Comments Segs-Bands # (test code = Segs-Bands #) 5.6 1.5-8.1 [facility] CenterQrjkdvgJBHRBRWQYV9822-96-62 07:10:00 Test Item Value Reference Range Interpretation Comments Basophils (test code = 0.7 See_Comment [Aut omated message] The Basophils) system which ge nerated this result tra nsmitted reference range : <=1.0. The reference r rajeev was not used to int erpret this result as normal/abnormal . [facility] CenterButsoanQVJWYXBNQU6025-37-68 07:10:00 Test Item Value Reference Range Interpretation Comments Eosinophils # (test code 0.2 See_Comment [A utomated message] The = Eosinophils #) system whic h generated this result tra nsmitted reference range : <=0.5. The reference r rajeev was not used to int erpret this result as normal/abnormal . [facility] CenterFgirlaeMVZFNOTOIH7054-50-16 07:10:00 Test Item Value Reference Range Interpretation Comments Monocytes # (test code 1.0 See_Comment [Aut omated message] The = Monocytes #) system which generated this result tra nsmitted reference range : <=0.8. The reference r rajeev was not used to int erpret this result as normal/abnormal . [facility] CenterHxqrlmuYWNWPITULR0210-42-31 07:10:00 Test Item Value Reference Range Interpretation Comments Monocytes (test code = Monocytes) 9.9 2.0-12.0 [facility] CenterKhtqnmuCBANMRCYJT4665-25-89 07:10:00 Test Item Value Reference Range Interpretation Comments Basophils # (test code 0.1 See_Comment [Aut omated message] The = Basophils #) system which generated this result tra nsmitted reference range : <=0.2. The reference r rajeev was not used to int erpret this result as normal/abnormal . [facility] CenterTcdovxmWBSZRSTDCG7183-97-09 07:10:00 Test Item Value Reference Range Interpretation Comments Segs (test code = Segs) 55.1 45.0-75.0 [facility] CenterBtbyiaaUVZSFTDKCD3111-73-11 07:10:00 Test Item Value Reference Range Interpretation Comments Lymphocytes (test code = Lymphocytes) 31.9 20.0-40.0 [facility] CenterLkmddhlULAMKWMRXS3680-33-94 07:10:00 Test Item Value Reference Range Interpretation Comments MPV (test code = MPV) 9.6 7.4-10.4 [facility] CenterJpzqtarTGYRJWSEOB0967-08-52 07:10:00 Test Item Value Reference Range Interpretation Comments MCH (test code = MCH) 31.4 pg 27.0-31.0 [facility] CenterProfgwuVIRNIOGUOD4987-77-27 07:10:00 Test Item Value Reference Range Interpretation Comments Platelet (test code = Platelet) 222 133-450 [facility] CenterZxfdzpoNSWISHHRJR3055-04-62 07:10:00 Test Item Value Reference Range Interpretation Comments RDW (test code = RDW) 12.9 11.5-14.5 [facility] CenterZaapkjgERAGKTXCBU7407-06-13 07:10:00 Test Item Value Reference Range Interpretation Comments MCHC (test code = MCHC) 34.4 32.0-36.0 [facility] CenterXurhcoaANJVOJAEQV6901-83-08 07:10:00 Test Item Value Reference Range Interpretation Comments RBC (test code = RBC) 3.97 4.20-5.40 [facility] CenterIichdosLZWCBLRTMY0753-72-08 07:10:00 Test Item Value Reference Range Interpretation Comments WBC (test code = WBC) 10.1 3.7-10.4 [facility] CenterLmnufjzJKMFJPZBST5930-41-78 07:10:00 Test Item Value Reference Range Interpretation Comments MCV (test code = MCV) 91.4 80.0-98.0 [facility] CenterXizufwzSUKMUHTBOE1958-56-65 07:10:00 Test Item Value Reference Range Interpretation Comments Hct (test code = Hct) 36.3 36.0-48.0 [facility] CenterRfkzhclDFUTCGWECJ0759-89-34 07:10:00 Test Item Value Reference Range Interpretation Comments Hgb (test code = Hgb) 12.5 12.0-16.0 [facility] CenterPARATHYROID VXJYFIR2099-51-81 07:10:00 Test Item Value Reference Range Interpretation Comments Ca Norm WB (test code = Ca Norm WB) 1.16 1.05-1.25 [facility] CenterPARATHYROID FHJCTXW8628-24-11 07:10:00 Test Item Value Reference Range Interpretation Comments Ca Ion WB (test code = Ca Ion WB) 1.19 1.05-1.25 [facility] CenterCHEM BMFMB0729-33-26 07:10:00 Test Item Value Reference Range Interpretation Comments Phosphorus (test code = Phosphorus) 4.2 2.5-4.5 [facility] CenterCHEM XTLZY2608-54-94 07:10:00 Test Item Value Reference Range Interpretation Comments Magnesium Lvl (test code = Magnesium 1.8 1.8-2.4 Lvl) [facility]2014-11-03 07:10:00 Test Item Value Reference Range Interpretation Comments eGFR (test code = eGFR) 79 [facility]2014-11-03 07:10:00 Test Item Value Reference Range Interpretation Comments CO2 (test code = CO2) 26 24-32 [facility]2014-11-03 07:10:00 Test Item Value Reference Range Interpretation Comments AGAP (test code = AGAP) 12.3 10.0-20.0 [facility]2014-11-03 07:10:00 Test Item Value Reference Range Interpretation Comments Calcium Lvl (test code = Calcium Lvl) 9.0 8.5-10.5 [facility]2014-11-03 07:10:00 Test Item Value Reference Range Interpretation Comments Creatinine Lvl (test code = Creatinine 0.8 0.5-1.4 Lvl) [facility]2014-11-03 07:10:00 Test Item Value Reference Range Interpretation Comments Sodium Lvl (test code = Sodium Lvl) 142 135-145 [facility]2014-11-03 07:10:00 Test Item Value Reference Range Interpretation Comments Potassium Lvl (test code = Potassium 4.3 3.5-5.1 Lvl) [facility]2014-11-03 07:10:00 Test Item Value Reference Range Interpretation Comments Chloride Lvl (test code = Chloride Lvl) 108 95-109 [facility]2014-11-03 07:10:00 Test Item Value Reference Range Interpretation Comments Glucose Lvl (test code = Glucose Lvl) 129 70-99 [facility]2014-11-03 07:10:00 Test Item Value Reference Range Interpretation Comments BUN (test code = BUN) 18 7-22 [facility]JevfghcEGHMZQWTGE3911-11-86 07:10:00 Test Item Value Reference Range Interpretation Comments Eosinophils (test code = 2.4 See_Comment [A utomated message] The Eosinophils) system which ge nerated this result tra nsmitted reference range : <=4.0. The reference r rajeev was not used to int erpret this result as normal/abnormal . [facility] CenterSnhuxhkIZLJDRMFHQ7365-96-43 07:10:00 Test Item Value Reference Range Interpretation Comments Lymphocytes # (test code = Lymphocytes 3.2 1.0-5.5 #) [facility] CenterMnqoqvpOSPFVLTZJB9010-45-53 07:10:00 Test Item Value Reference Range Interpretation Comments Segs-Bands # (test code = Segs-Bands #) 5.6 1.5-8.1 [facility] CenterSybsojdZRQAPUJRJW4482-67-96 07:10:00 Test Item Value Reference Range Interpretation Comments Basophils (test code = 0.7 See_Comment [Aut omated message] The Basophils) system which ge nerated this result tra nsmitted reference range : <=1.0. The reference r rajeev was not used to int erpret this result as normal/abnormal . [facility] CenterLyywfrgBSLLGKLSGX5650-97-79 07:10:00 Test Item Value Reference Range Interpretation Comments Eosinophils # (test code 0.2 See_Comment [A utomated message] The = Eosinophils #) system whic h generated this result tra nsmitted reference range : <=0.5. The reference r rajeev was not used to int erpret this result as normal/abnormal . [facility] CenterLjydiuwGMVZBDJTXU6470-56-75 07:10:00 Test Item Value Reference Range Interpretation Comments Monocytes # (test code 1.0 See_Comment [Aut omated message] The = Monocytes #) system which generated this result tra nsmitted reference range : <=0.8. The reference r rajeev was not used to int erpret this result as normal/abnormal . [facility] CenterJugqhzgDMOQKTWGAD3498-50-09 07:10:00 Test Item Value Reference Range Interpretation Comments Monocytes (test code = Monocytes) 9.9 2.0-12.0 [facility] CenterJxpficrWPEWTXGKKW6407-23-65 07:10:00 Test Item Value Reference Range Interpretation Comments Basophils # (test code 0.1 See_Comment [Aut omated message] The = Basophils #) system which generated this result tra nsmitted reference range : <=0.2. The reference r rajeev was not used to int erpret this result as normal/abnormal . [facility] CenterXzasgolJNBUIYLZTD4052-54-65 07:10:00 Test Item Value Reference Range Interpretation Comments Segs (test code = Segs) 55.1 45.0-75.0 [facility] CenterWpyykcvWIUNDITSBA7264-51-55 07:10:00 Test Item Value Reference Range Interpretation Comments Lymphocytes (test code = Lymphocytes) 31.9 20.0-40.0 [facility] CenterGegduidDNBHHWLTYY9728-02-17 07:10:00 Test Item Value Reference Range Interpretation Comments MPV (test code = MPV) 9.6 7.4-10.4 [facility] CenterTppbjttPUVIABOMOD1870-57-06 07:10:00 Test Item Value Reference Range Interpretation Comments MCH (test code = MCH) 31.4 pg 27.0-31.0 [facility] CenterMsjaprbBDPRTWBSYP1925-62-51 07:10:00 Test Item Value Reference Range Interpretation Comments Platelet (test code = Platelet) 222 133-450 [facility] CenterWxjkbimFKPRFQCJEY5670-33-84 07:10:00 Test Item Value Reference Range Interpretation Comments RDW (test code = RDW) 12.9 11.5-14.5 [facility] CenterCpwapauMJTJQWKLHY3901-64-88 07:10:00 Test Item Value Reference Range Interpretation Comments MCHC (test code = MCHC) 34.4 32.0-36.0 [facility] CenterFameurbGGQAFMDWSM4173-45-24 07:10:00 Test Item Value Reference Range Interpretation Comments RBC (test code = RBC) 3.97 4.20-5.40 [facility] CenterEnmbljwDELSZUTXSH8767-87-45 07:10:00 Test Item Value Reference Range Interpretation Comments WBC (test code = WBC) 10.1 3.7-10.4 [facility] CenterXnzlcjxYTJOYPTEDY0516-10-01 07:10:00 Test Item Value Reference Range Interpretation Comments MCV (test code = MCV) 91.4 80.0-98.0 [facility] CenterWqlefuzJQPCNVZKLU5632-85-58 07:10:00 Test Item Value Reference Range Interpretation Comments Hct (test code = Hct) 36.3 36.0-48.0 [facility] CenterUntaioaOEERCENFRC4602-37-59 07:10:00 Test Item Value Reference Range Interpretation Comments Hgb (test code = Hgb) 12.5 12.0-16.0 [facility]2014-11-03 07:10:00 Test Item Value Reference Range Interpretation Comments Ca Norm WB (test code = Ca Norm WB) 1.16 1.05-1.25 [facility]2014-11-03 07:10:00 Test Item Value Reference Range Interpretation Comments Ca Ion WB (test code = Ca Ion WB) 1.19 1.05-1.25 [facility]2014-11-03 07:10:00 Test Item Value Reference Range Interpretation Comments Phosphorus (test code = Phosphorus) 4.2 2.5-4.5 [facility]2014-11-03 07:10:00 Test Item Value Reference Range Interpretation Comments Magnesium Lvl (test code = Magnesium 1.8 1.8-2.4 Lvl) [facility]2014-11-03 07:10:00 Test Item Value Reference Range Interpretation Comments eGFR (test code = eGFR) 79 [facility]2014-11-03 07:10:00 Test Item Value Reference Range Interpretation Comments CO2 (test code = CO2) 26 24-32 [facility]2014-11-03 07:10:00 Test Item Value Reference Range Interpretation Comments AGAP (test code = AGAP) 12.3 10.0-20.0 [facility]2014-11-03 07:10:00 Test Item Value Reference Range Interpretation Comments Calcium Lvl (test code = Calcium Lvl) 9.0 8.5-10.5 [facility]2014-11-03 07:10:00 Test Item Value Reference Range Interpretation Comments Creatinine Lvl (test code = Creatinine 0.8 0.5-1.4 Lvl) [facility]2014-11-03 07:10:00 Test Item Value Reference Range Interpretation Comments Sodium Lvl (test code = Sodium Lvl) 142 135-145 [facility]2014-11-03 07:10:00 Test Item Value Reference Range Interpretation Comments Potassium Lvl (test code = Potassium 4.3 3.5-5.1 Lvl) [facility]2014-11-03 07:10:00 Test Item Value Reference Range Interpretation Comments Chloride Lvl (test code = Chloride Lvl) 108 95-109 [facility]2014-11-03 07:10:00 Test Item Value Reference Range Interpretation Comments Glucose Lvl (test code = Glucose Lvl) 129 70-99 [facility]2014-11-03 07:10:00 Test Item Value Reference Range Interpretation Comments BUN (test code = BUN) 18 7-22 [facility] CenterRelttcbZKVIYMZNHE6524-63-09 07:10:00 Test Item Value Reference Range Interpretation Comments Eosinophils (test code = 2.4 See_Comment [A utomated message] The Eosinophils) system which ge nerated this result tra nsmitted reference range : <=4.0. The reference r rajeev was not used to int erpret this result as normal/abnormal . [facility] CenterQbwefzhMKSNBLYHFQ3107-10-10 07:10:00 Test Item Value Reference Range Interpretation Comments Lymphocytes # (test code = Lymphocytes 3.2 1.0-5.5 #) [facility] CenterQtrnxphCQPMDDVREN2200-15-23 07:10:00 Test Item Value Reference Range Interpretation Comments Segs-Bands # (test code = Segs-Bands #) 5.6 1.5-8.1 [facility] CenterEnxfdqaGHBFFUAJCU9317-74-52 07:10:00 Test Item Value Reference Range Interpretation Comments Basophils (test code = 0.7 See_Comment [Aut omated message] The Basophils) system which ge nerated this result tra nsmitted reference range : <=1.0. The reference r rajeev was not used to int erpret this result as normal/abnormal . [facility] CenterNmjkskcBPEHSUULCK1148-24-41 07:10:00 Test Item Value Reference Range Interpretation Comments Eosinophils # (test code 0.2 See_Comment [A utomated message] The = Eosinophils #) system whic h generated this result tra nsmitted reference range : <=0.5. The reference r rajeev was not used to int erpret this result as normal/abnormal . [facility] CenterNlhbvejSEFBLQPBRX4545-38-85 07:10:00 Test Item Value Reference Range Interpretation Comments Monocytes # (test code 1.0 See_Comment [Aut omated message] The = Monocytes #) system which generated this result tra nsmitted reference range : <=0.8. The reference r rajeev was not used to int erpret this result as normal/abnormal . [facility] CenterJjbteohEPODYGZHMQ8502-55-13 07:10:00 Test Item Value Reference Range Interpretation Comments Monocytes (test code = Monocytes) 9.9 2.0-12.0 [facility] CenterWycvpqlYOWOGRPCVG1612-55-96 07:10:00 Test Item Value Reference Range Interpretation Comments Basophils # (test code 0.1 See_Comment [Aut omated message] The = Basophils #) system which generated this result tra nsmitted reference range : <=0.2. The reference r rajeev was not used to int erpret this result as normal/abnormal . [facility] CenterOhqeemoMVEMIGNZXD3676-54-09 07:10:00 Test Item Value Reference Range Interpretation Comments Segs (test code = Segs) 55.1 45.0-75.0 [facility] CenterHugpgbcMXIESKKRTN6708-57-04 07:10:00 Test Item Value Reference Range Interpretation Comments Lymphocytes (test code = Lymphocytes) 31.9 20.0-40.0 [facility] CenterQnsgshqMAKLYEYMTM6696-05-17 07:10:00 Test Item Value Reference Range Interpretation Comments MPV (test code = MPV) 9.6 7.4-10.4 [facility] CenterKvuubldSJVKIJDKYZ4114-03-35 07:10:00 Test Item Value Reference Range Interpretation Comments MCH (test code = MCH) 31.4 pg 27.0-31.0 [facility] CenterTbzedgpUMJRUGRQCT0007-04-32 07:10:00 Test Item Value Reference Range Interpretation Comments Platelet (test code = Platelet) 222 133-450 [facility] CenterHeazfopYZTHMJBUYQ9952-91-88 07:10:00 Test Item Value Reference Range Interpretation Comments RDW (test code = RDW) 12.9 11.5-14.5 [facility] CenterNvrkuhsWQBNFEIJWK1504-58-41 07:10:00 Test Item Value Reference Range Interpretation Comments MCHC (test code = MCHC) 34.4 32.0-36.0 [facility] CenterXmnelcpPLYLJXOOGV2912-20-69 07:10:00 Test Item Value Reference Range Interpretation Comments RBC (test code = RBC) 3.97 4.20-5.40 [facility]aEpzsjhzVELGLUJROO6845-76-20 07:10:00 Test Item Value Reference Range Interpretation Comments WBC (test code = WBC) 10.1 3.7-10.4 [facility] CenterHere@ [employer] AMRSKG3814-46-62 09:51:00 Test Item Value Reference Range Interpretation Comments UDS Note (test code = See Note 5*NA*(03/10/14 UDS Note) 3:51 AM) [facility]DR[facility] WDCUDS5810-37-08 09:51:00 Test Item Value Reference Range Interpretation Comments U Opiate Scr (test Negative *NA*(03/10/14 code = U Opiate Scr) 3:51 AM) [facility] XSWDXS3882-06-63 09:51:00 Test Item Value Reference Range Interpretation Comments U Phencyc Scr (test Negative *NA*(03/10/14 code = U Phencyc Scr) 3:51 AM) [facility] NMEHCA6657-28-20 09:51:00 Test Item Value Reference Range Interpretation Comments U Cannab Scr (test Negative *NA*(03/10/14 code = U Cannab Scr) 3:51 AM) [facility] QOJKAY7178-88-16 09:51:00 Test Item Value Reference Range Interpretation Comments U Cocaine Scr (test Negative *NA*(03/10/14 code = U Cocaine Scr) 3:51 AM) [facility] ZNRSSS7709-80-20 09:51:00 Test Item Value Reference Range Interpretation Comments U Benzodia Scr (test Negative *NA*(03/10/14 code = U Benzodia Scr) 3:51 AM) [facility] QNKKUY6893-82-11 09:51:00 Test Item Value Reference Range Interpretation Comments U Amph Scr (test code Negative *NA*(03/10/14 = U Amph Scr) 3:51 AM) [facility] RSMZSX5295-47-94 09:51:00 Test Item Value Reference Range Interpretation Comments U Stacey Scr (test code Negative *NA*(03/10/14 = U Stacey Scr) 3:51 AM) [facility]McdyklwDKWDFMUEJXUT4915-46-17 09:51:00 Test Item Value Reference Range Interpretation Comments AGAP (test code = AGAP) 11.3 10.0-20.0 [facility] CenterIkrogkmBSGHEXAFXNLK2048-60-72 09:51:00 Test Item Value Reference Range Interpretation Comments A/G Ratio (test code = A/G Ratio) 1.5 0.7-1.6 [facility]VqtvsmxWAJLYNWSILWT4038-83-37 09:51:00 Test Item Value Reference Range Interpretation Comments B/C Ratio (test code = B/C Ratio) 21 6-25 [facility]UtotiisBKFJKARBHAON8492-42-45 09:51:00 Test Item Value Reference Range Interpretation Comments Globulin (test code = Globulin) 2.5 2.0-4.0 [facility] LdsxzicTHOKCESYXNGD8070-54-77 09:51:00 Test Item Value Reference Range Interpretation Comments eGFR (test code = eGFR) 79 [facility] CenterOvrksjjQRCWCVIUARTT0560-62-23 09:51:00 Test Item Value Reference Range Interpretation Comments AST (test code = AST) 17 See_Comment [Auto mated message] The system which ge nerated this result transmit dora reference range : <=37. The reference range was not used to interpr et this result as merritt l/abnormal. [facility] CenterDuhdlvgZGEVFXDIQNST9607-66-97 09:51:00 Test Item Value Reference Range Interpretation Comments ALT (test code = ALT) 31 See_Comment [Auto mated message] The system which ge nerated this result transmit dora reference range : <=65. The reference range was not used to interpr et this result as merritt l/abnormal. [facility] CenterCgxoofzALKXFZHVFHUH1950-53-33 09:51:00 Test Item Value Reference Range Interpretation Comments Bili Total (test code = Bili Total) 0.3 0.2-1.3 [facility] CenterBdlenokGAPPCCQRETRG7224-72-99 09:51:00 Test Item Value Reference Range Interpretation Comments Alk Phos (test code = Alk Phos) 63 39-136 [facility]YibgnsbLOHNJUJMYGPV1966-18-21 09:51:00 Test Item Value Reference Range Interpretation Comments Calcium Lvl (test code = Calcium Lvl) 8.7 8.5-10.5 [facility] CenterMirnqcsNTHLGADGBAGJ1024-83-81 09:51:00 Test Item Value Reference Range Interpretation Comments Total Protein (test code = Total 6.2 6.4-8.4 Protein) [facility] CenterKfjhpheWVWMWXSRYDHK8130-26-95 09:51:00 Test Item Value Reference Range Interpretation Comments Albumin Lvl (test code = Albumin Lvl) 3.7 3.5-5.0 [facility] CenterSbojcdeINXWJZFOUZCE5303-90-10 09:51:00 Test Item Value Reference Range Interpretation Comments Sodium Lvl (test code = Sodium Lvl) 143 135-145 [facility] CenterKugukfnJZHCAHBPKHYF7988-07-21 09:51:00 Test Item Value Reference Range Interpretation Comments Creatinine Lvl (test code = Creatinine 0.8 0.5-1.4 Lvl) [facility] CenterKblxbqvWNHHBDFVZTGB3423-84-21 09:51:00 Test Item Value Reference Range Interpretation Comments BUN (test code = BUN) 17 7-22 [facility] CenterSafskbnEHCRLMMUPUTW6834-67-35 09:51:00 Test Item Value Reference Range Interpretation Comments Glucose Lvl (test code = Glucose Lvl) 118 70-99 [facility] CenterKhgrztiYHQCKRZASIEL0509-49-69 09:51:00 Test Item Value Reference Range Interpretation Comments Potassium Lvl (test code = Potassium 3.3 3.5-5.1 Lvl) [facility] CenterGuhbyqnIKGIRMVUBSNE8573-36-36 09:51:00 Test Item Value Reference Range Interpretation Comments CO2 (test code = CO2) 26 24-32 [facility] CenterHernvicGKTOIXAVFFTC3923-30-61 09:51:00 Test Item Value Reference Range Interpretation Comments Chloride Lvl (test code = Chloride Lvl) 109 95-109 [facility] CenterPsdbyekZTRLUERFZY4182-41-26 09:51:00 Test Item Value Reference Range Interpretation Comments PT (test code = PT) 13.3 s 12.0-14.7 [facility] CenterOumxyxzMAEUCIEOJT9672-38-32 09:51:00 Test Item Value Reference Range Interpretation Comments INR (test code = INR) 1.01 0.85-1.17 [facility] CenterVyyrlnfIQASWQYEVV1455-39-18 09:51:00 Test Item Value Reference Range Interpretation Comments PTT (test code = PTT) 29.4 s 22.9-35.8 [facility]OodqkonHKYLIX8417-39-60 09:51:00 Test Item Value Reference Range Interpretation Comments CHD Risk (test code = CHD Risk) 2.72 3.90-5.80 [facility] CenterNktkhefGRQOIR0891-88-76 09:51:00 Test Item Value Reference Range Interpretation Comments LDL (Calculated) (test code = LDL 62 (Calculated)) [facility] CenterUhpcfmwTSSODD1905-77-93 09:51:00 Test Item Value Reference Range Interpretation Comments VLDL (test code = VLDL) 17 [facility] CenterVtjwxobXHVUAN9726-51-68 09:51:00 Test Item Value Reference Range Interpretation Comments HDL (test code = HDL) 46 [facility] CenterGmobntfFJYPHF4996-21-27 09:51:00 Test Item Value Reference Range Interpretation Comments Chol (test code = Chol) 125 [facility] CenterYzbsuuxPOGGKM3402-70-77 09:51:00 Test Item Value Reference Range Interpretation Comments Trig (test code = Trig) 83 [facility] BSTIHSHTX7561-56-09 09:51:00 Test Item Value Reference Range Interpretation Comments Hgb A1C (test code = Hgb A1C) 6.6 [facility] AND [id number] 09:51:00 Test Item Value Reference Range Interpretation Comments UA Urobilinogen (test code = UA <=1.0 mg/dL 0.1-1.0 Urobilinogen) [facility] AND [id number] 09:51:00 Test Item Value Reference Range Interpretation Comments UA Ketones (test code = UA Negative mg/dL Ketones) [facility] AND [id number] 09:51:00 Test Item Value Reference Range Interpretation Comments UA Bili (test code = Negative *NA*(03/10/14 UA Bili) 3:51 AM) [facility] AND [id number] 09:51:00 Test Item Value Reference Range Interpretation Comments UA Sq Epi (test code = UA Sq Epi) Few /LPF [facility] AND [id number] 09:51:00 Test Item Value Reference Range Interpretation Comments UA Blood (test code = Negative (03/10/14 3:51 UA Blood) AM) [facility] AND [id number] 09:51:00 Test Item Value Reference Range Interpretation Comments UA Nitrite (test code Negative (03/10/14 3:51 = UA Nitrite) AM) [facility] AND [id number] 09:51:00 Test Item Value Reference Range Interpretation Comments UA Leuk Est (test Negative (03/10/14 3:51 code = UA Leuk Est) AM) [facility] AND [id number] 09:51:00 Test Item Value Reference Range Interpretation Comments UA Glucose (test code = UA Negative mg/dL Glucose) [facility] AND [id number] 09:51:00 Test Item Value Reference Range Interpretation Comments UA Protein (test code = UA Negative mg/dL Protein) [facility] AND [id number] 09:51:00 Test Item Value Reference Range Interpretation Comments UA Spec Grav (test code = UA Spec Grav) 1.007 [facility] AND [id number] 09:51:00 Test Item Value Reference Range Interpretation Comments UA Turbidity (test code = Clear (03/10/14 3:51 [facility]A Turbidity) AM) [facility] [id number] 09:51:00 Test Item Value Reference Range Interpretation Comments UA pH (test code = UA pH) 6.5 5.0-8.0 [facility] [id number] 09:51:00 Test Item Value Reference Range Interpretation Comments UA Color (test code = Yellow *NA*(03/10/14 UA Color) 3:51 AM) [facility] [id number] 09:51:00 Test Item Value Reference Range Interpretation Comments UA Mucus (test code = UA Mucus) Few /LPF [facility] [id number] 09:51:00 Test Item Value Reference Range Interpretation Comments UDS Note (test code = See Note 5*NA*(03/10/14 UDS Note) 3:51 AM) [facility] [id number] 09:51:00 Test Item Value Reference Range Interpretation Comments U Opiate Scr (test Negative *NA*(03/10/14 code = U Opiate Scr) 3:51 AM) [facility] [id number] 09:51:00 Test Item Value Reference Range Interpretation Comments U Phencyc Scr (test Negative *NA*(03/10/14 code = U Phencyc Scr) 3:51 AM) [facility] [id number] 09:51:00 Test Item Value Reference Range Interpretation Comments U Cannab Scr (test Negative *NA*(03/10/14 code = U Cannab Scr) 3:51 AM) [facility] [id number] 09:51:00 Test Item Value Reference Range Interpretation Comments U Cocaine Scr (test Negative *NA*(03/10/14 code = U Cocaine Scr) 3:51 AM) [facility] [id number] 09:51:00 Test Item Value Reference Range Interpretation Comments U Benzodia Scr (test Negative *NA*(03/10/14 code = U Benzodia Scr) 3:51 AM) [facility] [id number] 09:51:00 Test Item Value Reference Range Interpretation Comments U Amph Scr (test code Negative *NA*(03/10/14 = U Amph Scr) 3:51 AM) [facility] [id number] 09:51:00 Test Item Value Reference Range Interpretation Comments U Stacey Scr (test code Negative *NA*(03/10/14 = U Stacey Scr) 3:51 AM) [facility] CenterWpjhltfZGXXHGMBKMYL7882-57-35 09:51:00 Test Item Value Reference Range Interpretation Comments AGAP (test code = AGAP) 11.3 10.0-20.0 [facility] CenterHsbzztvYLPHUWRUPDOH2743-57-57 09:51:00 Test Item Value Reference Range Interpretation Comments A/G Ratio (test code = A/G Ratio) 1.5 0.7-1.6 [facility] CenterUpvmulgMYNSGBIFBLTC0536-83-89 09:51:00 Test Item Value Reference Range Interpretation Comments B/C Ratio (test code = B/C Ratio) 21 6-25 [facility] CenterFutnubnEBYXXAMWZSFK1581-80-74 09:51:00 Test Item Value Reference Range Interpretation Comments Globulin (test code = Globulin) 2.5 2.0-4.0 [facility] CenterFaimzglWRAXGXVDZRBM1936-17-77 09:51:00 Test Item Value Reference Range Interpretation Comments eGFR (test code = eGFR) 79 [facility] CenterUxhnjprWYHENRXJRZZV6950-71-03 09:51:00 Test Item Value Reference Range Interpretation Comments AST (test code = AST) 17 See_Comment [Auto mated message] The system which ge nerated this result transmit dora reference range : <=37. The reference range was not used to interpr et this result as merritt l/abnormal. [facility] CenterRctapqvEBERKDAGFWWU1439-67-50 09:51:00 Test Item Value Reference Range Interpretation Comments ALT (test code = ALT) 31 See_Comment [Auto mated message] The system which ge nerated this result transmit dora reference range : <=65. The reference range was not used to interpr et this result as merritt l/abnormal. [facility] CenterZbecpeqLCGTMWOOJIMG3774-68-96 09:51:00 Test Item Value Reference Range Interpretation Comments Bili Total (test code = Bili Total) 0.3 0.2-1.3 [facility] CenterRygcidkLWJIVFHDXYBD8955-91-08 09:51:00 Test Item Value Reference Range Interpretation Comments Alk Phos (test code = Alk Phos) 63 39-136 [facility] CenterColycirFCWYGFFERHNQ9273-43-86 09:51:00 Test Item Value Reference Range Interpretation Comments Calcium Lvl (test code = Calcium Lvl) 8.7 8.5-10.5 [facility] CenterGsqbyzyKCJBADJVLJDS7299-88-44 09:51:00 Test Item Value Reference Range Interpretation Comments Total Protein (test code = Total 6.2 6.4-8.4 Protein) [facility] CenterTifxpetCHURFBOLAQKU6353-20-66 09:51:00 Test Item Value Reference Range Interpretation Comments Albumin Lvl (test code = Albumin Lvl) 3.7 3.5-5.0 [facility] CenterAncbelbUZECMJMYQSXY9257-07-16 09:51:00 Test Item Value Reference Range Interpretation Comments Sodium Lvl (test code = Sodium Lvl) 143 135-145 [facility] CenterDxvbqjnCAIFBVHVXEJQ6698-32-50 09:51:00 Test Item Value Reference Range Interpretation Comments Creatinine Lvl (test code = Creatinine 0.8 0.5-1.4 Lvl) [facility] CenterMohaqcpRGYDXFZPFWFZ5114-24-03 09:51:00 Test Item Value Reference Range Interpretation Comments BUN (test code = BUN) 17 7-22 [facility] CenterIwsqsezRMVWZFHNKFBF3252-50-00 09:51:00 Test Item Value Reference Range Interpretation Comments Glucose Lvl (test code = Glucose Lvl) 118 70-99 [facility] CenterBdyccaiXIEVJNESAJCH5952-35-63 09:51:00 Test Item Value Reference Range Interpretation Comments Potassium Lvl (test code = Potassium 3.3 3.5-5.1 Lvl) [facility] CenterZusottiZUIVUHTNDFJL8131-70-44 09:51:00 Test Item Value Reference Range Interpretation Comments CO2 (test code = CO2) 26 24-32 [facility] CenterAqvutkwFAKCTVMVATVA5940-49-46 09:51:00 Test Item Value Reference Range Interpretation Comments Chloride Lvl (test code = Chloride Lvl) 109 95-109 [facility] CenterPbqagseIVQMVSATPG4850-57-69 09:51:00 Test Item Value Reference Range Interpretation Comments PT (test code = PT) 13.3 s 12.0-14.7 [facility] CenterQgcmwgxGBHSPJWAWA8158-93-38 09:51:00 Test Item Value Reference Range Interpretation Comments INR (test code = INR) 1.01 0.85-1.17 [facility] CenterXnrenwwORMDRLYASJ9484-01-00 09:51:00 Test Item Value Reference Range Interpretation Comments PTT (test code = PTT) 29.4 s 22.9-35.8 [facility] CenterRgwicrfZNLNIX7009-25-68 09:51:00 Test Item Value Reference Range Interpretation Comments CHD Risk (test code = CHD Risk) 2.72 3.90-5.80 [facility] CenterZchjjxdRXVHUE1125-62-95 09:51:00 Test Item Value Reference Range Interpretation Comments LDL (Calculated) (test code = LDL 62 (Calculated)) [facility] CenterTixbihaTCSDYL9085-65-40 09:51:00 Test Item Value Reference Range Interpretation Comments VLDL (test code = VLDL) 17 [facility] CenterRdkaumiVINXEC6208-14-91 09:51:00 Test Item Value Reference Range Interpretation Comments HDL (test code = HDL) 46 [facility] CenterDddlogySOCRKV5961-70-42 09:51:00 Test Item Value Reference Range Interpretation Comments Chol (test code = Chol) 125 [facility] CenterNbufwvhTNTRJT3250-04-20 09:51:00 Test Item Value Reference Range Interpretation Comments Trig (test code = Trig) 83 [facility] XKCRGPDBE8424-20-48 09:51:00 Test Item Value Reference Range Interpretation Comments Hgb A1C (test code = Hgb A1C) 6.6 [facility] AND [id number] 09:51:00 Test Item Value Reference Range Interpretation Comments UA Urobilinogen (test code = UA <=1.0 mg/dL 0.1-1.0 Urobilinogen) [facility] AND [id number] 09:51:00 Test Item Value Reference Range Interpretation Comments UA Ketones (test code = UA Negative mg/dL Ketones) [facility] AND [id number] 09:51:00 Test Item Value Reference Range Interpretation Comments UA Bili (test code = Negative *NA*(03/10/14 UA Bili) 3:51 AM) [facility] AND [id number] 09:51:00 Test Item Value Reference Range Interpretation Comments UA Sq Epi (test code = UA Sq Epi) Few /LPF [facility] AND [id number] 09:51:00 Test Item Value Reference Range Interpretation Comments UA Blood (test code = Negative (03/10/14 3:51 UA Blood) AM) [facility] AND [id number] 09:51:00 Test Item Value Reference Range Interpretation Comments UA Nitrite (test code Negative (03/10/14 3:51 = UA Nitrite) AM) [facility] AND [id number] 09:51:00 Test Item Value Reference Range Interpretation Comments UA Leuk Est (test Negative (03/10/14 3:51 code = UA Leuk Est) AM) [facility] AND [id number] 09:51:00 Test Item Value Reference Range Interpretation Comments UA Glucose (test code = UA Negative mg/dL Glucose) [facility] AND [id number] 09:51:00 Test Item Value Reference Range Interpretation Comments UA Protein (test code = UA Negative mg/dL Protein) [facility] AND [id number] 09:51:00 Test Item Value Reference Range Interpretation Comments UA Spec Grav (test code = UA Spec Grav) 1.007 [facility] AND [id number] 09:51:00 Test Item Value Reference Range Interpretation Comments UA Turbidity (test code = Clear (03/10/14 3:51 UA Turbidity) AM) [facility] AND [id number] 09:51:00 Test Item Value Reference Range Interpretation Comments UA pH (test code = UA pH) 6.5 5.0-8.0 [facility] AND [id number] 09:51:00 Test Item Value Reference Range Interpretation Comments UA Color (test code = Yellow *NA*(03/10/14 UA Color) 3:51 AM) [facility] AND [id number] 09:51:00 Test Item Value Reference Range Interpretation Comments UA Mucus (test code = UA Mucus) Few /LPF [facility] [id number] 09:51:00 Test Item Value Reference Range Interpretation Comments UDS Note (test code = See Note 5*NA*(03/10/14 UDS Note) 3:51 AM) [facility] OWBTKR9313-85-12 09:51:00 Test Item Value Reference Range Interpretation Comments U Opiate Scr (test Negative *NA*(03/10/14 code = U Opiate Scr) 3:51 AM) [facility] [id number] 09:51:00 Test Item Value Reference Range Interpretation Comments U Phencyc Scr (test Negative *NA*(03/10/14 code = U Phencyc Scr) 3:51 AM) [facility] [id number] 09:51:00 Test Item Value Reference Range Interpretation Comments U Cannab Scr (test Negative *NA*(03/10/14 code = U Cannab Scr) 3:51 AM) [facility] [id number] 09:51:00 Test Item Value Reference Range Interpretation Comments U Cocaine Scr (test Negative *NA*(03/10/14 code = U Cocaine Scr) 3:51 AM) [facility] OGFNLA0738-45-21 09:51:00 Test Item Value Reference Range Interpretation Comments U Benzodia Scr (test Negative *NA*(03/10/14 code = U Benzodia Scr) 3:51 AM) [facility] DDPTIU6553-03-98 09:51:00 Test Item Value Reference Range Interpretation Comments U Amph Scr (test code Negative *NA*(03/10/14 = U Amph Scr) 3:51 AM) [facility] [id number] 09:51:00 Test Item Value Reference Range Interpretation Comments U Stacey Scr (test code Negative *NA*(03/10/14 = U Stacey Scr) 3:51 AM) [facility]JztftobDAZIJAEIOSAL9474-85-54 09:51:00 Test Item Value Reference Range Interpretation Comments AGAP (test code = AGAP) 11.3 10.0-20.0 [facility]iscoJqtpfjaTMWXPVRIFVYQ9766-67-98 09:51:00 Test Item Value Reference Range Interpretation Comments A/G Ratio (test code = A/G Ratio) 1.5 0.7-1.6 [facility] CenterTkibhzuOEXIHTDISLTG4047-72-54 09:51:00 Test Item Value Reference Range Interpretation Comments B/C Ratio (test code = B/C Ratio) 21 6-25 [facility]AdlffjePTIKDLSNWUCI8216-60-81 09:51:00 Test Item Value Reference Range Interpretation Comments Globulin (test code = Globulin) 2.5 2.0-4.0 [facility] CenterZytmnrkGESTRULMVNCJ6256-32-65 09:51:00 Test Item Value Reference Range Interpretation Comments eGFR (test code = eGFR) 79 [facility]iscoNtpjntsAAWLXCGHYUHR1194-98-67 09:51:00 Test Item Value Reference Range Interpretation Comments AST (test code = AST) 17 See_Comment [Auto mated message] The system which ge nerated this result transmit dora reference range : <=37. The reference range was not used to interpr et this result as merritt l/abnormal. [facility] CenterOnawmhyOFKSHCQCPWRY1853-75-30 09:51:00 Test Item Value Reference Range Interpretation Comments ALT (test code = ALT) 31 See_Comment [Auto mated message] The system which ge nerated this result transmit dora reference range : <=65. The reference range was not used to interpr et this result as merritt l/abnormal. [facility] CenterCvssdntMJZRGQSSSJER4878-59-86 09:51:00 Test Item Value Reference Range Interpretation Comments Bili Total (test code = Bili Total) 0.3 0.2-1.3 [facility] CenterAoodfniSSXWXGAEULCN6090-81-62 09:51:00 Test Item Value Reference Range Interpretation Comments Alk Phos (test code = Alk Phos) 63 39-136 [facility] CenterWitkrqpXLWUNKUMRYKO9887-18-38 09:51:00 Test Item Value Reference Range Interpretation Comments Calcium Lvl (test code = Calcium Lvl) 8.7 8.5-10.5 [facility] CenterTepupzuPPGLDHVJBRQM1350-76-09 09:51:00 Test Item Value Reference Range Interpretation Comments Total Protein (test code = Total 6.2 6.4-8.4 Protein) [facility] CenterGefzgarTIOUMNGUMOJU2485-04-77 09:51:00 Test Item Value Reference Range Interpretation Comments Albumin Lvl (test code = Albumin Lvl) 3.7 3.5-5.0 [facility] CenterHktfchwVVDTKJDWSRMG3180-59-72 09:51:00 Test Item Value Reference Range Interpretation Comments Sodium Lvl (test code = Sodium Lvl) 143 135-145 [facility] CenterXpbbaddTSXRIFEBBHUV2341-04-19 09:51:00 Test Item Value Reference Range Interpretation Comments Creatinine Lvl (test code = Creatinine 0.8 0.5-1.4 Lvl) [facility] CenterTgdmvdlLDMVLLKEKXIR7869-38-20 09:51:00 Test Item Value Reference Range Interpretation Comments BUN (test code = BUN) 17 7-22 [facility] CenterDfdbpyrMANIPEVSGEGU5922-42-52 09:51:00 Test Item Value Reference Range Interpretation Comments Glucose Lvl (test code = Glucose Lvl) 118 70-99 [facility] CenterCkleuckTMXCXRHZQIRI9730-35-29 09:51:00 Test Item Value Reference Range Interpretation Comments Potassium Lvl (test code = Potassium 3.3 3.5-5.1 Lvl) [facility] CenterXikfrpqCLFFVHTDBQKT7607-08-47 09:51:00 Test Item Value Reference Range Interpretation Comments CO2 (test code = CO2) 26 24-32 [facility]iscoAybdidiEZJIRJNDPEAY8324-62-45 09:51:00 Test Item Value Reference Range Interpretation Comments Chloride Lvl (test code = Chloride Lvl) 109 95-109 [facility]aJupedbuGACUXNRYVH0377-22-12 09:51:00 Test Item Value Reference Range Interpretation Comments PT (test code = PT) 13.3 s 12.0-14.7 [facility]aPcsxowvRNMRGXUVJH2022-02-22 09:51:00 Test Item Value Reference Range Interpretation Comments INR (test code = INR) 1.01 0.85-1.17 [facility]aCngmbvfIMWFIIWXJV6582-42-77 09:51:00 Test Item Value Reference Range Interpretation Comments PTT (test code = PTT) 29.4 s 22.9-35.8 [facility] CenterEymnqalRXHPCN9275-11-54 09:51:00 Test Item Value Reference Range Interpretation Comments CHD Risk (test code = CHD Risk) 2.72 3.90-5.80 [facility] CenterTtrqsmzYWWCAU2192-65-81 09:51:00 Test Item Value Reference Range Interpretation Comments LDL (Calculated) (test code = LDL 62 (Calculated)) [facility] CenterJpodultRFMSQD1793-17-20 09:51:00 Test Item Value Reference Range Interpretation Comments VLDL (test code = VLDL) 17 [facility] CenterLaqfeckGEKFJV6817-66-27 09:51:00 Test Item Value Reference Range Interpretation Comments HDL (test code = HDL) 46 [facility] CenterPsblkboHIBHHP9988-09-77 09:51:00 Test Item Value Reference Range Interpretation Comments Chol (test code = Chol) 125 [facility] CenterXhlaylmCCYUEK8823-85-20 09:51:00 Test Item Value Reference Range Interpretation Comments Trig (test code = Trig) 83 [facility] CYLZHQBUC9758-92-77 09:51:00 Test Item Value Reference Range Interpretation Comments Hgb A1C (test code = Hgb A1C) 6.6 [facility] [id number] 09:51:00 Test Item Value Reference Range Interpretation Comments UA Urobilinogen (test code = UA <=1.0 mg/dL 0.1-1.0 Urobilinogen) [facility] AND [id number] 09:51:00 Test Item Value Reference Range Interpretation Comments UA Ketones (test code = UA Negative mg/dL Ketones) [facility] AND [id number] 09:51:00 Test Item Value Reference Range Interpretation Comments UA Bili (test code = Negative *NA*(03/10/14 UA Bili) 3:51 AM) [facility] AND [id number] 09:51:00 Test Item Value Reference Range Interpretation Comments UA Sq Epi (test code = UA Sq Epi) Few /LPF [facility] AND [id number] 09:51:00 Test Item Value Reference Range Interpretation Comments UA Blood (test code = Negative (03/10/14 3:51 UA Blood) AM) [facility] AND [id number] 09:51:00 Test Item Value Reference Range Interpretation Comments UA Nitrite (test code Negative (03/10/14 3:51 = UA Nitrite) AM) [facility] AND [id number] 09:51:00 Test Item Value Reference Range Interpretation Comments UA Leuk Est (test Negative (03/10/14 3:51 code = UA Leuk Est) AM) [facility] AND [id number] 09:51:00 Test Item Value Reference Range Interpretation Comments UA Glucose (test code = UA Negative mg/dL Glucose) [facility] AND [id number] 09:51:00 Test Item Value Reference Range Interpretation Comments UA Protein (test code = UA Negative mg/dL Protein) [facility] AND YXJWY4840-28-17 09:51:00 Test Item Value Reference Range Interpretation Comments UA Spec Grav (test code = UA Spec Grav) 1.007 [facility] AND [id number] 09:51:00 Test Item Value Reference Range Interpretation Comments UA Turbidity (test code = Clear (03/10/14 3:51 UA Turbidity) AM) [facility] AND [id number] 09:51:00 Test Item Value Reference Range Interpretation Comments UA pH (test code = UA pH) 6.5 5.0-8.0 [facility] AND [id number] 09:51:00 Test Item Value Reference Range Interpretation Comments UA Color (test code = Yellow *NA*(03/10/14 UA Color) 3:51 AM) [facility] AND [id number] 09:51:00 Test Item Value Reference Range Interpretation Comments UA Mucus (test code = UA Mucus) Few /LPF [facility] [id number] 09:51:00 Test Item Value Reference Range Interpretation Comments UDS Note (test code = See Note 5*NA*(03/10/14 UDS Note) 3:51 AM) [facility] [id number] 09:51:00 Test Item Value Reference Range Interpretation Comments U Opiate Scr (test Negative *NA*(03/10/14 code = U Opiate Scr) 3:51 AM) [facility] [id number] 09:51:00 Test Item Value Reference Range Interpretation Comments U Phencyc Scr (test Negative *NA*(03/10/14 code = U Phencyc Scr) 3:51 AM) [facility] [id number] 09:51:00 Test Item Value Reference Range Interpretation Comments U Cannab Scr (test Negative *NA*(03/10/14 code = U Cannab Scr) 3:51 AM) [facility] [id number] 09:51:00 Test Item Value Reference Range Interpretation Comments U Cocaine Scr (test Negative *NA*(03/10/14 code = U Cocaine Scr) 3:51 AM) [facility] [id number] 09:51:00 Test Item Value Reference Range Interpretation Comments U Benzodia Scr (test Negative *NA*(03/10/14 code = U Benzodia Scr) 3:51 AM) [facility] [id number] 09:51:00 Test Item Value Reference Range Interpretation Comments U Amph Scr (test code Negative *NA*(03/10/14 = U Amph Scr) 3:51 AM) [facility] [id number] 09:51:00 Test Item Value Reference Range Interpretation Comments U Stacey Scr (test code Negative *NA*(03/10/14 = U Stacey Scr) 3:51 AM) [facility] RqzqyywGHIGUPBHFQFI1812-31-79 09:51:00 Test Item Value Reference Range Interpretation Comments AGAP (test code = AGAP) 11.3 10.0-20.0 [facility]OtrvzlqVDEISZVKUCCF1070-56-97 09:51:00 Test Item Value Reference Range Interpretation Comments A/G Ratio (test code = A/G Ratio) 1.5 0.7-1.6 [facility] CenterQiypfjvEDQZAUHCXXSQ4296-81-65 09:51:00 Test Item Value Reference Range Interpretation Comments B/C Ratio (test code = B/C Ratio) 21 6-25 [facility] CenterUlujrfqLZPBYEMPUDTY7521-09-07 09:51:00 Test Item Value Reference Range Interpretation Comments Globulin (test code = Globulin) 2.5 2.0-4.0 [facility] CenterHxnnpszANPDEPQJRTYU2024-81-71 09:51:00 Test Item Value Reference Range Interpretation Comments eGFR (test code = eGFR) 79 [facility] CenterYwfbqmpMJDJKYOMGOOB6266-85-95 09:51:00 Test Item Value Reference Range Interpretation Comments AST (test code = AST) 17 See_Comment [Auto mated message] The system which ge nerated this result transmit dora reference range : <=37. The reference range was not used to interpr et this result as merritt l/abnormal. [facility] CenterCthhzggUQOALZXQJKJN8613-17-18 09:51:00 Test Item Value Reference Range Interpretation Comments ALT (test code = ALT) 31 See_Comment [Auto mated message] The system which ge nerated this result transmit dora reference range : <=65. The reference range was not used to interpr et this result as merritt l/abnormal. [facility] CenterNkjiqyjAEFZRANGPKVF9621-10-10 09:51:00 Test Item Value Reference Range Interpretation Comments Bili Total (test code = Bili Total) 0.3 0.2-1.3 [facility] CenterKnfcglbLTCDSQIEUYOH8828-96-16 09:51:00 Test Item Value Reference Range Interpretation Comments Alk Phos (test code = Alk Phos) 63 39-136 [facility] CenterXldguwuCWGHHPRAMIFS6530-95-87 09:51:00 Test Item Value Reference Range Interpretation Comments Calcium Lvl (test code = Calcium Lvl) 8.7 8.5-10.5 [facility] CenterBlnhxflSDGGSKAWTKZC0304-69-52 09:51:00 Test Item Value Reference Range Interpretation Comments Total Protein (test code = Total 6.2 6.4-8.4 Protein) [facility] CenterFvpmnbnZXCHCYBVUWPK4616-52-89 09:51:00 Test Item Value Reference Range Interpretation Comments Albumin Lvl (test code = Albumin Lvl) 3.7 3.5-5.0 [facility] CenterJizgawjMHJIIAWWNOQF8191-73-73 09:51:00 Test Item Value Reference Range Interpretation Comments Sodium Lvl (test code = Sodium Lvl) 143 135-145 [facility] CenterYkhrddkCTLTGVWOVPXG5953-18-97 09:51:00 Test Item Value Reference Range Interpretation Comments Creatinine Lvl (test code = Creatinine 0.8 0.5-1.4 Lvl) [facility] CenterTzmclkyCYPLOJCRIUHH9508-34-61 09:51:00 Test Item Value Reference Range Interpretation Comments BUN (test code = BUN) 17 7-22 [facility] CenterYhftgyoOKQSUZBQSOKF2610-28-52 09:51:00 Test Item Value Reference Range Interpretation Comments Glucose Lvl (test code = Glucose Lvl) 118 70-99 [facility] CenterCgbprjiJRUBAQSWAHXW9820-40-12 09:51:00 Test Item Value Reference Range Interpretation Comments Potassium Lvl (test code = Potassium 3.3 3.5-5.1 Lvl) [facility] CenterKshhuinDQGOMXRYYIXW0237-04-47 09:51:00 Test Item Value Reference Range Interpretation Comments CO2 (test code = CO2) 26 24-32 [facility] CenterCgphwlwDMSJHAVGJJGF0925-66-01 09:51:00 Test Item Value Reference Range Interpretation Comments Chloride Lvl (test code = Chloride Lvl) 109 95-109 [facility] CenterKdazminIEOOGFUAVK8090-99-47 09:51:00 Test Item Value Reference Range Interpretation Comments PT (test code = PT) 13.3 s 12.0-14.7 [facility] CenterBofeygjQQFDZSARSE8066-75-36 09:51:00 Test Item Value Reference Range Interpretation Comments INR (test code = INR) 1.01 0.85-1.17 [facility] CenterRyrgpfuXNEFPVZOQL1392-34-40 09:51:00 Test Item Value Reference Range Interpretation Comments PTT (test code = PTT) 29.4 s 22.9-35.8 [facility]DwnhxawKEAFCW6518-17-57 09:51:00 Test Item Value Reference Range Interpretation Comments CHD Risk (test code = CHD Risk) 2.72 3.90-5.80 [facility] CenterMtnldvnMTHIKY8773-11-30 09:51:00 Test Item Value Reference Range Interpretation Comments LDL (Calculated) (test code = LDL 62 (Calculated)) [facility] CenterFphzbccHIAUYF4572-76-22 09:51:00 Test Item Value Reference Range Interpretation Comments VLDL (test code = VLDL) 17 [facility] CenterCzkobiqQJRERD4179-77-05 09:51:00 Test Item Value Reference Range Interpretation Comments HDL (test code = HDL) 46 [facility] CenterDpyhvkdDNXSLT8217-09-75 09:51:00 Test Item Value Reference Range Interpretation Comments Chol (test code = Chol) 125 [facility] CenterHazujvtZZKRUP3275-49-99 09:51:00 Test Item Value Reference Range Interpretation Comments Trig (test code = Trig) 83 [facility] NDFDEJFFZ7738-91-57 09:51:00 Test Item Value Reference Range Interpretation Comments Hgb A1C (test code = Hgb A1C) 6.6 [facility] AND [id number] 09:51:00 Test Item Value Reference Range Interpretation Comments UA Urobilinogen (test code = UA <=1.0 mg/dL 0.1-1.0 Urobilinogen) [facility] AND [id number] 09:51:00 Test Item Value Reference Range Interpretation Comments UA Ketones (test code = UA Negative mg/dL Ketones) [facility] AND [id number] 09:51:00 Test Item Value Reference Range Interpretation Comments UA Bili (test code = Negative *NA*(03/10/14 UA Bili) 3:51 AM) [facility] AND [id number] 09:51:00 Test Item Value Reference Range Interpretation Comments UA Sq Epi (test code = UA Sq Epi) Few /LPF [facility] AND [id number] 09:51:00 Test Item Value Reference Range Interpretation Comments UA Blood (test code = Negative (03/10/14 3:51 UA Blood) AM) [facility] AND [id number] 09:51:00 Test Item Value Reference Range Interpretation Comments UA Nitrite (test code Negative (03/10/14 3:51 = UA Nitrite) AM) [facility] AND [id number] 09:51:00 Test Item Value Reference Range Interpretation Comments UA Leuk Est (test Negative (03/10/14 3:51 code = UA Leuk Est) AM) [facility] [id number] 09:51:00 Test Item Value Reference Range Interpretation Comments UA Glucose (test code = UA Negative mg/dL Glucose) [facility] CMUJI5427-73-16 09:51:00 Test Item Value Reference Range Interpretation Comments UA Protein (test code = UA Negative mg/dL Protein) [facility] [id number] 09:51:00 Test Item Value Reference Range Interpretation Comments UA Spec Grav (test code = UA Spec Grav) 1.007 [facility] [id number] 09:51:00 Test Item Value Reference Range Interpretation Comments UA Turbidity (test code = Clear (03/10/14 3:51 UA Turbidity) AM) [facility] [id number] 09:51:00 Test Item Value Reference Range Interpretation Comments UA pH (test code = UA pH) 6.5 5.0-8.0 [facility] [id number] 09:51:00 Test Item Value Reference Range Interpretation Comments UA Color (test code = Yellow *NA*(03/10/14 UA Color) 3:51 AM) [facility] BXEWP0410-16-64 09:51:00 Test Item Value Reference Range Interpretation Comments UA Mucus (test code = UA Mucus) Few /LPF [facility] JCIKON2201-10-11 09:51:00 Test Item Value Reference Range Interpretation Comments UDS Note (test code = See Note 5*NA*(03/10/14 UDS Note) 3:51 AM) [facility] [id number] 09:51:00 Test Item Value Reference Range Interpretation Comments U Opiate Scr (test Negative *NA*(03/10/14 code = U Opiate Scr) 3:51 AM) [facility] SIZODR9775-91-90 09:51:00 Test Item Value Reference Range Interpretation Comments U Phencyc Scr (test Negative *NA*(03/10/14 code = U Phencyc Scr) 3:51 AM) [facility] [id number] 09:51:00 Test Item Value Reference Range Interpretation Comments U Cannab Scr (test Negative *NA*(03/10/14 code = U Cannab Scr) 3:51 AM) [facility] HJPXEC9506-28-37 09:51:00 Test Item Value Reference Range Interpretation Comments U Cocaine Scr (test Negative *NA*(03/10/14 code = U Cocaine Scr) 3:51 AM) [facility] UGNJBO5530-07-97 09:51:00 Test Item Value Reference Range Interpretation Comments U Benzodia Scr (test Negative *NA*(03/10/14 code = U Benzodia Scr) 3:51 AM) [facility] XLDPPJ4823-27-17 09:51:00 Test Item Value Reference Range Interpretation Comments U Amph Scr (test code Negative *NA*(03/10/14 = U Amph Scr) 3:51 AM) [facility] [id number] 09:51:00 Test Item Value Reference Range Interpretation Comments U Stacey Scr (test code Negative *NA*(03/10/14 = U Stacey Scr) 3:51 AM) [facility] CenterIlrjyhnVCJVTFPFTOIB4751-81-74 09:51:00 Test Item Value Reference Range Interpretation Comments AGAP (test code = AGAP) 11.3 10.0-20.0 [facility] CenterLxshldqLNEIZKWAGUYH4274-15-82 09:51:00 Test Item Value Reference Range Interpretation Comments A/G Ratio (test code = A/G Ratio) 1.5 0.7-1.6 [facility] CenterKfaswyiXQAEICDDMXHC3546-43-49 09:51:00 Test Item Value Reference Range Interpretation Comments B/C Ratio (test code = B/C Ratio) 21 6-25 [facility] CenterUlygmxkQCQZQYSKYHJL4047-11-59 09:51:00 Test Item Value Reference Range Interpretation Comments Globulin (test code = Globulin) 2.5 2.0-4.0 [facility] CenterAiurrrmKIKWXLFFKINW5844-93-77 09:51:00 Test Item Value Reference Range Interpretation Comments eGFR (test code = eGFR) 79 [facility] CenterDsetenjVKVBRGKMFNGN6156-00-23 09:51:00 Test Item Value Reference Range Interpretation Comments AST (test code = AST) 17 See_Comment [Auto mated message] The system which ge nerated this result transmit dora reference range : <=37. The reference range was not used to interpr et this result as merritt l/abnormal. [facility] CenterYspwjnxQXXTLPTKLSTK0859-93-92 09:51:00 Test Item Value Reference Range Interpretation Comments ALT (test code = ALT) 31 See_Comment [Auto mated message] The system which ge nerated this result transmit dora reference range : <=65. The reference range was not used to interpr et this result as merritt l/abnormal. [facility] CenterTbkchjnEDKVONXELIGO3772-22-33 09:51:00 Test Item Value Reference Range Interpretation Comments Bili Total (test code = Bili Total) 0.3 0.2-1.3 [facility] CenterLcuwmmgEFOHWHBJBVVO2276-98-36 09:51:00 Test Item Value Reference Range Interpretation Comments Alk Phos (test code = Alk Phos) 63 39-136 [facility] CenterCnledmiGIMRCMKBOZKD1539-77-21 09:51:00 Test Item Value Reference Range Interpretation Comments Calcium Lvl (test code = Calcium Lvl) 8.7 8.5-10.5 [facility] CenterFztwutvKXCRWRWFFRWG4538-24-06 09:51:00 Test Item Value Reference Range Interpretation Comments Total Protein (test code = Total 6.2 6.4-8.4 Protein) [facility] CenterXqttbodNXWHEKLEGVTZ4439-27-32 09:51:00 Test Item Value Reference Range Interpretation Comments Albumin Lvl (test code = Albumin Lvl) 3.7 3.5-5.0 [facility] CenterOqenpzcQCMPYSHOFPFV8648-45-25 09:51:00 Test Item Value Reference Range Interpretation Comments Sodium Lvl (test code = Sodium Lvl) 143 135-145 [facility] CenterSmpkegrMHFIQTKYCHYT7569-60-18 09:51:00 Test Item Value Reference Range Interpretation Comments Creatinine Lvl (test code = Creatinine 0.8 0.5-1.4 Lvl) [facility] CenterRbbluocESMIVVLUBXQR2380-46-57 09:51:00 Test Item Value Reference Range Interpretation Comments BUN (test code = BUN) 17 7-22 [facility] CenterGvbgpdpDOZEPJVHIVQL9719-79-18 09:51:00 Test Item Value Reference Range Interpretation Comments Glucose Lvl (test code = Glucose Lvl) 118 70-99 [facility] CenterLvwqmhyMKBRFLATQQQY2873-58-06 09:51:00 Test Item Value Reference Range Interpretation Comments Potassium Lvl (test code = Potassium 3.3 3.5-5.1 Lvl) [facility] CenterJbtecvxLTMOZKDVJTBL8282-44-91 09:51:00 Test Item Value Reference Range Interpretation Comments CO2 (test code = CO2) 26 24-32 [facility] CenterBotgzfcNFNVPZQSUNDA2791-41-95 09:51:00 Test Item Value Reference Range Interpretation Comments Chloride Lvl (test code = Chloride Lvl) 109 95-109 [facility]aBushfycUKSHRTYFDC4591-68-10 09:51:00 Test Item Value Reference Range Interpretation Comments PT (test code = PT) 13.3 s 12.0-14.7 [facility]aQnykjbwKUCJGUWSMA6774-75-19 09:51:00 Test Item Value Reference Range Interpretation Comments INR (test code = INR) 1.01 0.85-1.17 [facility]aSjshbctQWLCAMTESR4391-94-69 09:51:00 Test Item Value Reference Range Interpretation Comments PTT (test code = PTT) 29.4 s 22.9-35.8 [facility] CenterAhdbyaeREEOFF2408-05-21 09:51:00 Test Item Value Reference Range Interpretation Comments CHD Risk (test code = CHD Risk) 2.72 3.90-5.80 [facility] CenterExvirwjTRBTPJ3260-39-45 09:51:00 Test Item Value Reference Range Interpretation Comments LDL (Calculated) (test code = LDL 62 (Calculated)) [facility] CenterSaxwsumBDYYPQ0404-79-72 09:51:00 Test Item Value Reference Range Interpretation Comments VLDL (test code = VLDL) 17 [facility] CenterVbydrwgOHGJYO1292-84-73 09:51:00 Test Item Value Reference Range Interpretation Comments HDL (test code = HDL) 46 [facility] CenterRwusetjZOKRXH4878-21-32 09:51:00 Test Item Value Reference Range Interpretation Comments Chol (test code = Chol) 125 [facility] CenterPolrfhpQJKFLW4555-48-64 09:51:00 Test Item Value Reference Range Interpretation Comments Trig (test code = Trig) 83 [facility] VFNCUFJCC1421-28-55 09:51:00 Test Item Value Reference Range Interpretation Comments Hgb A1C (test code = Hgb A1C) 6.6 [facility] AND [id number] 09:51:00 Test Item Value Reference Range Interpretation Comments UA Urobilinogen (test code = UA <=1.0 mg/dL 0.1-1.0 Urobilinogen) [facility] AND [id number] 09:51:00 Test Item Value Reference Range Interpretation Comments UA Ketones (test code = UA Negative mg/dL Ketones) [facility] [id number] 09:51:00 Test Item Value Reference Range Interpretation Comments UA Bili (test code = Negative *NA*(03/10/14 UA Bili) 3:51 AM) [facility] AND [id number] 09:51:00 Test Item Value Reference Range Interpretation Comments UA Sq Epi (test code = UA Sq Epi) Few /LPF [facility] AND [id number] 09:51:00 Test Item Value Reference Range Interpretation Comments UA Blood (test code = Negative (03/10/14 3:51 UA Blood) AM) [facility] AND [id number] 09:51:00 Test Item Value Reference Range Interpretation Comments UA Nitrite (test code Negative (03/10/14 3:51 = UA Nitrite) AM) [facility] AND [id number] 09:51:00 Test Item Value Reference Range Interpretation Comments UA Leuk Est (test Negative (03/10/14 3:51 code = UA Leuk Est) AM) [facility] AND [id number] 09:51:00 Test Item Value Reference Range Interpretation Comments UA Glucose (test code = UA Negative mg/dL Glucose) [facility] AND [id number] 09:51:00 Test Item Value Reference Range Interpretation Comments UA Protein (test code = UA Negative mg/dL Protein) [facility] AND [id number] 09:51:00 Test Item Value Reference Range Interpretation Comments UA Spec Grav (test code = UA Spec Grav) 1.007 [facility] AND [id number] 09:51:00 Test Item Value Reference Range Interpretation Comments UA Turbidity (test code = Clear (03/10/14 3:51 UA Turbidity) AM) [facility] AND [id number] 09:51:00 Test Item Value Reference Range Interpretation Comments UA pH (test code = UA pH) 6.5 5.0-8.0 [facility] AND [id number] 09:51:00 Test Item Value Reference Range Interpretation Comments UA Color (test code = Yellow *NA*(03/10/14 UA Color) 3:51 AM) [facility] AND [id number] 09:51:00 Test Item Value Reference Range Interpretation Comments UA Mucus (test code = UA Mucus) Few /LPF [facility] CenterGvwlvydBROMGGMDXVNE7554-70-13 08:00:00 Test Item Value Reference Range Interpretation Comments Potassium Lvl (test code = Potassium 3.6 3.5-5.1 Lvl) [facility] CenterXjknvlmAVCATNMGAWJY5462-00-62 08:00:00 Test Item Value Reference Range Interpretation Comments Glucose Lvl (test code = Glucose Lvl) 132 70-99 [facility] CenterPpnnxiwVWKQGLVWTVJK9403-02-47 08:00:00 Test Item Value Reference Range Interpretation Comments Creatinine Lvl (test code = Creatinine 0.9 0.5-1.4 Lvl) [facility] CenterSmfaxfuCZLAESAQLJGP3022-34-83 08:00:00 Test Item Value Reference Range Interpretation Comments BUN (test code = BUN) 17 7-22 [facility] CenterXqdlzhiWLPOLTSTBSMR8818-23-65 08:00:00 Test Item Value Reference Range Interpretation Comments Sodium Lvl (test code = Sodium Lvl) 143 135-145 [facility] CenterUlalnybXMORXOQCIMXJ2703-13-44 08:00:00 Test Item Value Reference Range Interpretation Comments CO2 (test code = CO2) 22 24-32 [facility] CenterLqglateVSKYGZQIWOJI7133-47-48 08:00:00 Test Item Value Reference Range Interpretation Comments Chloride Lvl (test code = Chloride Lvl) 108 95-109 [facility] CenterLccaqtxIMZNNIUAGYAM4434-33-09 08:00:00 Test Item Value Reference Range Interpretation Comments Calcium Lvl (test code = Calcium Lvl) 8.5 8.5-10.5 [facility] CenterWelyfccCIHMKCEDGAZW6098-08-66 08:00:00 Test Item Value Reference Range Interpretation Comments eGFR (test code = eGFR) 69 [facility] CenterXhnrqlwZWWZIEGOXNNS4772-09-52 08:00:00 Test Item Value Reference Range Interpretation Comments AGAP (test code = AGAP) 16.6 10.0-20.0 [facility] CenterVboenulOQTMXRCSWE3044-37-67 08:00:00 Test Item Value Reference Range Interpretation Comments Monocytes # (test code 0.9 See_Comment [Aut omated message] The = Monocytes #) system which generated this result tra nsmitted reference range : <=0.8. The reference r rajeev was not used to int erpret this result as normal/abnormal . [facility] CenterApgibshDMCODPMTXR2770-07-42 08:00:00 Test Item Value Reference Range Interpretation Comments Eosinophils # (test code 0.1 See_Comment [A utomated message] The = Eosinophils #) system whic h generated this result tra nsmitted reference range : <=0.5. The reference r rajeev was not used to int erpret this result as normal/abnormal . [facility] CenterIqvxtpaDCPQUUOBNG6641-93-18 08:00:00 Test Item Value Reference Range Interpretation Comments Lymphocytes # (test code = Lymphocytes 2.4 1.0-5.5 #) [facility] CenterUxkssmkRQHABNDGHN1359-27-73 08:00:00 Test Item Value Reference Range Interpretation Comments Basophils (test code = 0.5 See_Comment [Aut omated message] The Basophils) system which ge nerated this result tra nsmitted reference range : <=1.0. The reference r rajeev was not used to int erpret this result as normal/abnormal . [facility] CenterWcxseaoVTSZUMPVQO2333-02-97 08:00:00 Test Item Value Reference Range Interpretation Comments Segs-Bands # (test code = Segs-Bands #) 5.5 1.5-8.1 [facility] CenterEcimnwbNOFDOXUIFL6344-87-29 08:00:00 Test Item Value Reference Range Interpretation Comments Eosinophils (test code = 1.1 See_Comment [A utomated message] The Eosinophils) system which ge nerated this result tra nsmitted reference range : <=4.0. The reference r rajeev was not used to int erpret this result as normal/abnormal . [facility] CenterHmpcvfaFPODWOYDHZ0026-09-89 08:00:00 Test Item Value Reference Range Interpretation Comments Monocytes (test code = Monocytes) 9.9 2.0-12.0 [facility] CenterNbsiwboAJSHSZQRPZ4515-07-36 08:00:00 Test Item Value Reference Range Interpretation Comments Lymphocytes (test code = Lymphocytes) 26.5 20.0-40.0 [facility] CenterMsgmrfzCFMPCEVMOJ4696-30-67 08:00:00 Test Item Value Reference Range Interpretation Comments Segs (test code = Segs) 62.0 45.0-75.0 [facility] CenterNjrgqpjAZJGHVBFQZ4151-01-04 08:00:00 Test Item Value Reference Range Interpretation Comments Platelet (test code = Platelet) 190 133-450 [facility] CenterPjzsgyqNVRUIJWDCW4227-22-19 08:00:00 Test Item Value Reference Range Interpretation Comments MPV (test code = MPV) 9.0 7.4-10.4 [facility] CenterMlmybfcGKJODVAMFH0978-08-21 08:00:00 Test Item Value Reference Range Interpretation Comments MCV (test code = MCV) 89.9 81.0-99.0 [facility] CenterPqditmyLFEUPILRCC6441-54-40 08:00:00 Test Item Value Reference Range Interpretation Comments Hct (test code = Hct) 32.9 36.0-48.0 [facility] CenterZiynjcjTKFMLWUHPM1950-86-02 08:00:00 Test Item Value Reference Range Interpretation Comments RDW (test code = RDW) 12.7 11.5-14.5 [facility] CenterJahfcdsEWMUBMUTKU7714-37-46 08:00:00 Test Item Value Reference Range Interpretation Comments MCHC (test code = MCHC) 33.6 32.0-36.0 [facility] CenterCnhryalHUTHLRRMEV1289-97-99 08:00:00 Test Item Value Reference Range Interpretation Comments MCH (test code = MCH) 30.2 pg 27.0-31.0 [facility] CenterExrdebjXMQSCEKYTU6897-92-39 08:00:00 Test Item Value Reference Range Interpretation Comments WBC (test code = WBC) 8.9 3.7-10.4 [facility] CenterHolgovtQOMVYPOTVG1886-66-57 08:00:00 Test Item Value Reference Range Interpretation Comments Hgb (test code = Hgb) 11.1 12.0-16.0 [facility] CenterAnuysawJZNHAWVTBI7781-83-95 08:00:00 Test Item Value Reference Range Interpretation Comments RBC (test code = RBC) 3.66 4.20-5.40 [facility] CenterRteyxbaTEMGDPFBJANJ0182-66-70 08:00:00 Test Item Value Reference Range Interpretation Comments Potassium Lvl (test code = Potassium 3.6 3.5-5.1 Lvl) [facility] CenterDoauhpfXHWGMDCVWDAR4310-01-50 08:00:00 Test Item Value Reference Range Interpretation Comments Glucose Lvl (test code = Glucose Lvl) 132 70-99 [facility] CenterWxwjvbuLIZJZXAWSXFJ1065-44-56 08:00:00 Test Item Value Reference Range Interpretation Comments Creatinine Lvl (test code = Creatinine 0.9 0.5-1.4 Lvl) [facility]YaxsdfrPXZSHZBAWKSD6827-57-95 08:00:00 Test Item Value Reference Range Interpretation Comments BUN (test code = BUN) 17 7-22 [facility] CenterHbgwyqmBQYMAUUKGGXN3357-89-18 08:00:00 Test Item Value Reference Range Interpretation Comments Sodium Lvl (test code = Sodium Lvl) 143 135-145 [facility] CenterNvmgavtTYEODTHTOVVO8407-14-99 08:00:00 Test Item Value Reference Range Interpretation Comments CO2 (test code = CO2) 22 24-32 [facility] CenterRrivifkGJUEPFOXXRKP1268-95-15 08:00:00 Test Item Value Reference Range Interpretation Comments Chloride Lvl (test code = Chloride Lvl) 108 95-109 [facility] CenterWbdrszgIJBEGXNTTVPO8854-93-65 08:00:00 Test Item Value Reference Range Interpretation Comments Calcium Lvl (test code = Calcium Lvl) 8.5 8.5-10.5 [facility] CenterLlmzpcrWJQEAQDUYSXK4275-60-73 08:00:00 Test Item Value Reference Range Interpretation Comments eGFR (test code = eGFR) 69 [facility] CenterVrapxdhTAKZPDFCVBVQ1985-73-32 08:00:00 Test Item Value Reference Range Interpretation Comments AGAP (test code = AGAP) 16.6 10.0-20.0 [facility] CenterWmfcaoiPVQHAPTJSW6449-67-09 08:00:00 Test Item Value Reference Range Interpretation Comments Monocytes # (test code 0.9 See_Comment [Aut omated message] The = Monocytes #) system which generated this result tra nsmitted reference range : <=0.8. The reference r rajeev was not used to int erpret this result as normal/abnormal . [facility] CenterVqdbgkeKPFBAMVQTA7642-90-10 08:00:00 Test Item Value Reference Range Interpretation Comments Eosinophils # (test code 0.1 See_Comment [A utomated message] The = Eosinophils #) system whic h generated this result tra nsmitted reference range : <=0.5. The reference r rajeev was not used to int erpret this result as normal/abnormal . [facility] CenterJbptgptASVQOELPDO1707-43-13 08:00:00 Test Item Value Reference Range Interpretation Comments Lymphocytes # (test code = Lymphocytes 2.4 1.0-5.5 #) [facility] CenterUyfdxnxHPJKASMKCO8054-41-52 08:00:00 Test Item Value Reference Range Interpretation Comments Basophils (test code = 0.5 See_Comment [Aut omated message] The Basophils) system which ge nerated this result tra nsmitted reference range : <=1.0. The reference r rajeev was not used to int erpret this result as normal/abnormal . [facility] CenterLkbdzumSHUTDJBEDS8458-53-22 08:00:00 Test Item Value Reference Range Interpretation Comments Segs-Bands # (test code = Segs-Bands #) 5.5 1.5-8.1 [facility] CenterBjtiezrEGCGJMLRBW3051-86-57 08:00:00 Test Item Value Reference Range Interpretation Comments Eosinophils (test code = 1.1 See_Comment [A utomated message] The Eosinophils) system which ge nerated this result tra nsmitted reference range : <=4.0. The reference r rajeev was not used to int erpret this result as normal/abnormal . [facility] CenterPudujslLHFFVBWLGT6263-54-31 08:00:00 Test Item Value Reference Range Interpretation Comments Monocytes (test code = Monocytes) 9.9 2.0-12.0 [facility] CenterTswlwssHGWXQUPRLI5139-59-85 08:00:00 Test Item Value Reference Range Interpretation Comments Lymphocytes (test code = Lymphocytes) 26.5 20.0-40.0 [facility] CenterFdmpuyhEUFDNHWNYL9370-40-56 08:00:00 Test Item Value Reference Range Interpretation Comments Segs (test code = Segs) 62.0 45.0-75.0 [facility] CenterAcdwykzFTCIYUHUSE3532-19-52 08:00:00 Test Item Value Reference Range Interpretation Comments Platelet (test code = Platelet) 190 133-450 [facility] CenterWtuccooIARSTXPDIW3318-51-43 08:00:00 Test Item Value Reference Range Interpretation Comments MPV (test code = MPV) 9.0 7.4-10.4 [facility] CenterXqesfvzZALMZJNQMY8005-63-78 08:00:00 Test Item Value Reference Range Interpretation Comments MCV (test code = MCV) 89.9 81.0-99.0 [facility] CenterLogbzbmWXUCGLDFDX8338-05-88 08:00:00 Test Item Value Reference Range Interpretation Comments Hct (test code = Hct) 32.9 36.0-48.0 [facility] CenterKtiessaBFFYFQQCPF9758-21-24 08:00:00 Test Item Value Reference Range Interpretation Comments RDW (test code = RDW) 12.7 11.5-14.5 [facility] CenterHecscwlCCDZCZTNCA4525-51-60 08:00:00 Test Item Value Reference Range Interpretation Comments MCHC (test code = MCHC) 33.6 32.0-36.0 [facility] CenterMjxldewJNRUNLIGFK6214-27-91 08:00:00 Test Item Value Reference Range Interpretation Comments MCH (test code = MCH) 30.2 pg 27.0-31.0 [facility] CenterRlbythsYJUKYUXBRX0467-96-93 08:00:00 Test Item Value Reference Range Interpretation Comments WBC (test code = WBC) 8.9 3.7-10.4 [facility] CenterEdybksmXSFSMBRKPT3159-70-08 08:00:00 Test Item Value Reference Range Interpretation Comments Hgb (test code = Hgb) 11.1 12.0-16.0 [facility] CenterXjgptqrCWFRKSISAT4288-69-55 08:00:00 Test Item Value Reference Range Interpretation Comments RBC (test code = RBC) 3.66 4.20-5.40 [facility] CenterDmigojsOSTXTHASIEHW5402-33-65 08:00:00 Test Item Value Reference Range Interpretation Comments Potassium Lvl (test code = Potassium 3.6 3.5-5.1 Lvl) [facility] CenterQrqewhkNGZVNXAJBKRA6657-33-88 08:00:00 Test Item Value Reference Range Interpretation Comments Glucose Lvl (test code = Glucose Lvl) 132 70-99 [facility] CenterSqsaoxsCHXYWTJRSFVS5000-74-53 08:00:00 Test Item Value Reference Range Interpretation Comments Creatinine Lvl (test code = Creatinine 0.9 0.5-1.4 Lvl) [facility] CenterRmvlbkaXEXUAPSGGTDC0270-15-61 08:00:00 Test Item Value Reference Range Interpretation Comments BUN (test code = BUN) 17 7-22 [facility] CenterHeuxgdrDFSPXLUYTTHI7363-53-90 08:00:00 Test Item Value Reference Range Interpretation Comments Sodium Lvl (test code = Sodium Lvl) 143 135-145 [facility] CenterMzgatzkVZNYJHSVCVHO4365-48-98 08:00:00 Test Item Value Reference Range Interpretation Comments CO2 (test code = CO2) 22 24-32 [facility] CenterNivjvvvFOBMHKHJOFFH5773-97-32 08:00:00 Test Item Value Reference Range Interpretation Comments Chloride Lvl (test code = Chloride Lvl) 108 95-109 [facility] CenterWqupkudBOSXHRVCMDIO6066-36-59 08:00:00 Test Item Value Reference Range Interpretation Comments Calcium Lvl (test code = Calcium Lvl) 8.5 8.5-10.5 [facility] CenterJdwrywnLOKICUWSOESS5308-08-83 08:00:00 Test Item Value Reference Range Interpretation Comments eGFR (test code = eGFR) 69 [facility] CenterXdafzxaRUYCLZQAXJJZ0604-95-76 08:00:00 Test Item Value Reference Range Interpretation Comments AGAP (test code = AGAP) 16.6 10.0-20.0 [facility] CenterYssdwzoJHLUJDQZVU3638-20-80 08:00:00 Test Item Value Reference Range Interpretation Comments Monocytes # (test code 0.9 See_Comment [Aut omated message] The = Monocytes #) system which generated this result tra nsmitted reference range : <=0.8. The reference r rajeev was not used to int erpret this result as normal/abnormal . [facility] CenterQpuelazOIIGCDSDWB7367-83-50 08:00:00 Test Item Value Reference Range Interpretation Comments Eosinophils # (test code 0.1 See_Comment [A utomated message] The = Eosinophils #) system whic h generated this result tra nsmitted reference range : <=0.5. The reference r rajeev was not used to int erpret this result as normal/abnormal . [facility] CenterWlirkyvOEUPUTLGRK0384-62-23 08:00:00 Test Item Value Reference Range Interpretation Comments Lymphocytes # (test code = Lymphocytes 2.4 1.0-5.5 #) [facility] CenterSascpiaPCCMOWQBPM4433-98-09 08:00:00 Test Item Value Reference Range Interpretation Comments Basophils (test code = 0.5 See_Comment [Aut omated message] The Basophils) system which ge nerated this result tra nsmitted reference range : <=1.0. The reference r rajeev was not used to int erpret this result as normal/abnormal . [facility] CenterNqfvalcZWQZUFGQSU3005-42-59 08:00:00 Test Item Value Reference Range Interpretation Comments Segs-Bands # (test code = Segs-Bands #) 5.5 1.5-8.1 [facility] CenterFiynibjMKVQKMYVKN4783-71-70 08:00:00 Test Item Value Reference Range Interpretation Comments Eosinophils (test code = 1.1 See_Comment [A utomated message] The Eosinophils) system which ge nerated this result tra nsmitted reference range : <=4.0. The reference r rajeev was not used to int erpret this result as normal/abnormal . [facility] CenterFvfodvqYSDIJVTXQC4705-96-01 08:00:00 Test Item Value Reference Range Interpretation Comments Monocytes (test code = Monocytes) 9.9 2.0-12.0 [facility] CenterPfzusmzULDQALCZIR2356-65-77 08:00:00 Test Item Value Reference Range Interpretation Comments Lymphocytes (test code = Lymphocytes) 26.5 20.0-40.0 [facility] CenterCpnofziFOBCRVIETM7614-89-13 08:00:00 Test Item Value Reference Range Interpretation Comments Segs (test code = Segs) 62.0 45.0-75.0 [facility] CenterEmadtjjELYHNWSTEK5765-94-58 08:00:00 Test Item Value Reference Range Interpretation Comments Platelet (test code = Platelet) 190 133-450 [facility] CenterJbpsjnjYGGOOLNMUH1248-35-75 08:00:00 Test Item Value Reference Range Interpretation Comments MPV (test code = MPV) 9.0 7.4-10.4 [facility] CenterNembmwjMSWTJEJQHM8715-11-80 08:00:00 Test Item Value Reference Range Interpretation Comments MCV (test code = MCV) 89.9 81.0-99.0 [facility] CenterJqxlzhbXNHVFORJIM8465-90-13 08:00:00 Test Item Value Reference Range Interpretation Comments Hct (test code = Hct) 32.9 36.0-48.0 [facility] CenterFaicettEDOJTOXVMN2866-91-84 08:00:00 Test Item Value Reference Range Interpretation Comments RDW (test code = RDW) 12.7 11.5-14.5 [facility] CenterJodekqxIEUOAACKXA7993-38-55 08:00:00 Test Item Value Reference Range Interpretation Comments MCHC (test code = MCHC) 33.6 32.0-36.0 [facility] CenterGnwjxhyCXDBBRDFMF3664-58-41 08:00:00 Test Item Value Reference Range Interpretation Comments MCH (test code = MCH) 30.2 pg 27.0-31.0 [facility] CenterRdlbtixRPDCDOADRE1634-33-44 08:00:00 Test Item Value Reference Range Interpretation Comments WBC (test code = WBC) 8.9 3.7-10.4 [facility] CenterJepevrkXTOGGQTZFV9261-15-67 08:00:00 Test Item Value Reference Range Interpretation Comments Hgb (test code = Hgb) 11.1 12.0-16.0 [facility] CenterEgkxndkZPZWELFSCC8244-51-00 08:00:00 Test Item Value Reference Range Interpretation Comments RBC (test code = RBC) 3.66 4.20-5.40 [facility] CenterTotlcwbDSURHOCIGGDT9845-52-96 08:00:00 Test Item Value Reference Range Interpretation Comments Potassium Lvl (test code = Potassium 3.6 3.5-5.1 Lvl) [facility] CenterFzqcmwnYQOYVWWTDCLB5817-41-33 08:00:00 Test Item Value Reference Range Interpretation Comments Glucose Lvl (test code = Glucose Lvl) 132 70-99 [facility] CenterMygebmzIQVJKDJIVIBI0164-78-44 08:00:00 Test Item Value Reference Range Interpretation Comments Creatinine Lvl (test code = Creatinine 0.9 0.5-1.4 Lvl) [facility] CenterEiiyfudVUVDEVNZVPZW5782-75-19 08:00:00 Test Item Value Reference Range Interpretation Comments BUN (test code = BUN) 17 7-22 [facility] CenterXcensmuWEWPAWEWQIWN1685-60-91 08:00:00 Test Item Value Reference Range Interpretation Comments Sodium Lvl (test code = Sodium Lvl) 143 135-145 [facility] CenterGcafugqFGUHMZEKXQQW6838-71-67 08:00:00 Test Item Value Reference Range Interpretation Comments CO2 (test code = CO2) 22 24-32 [facility] CenterWvmdabmERGFSBAMCTAG4644-72-00 08:00:00 Test Item Value Reference Range Interpretation Comments Chloride Lvl (test code = Chloride Lvl) 108 95-109 [facility] CenterQbrowlrYQZGFPDLJNIW9153-64-44 08:00:00 Test Item Value Reference Range Interpretation Comments Calcium Lvl (test code = Calcium Lvl) 8.5 8.5-10.5 [facility] CenterLtvvpqaSHCRFYZKCLXA7863-53-41 08:00:00 Test Item Value Reference Range Interpretation Comments eGFR (test code = eGFR) 69 [facility] CenterOfzxynhIREAEFWKDPHV1836-83-54 08:00:00 Test Item Value Reference Range Interpretation Comments AGAP (test code = AGAP) 16.6 10.0-20.0 [facility] CenterFkmiolrPFABCBLUWO5406-46-17 08:00:00 Test Item Value Reference Range Interpretation Comments Monocytes # (test code 0.9 See_Comment [Aut omated message] The = Monocytes #) system which generated this result tra nsmitted reference range : <=0.8. The reference r rajeev was not used to int erpret this result as normal/abnormal . [facility] CenterHrbomsxEBFSAQDUMU0953-88-82 08:00:00 Test Item Value Reference Range Interpretation Comments Eosinophils # (test code 0.1 See_Comment [A utomated message] The = Eosinophils #) system whic h generated this result tra nsmitted reference range : <=0.5. The reference r rajeev was not used to int erpret this result as normal/abnormal . [facility] CenterCawjfjcZHXMRMIWQL0303-87-90 08:00:00 Test Item Value Reference Range Interpretation Comments Lymphocytes # (test code = Lymphocytes 2.4 1.0-5.5 #) [facility] CenterXwkckzwDUDIQMSRLQ7570-28-80 08:00:00 Test Item Value Reference Range Interpretation Comments Basophils (test code = 0.5 See_Comment [Aut omated message] The Basophils) system which ge nerated this result tra nsmitted reference range : <=1.0. The reference r rajeev was not used to int erpret this result as normal/abnormal . [facility] CenterNhpjyysILCLLHXBMH2175-57-69 08:00:00 Test Item Value Reference Range Interpretation Comments Segs-Bands # (test code = Segs-Bands #) 5.5 1.5-8.1 [facility] CenterRxuovkrVWPKQGLKZL5417-83-08 08:00:00 Test Item Value Reference Range Interpretation Comments Eosinophils (test code = 1.1 See_Comment [A utomated message] The Eosinophils) system which ge nerated this result tra nsmitted reference range : <=4.0. The reference r rajeev was not used to int erpret this result as normal/abnormal . [facility] CenterJivmtidYKJGHFSNHP2980-01-75 08:00:00 Test Item Value Reference Range Interpretation Comments Monocytes (test code = Monocytes) 9.9 2.0-12.0 [facility] CenterDipwykeGOEIDRPHGF1548-14-16 08:00:00 Test Item Value Reference Range Interpretation Comments Lymphocytes (test code = Lymphocytes) 26.5 20.0-40.0 [facility] CenterZqphmodLDWNYNOBBA7380-54-69 08:00:00 Test Item Value Reference Range Interpretation Comments Segs (test code = Segs) 62.0 45.0-75.0 [facility] CenterLazzeewNKNLTBIVKA0029-66-38 08:00:00 Test Item Value Reference Range Interpretation Comments Platelet (test code = Platelet) 190 133-450 [facility] CenterYltnikvQPBYGFCKLS8496-22-65 08:00:00 Test Item Value Reference Range Interpretation Comments MPV (test code = MPV) 9.0 7.4-10.4 [facility] CenterGmyuebgIQBLWIKNMI0438-65-38 08:00:00 Test Item Value Reference Range Interpretation Comments MCV (test code = MCV) 89.9 81.0-99.0 [facility] CenterDtwooptCEWWIVSSAU9830-47-20 08:00:00 Test Item Value Reference Range Interpretation Comments Hct (test code = Hct) 32.9 36.0-48.0 [facility] CenterGzwdpiwKXRLHIZHRO4874-66-79 08:00:00 Test Item Value Reference Range Interpretation Comments RDW (test code = RDW) 12.7 11.5-14.5 [facility] CenterOssexbzLYYHSTPKHZ8919-49-55 08:00:00 Test Item Value Reference Range Interpretation Comments MCHC (test code = MCHC) 33.6 32.0-36.0 [facility] CenterVnsrskkALSQFIPKWR5278-66-45 08:00:00 Test Item Value Reference Range Interpretation Comments MCH (test code = MCH) 30.2 pg 27.0-31.0 [facility] CenterAonxbjpEXHDKQRNFP4801-95-34 08:00:00 Test Item Value Reference Range Interpretation Comments WBC (test code = WBC) 8.9 3.7-10.4 [facility] CenterUvxjejpGNDGLEEUBG0788-72-56 08:00:00 Test Item Value Reference Range Interpretation Comments Hgb (test code = Hgb) 11.1 12.0-16.0 [facility] CenterSdatztvWWIFZRSFDM5995-31-29 08:00:00 Test Item Value Reference Range Interpretation Comments RBC (test code = RBC) 3.66 4.20-5.40 [facility] CenterFzttqmaKDANYGKJFSYZ5648-45-90 08:00:00 Test Item Value Reference Range Interpretation Comments Potassium Lvl (test code = Potassium 3.6 3.5-5.1 Lvl) [facility] CenterHbfnwnyVQWTSAGUICHU8937-54-10 08:00:00 Test Item Value Reference Range Interpretation Comments Glucose Lvl (test code = Glucose Lvl) 132 70-99 [facility] CenterGnvzvcfKPTHFCQUZYHF1780-23-28 08:00:00 Test Item Value Reference Range Interpretation Comments Creatinine Lvl (test code = Creatinine 0.9 0.5-1.4 Lvl) [facility] CenterZgnqzkaFIEUTAXUAYMI9264-09-59 08:00:00 Test Item Value Reference Range Interpretation Comments BUN (test code = BUN) 17 7-22 [facility] CenterBnjmuahIFPWSDFFKORB5417-06-74 08:00:00 Test Item Value Reference Range Interpretation Comments Sodium Lvl (test code = Sodium Lvl) 143 135-145 [facility] CenterDirvayeZNPKMJRLKBMK2037-62-63 08:00:00 Test Item Value Reference Range Interpretation Comments CO2 (test code = CO2) 22 24-32 [facility] CenterXjlouehXZPMTPGRKQAX9419-78-67 08:00:00 Test Item Value Reference Range Interpretation Comments Chloride Lvl (test code = Chloride Lvl) 108 95-109 [facility] CenterZahaeenARJIPEOMAEBB0922-80-43 08:00:00 Test Item Value Reference Range Interpretation Comments Calcium Lvl (test code = Calcium Lvl) 8.5 8.5-10.5 [facility] CenterToocenkMZNCGRNPJETR2171-02-04 08:00:00 Test Item Value Reference Range Interpretation Comments eGFR (test code = eGFR) 69 [facility] CenterFlrwerkPNXZMYYAMDIU2593-34-32 08:00:00 Test Item Value Reference Range Interpretation Comments AGAP (test code = AGAP) 16.6 10.0-20.0 [facility] CenterSujrmwtHZKAJBBMAV8372-90-33 08:00:00 Test Item Value Reference Range Interpretation Comments Monocytes # (test code 0.9 See_Comment [Aut omated message] The = Monocytes #) system which generated this result tra nsmitted reference range : <=0.8. The reference r rajeev was not used to int erpret this result as normal/abnormal . [facility] CenterEedkgcvPCGBBXGVTQ3878-27-85 08:00:00 Test Item Value Reference Range Interpretation Comments Eosinophils # (test code 0.1 See_Comment [A utomated message] The = Eosinophils #) system whic h generated this result tra nsmitted reference range : <=0.5. The reference r rajeev was not used to int erpret this result as normal/abnormal . [facility] CenterKtuokeiQALICEXACL4629-30-81 08:00:00 Test Item Value Reference Range Interpretation Comments Lymphocytes # (test code = Lymphocytes 2.4 1.0-5.5 #) [facility] CenterFnjbsjbPRGJTQFLTJ9032-02-53 08:00:00 Test Item Value Reference Range Interpretation Comments Basophils (test code = 0.5 See_Comment [Aut omated message] The Basophils) system which ge nerated this result tra nsmitted reference range : <=1.0. The reference r rajeev was not used to int erpret this result as normal/abnormal . [facility] CenterHmiugsmFZDGIJRMTX9394-10-40 08:00:00 Test Item Value Reference Range Interpretation Comments Segs-Bands # (test code = Segs-Bands #) 5.5 1.5-8.1 [facility] CenterTkbkzonLOLSFSVICF6011-60-11 08:00:00 Test Item Value Reference Range Interpretation Comments Eosinophils (test code = 1.1 See_Comment [A utomated message] The Eosinophils) system which ge nerated this result tra nsmitted reference range : <=4.0. The reference r rajeev was not used to int erpret this result as normal/abnormal . [facility] CenterBkqwackGFSHWCBABY6372-35-46 08:00:00 Test Item Value Reference Range Interpretation Comments Monocytes (test code = Monocytes) 9.9 2.0-12.0 [facility] CenterDkedrgyKQWZBYLAZQ3986-87-69 08:00:00 Test Item Value Reference Range Interpretation Comments Lymphocytes (test code = Lymphocytes) 26.5 20.0-40.0 [facility] CenterXhvlvbiXYXUDBPVWF9519-73-35 08:00:00 Test Item Value Reference Range Interpretation Comments Segs (test code = Segs) 62.0 45.0-75.0 [facility] CenterRkqcdpqLVELVEFPMJ0296-50-62 08:00:00 Test Item Value Reference Range Interpretation Comments Platelet (test code = Platelet) 190 133-450 [facility] CenterVwiwzsuFDNPVZXLEA3284-46-56 08:00:00 Test Item Value Reference Range Interpretation Comments MPV (test code = MPV) 9.0 7.4-10.4 [facility] CenterMuswxgwPCSYLBZKNN8806-10-36 08:00:00 Test Item Value Reference Range Interpretation Comments MCV (test code = MCV) 89.9 81.0-99.0 [facility] CenterAalckzoLSPPDVMGHL2672-09-09 08:00:00 Test Item Value Reference Range Interpretation Comments Hct (test code = Hct) 32.9 36.0-48.0 [facility] CenterSgrwaqzJKIPLQOKPU8145-27-33 08:00:00 Test Item Value Reference Range Interpretation Comments RDW (test code = RDW) 12.7 11.5-14.5 [facility] CenterBintbtrDVFYGLOFMP3231-59-94 08:00:00 Test Item Value Reference Range Interpretation Comments MCHC (test code = MCHC) 33.6 32.0-36.0 [facility]EvhxmymLYUONECQTY1159-70-58 08:00:00 Test Item Value Reference Range Interpretation Comments MCH (test code = MCH) 30.2 pg 27.0-31.0 [facility] CenterMrmhsnqMBHVTIEYSY1870-29-08 08:00:00 Test Item Value Reference Range Interpretation Comments WBC (test code = WBC) 8.9 3.7-10.4 [facility]aRgsoofiZYTHMTVBNL4915-04-10 08:00:00 Test Item Value Reference Range Interpretation Comments Hgb (test code = Hgb) 11.1 12.0-16.0 [facility] CenterNjbvaqnXRFQJXNTSR2918-42-85 08:00:00 Test Item Value Reference Range Interpretation Comments RBC (test code = RBC) 3.66 4.20-5.40 [facility]BA[facility] - QGLJRUIQ5522-27-84 01:05:50 Test Item Value Reference Range Interpretation Comments U S pneumo Ag (test Negative (11/08/13 8:05 code = U S pneumo Ag) PM) [facility]ann[facility] - BLRSVZQD8967-33-93 01:05:50 Test Item Value Reference Range Interpretation Comments U S pneumo Ag (test Negative (11/08/13 8:05 code = U S pneumo Ag) PM) [facility] CenterannBACT[facility] - WKSFSCNS4797-63-24 01:05:50 Test Item Value Reference Range Interpretation Comments U S pneumo Ag (test Negative (11/08/13 8:05 code = U S pneumo Ag) PM) [facility] CenterannBACT[facility] - TPHSXJOM8278-27-61 01:05:50 Test Item Value Reference Range Interpretation Comments U S pneumo Ag (test Negative (11/08/13 8:05 code = U S pneumo Ag) PM) [facility] CenterannBACT[facility] - LRMXKLST0483-67-22 01:05:50 Test Item Value Reference Range Interpretation Comments U S pneumo Ag (test Negative (11/08/13 8:05 code = U S pneumo Ag) PM) [facility] CenterAnecwehEQPMSYOSOX1034-59-74 01:05:19 Test Item Value Reference Range Interpretation Comments ASO (test code = ASO) 39 See_Comment [Auto mated message] The system which ge nerated this result transmit dora reference range : <=408. The reference range was not used to interpr et this result as merritt l/abnormal. [facility] CenterAnpavlyRYMTYUHQBE0582-57-78 01:05:19 Test Item Value Reference Range Interpretation Comments ASO (test code = ASO) 39 See_Comment [Auto mated message] The system which ge nerated this result transmit dora reference range : <=408. The reference range was not used to interpr et this result as merritt l/abnormal. [facility]GyhqyioQWTXREYVNC4030-26-82 01:05:19 Test Item Value Reference Range Interpretation Comments ASO (test code = ASO) 39 See_Comment [Auto mated message] The system which ge nerated this result transmit dora reference range : <=408. The reference range was not used to interpr et this result as merritt l/abnormal. [facility] CenterJarxyeuNLSMLTYOXI1259-31-41 01:05:19 Test Item Value Reference Range Interpretation Comments ASO (test code = ASO) 39 See_Comment [Auto mated message] The system which ge nerated this result transmit dora reference range : <=408. The reference range was not used to interpr et this result as merritt l/abnormal. [facility] PwcknyvMRVLIVATEO1197-33-11 01:05:19 Test Item Value Reference Range Interpretation Comments ASO (test code = ASO) 39 See_Comment [Auto mated message] The system which ge nerated this result transmit dora reference range : <=408. The reference range was not used to interpr et this result as merritt l/abnormal. [facility]05 Test Item Value Reference Range Interpretation Comments Influ B (test code = Negative 7(11/08/13 8:00 Influ B) PM) [facility] [id number] 01:00:05 Test Item Value Reference Range Interpretation Comments Influ A (test code = Negative (11/08/13 8:00 Influ A) PM) [facility] [id number] 01:00:05 Test Item Value Reference Range Interpretation Comments Influ B (test code = Negative 7(11/08/13 8:00 Influ B) PM) [facility] [id number] 01:00:05 Test Item Value Reference Range Interpretation Comments Influ A (test code = Negative (11/08/13 8:00 Influ A) PM) [facility] [id number] 01:00:05 Test Item Value Reference Range Interpretation Comments Influ B (test code = Negative 7(11/08/13 8:00 Influ B) PM) [facility] MZYPQCIU9580-36-26 01:00:05 Test Item Value Reference Range Interpretation Comments Influ A (test code = Negative (11/08/13 8:00 Influ A) PM) [facility]2014-07-04 01:00:05 Test Item Value Reference Range Interpretation Comments Influ B (test code = Negative 7(11/08/13 8:00 Influ B) PM) [facility]2014-07-04 01:00:05 Test Item Value Reference Range Interpretation Comments Influ A (test code = Negative (11/08/13 8:00 Influ A) PM) [facility]2014-07-04 01:00:05 Test Item Value Reference Range Interpretation Comments Influ B (test code = Negative 7(11/08/13 8:00 Influ B) PM) [facility]2014-07-04 01:00:05 Test Item Value Reference Range Interpretation Comments Influ A (test code = Negative (11/08/13 8:00 Influ A) PM) [facility]2014-07-03 17:15:00 Test Item Value Reference Range Interpretation Comments Vitamin B12 Lvl (test code = Vitamin 246 572-2816 B12 Lvl) [facility] CenterKjzuoxrINAUXIBGCD1402-10-46 17:15:00 Test Item Value Reference Range Interpretation Comments WBC (test code = WBC) 12.9 3.7-10.4 [facility] CenterFpcveeuCOGISUACPC3131-80-70 17:15:00 Test Item Value Reference Range Interpretation Comments Sed Rate (test code = 5 See_Comment [Auto mated message] The Sed Rate) system which ge nerated this result transmit dora reference range : <=20. The reference range was not used to interpr et this result as merritt l/abnormal. [facility] CenterZnkmckfXMNEWPUQCF2361-12-37 17:15:00 Test Item Value Reference Range Interpretation Comments dRVV Ratio (test code = dRVV Ratio) 0.80 [facility] CenterBykewquSKMNBMEXHW7251-08-92 17:15:00 Test Item Value Reference Range Interpretation Comments Hex Phos N (test code Negative (11/08/13 12:15 = Hex Phos N) PM) [facility] CenterChrvrslLVOKXEGONE3138-70-83 17:15:00 Test Item Value Reference Range Interpretation Comments Lup Interp (test Negative for lupus code = Lup Interp) anticoagulant with all tests performed (dRVVT, and hexagonal phospholipid neutralization). CPT: 36323 [facility] CenterEuabbjkKNAAKGXRXD3085-20-94 17:15:00 Test Item Value Reference Range Interpretation Comments Protein C Func (test code = Protein C 125 72-147 Func) [facility] CenterEeyfknqXYWVXLYHTC4710-81-04 17:15:00 Test Item Value Reference Range Interpretation Comments Factor VIII (test code = Factor VIII) 257 50-242 [facility] CenterHkowxfhNWLEXTZSZO9188-95-29 17:15:00 Test Item Value Reference Range Interpretation Comments AT III Func (test code = AT III Func) 95 77-140 [facility] CenterLbcbwxmLYPKGXOOYU9057-01-46 17:15:00 Test Item Value Reference Range Interpretation Comments Protein S Func (test code = Protein S 103 54-137 Func) [facility] HospitalUuygauoXXVSIWQWPT3826-64-58 17:15:00 Test Item Value Reference Range Interpretation Comments JESSICA Interp (test code Pattern appears = JESSICA Interp) speckled [facility] HospitalGknawjqTGOMNVWRDE0135-52-91 17:15:00 Test Item Value Reference Range Interpretation Comments JESSICA Titer (test code = 1:80 *ABN*(11/08/13 JESSICA Titer) 12:15 PM) [facility] HospitalYkpmdjdOSRWUXVWGZ2789-15-01 17:15:00 Test Item Value Reference Range Interpretation Comments Beta2-Glycoprotein IgG (test code = no gt Beta2-Glycoprotein IgG) [facility] HospitalXmmorymECYGPFFKUM3867-90-83 17:15:00 Test Item Value Reference Range Interpretation Comments Beta2-Glycoprotein IgM (test code = 11.3 Beta2-Glycoprotein IgM) [facility] HospitalIgxqtqcXGAEQEVQPH5708-44-51 17:15:00 Test Item Value Reference Range Interpretation Comments Beta2-Glycoprotein IgA (test code = 0.8 Beta2-Glycoprotein IgA) [facility] HospitalUyjmjczGPWYCYSZPC4754-96-76 17:15:00 Test Item Value Reference Range Interpretation Comments Homocyst Tot (test code = Homocyst Tot) 12.6 3.7-13.9 [facility] HospitalLhhgkimWLXXUGOKFQ0419-10-49 17:15:00 Test Item Value Reference Range Interpretation Comments HIV 1/2 Ab (test code Negative *NA*(11/08/13 = HIV 1/2 Ab) 12:15 PM) [facility] HospitalIjhjwqiFOZNOVEEFN1653-83-47 17:15:00 Test Item Value Reference Range Interpretation Comments Cardiolipin IgM (test code = 11.8 Cardiolipin IgM) [facility] HospitalGrltmlbYVWYHJBNNM6156-68-93 17:15:00 Test Item Value Reference Range Interpretation Comments Cardiolipin IgG (test code = no gt Cardiolipin IgG) [facility] HospitalJkecjjyJTXKQHNRBB8836-21-31 17:15:00 Test Item Value Reference Range Interpretation Comments Cardiolipin IgA (test code = 1.2 Cardiolipin IgA) [facility] HospitalVehfgigKAKWDNWWTY7539-61-74 17:15:00 Test Item Value Reference Range Interpretation Comments C4 Complement (test code = C4 25 16-47 Complement) [facility] HospitalXuazwgnRQWNTOFXPV9403-97-99 17:15:00 Test Item Value Reference Range Interpretation Comments C3 Complement (test code = C3 112 88-201 Complement) [facility] HospitalWgflizdGIAXTGULBY9186-40-97 17:15:00 Test Item Value Reference Range Interpretation Comments C-REACTIVE PROTEIN (test code = no gt C-REACTIVE PROTEIN) [facility] HospitalBgtybqkSTHEPGXUDC7587-94-68 17:15:00 Test Item Value Reference Range Interpretation Comments SS-B (La) Ab (test code = SS-B (La) Ab) no gt [facility] HospitalGpiadhqZBSZPIKFPN4247-45-82 17:15:00 Test Item Value Reference Range Interpretation Comments SS-A (Ro) Ab (test code = SS-A (Ro) Ab) no gt [facility] HospitalGazdywfTEDMBUNPAF8380-02-08 17:15:00 Test Item Value Reference Range Interpretation Comments C-ANCA (test code = Negative (11/08/13 12:15 C-ANCA) PM) [facility] HospitalMkcvqxvNCARVXZHCX6390-96-47 17:15:00 Test Item Value Reference Range Interpretation Comments P-ANCA (test code = Negative (11/08/13 12:15 P-ANCA) PM) [facility] HospitalPxogobgIOSZDGHFWM8569-74-65 17:15:00 Test Item Value Reference Range Interpretation Comments JESSICA (test code = JESSICA) Positive *ABN*(11/08/13 12:15 PM) [facility] HospitalFbeuvzqRMYJCPUNGK8170-77-56 17:15:00 Test Item Value Reference Range Interpretation Comments DNA Ab (DS) (test Negative (11/08/13 12:15 code = DNA Ab (DS)) PM) [facility] HospitalOvpffbcWWJYVYFDTT8868-34-21 17:15:00 Test Item Value Reference Range Interpretation Comments Treponemal Scr (test Non Reactive code = Treponemal Scr) *NA*(11/08/13 12:15 PM) [facility]2014-07-03 17:15:00 Test Item Value Reference Range Interpretation Comments Vitamin B12 Lvl (test code = Vitamin 991 851-7876 B12 Lvl) [facility] CenterAjxeqadGNJIJCDXND4580-62-76 17:15:00 Test Item Value Reference Range Interpretation Comments WBC (test code = WBC) 12.9 3.7-10.4 [facility] CenterMeqiubxCRWCIZDHDJ5284-42-35 17:15:00 Test Item Value Reference Range Interpretation Comments Sed Rate (test code = 5 See_Comment [Auto mated message] The Sed Rate) system which ge nerated this result transmit dora reference range : <=20. The reference range was not used to interpr et this result as merritt l/abnormal. [facility] CenterWjoyjdaTEUURFJZYH3686-09-37 17:15:00 Test Item Value Reference Range Interpretation Comments dRVV Ratio (test code = dRVV Ratio) 0.80 [facility] CenterLqnqeqdHDCQLFDGJO0156-22-27 17:15:00 Test Item Value Reference Range Interpretation Comments Hex Phos N (test code Negative (11/08/13 12:15 = Hex Phos N) PM) [facility] CenterOceejhbESHLPUAXAV4048-16-68 17:15:00 Test Item Value Reference Range Interpretation Comments Lup Interp (test Negative for lupus code = Lup Interp) anticoagulant with all tests performed (dRVVT, and hexagonal phospholipid neutralization). CPT: 00246 [facility] CenterGcmirvdPYSVAPWXOP2874-54-35 17:15:00 Test Item Value Reference Range Interpretation Comments Protein C Func (test code = Protein C 125 72-147 Func) [facility] CenterYcmalctBWTHUFPGWY8580-43-42 17:15:00 Test Item Value Reference Range Interpretation Comments Factor VIII (test code = Factor VIII) 257 50-242 [facility] CenterAqyxxkeDSAGYHZENB5722-58-37 17:15:00 Test Item Value Reference Range Interpretation Comments AT III Func (test code = AT III Func) 95 77-140 [facility] CenterOkfcpjmUSRYIALZHW7206-35-92 17:15:00 Test Item Value Reference Range Interpretation Comments Protein S Func (test code = Protein S 103 54-137 Func) [facility] HospitalJbbjarzSWNPSCEUSR4076-24-37 17:15:00 Test Item Value Reference Range Interpretation Comments JESSICA Interp (test code Pattern appears = JESSICA Interp) speckled [facility] HospitalVzkfeisADXSNPJHUB2413-86-66 17:15:00 Test Item Value Reference Range Interpretation Comments JESSICA Titer (test code = 1:80 *ABN*(11/08/13 JESSICA Titer) 12:15 PM) [facility] HospitalLdnsmukLCLUIMTFTP3738-80-10 17:15:00 Test Item Value Reference Range Interpretation Comments Beta2-Glycoprotein IgG (test code = no gt Beta2-Glycoprotein IgG) [facility] HospitalMiqspacBDIGDKYTRW1807-87-99 17:15:00 Test Item Value Reference Range Interpretation Comments Beta2-Glycoprotein IgM (test code = 11.3 Beta2-Glycoprotein IgM) [facility] HospitalRsqvgafJNXYOZFJEJ8352-47-76 17:15:00 Test Item Value Reference Range Interpretation Comments Beta2-Glycoprotein IgA (test code = 0.8 Beta2-Glycoprotein IgA) [facility] HospitalCpuwwxaPBXPFVNZUO4673-00-94 17:15:00 Test Item Value Reference Range Interpretation Comments Homocyst Tot (test code = Homocyst Tot) 12.6 3.7-13.9 [facility] HospitalWjglrvdGVOXBWFTFR6115-54-00 17:15:00 Test Item Value Reference Range Interpretation Comments HIV 1/2 Ab (test code Negative *NA*(11/08/13 = HIV 1/2 Ab) 12:15 PM) [facility] HospitalFraanikAXULASEXBL1578-32-56 17:15:00 Test Item Value Reference Range Interpretation Comments Cardiolipin IgM (test code = 11.8 Cardiolipin IgM) [facility] HospitalFreppwzCVBNFEAOSI5037-14-06 17:15:00 Test Item Value Reference Range Interpretation Comments Cardiolipin IgG (test code = no gt Cardiolipin IgG) [facility] HospitalRhmpdhsCOSAKREFTR9542-15-71 17:15:00 Test Item Value Reference Range Interpretation Comments Cardiolipin IgA (test code = 1.2 Cardiolipin IgA) [facility] CenterJukpochBELPNHWIDT7277-35-37 17:15:00 Test Item Value Reference Range Interpretation Comments C4 Complement (test code = C4 25 16-47 Complement) [facility] CenterHabtjwhKSCVNMQBXG6173-99-46 17:15:00 Test Item Value Reference Range Interpretation Comments C3 Complement (test code = C3 112 88-201 Complement) [facility] CenterDcqprbjPNGENVZFJM5480-61-82 17:15:00 Test Item Value Reference Range Interpretation Comments C-REACTIVE PROTEIN (test code = no gt C-REACTIVE PROTEIN) [facility] CenterRyhyosfOFBUFXDUIA2639-35-04 17:15:00 Test Item Value Reference Range Interpretation Comments SS-B (La) Ab (test code = SS-B (La) Ab) no gt [facility] CenterRvgdsnzGTITFIYIHA7770-76-06 17:15:00 Test Item Value Reference Range Interpretation Comments SS-A (Ro) Ab (test code = SS-A (Ro) Ab) no gt [facility] CenterKkfcyyyJXQDLROKVT1246-41-37 17:15:00 Test Item Value Reference Range Interpretation Comments C-ANCA (test code = Negative (11/08/13 12:15 C-ANCA) PM) [facility] CenterTykwybmCSPHVUBRCD0561-27-96 17:15:00 Test Item Value Reference Range Interpretation Comments P-ANCA (test code = Negative (11/08/13 12:15 P-ANCA) PM) [facility] CenterMhjasgyEIGOTLHUIO4273-62-07 17:15:00 Test Item Value Reference Range Interpretation Comments JESSICA (test code = JESSICA) Positive *ABN*(11/08/13 12:15 PM) [facility] CenterHqfszrkZIDGNHRMZL9323-00-24 17:15:00 Test Item Value Reference Range Interpretation Comments DNA Ab (DS) (test Negative (11/08/13 12:15 code = DNA Ab (DS)) PM) [facility] CenterFobafafKDBGPFPDZR3310-40-39 17:15:00 Test Item Value Reference Range Interpretation Comments Treponemal Scr (test Non Reactive code = Treponemal Scr) *NA*(11/08/13 12:15 PM) [facility] DJISF6757-93-67 17:15:00 Test Item Value Reference Range Interpretation Comments Vitamin B12 Lvl (test code = Vitamin 739 123-0749 B12 Lvl) [facility] CenterErxhzdjSHRFWDALVR6592-54-05 17:15:00 Test Item Value Reference Range Interpretation Comments WBC (test code = WBC) 12.9 3.7-10.4 [facility] CenterIoxxhydEAMYVBHOJH9352-87-23 17:15:00 Test Item Value Reference Range Interpretation Comments Sed Rate (test code = 5 See_Comment [Auto mated message] The Sed Rate) system which ge nerated this result transmit dora reference range : <=20. The reference range was not used to interpr et this result as merritt l/abnormal. [facility] CenterJzedpgeOGZIAITAQQ9630-07-26 17:15:00 Test Item Value Reference Range Interpretation Comments dRVV Ratio (test code = dRVV Ratio) 0.80 [facility] CenterDjmhicsBXUHHKUNEW5524-81-31 17:15:00 Test Item Value Reference Range Interpretation Comments Hex Phos N (test code Negative (11/08/13 12:15 = Hex Phos N) PM) [facility] CenterHjfbrlbMMBVQBFOCE7522-31-00 17:15:00 Test Item Value Reference Range Interpretation Comments Lup Interp (test Negative for lupus code = Lup Interp) anticoagulant with all tests performed (dRVVT, and hexagonal phospholipid neutralization). CPT: 16151 [facility] CenterOgwnxvhDIOJQCCCFP5703-89-24 17:15:00 Test Item Value Reference Range Interpretation Comments Protein C Func (test code = Protein C 125 72-147 Func) [facility] CenterQpiurtvQDKYRIYKZS6878-11-86 17:15:00 Test Item Value Reference Range Interpretation Comments Factor VIII (test code = Factor VIII) 257 50-242 [facility] CenterOfvnjzsGIIBNVNAFK8527-28-11 17:15:00 Test Item Value Reference Range Interpretation Comments AT III Func (test code = AT III Func) 95 77-140 [facility] CenterWvvinwoMERWGYZUXM5269-33-68 17:15:00 Test Item Value Reference Range Interpretation Comments Protein S Func (test code = Protein S 103 54-137 Func) [facility] HospitalNgfgkefQHTBZNGAOA9569-42-96 17:15:00 Test Item Value Reference Range Interpretation Comments JESSICA Interp (test code Pattern appears = JESSICA Interp) speckled [facility] HospitalDsppbtfLLQRWHLPFE1367-01-21 17:15:00 Test Item Value Reference Range Interpretation Comments JESSICA Titer (test code = 1:80 *ABN*(11/08/13 JESSICA Titer) 12:15 PM) [facility] HospitalUzoopimALELZJZUKL9949-33-01 17:15:00 Test Item Value Reference Range Interpretation Comments Beta2-Glycoprotein IgG (test code = no gt Beta2-Glycoprotein IgG) [facility] HospitalZbybhjtOFAXLIPKJA5344-82-38 17:15:00 Test Item Value Reference Range Interpretation Comments Beta2-Glycoprotein IgM (test code = 11.3 Beta2-Glycoprotein IgM) [facility] HospitalXqqkgahYBOAPCCEXY6101-84-45 17:15:00 Test Item Value Reference Range Interpretation Comments Beta2-Glycoprotein IgA (test code = 0.8 Beta2-Glycoprotein IgA) [facility] HospitalWrerlymZYJVDBMJYO8796-19-22 17:15:00 Test Item Value Reference Range Interpretation Comments Homocyst Tot (test code = Homocyst Tot) 12.6 3.7-13.9 [facility] HospitalVwatmniBXYLWBISRX2214-78-71 17:15:00 Test Item Value Reference Range Interpretation Comments HIV 1/2 Ab (test code Negative *NA*(11/08/13 = HIV 1/2 Ab) 12:15 PM) [facility] HospitalPwbocvmNLVURBGLVY9225-71-75 17:15:00 Test Item Value Reference Range Interpretation Comments Cardiolipin IgM (test code = 11.8 Cardiolipin IgM) [facility] HospitalAiqkjpiMZQXLXTURD2023-09-97 17:15:00 Test Item Value Reference Range Interpretation Comments Cardiolipin IgG (test code = no gt Cardiolipin IgG) [facility] HospitalZcgoorqFRPRUYPCKB8788-66-45 17:15:00 Test Item Value Reference Range Interpretation Comments Cardiolipin IgA (test code = 1.2 Cardiolipin IgA) [facility] HospitalQkyminbYZSRGXAQBB2692-15-71 17:15:00 Test Item Value Reference Range Interpretation Comments C4 Complement (test code = C4 25 16-47 Complement) [facility] HospitalNdisxoxBGLDGRJXLX7684-75-63 17:15:00 Test Item Value Reference Range Interpretation Comments C3 Complement (test code = C3 112 88-201 Complement) [facility] HospitalFocknynQBXQWKVZSA3841-67-91 17:15:00 Test Item Value Reference Range Interpretation Comments C-REACTIVE PROTEIN (test code = no gt C-REACTIVE PROTEIN) [facility] HospitalDyfegucLYKEZDANIF0384-67-89 17:15:00 Test Item Value Reference Range Interpretation Comments SS-B (La) Ab (test code = SS-B (La) Ab) no gt [facility] HospitalHwqjylcYOZFFSKFYM6940-51-54 17:15:00 Test Item Value Reference Range Interpretation Comments SS-A (Ro) Ab (test code = SS-A (Ro) Ab) no gt [facility] HospitalMlcxagfTRWPHDTWBH4176-79-52 17:15:00 Test Item Value Reference Range Interpretation Comments C-ANCA (test code = Negative (11/08/13 12:15 C-ANCA) PM) [facility] HospitalUetvjezOCARRCRZJJ8352-07-70 17:15:00 Test Item Value Reference Range Interpretation Comments P-ANCA (test code = Negative (11/08/13 12:15 P-ANCA) PM) [facility] HospitalPgpfsrvRUTFUPJOAX1150-09-94 17:15:00 Test Item Value Reference Range Interpretation Comments JESSICA (test code = JESSICA) Positive *ABN*(11/08/13 12:15 PM) [facility] HospitalPfawybuAIJHBALAPB3609-93-12 17:15:00 Test Item Value Reference Range Interpretation Comments DNA Ab (DS) (test Negative (11/08/13 12:15 code = DNA Ab (DS)) PM) [facility] HospitalUfvitfbIYFIAHYCIU8356-97-35 17:15:00 Test Item Value Reference Range Interpretation Comments Treponemal Scr (test Non Reactive code = Treponemal Scr) *NA*(11/08/13 12:15 PM) [facility]2014-07-03 17:15:00 Test Item Value Reference Range Interpretation Comments Vitamin B12 Lvl (test code = Vitamin 596 036-5320 B12 Lvl) [facility] CenterXzdrdtzTJTTDGSMXZ9306-54-95 17:15:00 Test Item Value Reference Range Interpretation Comments WBC (test code = WBC) 12.9 3.7-10.4 [facility] CenterPvnxaruPOVROHPOKV7473-88-67 17:15:00 Test Item Value Reference Range Interpretation Comments Sed Rate (test code = 5 See_Comment [Auto mated message] The Sed Rate) system which ge nerated this result transmit dora reference range : <=20. The reference range was not used to interpr et this result as merritt l/abnormal. [facility] CenterQmqrwgiYCESULDWNV7567-46-83 17:15:00 Test Item Value Reference Range Interpretation Comments dRVV Ratio (test code = dRVV Ratio) 0.80 [facility] CenterMevmocgQUYHIWLCZY4662-34-43 17:15:00 Test Item Value Reference Range Interpretation Comments Hex Phos N (test code Negative (11/08/13 12:15 = Hex Phos N) PM) [facility] CenterRxmozqxSJXGISNXXC2220-60-54 17:15:00 Test Item Value Reference Range Interpretation Comments Lup Interp (test Negative for lupus code = Lup Interp) anticoagulant with all tests performed (dRVVT, and hexagonal phospholipid neutralization). CPT: 09066 [facility] CenterDphycoxIIVBNJNHKM7620-52-52 17:15:00 Test Item Value Reference Range Interpretation Comments Protein C Func (test code = Protein C 125 72-147 Func) [facility] CenterBeluamlCHUMREQLZH5991-50-28 17:15:00 Test Item Value Reference Range Interpretation Comments Factor VIII (test code = Factor VIII) 257 50-242 [facility] CenterEsgxzzfEPXOSXVNUA0999-60-34 17:15:00 Test Item Value Reference Range Interpretation Comments AT III Func (test code = AT III Func) 95 77-140 [facility] CenterCgboqlxZKEAHSANEE8015-04-59 17:15:00 Test Item Value Reference Range Interpretation Comments Protein S Func (test code = Protein S 103 54-137 Func) [facility] HospitalFhjpxpcQYHTIRDLRP4478-17-47 17:15:00 Test Item Value Reference Range Interpretation Comments JESSICA Interp (test code Pattern appears = JESSICA Interp) speckled [facility] HospitalQefckubRQTKSMBCAZ2883-87-90 17:15:00 Test Item Value Reference Range Interpretation Comments JESSICA Titer (test code = 1:80 *ABN*(11/08/13 JESSICA Titer) 12:15 PM) [facility] HospitalPtomzngGYCDLYTBWU8600-38-98 17:15:00 Test Item Value Reference Range Interpretation Comments Beta2-Glycoprotein IgG (test code = no gt Beta2-Glycoprotein IgG) [facility] HospitalHaqcxcsDSTNOWWRFH0801-35-46 17:15:00 Test Item Value Reference Range Interpretation Comments Beta2-Glycoprotein IgM (test code = 11.3 Beta2-Glycoprotein IgM) [facility] HospitalIhdmmywCBAUIUOSQF5985-13-64 17:15:00 Test Item Value Reference Range Interpretation Comments Beta2-Glycoprotein IgA (test code = 0.8 Beta2-Glycoprotein IgA) [facility] HospitalMvldfrtHTEOAXSQAL4938-64-51 17:15:00 Test Item Value Reference Range Interpretation Comments Homocyst Tot (test code = Homocyst Tot) 12.6 3.7-13.9 [facility] HospitalQdjhknlDYKCWEQFYP4235-85-42 17:15:00 Test Item Value Reference Range Interpretation Comments HIV 1/2 Ab (test code Negative *NA*(11/08/13 = HIV 1/2 Ab) 12:15 PM) [facility]GoqnshfBVJZLIJCSH5519-02-40 17:15:00 Test Item Value Reference Range Interpretation Comments Cardiolipin IgM (test code = 11.8 Cardiolipin IgM) [facility]KgnofiwEZFYURHSNW3201-85-40 17:15:00 Test Item Value Reference Range Interpretation Comments Cardiolipin IgG (test code = no gt Cardiolipin IgG) [facility] HospitalGfxcxsvMNAOWYAYNW0863-87-08 17:15:00 Test Item Value Reference Range Interpretation Comments Cardiolipin IgA (test code = 1.2 Cardiolipin IgA) [facility] HospitalJzzwrzpIHFGWISZIY9619-34-24 17:15:00 Test Item Value Reference Range Interpretation Comments C4 Complement (test code = C4 25 16-47 Complement) [facility] HospitalThtyvcwAKPUXSWYRP7312-96-58 17:15:00 Test Item Value Reference Range Interpretation Comments C3 Complement (test code = C3 112 88-201 Complement) [facility] HospitalQcluzxbCQTBGMOVZD0817-99-48 17:15:00 Test Item Value Reference Range Interpretation Comments C-REACTIVE PROTEIN (test code = no gt C-REACTIVE PROTEIN) [facility] HospitalQmrmimuRJMJOMYGRV7312-25-00 17:15:00 Test Item Value Reference Range Interpretation Comments SS-B (La) Ab (test code = SS-B (La) Ab) no gt [facility] HospitalMnmuagaIODMGAYJDX2658-21-66 17:15:00 Test Item Value Reference Range Interpretation Comments SS-A (Ro) Ab (test code = SS-A (Ro) Ab) no gt [facility] HospitalEvjelbdYJKZGTYSTT0065-01-67 17:15:00 Test Item Value Reference Range Interpretation Comments C-ANCA (test code = Negative (11/08/13 12:15 C-ANCA) PM) [facility] HospitalOmztvlwHPXTBUDMOG5170-28-23 17:15:00 Test Item Value Reference Range Interpretation Comments P-ANCA (test code = Negative (11/08/13 12:15 P-ANCA) PM) [facility] HospitalLmjvhbjHNAOCLCKOT7378-99-47 17:15:00 Test Item Value Reference Range Interpretation Comments JESSICA (test code = JESSICA) Positive *ABN*(11/08/13 12:15 PM) [facility] HospitalOschpvqACIPACWRDG7607-75-43 17:15:00 Test Item Value Reference Range Interpretation Comments DNA Ab (DS) (test Negative (11/08/13 12:15 code = DNA Ab (DS)) PM) [facility]SwcvqdrZRWUKDFLGO1338-66-65 17:15:00 Test Item Value Reference Range Interpretation Comments Treponemal Scr (test Non Reactive code = Treponemal Scr) *NA*(11/08/13 12:15 PM) [facility]2014-07-03 17:15:00 Test Item Value Reference Range Interpretation Comments Vitamin B12 Lvl (test code = Vitamin [phone] B12 Lvl) [facility] CenterOoeglapCWVLVEYTYW9373-09-71 17:15:00 Test Item Value Reference Range Interpretation Comments WBC (test code = WBC) 12.9 3.7-10.4 [facility] CenterXoiantdKBIZUOCGYD0771-83-30 17:15:00 Test Item Value Reference Range Interpretation Comments Sed Rate (test code = 5 See_Comment [Auto mated message] The Sed Rate) system which ge nerated this result transmit dora reference range : <=20. The reference range was not used to interpr et this result as merritt l/abnormal. [facility] CenterQkuqtdyQOCABOPCKI3510-73-42 17:15:00 Test Item Value Reference Range Interpretation Comments dRVV Ratio (test code = dRVV Ratio) 0.80 [facility] CenterNjdksmuOUHPNPYLXR4034-91-19 17:15:00 Test Item Value Reference Range Interpretation Comments Hex Phos N (test code Negative (11/08/13 12:15 = Hex Phos N) PM) [facility] CenterUtetbyrHXMQXMYTUJ2464-79-65 17:15:00 Test Item Value Reference Range Interpretation Comments Lup Interp (test Negative for lupus code = Lup Interp) anticoagulant with all tests performed (dRVVT, and hexagonal phospholipid neutralization). CPT: 43719 [facility] CenterEguccxcPEEIPSIFWZ0302-75-03 17:15:00 Test Item Value Reference Range Interpretation Comments Protein C Func (test code = Protein C 125 72-147 Func) [facility] CenterOddqzzeFYJYQQPLLN5497-10-07 17:15:00 Test Item Value Reference Range Interpretation Comments Factor VIII (test code = Factor VIII) 257 50-242 [facility] CenterQjtfqyyCLOYMLZNPL8181-27-74 17:15:00 Test Item Value Reference Range Interpretation Comments AT III Func (test code = AT III Func) 95 77-140 [facility] CenterNryawmyDFWFYFVNIZ2635-46-60 17:15:00 Test Item Value Reference Range Interpretation Comments Protein S Func (test code = Protein S 103 54-137 Func) [facility] HospitalXdjcwalCPDJSHJKXF8324-80-51 17:15:00 Test Item Value Reference Range Interpretation Comments JESSICA Interp (test code Pattern appears = JESSICA Interp) speckled [facility] HospitalAvpghjcEFMMEXLMWL0076-31-63 17:15:00 Test Item Value Reference Range Interpretation Comments JESSICA Titer (test code = 1:80 *ABN*(11/08/13 JESSICA Titer) 12:15 PM) [facility] HospitalWddabfwNDTVSQZVOG5485-34-10 17:15:00 Test Item Value Reference Range Interpretation Comments Beta2-Glycoprotein IgG (test code = no gt Beta2-Glycoprotein IgG) [facility] HospitalUyiciqwNFWEHTTKIP1351-39-66 17:15:00 Test Item Value Reference Range Interpretation Comments Beta2-Glycoprotein IgM (test code = 11.3 Beta2-Glycoprotein IgM) [facility] HospitalHerdezjAXFKVEIACV5941-32-14 17:15:00 Test Item Value Reference Range Interpretation Comments Beta2-Glycoprotein IgA (test code = 0.8 Beta2-Glycoprotein IgA) [facility] HospitalHszvrbbSLMKHZVLVK6366-57-65 17:15:00 Test Item Value Reference Range Interpretation Comments Homocyst Tot (test code = Homocyst Tot) 12.6 3.7-13.9 [facility] HospitalGuvgtybGUJLZGTZCR0539-92-34 17:15:00 Test Item Value Reference Range Interpretation Comments HIV 1/2 Ab (test code Negative *NA*(11/08/13 = HIV 1/2 Ab) 12:15 PM) [facility] HospitalDooyyysGUBQPBRGGD4413-81-43 17:15:00 Test Item Value Reference Range Interpretation Comments Cardiolipin IgM (test code = 11.8 Cardiolipin IgM) [facility] HospitalCsmomktBRMRLOKSPK4373-13-90 17:15:00 Test Item Value Reference Range Interpretation Comments Cardiolipin IgG (test code = no gt Cardiolipin IgG) [facility] HospitalDqnbonuZRLMYKKGEE6975-09-69 17:15:00 Test Item Value Reference Range Interpretation Comments Cardiolipin IgA (test code = 1.2 Cardiolipin IgA) [facility] HospitalThdymvaZTPEWAWIDK5713-22-27 17:15:00 Test Item Value Reference Range Interpretation Comments C4 Complement (test code = C4 25 16-47 Complement) [facility] HospitalDlotzlwJZPMTYOIIH4694-50-06 17:15:00 Test Item Value Reference Range Interpretation Comments C3 Complement (test code = C3 112 88-201 Complement) [facility] HospitalZsnaydlYJJCSTMYMI2093-05-71 17:15:00 Test Item Value Reference Range Interpretation Comments C-REACTIVE PROTEIN (test code = no gt C-REACTIVE PROTEIN) [facility] HospitalYkonvgpUSEYFNQJSV3750-85-21 17:15:00 Test Item Value Reference Range Interpretation Comments SS-B (La) Ab (test code = SS-B (La) Ab) no gt [facility] HospitalJtbmtwdRZUJGHPDGU7590-54-71 17:15:00 Test Item Value Reference Range Interpretation Comments SS-A (Ro) Ab (test code = SS-A (Ro) Ab) no gt [facility] HospitalWqdcguxABJEVHJDUL0991-36-10 17:15:00 Test Item Value Reference Range Interpretation Comments C-ANCA (test code = Negative (11/08/13 12:15 C-ANCA) PM) [facility] HospitalOkqzdthFNBTIPAUSF0961-12-51 17:15:00 Test Item Value Reference Range Interpretation Comments P-ANCA (test code = Negative (11/08/13 12:15 P-ANCA) PM) [facility] HospitalLeiiegyEWBLUVWEDM5605-61-94 17:15:00 Test Item Value Reference Range Interpretation Comments JESSICA (test code = JESSICA) Positive *ABN*(11/08/13 12:15 PM) [facility] HospitalEqxjlavIBDHCTFBWT6980-90-12 17:15:00 Test Item Value Reference Range Interpretation Comments DNA Ab (DS) (test Negative (11/08/13 12:15 code = DNA Ab (DS)) PM) [facility] HospitalBodpecdUDUHQXCTIS8829-58-05 17:15:00 Test Item Value Reference Range Interpretation Comments Treponemal Scr (test Non Reactive code = Treponemal Scr) *NA*(11/08/13 12:15 PM) [facility] CenterOlpxdfcUDQKRKHYHQ3582-69-77 05:35:34 Test Item Value Reference Range Interpretation Comments PTT (test code = PTT) 24.7 s 22.9-35.8 [facility] CenterHihjkluZNZDWQQRQM5610-85-98 05:35:34 Test Item Value Reference Range Interpretation Comments INR (test code = INR) 1.03 0.85-1.17 [facility] CenterRkfmlfwAINAIUCQNZ3537-48-80 05:35:34 Test Item Value Reference Range Interpretation Comments PT (test code = PT) 13.4 s 12.0-14.7 [facility] CenterLfhwpkmNDBAACBZRM9899-54-25 05:35:34 Test Item Value Reference Range Interpretation Comments PTT (test code = PTT) 24.7 s 22.9-35.8 [facility] CenterJrczmkjNSBLHLWYBT4951-50-28 05:35:34 Test Item Value Reference Range Interpretation Comments INR (test code = INR) 1.03 0.85-1.17 [facility] CenterEgcbautNEKQXBUPLB1684-86-58 05:35:34 Test Item Value Reference Range Interpretation Comments PT (test code = PT) 13.4 s 12.0-14.7 [facility] CenterCeetfraABNHSPMSPO4086-18-92 05:35:34 Test Item Value Reference Range Interpretation Comments PTT (test code = PTT) 24.7 s 22.9-35.8 [facility] CenterBmdawzlANONNMLFPM7709-26-47 05:35:34 Test Item Value Reference Range Interpretation Comments INR (test code = INR) 1.03 0.85-1.17 [facility] CenterUctnyezBHPQJDRJHL8195-69-38 05:35:34 Test Item Value Reference Range Interpretation Comments PT (test code = PT) 13.4 s 12.0-14.7 [facility] CenterCplhnqyHSSSVDDBGH7565-23-86 05:35:34 Test Item Value Reference Range Interpretation Comments PTT (test code = PTT) 24.7 s 22.9-35.8 [facility] CenterZqlorfmKTQNFIRPJX0619-36-11 05:35:34 Test Item Value Reference Range Interpretation Comments INR (test code = INR) 1.03 0.85-1.17 [facility] CenterQbjjydsRFCALHSTHT0086-22-65 05:35:34 Test Item Value Reference Range Interpretation Comments PT (test code = PT) 13.4 s 12.0-14.7 [facility] CenterPxvzbtxILIUGGVKAO0776-15-65 05:35:34 Test Item Value Reference Range Interpretation Comments PTT (test code = PTT) 24.7 s 22.9-35.8 [facility] CenterRqlahzrJQFDARIYUV8742-51-51 05:35:34 Test Item Value Reference Range Interpretation Comments INR (test code = INR) 1.03 0.85-1.17 [facility] CenterBnzbttkMJNOOSAULE6104-87-94 05:35:34 Test Item Value Reference Range Interpretation Comments PT (test code = PT) 13.4 s 12.0-14.7 [facility]2014-07-03 05:35:00 Test Item Value Reference Range Interpretation Comments eGFR (test code = eGFR) 94 [facility]2014-07-03 05:35:00 Test Item Value Reference Range Interpretation Comments Glucose Lvl (test code = Glucose Lvl) 114 70-99 [facility]2014-07-03 05:35:00 Test Item Value Reference Range Interpretation Comments Sodium Lvl (test code = Sodium Lvl) 143 135-145 [facility]2014-07-03 05:35:00 Test Item Value Reference Range Interpretation Comments Creatinine Lvl (test code = Creatinine 0.7 0.5-1.4 Lvl) [facility]2014-07-03 05:35:00 Test Item Value Reference Range Interpretation Comments BUN (test code = BUN) 23 7-22 [facility]2014-07-03 05:35:00 Test Item Value Reference Range Interpretation Comments ALT (test code = ALT) 23 See_Comment [Auto mated message] The system which ge nerated this result transmit dora reference range : <=65. The reference range was not used to interpr et this result as merritt l/abnormal. [facility]2014-07-03 05:35:00 Test Item Value Reference Range Interpretation Comments Bili Total (test code = Bili Total) 0.4 0.2-1.3 [facility]2014-07-03 05:35:00 Test Item Value Reference Range Interpretation Comments Alk Phos (test code = Alk Phos) 49 39-136 [facility]2014-07-03 05:35:00 Test Item Value Reference Range Interpretation Comments Potassium Lvl (test code = Potassium 3.6 3.5-5.1 Lvl) [facility]2014-07-03 05:35:00 Test Item Value Reference Range Interpretation Comments Albumin Lvl (test code = Albumin Lvl) 4.1 3.5-5.0 [facility]2014-07-03 05:35:00 Test Item Value Reference Range Interpretation Comments Total Protein (test code = Total 7.0 6.4-8.4 Protein) [facility]2014-07-03 05:35:00 Test Item Value Reference Range Interpretation Comments AST (test code = AST) 20 See_Comment [Auto mated message] The system which ge nerated this result transmit dora reference range : <=37. The reference range was not used to interpr et this result as merritt l/abnormal. [facility]2014-07-03 05:35:00 Test Item Value Reference Range Interpretation Comments Chloride Lvl (test code = Chloride Lvl) 106 95-109 [facility]2014-07-03 05:35:00 Test Item Value Reference Range Interpretation Comments CO2 (test code = CO2) 28 24-32 [place] 821144-07-03 05:35:00 Test Item Value Reference Range Interpretation Comments Calcium Lvl (test code = Calcium Lvl) 8.8 8.5-10.5 [facility]2014-07-03 05:35:00 Test Item Value Reference Range Interpretation Comments B/C Ratio (test code = B/C Ratio) 33 6-25 [place] 821144-07-03 05:35:00 Test Item Value Reference Range Interpretation Comments A/G Ratio (test code = A/G Ratio) 1.4 0.7-1.6 [place] 821144-07-03 05:35:00 Test Item Value Reference Range Interpretation Comments Globulin (test code = Globulin) 2.9 2.0-4.0 [place] 821144-07-03 05:35:00 Test Item Value Reference Range Interpretation Comments AGAP (test code = AGAP) 12.6 10.0-20.0 [facility] CenterTdyyvreJUHYLQTCYG1265-30-85 05:35:00 Test Item Value Reference Range Interpretation Comments MCV (test code = MCV) 90.1 81.0-99.0 [facility] CenterTnrkyjaJXMYSTBYNV1303-39-59 05:35:00 Test Item Value Reference Range Interpretation Comments MCH (test code = MCH) 29.6 pg 27.0-31.0 [facility] CenterXqvlusaDDJJQDOVHA3861-65-71 05:35:00 Test Item Value Reference Range Interpretation Comments Platelet (test code = Platelet) 229 133-450 [facility] CenterLohuerkQVVTQEGQWX0681-49-50 05:35:00 Test Item Value Reference Range Interpretation Comments WBC (test code = WBC) 24.4 3.7-10.4 [facility] CenterUvuavrpYBQPKURBXJ0026-53-19 05:35:00 Test Item Value Reference Range Interpretation Comments RDW (test code = RDW) 12.5 11.5-14.5 [facility] CenterAiuuiflWMIUXZMNNR9576-93-54 05:35:00 Test Item Value Reference Range Interpretation Comments MPV (test code = MPV) 9.7 7.4-10.4 [facility] CenterGhacpxvHAPNCIXCPH3245-07-22 05:35:00 Test Item Value Reference Range Interpretation Comments MCHC (test code = MCHC) 32.9 32.0-36.0 [facility] CenterFfwoyzrHZFJBAUYXU4019-27-39 05:35:00 Test Item Value Reference Range Interpretation Comments Hct (test code = Hct) 36.6 36.0-48.0 [facility] CenterHggtlduNMRPPPKLMP3174-52-82 05:35:00 Test Item Value Reference Range Interpretation Comments Hgb (test code = Hgb) 12.0 12.0-16.0 [facility] CenterZvbfqgfKDNJSSFFEP1259-51-38 05:35:00 Test Item Value Reference Range Interpretation Comments RBC (test code = RBC) 4.07 4.20-5.40 [facility] CenterLgizpojVJEXTGTSXG2331-62-33 05:35:00 Test Item Value Reference Range Interpretation Comments Segs-Bands # (test code = Segs-Bands #) 22.0 1.5-8.1 [facility] CenterYrousmbFFGYHZXGMI9755-84-86 05:35:00 Test Item Value Reference Range Interpretation Comments Lymphocytes # (test code = Lymphocytes 0.7 1.0-5.5 #) [facility] CenterGpsrkxxOIMUDAAXUS0510-83-40 05:35:00 Test Item Value Reference Range Interpretation Comments Bands (test code = 0.0 See_Comment [Automat ed message] The Bands) system which ge nerated this result transmit dora reference range : <=11.0. The reference r rajeev was not used to interpr et this result as merritt l/abnormal. [facility] CenterBvjknngPIANROAJFH5458-93-36 05:35:00 Test Item Value Reference Range Interpretation Comments Monocytes # (test code 1.7 See_Comment [Aut omated message] The = Monocytes #) system which generated this result tra nsmitted reference range : <=0.8. The reference r rajeev was not used to int erpret this result as normal/abnormal . [facility] CenterZtogxnsOMWYCMCLEQ8945-41-59 05:35:00 Test Item Value Reference Range Interpretation Comments Lymphocytes (test code = Lymphocytes) 3.0 20.0-40.0 [facility] CenterQydbvheHFBZVFBEDM3853-24-86 05:35:00 Test Item Value Reference Range Interpretation Comments Segs (test code = Segs) 90.0 45.0-75.0 [facility] CenterGdfvvkjJXPSURYJLO4305-19-66 05:35:00 Test Item Value Reference Range Interpretation Comments Atypical Lymphs (test code = Atypical 0.0 Lymphs) [facility] CenterVwmizphHJPZTLNCZU7717-20-36 05:35:00 Test Item Value Reference Range Interpretation Comments Plt Morph (test code = Normal (11/08/13 12:35 Plt Morph) AM) [facility] CenterFqtflgkFRVMEBMBMU8070-37-74 05:35:00 Test Item Value Reference Range Interpretation Comments Monocytes (test code = Monocytes) 7.0 2.0-12.0 [facility] CenterBhvwoulMFKWAIKAFT6814-78-82 05:35:00 Test Item Value Reference Range Interpretation Comments Anisocyte (test code = 1+ *ABN*(11/08/13 Anisocyte) 12:35 AM) [facility] CenterWzqaydgCURGSYFWDP7574-36-37 05:35:00 Test Item Value Reference Range Interpretation Comments Elliptocyte (test code = Slight *ABN*(11/08/13 Elliptocyte) 12:35 AM) [facility]FfzogauFZMMIC0170-69-43 05:35:00 Test Item Value Reference Range Interpretation Comments VLDL (test code = VLDL) 14 [facility] CenterSkuunorRHKANV8676-44-34 05:35:00 Test Item Value Reference Range Interpretation Comments LDL (Calculated) (test code = LDL 77 (Calculated)) [facility] CenterJhjbpavUMMEKB8397-29-04 05:35:00 Test Item Value Reference Range Interpretation Comments HDL (test code = HDL) 46 [facility] CenterXfwpnayGZHSGJ9812-19-85 05:35:00 Test Item Value Reference Range Interpretation Comments Chol (test code = Chol) 137 [facility] CenterXoaqnbcJVLWZE1194-59-45 05:35:00 Test Item Value Reference Range Interpretation Comments Trig (test code = Trig) 68 [facility] CenterXqdzbxtGWEZWW8713-76-56 05:35:00 Test Item Value Reference Range Interpretation Comments CHD Risk (test code = CHD Risk) 2.98 3.90-5.80 [facility] UWNBRLJHA2761-71-37 05:35:00 Test Item Value Reference Range Interpretation Comments Hgb A1C (test code = Hgb A1C) 6.2 [facility] AND REFSY1708-54-30 05:35:00 Test Item Value Reference Range Interpretation Comments UA Mucus (test code = UA Mucus) Few /LPF [facility] AND [id number] 05:35:00 Test Item Value Reference Range Interpretation Comments UA WBC (test code = 2 See_Comment [Automa dora message] The UA WBC) system which ge nerated this result transmit dora reference range : <=5. The reference range was not used to interpr et this result as merritt l/abnormal. [facility] AND LXOZD7439-28-54 05:35:00 Test Item Value Reference Range Interpretation Comments UA Sq Epi (test code = UA Sq Epi) Few /LPF [facility] AND LZNLL9084-84-38 05:35:00 Test Item Value Reference Range Interpretation Comments UA Leuk Est (test Negative (11/08/13 12:35 code = UA Leuk Est) AM) [facility] AND [id number] 05:35:00 Test Item Value Reference Range Interpretation Comments UA Urobilinogen (test code = UA <=1.0 mg/dL 0.1-1.0 Urobilinogen) [facility] AND IWNQP5923-41-03 05:35:00 Test Item Value Reference Range Interpretation Comments UA Glucose (test code = UA Negative mg/dL Glucose) [facility] AND [id number] 05:35:00 Test Item Value Reference Range Interpretation Comments UA Nitrite (test code Negative (11/08/13 12:35 = UA Nitrite) AM) [facility] AND [id number] 05:35:00 Test Item Value Reference Range Interpretation Comments UA Blood (test code = Negative (11/08/13 12:35 UA Blood) AM) [facility] AND IGFMD9705-28-31 05:35:00 Test Item Value Reference Range Interpretation Comments UA Spec Grav (test code = UA Spec Grav) 1.018 [facility] AND [id number] 05:35:00 Test Item Value Reference Range Interpretation Comments UA Protein (test code = UA Protein) 20 mg/dL [facility] AND [id number] 05:35:00 Test Item Value Reference Range Interpretation Comments UA pH (test code = UA pH) 5.5 5.0-8.0 [facility] AND [id number] 05:35:00 Test Item Value Reference Range Interpretation Comments UA Bili (test code = Negative *NA*(11/08/13 UA Bili) 12:35 AM) [facility] AND KQXQN5363-10-83 05:35:00 Test Item Value Reference Range Interpretation Comments UA Ketones (test code = UA Negative mg/dL Ketones) [facility] AND [id number] 05:35:00 Test Item Value Reference Range Interpretation Comments UA Color (test code = Yellow *NA*(11/08/13 UA Color) 12:35 AM) [facility] AND [id number] 05:35:00 Test Item Value Reference Range Interpretation Comments UA Turbidity (test code = Clear (11/08/13 12:35 UA Turbidity) AM) [facility]2014-07-03 05:35:00 Test Item Value Reference Range Interpretation Comments eGFR (test code = eGFR) 94 [facility]2014-07-03 05:35:00 Test Item Value Reference Range Interpretation Comments Glucose Lvl (test code = Glucose Lvl) 114 70-99 [facility]2014-07-03 05:35:00 Test Item Value Reference Range Interpretation Comments Sodium Lvl (test code = Sodium Lvl) 143 135-145 [facility]2014-07-03 05:35:00 Test Item Value Reference Range Interpretation Comments Creatinine Lvl (test code = Creatinine 0.7 0.5-1.4 Lvl) [facility]2014-07-03 05:35:00 Test Item Value Reference Range Interpretation Comments BUN (test code = BUN) 23 7-22 [facility]2014-07-03 05:35:00 Test Item Value Reference Range Interpretation Comments ALT (test code = ALT) 23 See_Comment [Auto mated message] The system which ge nerated this result transmit dora reference range : <=65. The reference range was not used to interpr et this result as merritt l/abnormal. [facility]2014-07-03 05:35:00 Test Item Value Reference Range Interpretation Comments Bili Total (test code = Bili Total) 0.4 0.2-1.3 [facility]2014-07-03 05:35:00 Test Item Value Reference Range Interpretation Comments Alk Phos (test code = Alk Phos) 49 39-136 [facility]2014-07-03 05:35:00 Test Item Value Reference Range Interpretation Comments Potassium Lvl (test code = Potassium 3.6 3.5-5.1 Lvl) [facility]2014-07-03 05:35:00 Test Item Value Reference Range Interpretation Comments Albumin Lvl (test code = Albumin Lvl) 4.1 3.5-5.0 [facility]2014-07-03 05:35:00 Test Item Value Reference Range Interpretation Comments Total Protein (test code = Total 7.0 6.4-8.4 Protein) [facility]2014-07-03 05:35:00 Test Item Value Reference Range Interpretation Comments AST (test code = AST) 20 See_Comment [Auto mated message] The system which ge nerated this result transmit dora reference range : <=37. The reference range was not used to interpr et this result as merritt l/abnormal. [facility]2014-07-03 05:35:00 Test Item Value Reference Range Interpretation Comments Chloride Lvl (test code = Chloride Lvl) 106 95-109 [facility]2014-07-03 05:35:00 Test Item Value Reference Range Interpretation Comments CO2 (test code = CO2) 28 24-32 [place] 821144-07-03 05:35:00 Test Item Value Reference Range Interpretation Comments Calcium Lvl (test code = Calcium Lvl) 8.8 8.5-10.5 [place] 821144-07-03 05:35:00 Test Item Value Reference Range Interpretation Comments B/C Ratio (test code = B/C Ratio) 33 6-25 [place] 821144-07-03 05:35:00 Test Item Value Reference Range Interpretation Comments A/G Ratio (test code = A/G Ratio) 1.4 0.7-1.6 [place] 821144-07-03 05:35:00 Test Item Value Reference Range Interpretation Comments Globulin (test code = Globulin) 2.9 2.0-4.0 [facility] [id number] 05:35:00 Test Item Value Reference Range Interpretation Comments AGAP (test code = AGAP) 12.6 10.0-20.0 [facility] CenterPypepthWURCWYZFUP0869-34-65 05:35:00 Test Item Value Reference Range Interpretation Comments MCV (test code = MCV) 90.1 81.0-99.0 [facility] CenterCnjwfxfYHNMJURGTN0856-68-98 05:35:00 Test Item Value Reference Range Interpretation Comments MCH (test code = MCH) 29.6 pg 27.0-31.0 [facility] CenterEelkinaFLNJWUVTHV0078-84-75 05:35:00 Test Item Value Reference Range Interpretation Comments Platelet (test code = Platelet) 229 133-450 [facility] CenterVtuqdwcRILYDPMASK0571-11-61 05:35:00 Test Item Value Reference Range Interpretation Comments WBC (test code = WBC) 24.4 3.7-10.4 [facility] CenterXsxflzbEIKUNGHTPT8987-02-56 05:35:00 Test Item Value Reference Range Interpretation Comments RDW (test code = RDW) 12.5 11.5-14.5 [facility] CenterVaecqpwGWKVDSKJSF7190-95-67 05:35:00 Test Item Value Reference Range Interpretation Comments MPV (test code = MPV) 9.7 7.4-10.4 [facility] CenterJgtllxpPHKPBWYXDP9479-33-09 05:35:00 Test Item Value Reference Range Interpretation Comments MCHC (test code = MCHC) 32.9 32.0-36.0 [facility] CenterRirqrkhEYTZYZGIOT8374-22-49 05:35:00 Test Item Value Reference Range Interpretation Comments Hct (test code = Hct) 36.6 36.0-48.0 [facility] CenterWdrlclfZNDASGUFPN2408-89-60 05:35:00 Test Item Value Reference Range Interpretation Comments Hgb (test code = Hgb) 12.0 12.0-16.0 [facility] CenterMlnekpgBUNXNWLFHU3109-67-42 05:35:00 Test Item Value Reference Range Interpretation Comments RBC (test code = RBC) 4.07 4.20-5.40 [facility] CenterSoioojsBOOZGSWUCX5041-61-39 05:35:00 Test Item Value Reference Range Interpretation Comments Segs-Bands # (test code = Segs-Bands #) 22.0 1.5-8.1 [facility] CenterRfjezsgSDKSSDMTMM2983-14-06 05:35:00 Test Item Value Reference Range Interpretation Comments Lymphocytes # (test code = Lymphocytes 0.7 1.0-5.5 #) [facility] CenterHvsnlvaVXDEBTIQUJ0529-46-40 05:35:00 Test Item Value Reference Range Interpretation Comments Bands (test code = 0.0 See_Comment [Automat ed message] The Bands) system which ge nerated this result transmit dora reference range : <=11.0. The reference r rajeev was not used to interpr et this result as merritt l/abnormal. [facility] CenterUbgncalUTLNMIRIIW1138-98-29 05:35:00 Test Item Value Reference Range Interpretation Comments Monocytes # (test code 1.7 See_Comment [Aut omated message] The = Monocytes #) system which generated this result tra nsmitted reference range : <=0.8. The reference r rajeev was not used to int erpret this result as normal/abnormal . [facility] CenterNjasuqrZMDQYOJATH3137-62-78 05:35:00 Test Item Value Reference Range Interpretation Comments Lymphocytes (test code = Lymphocytes) 3.0 20.0-40.0 [facility] CenterExkkhrxWCWEFCATBE8059-56-44 05:35:00 Test Item Value Reference Range Interpretation Comments Segs (test code = Segs) 90.0 45.0-75.0 [facility] CenterMjkaqpxRWIGPVWQIW0624-40-24 05:35:00 Test Item Value Reference Range Interpretation Comments Atypical Lymphs (test code = Atypical 0.0 Lymphs) [facility] CenterOiblsyvSDYNXREAGV9304-17-58 05:35:00 Test Item Value Reference Range Interpretation Comments Plt Morph (test code = Normal (11/08/13 12:35 Plt Morph) AM) [facility] CenterZofpkugXEPHUVHRCT1913-59-87 05:35:00 Test Item Value Reference Range Interpretation Comments Monocytes (test code = Monocytes) 7.0 2.0-12.0 [facility] CenterVmvixxyYJJKYWROYR4747-46-46 05:35:00 Test Item Value Reference Range Interpretation Comments Anisocyte (test code = 1+ *ABN*(11/08/13 Anisocyte) 12:35 AM) [facility] CenterJlmlhcpSMTAWUYOBW8098-90-72 05:35:00 Test Item Value Reference Range Interpretation Comments Elliptocyte (test code = Slight *ABN*(11/08/13 Elliptocyte) 12:35 AM) [facility] CenterTbtfrsyQUEWWJ2039-30-79 05:35:00 Test Item Value Reference Range Interpretation Comments VLDL (test code = VLDL) 14 [facility] CenterSrmctdnMCXKDB5597-67-47 05:35:00 Test Item Value Reference Range Interpretation Comments LDL (Calculated) (test code = LDL 77 (Calculated)) [facility] CenterGggrshxTCXTPC2119-19-75 05:35:00 Test Item Value Reference Range Interpretation Comments HDL (test code = HDL) 46 [facility] CenterYmgucehKRJQXZ7250-10-09 05:35:00 Test Item Value Reference Range Interpretation Comments Chol (test code = Chol) 137 [facility] CenterSknrldbDOWVYL9379-29-65 05:35:00 Test Item Value Reference Range Interpretation Comments Trig (test code = Trig) 68 [facility] CenterEsuqissPAPZXG7473-28-88 05:35:00 Test Item Value Reference Range Interpretation Comments CHD Risk (test code = CHD Risk) 2.98 3.90-5.80 [facility] CenterSPECIAL RRTEZZNBK4680-97-04 05:35:00 Test Item Value Reference Range Interpretation Comments Hgb A1C (test code = Hgb A1C) 6.2 [facility]annUN[facility] AND [id number] 05:35:00 Test Item Value Reference Range Interpretation Comments UA Mucus (test code = UA Mucus) Few /LPF [facility] AND [id number] 05:35:00 Test Item Value Reference Range Interpretation Comments UA WBC (test code = 2 See_Comment [Automa dora message] The UA WBC) system which ge nerated this result transmit dora reference range : <=5. The reference range was not used to interpr et this result as merritt l/abnormal. [facility] VGQGV7007-96-10 05:35:00 Test Item Value Reference Range Interpretation Comments UA Sq Epi (test code = UA Sq Epi) Few /LPF [facility]annUN[facility] AND [id number] 05:35:00 Test Item Value Reference Range Interpretation Comments UA Leuk Est (test Negative (11/08/13 12:35 code = UA Leuk Est) AM) [facility]annUN[facility] AND [id number] 05:35:00 Test Item Value Reference Range Interpretation Comments UA Urobilinogen (test code = UA <=1.0 mg/dL 0.1-1.0 Urobilinogen) [facility] AND [id number] 05:35:00 Test Item Value Reference Range Interpretation Comments UA Glucose (test code = UA Negative mg/dL Glucose) [facility] AND [id number] 05:35:00 Test Item Value Reference Range Interpretation Comments UA Nitrite (test code Negative (11/08/13 12:35 = UA Nitrite) AM) [facility] AND [id number] 05:35:00 Test Item Value Reference Range Interpretation Comments UA Blood (test code = Negative (11/08/13 12:35 UA Blood) AM) [facility] AND [id number] 05:35:00 Test Item Value Reference Range Interpretation Comments UA Spec Grav (test code = UA Spec Grav) 1.018 [facility] AND [id number] 05:35:00 Test Item Value Reference Range Interpretation Comments UA Protein (test code = UA Protein) 20 mg/dL [facility] AND [id number] 05:35:00 Test Item Value Reference Range Interpretation Comments UA pH (test code = UA pH) 5.5 5.0-8.0 [facility] AND [id number] 05:35:00 Test Item Value Reference Range Interpretation Comments UA Bili (test code = Negative *NA*(11/08/13 UA Bili) 12:35 AM) [facility] AND [id number] 05:35:00 Test Item Value Reference Range Interpretation Comments UA Ketones (test code = UA Negative mg/dL Ketones) [facility] AND [id number] 05:35:00 Test Item Value Reference Range Interpretation Comments UA Color (test code = Yellow *NA*(11/08/13 UA Color) 12:35 AM) [facility] AND [id number] 05:35:00 Test Item Value Reference Range Interpretation Comments UA Turbidity (test code = Clear (11/08/13 12:35 UA Turbidity) AM) [facility] [id number] 05:35:00 Test Item Value Reference Range Interpretation Comments eGFR (test code = eGFR) 94 [facility] DKFPY2936-05-66 05:35:00 Test Item Value Reference Range Interpretation Comments Glucose Lvl (test code = Glucose Lvl) 114 70-99 [facility]2014-07-03 05:35:00 Test Item Value Reference Range Interpretation Comments Sodium Lvl (test code = Sodium Lvl) 143 135-145 [facility]2014-07-03 05:35:00 Test Item Value Reference Range Interpretation Comments Creatinine Lvl (test code = Creatinine 0.7 0.5-1.4 Lvl) [facility]2014-07-03 05:35:00 Test Item Value Reference Range Interpretation Comments BUN (test code = BUN) 23 7-22 [facility]2014-07-03 05:35:00 Test Item Value Reference Range Interpretation Comments ALT (test code = ALT) 23 See_Comment [Auto mated message] The system which ge nerated this result transmit dora reference range : <=65. The reference range was not used to interpr et this result as merritt l/abnormal. [facility]2014-07-03 05:35:00 Test Item Value Reference Range Interpretation Comments Bili Total (test code = Bili Total) 0.4 0.2-1.3 [facility]2014-07-03 05:35:00 Test Item Value Reference Range Interpretation Comments Alk Phos (test code = Alk Phos) 49 39-136 [facility]2014-07-03 05:35:00 Test Item Value Reference Range Interpretation Comments Potassium Lvl (test code = Potassium 3.6 3.5-5.1 Lvl) [facility]2014-07-03 05:35:00 Test Item Value Reference Range Interpretation Comments Albumin Lvl (test code = Albumin Lvl) 4.1 3.5-5.0 [place] 821144-07-03 05:35:00 Test Item Value Reference Range Interpretation Comments Total Protein (test code = Total 7.0 6.4-8.4 Protein) [facility]2014-07-03 05:35:00 Test Item Value Reference Range Interpretation Comments AST (test code = AST) 20 See_Comment [Auto mated message] The system which ge nerated this result transmit dora reference range : <=37. The reference range was not used to interpr et this result as merritt l/abnormal. [facility]2014-07-03 05:35:00 Test Item Value Reference Range Interpretation Comments Chloride Lvl (test code = Chloride Lvl) 106 95-109 [facility]2014-07-03 05:35:00 Test Item Value Reference Range Interpretation Comments CO2 (test code = CO2) 28 24-32 [facility]2014-07-03 05:35:00 Test Item Value Reference Range Interpretation Comments Calcium Lvl (test code = Calcium Lvl) 8.8 8.5-10.5 [facility]2014-07-03 05:35:00 Test Item Value Reference Range Interpretation Comments B/C Ratio (test code = B/C Ratio) 33 6-25 [facility]2014-07-03 05:35:00 Test Item Value Reference Range Interpretation Comments A/G Ratio (test code = A/G Ratio) 1.4 0.7-1.6 [facility]2014-07-03 05:35:00 Test Item Value Reference Range Interpretation Comments Globulin (test code = Globulin) 2.9 2.0-4.0 [facility]2014-07-03 05:35:00 Test Item Value Reference Range Interpretation Comments AGAP (test code = AGAP) 12.6 10.0-20.0 [facility] CenterMjqcptvRUWVCJYNBM7514-46-11 05:35:00 Test Item Value Reference Range Interpretation Comments MCV (test code = MCV) 90.1 81.0-99.0 [facility] CenterTbduzqbJMEBUJNXNF6728-16-44 05:35:00 Test Item Value Reference Range Interpretation Comments MCH (test code = MCH) 29.6 pg 27.0-31.0 [facility] CenterCplgzvfVBAOEGQCTI3534-77-71 05:35:00 Test Item Value Reference Range Interpretation Comments Platelet (test code = Platelet) 229 133-450 [facility] CenterEdxkdxaPBSCNDTIVG7999-93-61 05:35:00 Test Item Value Reference Range Interpretation Comments WBC (test code = WBC) 24.4 3.7-10.4 [facility] CenterPhzlfhjLTJFICQUED9514-84-97 05:35:00 Test Item Value Reference Range Interpretation Comments RDW (test code = RDW) 12.5 11.5-14.5 [facility] CenterRtyyaitSLWZPHVCSN2258-46-44 05:35:00 Test Item Value Reference Range Interpretation Comments MPV (test code = MPV) 9.7 7.4-10.4 [facility] CenterAbxcuwaUFODUGNTUN3270-16-62 05:35:00 Test Item Value Reference Range Interpretation Comments MCHC (test code = MCHC) 32.9 32.0-36.0 [facility] CenterXvxskxbASXCKBXDBB8738-16-62 05:35:00 Test Item Value Reference Range Interpretation Comments Hct (test code = Hct) 36.6 36.0-48.0 [facility] CenterEnfhtbqXTMTSXEMPP6384-32-11 05:35:00 Test Item Value Reference Range Interpretation Comments Hgb (test code = Hgb) 12.0 12.0-16.0 [facility] CenterEhjwxodOBXDELEVAQ4577-45-05 05:35:00 Test Item Value Reference Range Interpretation Comments RBC (test code = RBC) 4.07 4.20-5.40 [facility] CenterGksvqdnUVBZSVEIMW9375-81-47 05:35:00 Test Item Value Reference Range Interpretation Comments Segs-Bands # (test code = Segs-Bands #) 22.0 1.5-8.1 [facility] CenterNtzpoczXSPOUJAIMK6785-91-65 05:35:00 Test Item Value Reference Range Interpretation Comments Lymphocytes # (test code = Lymphocytes 0.7 1.0-5.5 #) [facility] CenterOxqwcezBYFBQOOWQB8852-42-70 05:35:00 Test Item Value Reference Range Interpretation Comments Bands (test code = 0.0 See_Comment [Automat ed message] The Bands) system which ge nerated this result transmit dora reference range : <=11.0. The reference r rajeev was not used to interpr et this result as merritt l/abnormal. [facility] CenterCodkhhfMHREKOMHEQ4685-69-73 05:35:00 Test Item Value Reference Range Interpretation Comments Monocytes # (test code 1.7 See_Comment [Aut omated message] The = Monocytes #) system which generated this result tra nsmitted reference range : <=0.8. The reference r rajeev was not used to int erpret this result as normal/abnormal . [facility] CenterAydwymwEETVBVMZOA9178-03-84 05:35:00 Test Item Value Reference Range Interpretation Comments Lymphocytes (test code = Lymphocytes) 3.0 20.0-40.0 [facility] CenterMlzkfohPRWYIXAXHM7283-68-06 05:35:00 Test Item Value Reference Range Interpretation Comments Segs (test code = Segs) 90.0 45.0-75.0 [facility]HjmngtnQHGQVTLBYN3283-79-13 05:35:00 Test Item Value Reference Range Interpretation Comments Atypical Lymphs (test code = Atypical 0.0 Lymphs) [facility]aEjvcwozGADKMHVGCE5052-63-52 05:35:00 Test Item Value Reference Range Interpretation Comments Plt Morph (test code = Normal (11/08/13 12:35 Plt Morph) AM) [facility]aFmaihtxYIBPGYWXKV2373-30-66 05:35:00 Test Item Value Reference Range Interpretation Comments Monocytes (test code = Monocytes) 7.0 2.0-12.0 [facility]aEfbphziWAPVNUEZWM1976-59-01 05:35:00 Test Item Value Reference Range Interpretation Comments Anisocyte (test code = 1+ *ABN*(11/08/13 Anisocyte) 12:35 AM) [facility]aYfbupxeDGFNVPYZST0214-54-02 05:35:00 Test Item Value Reference Range Interpretation Comments Elliptocyte (test code = Slight *ABN*(11/08/13 Elliptocyte) 12:35 AM) [facility] CenterXskpallICJDDS9450-22-37 05:35:00 Test Item Value Reference Range Interpretation Comments VLDL (test code = VLDL) 14 [facility] CenterFclfnruPVWHCY3650-13-44 05:35:00 Test Item Value Reference Range Interpretation Comments LDL (Calculated) (test code = LDL 77 (Calculated)) [facility] CenterIpsclvqWNRPZQ4807-75-57 05:35:00 Test Item Value Reference Range Interpretation Comments HDL (test code = HDL) 46 [facility] CenterPkkyfilWKAOVN1179-17-43 05:35:00 Test Item Value Reference Range Interpretation Comments Chol (test code = Chol) 137 [facility] CenterZbeznmaKDBHFD5626-98-31 05:35:00 Test Item Value Reference Range Interpretation Comments Trig (test code = Trig) 68 [facility] CenterUxtrlmbZVRPCH7039-74-85 05:35:00 Test Item Value Reference Range Interpretation Comments CHD Risk (test code = CHD Risk) 2.98 3.90-5.80 [facility] GIFVIPZJR2344-32-21 05:35:00 Test Item Value Reference Range Interpretation Comments Hgb A1C (test code = Hgb A1C) 6.2 [facility] AND [id number] 05:35:00 Test Item Value Reference Range Interpretation Comments UA Mucus (test code = UA Mucus) Few /LPF [facility] AND [id number] 05:35:00 Test Item Value Reference Range Interpretation Comments UA WBC (test code = 2 See_Comment [Automa dora message] The UA WBC) system which ge nerated this result transmit dora reference range : <=5. The reference range was not used to interpr et this result as merritt l/abnormal. [facility] AND [id number] 05:35:00 Test Item Value Reference Range Interpretation Comments UA Sq Epi (test code = UA Sq Epi) Few /LPF [facility] AND [id number] 05:35:00 Test Item Value Reference Range Interpretation Comments UA Leuk Est (test Negative (11/08/13 12:35 code = UA Leuk Est) AM) [facility] AND [id number] 05:35:00 Test Item Value Reference Range Interpretation Comments UA Urobilinogen (test code = UA <=1.0 mg/dL 0.1-1.0 Urobilinogen) [facility] AND [id number] 05:35:00 Test Item Value Reference Range Interpretation Comments UA Glucose (test code = UA Negative mg/dL Glucose) [facility] AND [id number] 05:35:00 Test Item Value Reference Range Interpretation Comments UA Nitrite (test code Negative (11/08/13 12:35 = UA Nitrite) AM) [facility] AND [id number] 05:35:00 Test Item Value Reference Range Interpretation Comments UA Blood (test code = Negative (11/08/13 12:35 UA Blood) AM) [facility] AND [id number] 05:35:00 Test Item Value Reference Range Interpretation Comments UA Spec Grav (test code = UA Spec Grav) 1.018 [facility] AND [id number] 05:35:00 Test Item Value Reference Range Interpretation Comments UA Protein (test code = UA Protein) 20 mg/dL [facility] AND [id number] 05:35:00 Test Item Value Reference Range Interpretation Comments UA pH (test code = UA pH) 5.5 5.0-8.0 [facility] AND [id number] 05:35:00 Test Item Value Reference Range Interpretation Comments UA Bili (test code = Negative *NA*(11/08/13 UA Bili) 12:35 AM) [facility] AND [id number] 05:35:00 Test Item Value Reference Range Interpretation Comments UA Ketones (test code = UA Negative mg/dL Ketones) [facility] AND [id number] 05:35:00 Test Item Value Reference Range Interpretation Comments UA Color (test code = Yellow *NA*(11/08/13 UA Color) 12:35 AM) [facility] AND [id number] 05:35:00 Test Item Value Reference Range Interpretation Comments UA Turbidity (test code = Clear (11/08/13 12:35 UA Turbidity) AM) [facility]2014-07-03 05:35:00 Test Item Value Reference Range Interpretation Comments eGFR (test code = eGFR) 94 [facility]2014-07-03 05:35:00 Test Item Value Reference Range Interpretation Comments Glucose Lvl (test code = Glucose Lvl) 114 70-99 [facility]2014-07-03 05:35:00 Test Item Value Reference Range Interpretation Comments Sodium Lvl (test code = Sodium Lvl) 143 135-145 [facility]2014-07-03 05:35:00 Test Item Value Reference Range Interpretation Comments Creatinine Lvl (test code = Creatinine 0.7 0.5-1.4 Lvl) [facility]2014-07-03 05:35:00 Test Item Value Reference Range Interpretation Comments BUN (test code = BUN) 23 7-22 [facility]2014-07-03 05:35:00 Test Item Value Reference Range Interpretation Comments ALT (test code = ALT) 23 See_Comment [Auto mated message] The system which ge nerated this result transmit dora reference range : <=65. The reference range was not used to interpr et this result as merritt l/abnormal. [facility]2014-07-03 05:35:00 Test Item Value Reference Range Interpretation Comments Bili Total (test code = Bili Total) 0.4 0.2-1.3 [facility]2014-07-03 05:35:00 Test Item Value Reference Range Interpretation Comments Alk Phos (test code = Alk Phos) 49 39-136 [facility]2014-07-03 05:35:00 Test Item Value Reference Range Interpretation Comments Potassium Lvl (test code = Potassium 3.6 3.5-5.1 Lvl) [facility]2014-07-03 05:35:00 Test Item Value Reference Range Interpretation Comments Albumin Lvl (test code = Albumin Lvl) 4.1 3.5-5.0 [facility]2014-07-03 05:35:00 Test Item Value Reference Range Interpretation Comments Total Protein (test code = Total 7.0 6.4-8.4 Protein) [facility]2014-07-03 05:35:00 Test Item Value Reference Range Interpretation Comments AST (test code = AST) 20 See_Comment [Auto mated message] The system which ge nerated this result transmit dora reference range : <=37. The reference range was not used to interpr et this result as merritt l/abnormal. [facility]2014-07-03 05:35:00 Test Item Value Reference Range Interpretation Comments Chloride Lvl (test code = Chloride Lvl) 106 95-109 [facility]2014-07-03 05:35:00 Test Item Value Reference Range Interpretation Comments CO2 (test code = CO2) 28 24-32 [facility]2014-07-03 05:35:00 Test Item Value Reference Range Interpretation Comments Calcium Lvl (test code = Calcium Lvl) 8.8 8.5-10.5 [facility]2014-07-03 05:35:00 Test Item Value Reference Range Interpretation Comments B/C Ratio (test code = B/C Ratio) 33 6-25 [facility]2014-07-03 05:35:00 Test Item Value Reference Range Interpretation Comments A/G Ratio (test code = A/G Ratio) 1.4 0.7-1.6 [facility]2014-07-03 05:35:00 Test Item Value Reference Range Interpretation Comments Globulin (test code = Globulin) 2.9 2.0-4.0 [facility]2014-07-03 05:35:00 Test Item Value Reference Range Interpretation Comments AGAP (test code = AGAP) 12.6 10.0-20.0 [facility] CenterGwvexpcAUBGRXCUTZ9491-87-90 05:35:00 Test Item Value Reference Range Interpretation Comments MCV (test code = MCV) 90.1 81.0-99.0 [facility] CenterSmqrujkRHYYBJIPJU4853-80-03 05:35:00 Test Item Value Reference Range Interpretation Comments MCH (test code = MCH) 29.6 pg 27.0-31.0 [facility] CenterFhbcztzMAKYZHCZYD6161-15-64 05:35:00 Test Item Value Reference Range Interpretation Comments Platelet (test code = Platelet) 229 133-450 [facility] CenterMwcjimzNVZIKDONSM7938-13-73 05:35:00 Test Item Value Reference Range Interpretation Comments WBC (test code = WBC) 24.4 3.7-10.4 [facility] CenterWohgifrAFLWOMNEYK0586-65-22 05:35:00 Test Item Value Reference Range Interpretation Comments RDW (test code = RDW) 12.5 11.5-14.5 [facility] CenterCkeazzbBADLEDIWVZ9397-97-26 05:35:00 Test Item Value Reference Range Interpretation Comments MPV (test code = MPV) 9.7 7.4-10.4 [facility] CenterJkubfydGNSUUQRVJP8389-65-42 05:35:00 Test Item Value Reference Range Interpretation Comments MCHC (test code = MCHC) 32.9 32.0-36.0 [facility] CenterTosdpvvUGLKVNFFHC6397-66-28 05:35:00 Test Item Value Reference Range Interpretation Comments Hct (test code = Hct) 36.6 36.0-48.0 [facility] CenterJrxhkcuACCPFCIFSQ3841-12-14 05:35:00 Test Item Value Reference Range Interpretation Comments Hgb (test code = Hgb) 12.0 12.0-16.0 [facility] CenterGqwhlhwEEVJIIFMIP7497-30-74 05:35:00 Test Item Value Reference Range Interpretation Comments RBC (test code = RBC) 4.07 4.20-5.40 [facility] CenterHgtvsoyQCOZADLGPV2509-23-96 05:35:00 Test Item Value Reference Range Interpretation Comments Segs-Bands # (test code = Segs-Bands #) 22.0 1.5-8.1 [facility] CenterCkvocvxMXOERKKVVH0036-38-95 05:35:00 Test Item Value Reference Range Interpretation Comments Lymphocytes # (test code = Lymphocytes 0.7 1.0-5.5 #) [facility] CenterUdqkzwvXYOOXWLCTW5679-23-85 05:35:00 Test Item Value Reference Range Interpretation Comments Bands (test code = 0.0 See_Comment [Automat ed message] The Bands) system which ge nerated this result transmit dora reference range : <=11.0. The reference r rajeev was not used to interpr et this result as merritt l/abnormal. [facility] CenterJlcypbnLNFTTWPZZI7197-01-88 05:35:00 Test Item Value Reference Range Interpretation Comments Monocytes # (test code 1.7 See_Comment [Aut omated message] The = Monocytes #) system which generated this result tra nsmitted reference range : <=0.8. The reference r rajeev was not used to int erpret this result as normal/abnormal . [facility] CenterGtujvubXDHOOIPCPM1098-22-65 05:35:00 Test Item Value Reference Range Interpretation Comments Lymphocytes (test code = Lymphocytes) 3.0 20.0-40.0 [facility] CenterUhkzkbmQTKJHQYCTU5813-01-23 05:35:00 Test Item Value Reference Range Interpretation Comments Segs (test code = Segs) 90.0 45.0-75.0 [facility] CenterCsjigdcXSSVWDJDOD2894-93-17 05:35:00 Test Item Value Reference Range Interpretation Comments Atypical Lymphs (test code = Atypical 0.0 Lymphs) [facility] CenterMqkcdviIIBBOOKBET5599-81-72 05:35:00 Test Item Value Reference Range Interpretation Comments Plt Morph (test code = Normal (11/08/13 12:35 Plt Morph) AM) [facility] CenterQosngbwIGGGNRMPSX9787-21-52 05:35:00 Test Item Value Reference Range Interpretation Comments Monocytes (test code = Monocytes) 7.0 2.0-12.0 [facility] CenterRgryrogANLXJUNTXE2994-38-43 05:35:00 Test Item Value Reference Range Interpretation Comments Anisocyte (test code = 1+ *ABN*(11/08/13 Anisocyte) 12:35 AM) [facility] CenterPeymgnhJKSJYMEDND3452-94-38 05:35:00 Test Item Value Reference Range Interpretation Comments Elliptocyte (test code = Slight *ABN*(11/08/13 Elliptocyte) 12:35 AM) [facility]RnknkflOWQUDM1608-27-93 05:35:00 Test Item Value Reference Range Interpretation Comments VLDL (test code = VLDL) 14 [facility] CenterZlbzxnlTAYSRW3589-64-85 05:35:00 Test Item Value Reference Range Interpretation Comments LDL (Calculated) (test code = LDL 77 (Calculated)) [facility] CenterThqgcoeHYWPZU8545-79-71 05:35:00 Test Item Value Reference Range Interpretation Comments HDL (test code = HDL) 46 [facility] CenterAwycjxsOOEXLS0634-31-59 05:35:00 Test Item Value Reference Range Interpretation Comments Chol (test code = Chol) 137 [facility] CenterKuuhqzeVYUXLZ3246-67-44 05:35:00 Test Item Value Reference Range Interpretation Comments Trig (test code = Trig) 68 [facility] CenterZpslgybVCRFYG4024-98-26 05:35:00 Test Item Value Reference Range Interpretation Comments CHD Risk (test code = CHD Risk) 2.98 3.90-5.80 [facility] KPHYOZPXG6773-78-29 05:35:00 Test Item Value Reference Range Interpretation Comments Hgb A1C (test code = Hgb A1C) 6.2 [facility] AND [id number] 05:35:00 Test Item Value Reference Range Interpretation Comments UA Mucus (test code = UA Mucus) Few /LPF [facility] AND [id number] 05:35:00 Test Item Value Reference Range Interpretation Comments UA WBC (test code = 2 See_Comment [Automa dora message] The UA WBC) system which ge nerated this result transmit dora reference range : <=5. The reference range was not used to interpr et this result as merritt l/abnormal. [facility] AND [id number] 05:35:00 Test Item Value Reference Range Interpretation Comments UA Sq Epi (test code = UA Sq Epi) Few /LPF [facility] AND [id number] 05:35:00 Test Item Value Reference Range Interpretation Comments UA Leuk Est (test Negative (11/08/13 12:35 code = UA Leuk Est) AM) [facility] AND [id number] 05:35:00 Test Item Value Reference Range Interpretation Comments UA Urobilinogen (test code = UA <=1.0 mg/dL 0.1-1.0 Urobilinogen) [facility] AND [id number] 05:35:00 Test Item Value Reference Range Interpretation Comments UA Glucose (test code = UA Negative mg/dL Glucose) [facility] AND [id number] 05:35:00 Test Item Value Reference Range Interpretation Comments UA Nitrite (test code Negative (11/08/13 12:35 = UA Nitrite) AM) [facility] AND [id number] 05:35:00 Test Item Value Reference Range Interpretation Comments UA Blood (test code = Negative (11/08/13 12:35 UA Blood) AM) [facility] AND [id number] 05:35:00 Test Item Value Reference Range Interpretation Comments UA Spec Grav (test code = UA Spec Grav) 1.018 [facility] AND [id number] 05:35:00 Test Item Value Reference Range Interpretation Comments UA Protein (test code = UA Protein) 20 mg/dL [facility] AND [id number] 05:35:00 Test Item Value Reference Range Interpretation Comments UA pH (test code = UA pH) 5.5 5.0-8.0 [facility] AND [id number] 05:35:00 Test Item Value Reference Range Interpretation Comments UA Bili (test code = Negative *NA*(11/08/13 UA Bili) 12:35 AM) [facility] AND [id number] 05:35:00 Test Item Value Reference Range Interpretation Comments UA Ketones (test code = UA Negative mg/dL Ketones) [facility] AND [id number] 05:35:00 Test Item Value Reference Range Interpretation Comments UA Color (test code = Yellow *NA*(11/08/13 UA Color) 12:35 AM) [facility] AND [id number] 05:35:00 Test Item Value Reference Range Interpretation Comments UA Turbidity (test code = Clear (11/08/13 12:35 UA Turbidity) AM) [facility]2014-07-03 05:35:00 Test Item Value Reference Range Interpretation Comments eGFR (test code = eGFR) 94 [facility]2014-07-03 05:35:00 Test Item Value Reference Range Interpretation Comments Glucose Lvl (test code = Glucose Lvl) 114 70-99 [facility]2014-07-03 05:35:00 Test Item Value Reference Range Interpretation Comments Sodium Lvl (test code = Sodium Lvl) 143 135-145 [facility]2014-07-03 05:35:00 Test Item Value Reference Range Interpretation Comments Creatinine Lvl (test code = Creatinine 0.7 0.5-1.4 Lvl) [place] 821144-07-03 05:35:00 Test Item Value Reference Range Interpretation Comments BUN (test code = BUN) 23 7-22 [place] 821144-07-03 05:35:00 Test Item Value Reference Range Interpretation Comments ALT (test code = ALT) 23 See_Comment [Auto mated message] The system which ge nerated this result transmit dora reference range : <=65. The reference range was not used to interpr et this result as merritt l/abnormal. [place] 821144-07-03 05:35:00 Test Item Value Reference Range Interpretation Comments Bili Total (test code = Bili Total) 0.4 0.2-1.3 [place] 821144-07-03 05:35:00 Test Item Value Reference Range Interpretation Comments Alk Phos (test code = Alk Phos) 49 39-136 [facility]2014-07-03 05:35:00 Test Item Value Reference Range Interpretation Comments Potassium Lvl (test code = Potassium 3.6 3.5-5.1 Lvl) [facility]2014-07-03 05:35:00 Test Item Value Reference Range Interpretation Comments Albumin Lvl (test code = Albumin Lvl) 4.1 3.5-5.0 [place] 821144-07-03 05:35:00 Test Item Value Reference Range Interpretation Comments Total Protein (test code = Total 7.0 6.4-8.4 Protein) [facility]2014-07-03 05:35:00 Test Item Value Reference Range Interpretation Comments AST (test code = AST) 20 See_Comment [Auto mated message] The system which ge nerated this result transmit dora reference range : <=37. The reference range was not used to interpr et this result as merritt l/abnormal. [place] 821144-07-03 05:35:00 Test Item Value Reference Range Interpretation Comments Chloride Lvl (test code = Chloride Lvl) 106 95-109 [facility]2014-07-03 05:35:00 Test Item Value Reference Range Interpretation Comments CO2 (test code = CO2) 28 24-32 [place] 821144-07-03 05:35:00 Test Item Value Reference Range Interpretation Comments Calcium Lvl (test code = Calcium Lvl) 8.8 8.5-10.5 [facility]2014-07-03 05:35:00 Test Item Value Reference Range Interpretation Comments B/C Ratio (test code = B/C Ratio) 33 6-25 [facility]2014-07-03 05:35:00 Test Item Value Reference Range Interpretation Comments A/G Ratio (test code = A/G Ratio) 1.4 0.7-1.6 [facility]2014-07-03 05:35:00 Test Item Value Reference Range Interpretation Comments Globulin (test code = Globulin) 2.9 2.0-4.0 [facility]2014-07-03 05:35:00 Test Item Value Reference Range Interpretation Comments AGAP (test code = AGAP) 12.6 10.0-20.0 [facility] CenterLmjkkfqOWAETSEUFO4430-10-21 05:35:00 Test Item Value Reference Range Interpretation Comments MCV (test code = MCV) 90.1 81.0-99.0 [facility] CenterSnbmrjmJYWLHZXZGU9063-86-61 05:35:00 Test Item Value Reference Range Interpretation Comments MCH (test code = MCH) 29.6 pg 27.0-31.0 [facility] CenterOpejwphAPCXXOULBI5768-88-84 05:35:00 Test Item Value Reference Range Interpretation Comments Platelet (test code = Platelet) 229 133-450 [facility] CenterRaomtznSIQRKZIQBO1320-40-32 05:35:00 Test Item Value Reference Range Interpretation Comments WBC (test code = WBC) 24.4 3.7-10.4 [facility] CenterFnwthabMNJVZKWCXN7630-89-86 05:35:00 Test Item Value Reference Range Interpretation Comments RDW (test code = RDW) 12.5 11.5-14.5 [facility] CenterRdjklqnOYADZZBAQF5145-12-65 05:35:00 Test Item Value Reference Range Interpretation Comments MPV (test code = MPV) 9.7 7.4-10.4 [facility] CenterBckvydkCWVHETAIYZ0831-77-29 05:35:00 Test Item Value Reference Range Interpretation Comments MCHC (test code = MCHC) 32.9 32.0-36.0 [facility] CenterAnbguecNHGTPYOKLH4933-06-95 05:35:00 Test Item Value Reference Range Interpretation Comments Hct (test code = Hct) 36.6 36.0-48.0 [facility] CenterFqsqhapZVMGPLRQWV0800-35-96 05:35:00 Test Item Value Reference Range Interpretation Comments Hgb (test code = Hgb) 12.0 12.0-16.0 [facility] CenterByyhmpkIEJGSVTKTL9924-26-21 05:35:00 Test Item Value Reference Range Interpretation Comments RBC (test code = RBC) 4.07 4.20-5.40 [facility] CenterVansmdrRTHQOWULVY2107-93-75 05:35:00 Test Item Value Reference Range Interpretation Comments Segs-Bands # (test code = Segs-Bands #) 22.0 1.5-8.1 [facility] CenterXobyycyKFAWVIKHYP7252-21-19 05:35:00 Test Item Value Reference Range Interpretation Comments Lymphocytes # (test code = Lymphocytes 0.7 1.0-5.5 #) [facility] CenterYrahirpPVIPDLLTDZ1823-49-98 05:35:00 Test Item Value Reference Range Interpretation Comments Bands (test code = 0.0 See_Comment [Automat ed message] The Bands) system which ge nerated this result transmit dora reference range : <=11.0. The reference r rajeev was not used to interpr et this result as merritt l/abnormal. [facility] CenterFmfgndpNNFLJDVOBA8757-35-62 05:35:00 Test Item Value Reference Range Interpretation Comments Monocytes # (test code 1.7 See_Comment [Aut omated message] The = Monocytes #) system which generated this result tra nsmitted reference range : <=0.8. The reference r rajeev was not used to int erpret this result as normal/abnormal . [facility] CenterKpdxlshYLQKBRQNPN4475-39-01 05:35:00 Test Item Value Reference Range Interpretation Comments Lymphocytes (test code = Lymphocytes) 3.0 20.0-40.0 [facility] CenterNhjkhjtZFFJLWMXTU6057-22-50 05:35:00 Test Item Value Reference Range Interpretation Comments Segs (test code = Segs) 90.0 45.0-75.0 [facility] CenterGfghbysQLPDCOGUPT5588-83-10 05:35:00 Test Item Value Reference Range Interpretation Comments Atypical Lymphs (test code = Atypical 0.0 Lymphs) [facility] CenterLpmeuqsIAUAHUJCAU5344-19-83 05:35:00 Test Item Value Reference Range Interpretation Comments Plt Morph (test code = Normal (11/08/13 12:35 Plt Morph) AM) [facility]sYDAKVXSEQA2033-45-87 05:35:00 Test Item Value Reference Range Interpretation Comments Monocytes (test code = Monocytes) 7.0 2.0-12.0 [facility] CenterOmikmrmZHTDPBWAXG2280-11-00 05:35:00 Test Item Value Reference Range Interpretation Comments Anisocyte (test code = 1+ *ABN*(11/08/13 Anisocyte) 12:35 AM) [facility]aGjcujpkTCNQQAKUES1851-12-45 05:35:00 Test Item Value Reference Range Interpretation Comments Elliptocyte (test code = Slight *ABN*(11/08/13 Elliptocyte) 12:35 AM) [facility] CenterOehrasjHPTRJW8851-16-26 05:35:00 Test Item Value Reference Range Interpretation Comments VLDL (test code = VLDL) 14 [facility] CenterQodchfeHGTYDT6215-95-53 05:35:00 Test Item Value Reference Range Interpretation Comments LDL (Calculated) (test code = LDL 77 (Calculated)) [facility] CenterFjkichgKOANLY2425-93-64 05:35:00 Test Item Value Reference Range Interpretation Comments HDL (test code = HDL) 46 [facility] CenterQivnqegILBTQS4795-83-47 05:35:00 Test Item Value Reference Range Interpretation Comments Chol (test code = Chol) 137 [facility] CenterIhzozmlBLEOFH5848-53-20 05:35:00 Test Item Value Reference Range Interpretation Comments Trig (test code = Trig) 68 [facility] CenterWazqkuyTOWJST8095-39-74 05:35:00 Test Item Value Reference Range Interpretation Comments CHD Risk (test code = CHD Risk) 2.98 3.90-5.80 [facility] OWDHWHGQG8480-90-20 05:35:00 Test Item Value Reference Range Interpretation Comments Hgb A1C (test code = Hgb A1C) 6.2 [facility] AND [id number] 05:35:00 Test Item Value Reference Range Interpretation Comments UA Mucus (test code = UA Mucus) Few /LPF [facility] AND [id number] 05:35:00 Test Item Value Reference Range Interpretation Comments UA WBC (test code = 2 See_Comment [Automa dora message] The UA WBC) system which ge nerated this result transmit dora reference range : <=5. The reference range was not used to interpr et this result as merritt l/abnormal. [facility] AND [id number] 05:35:00 Test Item Value Reference Range Interpretation Comments UA Sq Epi (test code = UA Sq Epi) Few /LPF [facility] AND [id number] 05:35:00 Test Item Value Reference Range Interpretation Comments UA Leuk Est (test Negative (11/08/13 12:35 code = UA Leuk Est) AM) [facility] AND [id number] 05:35:00 Test Item Value Reference Range Interpretation Comments UA Urobilinogen (test code = UA <=1.0 mg/dL 0.1-1.0 Urobilinogen) [facility] AND [id number] 05:35:00 Test Item Value Reference Range Interpretation Comments UA Glucose (test code = UA Negative mg/dL Glucose) [facility] AND [id number] 05:35:00 Test Item Value Reference Range Interpretation Comments UA Nitrite (test code Negative (11/08/13 12:35 = UA Nitrite) AM) [facility] AND [id number] 05:35:00 Test Item Value Reference Range Interpretation Comments UA Blood (test code = Negative (11/08/13 12:35 UA Blood) AM) [facility] AND [id number] 05:35:00 Test Item Value Reference Range Interpretation Comments UA Spec Grav (test code = UA Spec Grav) 1.018 [facility] AND [id number] 05:35:00 Test Item Value Reference Range Interpretation Comments UA Protein (test code = UA Protein) 20 mg/dL [facility] AND [id number] 05:35:00 Test Item Value Reference Range Interpretation Comments UA pH (test code = UA pH) 5.5 5.0-8.0 [facility] AND [id number] 05:35:00 Test Item Value Reference Range Interpretation Comments UA Bili (test code = Negative *NA*(11/08/13 UA Bili) 12:35 AM) [facility] AND [id number] 05:35:00 Test Item Value Reference Range Interpretation Comments UA Ketones (test code = UA Negative mg/dL Ketones) [facility] AND [id number] 05:35:00 Test Item Value Reference Range Interpretation Comments UA Color (test code = Yellow *NA*(11/08/13 UA Color) 12:35 AM) [facility] AND [id number] 05:35:00 Test Item Value Reference Range Interpretation Comments UA Turbidity (test code = Clear (11/08/13 12:35 UA Turbidity) AM) [facility]
[2023-03-23] MEDS ORDERED: ONDANSETRON 4 MG/2 ML VIAL ONE (23:36)
[2023-03-24 00:29] LABS: Absolute Lymphocytes (CBC) 1.9 K/uL (0.7-4.9); Hematocrit 37.8 % (36.0-45.0); Lymphocytes % 13.1 % (15.3-44.8); MCV 89.5 fL (80-100); MPV 8.2 fL (7.6-11.3); Platelets 267 thou/uL (152-406); RBC Red Blood Cell Count 4.22 M/uL (3.86-4.86)
[2023-03-24 00:30] LABS: Protime INR 0.95
[2023-03-24 01:09] LABS: Albumin 3.5 g/dL (3.4-5.0); Bilirubin Direct 0.1 mg/dL (0-0.2); Bilirubin Indirect, Calculated 0.2 mg/dL (0.2-0.8); Bilirubin Total 0.3 mg/dL (0.2-1.0); Magnesium 2.7 mg/dL (1.6-2.4); Protein, Total 7.2 g/dL (6.4-8.2); Troponin High Sensitivity 12.7 pg/mL (<58.9)
[2023-03-24] MEDS ORDERED: NA CHLORIDE 0.9% 1,000 ML ONE (01:51)
[2023-03-24] MEDS ORDERED: POTASSIUM CL SA 10 MEQ TAB PO ONE (01:51)
--- NOTE | 2023-03-24 01:53 | ER ---
Nurse's Notes [facility] Name: Joana Zarate Age: 72 yrs Sex: Female : 1950 Arrival Date: 03/23/2023 Time: 22:52 Bed 2 Private MD: Diagnosis: Pituitary adenoma, nausea vomiting, double vision, nystagmus, frontal meningioma Presentation: 03/23 23:03 Coronavirus screen: At this time, the client does not indicate any symptoms associated as6 with coronavirus-19. Ebola Screen: No symptoms or risks identified at this time. Initial Sepsis Screen: Does the patient meet any 2 criteria? No. Patient's initial sepsis screen is negative. Does the patient have a suspected source of infection? No. Patient's initial sepsis screen is negative. Risk Assessment: Do you want to hurt yourself or someone else? Patient reports no desire to harm self or others. Onset of symptoms was March 23, 2023 at 21:15. 23:03 Acuity: GOLDY 3 as6 23:03 Method Of Arrival: EMS: [facility] as6 23:17 Chief complaint: EMS states: called out for sudden onset n/v. as6 23:17 Care prior to arrival: Medication(s) given: Phenergan, 12.5 mg. as6 Triage Assessment: 23:02 General: Appears in no apparent distress. Behavior is calm, cooperative. Pain: Denies as6 pain. EENT: No deficits noted. No signs and/or symptoms were reported regarding the EENT system. Neuro: Level of Consciousness is awake, alert, obeys commands, Oriented to person, place, time, situation. Cardiovascular: Capillary refill < 3 seconds Patient's skin is warm and dry. Respiratory: Respiratory effort is even, unlabored, Respiratory pattern is regular, symmetrical. GI: Reports nausea, vomiting. : No deficits noted. No signs and/or symptoms were reported regarding the genitourinary system. Derm: Skin is intact, is healthy with good turgor. Musculoskeletal: Circulation, motion, and sensation intact. Historical: - Allergies: 23:03 PENICILLINS; as6 - Home Meds: 23:24 clopidogrel 75 mg oral tablet 1 tab daily [Active]; levothyroxine 75 mcg tablet 1 tab as6 daily [Active]; valsartan 320 mg oral tablet 1 tab daily [Active]; amlodipine 5 mg tablet 1 tab 2 times per day [Active]; carvedilol 6.25 mg oral tablet 1 tab 2 times per day [Active]; rosuvastatin 40 mg oral tablet 1 tab daily [Active]; - PMHx: 23:03 Hypertension; micro pacemaker; stroke x2; Diabetes mellitus; Cerebrovascular accident; as6 - PSHx: 23:03 knee; as6 - Immunization history:: Adult Immunizations up to date. - Social history:: Smoking status: Patient denies any tobacco usage or history of. - Family history:: not pertinent. Screenin:26 [facility] ED Fall Risk Assessment (Adult) Score/Fall Risk Level 0 - 2 = Low Risk. Abuse as6 screen: Denies threats or abuse. Denies injuries from another. Nutritional screening: No deficits noted. Tuberculosis screening: No symptoms or risk factors identified. Assessment: 23:16 General: see triage assessment. as6 03/24 00:00 Reassessment: Patient and/or family updated on plan of care and expected duration. Pain ha1 level reassessed. Patient is alert, oriented x 3, equal unlabored respirations, skin warm/dry/pink. Patient denies pain at this time. 01:00 Reassessment: Patient and/or family updated on plan of care and expected duration. Pain ha1 level reassessed. Patient is alert, oriented x 3, equal unlabored respirations, skin warm/dry/pink. 03:00 Reassessment: Patient and/or family updated on plan of care and expected duration. Pain ha1 level reassessed. Patient is alert, oriented x 3, equal unlabored respirations, skin warm/dry/pink. Patient denies pain at this time. 03:11 Reassessment: report given to DIEGO Paredes. ha1 03:45 GI: Pt is actively vomiting bile. as6 04:40 Reassessment: Patient appears in no apparent distress at this time. Patient and/or as6 family updated on plan of care and expected duration. Pain level reassessed. Patient is alert, oriented x 3, equal unlabored respirations, skin warm/dry/pink. Patient states feeling better. Patient states symptoms have improved. Vital Signs: 03/23 23:02 BP 132 / 104; Pulse 73; Resp 16 S; Temp 98.8(TE); Pulse Ox 96% on R/A; Weight 68.04 kg as6 (R); Height 5 ft. 4 in. (R); Pain 0/10; 03/24 00:09 BP 124 / 81; Pulse 70; Resp 20 S; Pulse Ox 95% on R/A; as6 01:30 BP 120 / 73; Pulse 66; Resp 19 S; Pulse Ox 96% on R/A; as6 03:00 BP 126 / 76; Pulse 69; Resp 18 S; Pulse Ox 97% on R/A; as6 04:05 BP 132 / 77; Pulse 78; Resp 20 S; Pulse Ox 98% on R/A; as6 05:00 BP 112 / 68; Pulse 77; Resp 16 S; Pulse Ox 100% on R/A; as6 03/23 23:02 Body Mass Index 25.75 (68.04 kg, 162.56 cm) as6 03/23 23:02 Pain Scale: Adult as6 [place] Coma Score: 00:45 Eye Response: spontaneous(4). Motor Response: obeys commands(6). Verbal Response: sp4 oriented(5). Total: 15. NIH Stroke Scale Scores: 00:45 NIHSS Score: 0 sp4 ED Course: 03/23 22:54 Patient arrived in ED. rv1 22:56 Mario Alberto Calle MD is Attending Physician. sp4 23:02 Bruce Garcia, DIEGO is Primary Nurse. as6 23:02 Arm band placed on. as6 23:07 Triage completed. as6 23:17 Maintain EMS IV. Dressing intact. Good blood return noted. Site clean \T\ dry. Gauge \T\ as 6 site: 20g rac. 23:26 Bed in low position. Call light in reach. Side rails up X 1. as6 23:35 XRAY Chest (1 view) In Process Unspecified. EDMS 03/24 01:49 Kael Lentz MD is Hospitalizing Provider. sp4 02:18 CT Head Brain wo Cont In Process Unspecified. EDMS 04:41 Provided Education on: need for transfer . as6 04:41 No provider procedures requiring assistance completed. Patient transferred, IV remains as6 in place. Administered Medications: 03/23 23:27 Drug: Ondansetron IVP 4 mg IVP once; over 2 minutes Route: IVP; Site: right antecubital;ha1 03/24 04:39 Follow up: Response: No adverse reaction as6 01:47 Drug: NS 0.9% IV 1000 ml IV at 1 bolus Per protocol; 1000 mL bolus Route: IV; Rate: 1 ha1 bolus; Site: right antecubital; 04:40 Follow up: Response: No adverse reaction; IV Status: Completed infusion; IV Intake: as6 1000ml 01:47 Drug: Potassium Chloride PO 40 mEq PO once Route: PO; ha1 04:39 Follow up: Response: No adverse reaction as6 03:57 Drug: metoCLOPramide IVP 10 mg IVP once; over 1 to 2 minutes Route: IVP; Site: right as6 antecubital; 04:40 Follow up: Response: No adverse reaction as6 Medication: 03/23 23:26 VIS not applicable for this client. as6 Intake: 03/24 04:40 IV: 1000ml; Total: 1000ml. as6 Outcome: 01:52 Decision to Hospitalize by Provider. sp4 03:25 ER care complete, transfer ordered by . sp4 04:41 Transferred by ground EMS to [facility], Transfer form completed. X-rays sent as6 w/ patient. 04:41 Condition: stable 04:41 Instructed on the need for transfer, 05:26 Patient left the ED. as6 NIH Stroke Scale - NIH Stroke Score Date: 03/24/2023 Time: 00:45 Total Score = 0 10. Dysarthria (speech clarity - read or repeat words) - 0(Normal) 11. Extinction and Inattention (visual/tactile/auditory/spatial/personal) - 0(No abnormality) 1a. Level of Consciousness (LOC) - 0(Alert) 1b. Level of Consciousness (LOC) (Month \T\ Age) - 0(Both) 1c. LOC Commands (Open \T\ Closes Eyes/Supervisor [employer]) - 0(Both) 2. Best Gaze (Lateral Gaze Paresis) - 0(Normal) 3. Visual Field Loss - 0(No visual loss) 4. Facial Palsy - 0(Normal) 5a. Left Arm: Motor (10-second hold) - 0(No drift) 5b. Right Arm: Motor (10-second hold) - 0(No drift) 6a. Left Leg: Motor (5-second hold - always test supine) - 0(No drift) 6b. Right Leg: Motor (5-second hold - always test supine) - 0(No drift) 7. Limb Ataxia (finger/nose \T\ heel/hong - test with eyes open) - 0(Absent) 8. Sensory Loss (pinprick arms/legs/face) - 0(Normal) 9. Best Language: Aphasia (description/naming/reading) - 0(No aphasia) Initials: sp4 Signatures: Dispatcher [employer] Bruce Rollins RN RN as6 Autumn Aj RN RN ha1 Camilla Cary rv1 Mario Alberto Calle MD MD sp4
--- NOTE | 2023-03-24 01:53 | EDPHYS ---
Physician Documentation [facility] Name: Joana Zarate Age: 72 yrs Sex: Female : 1950 Arrival Date: 03/23/2023 Time: 22:52 Bed 2 Private MD: ED Physician Mario Alberto Calle HPI: 03/23 22:57 This 72 yrs old Female presents to ER via Unassigned with complaints of sp4 nausea, facial numbness . 03/24 00:45 72-year-old female presents with EMS for cute onset of dizziness, nausea, vomiting, sp4 perioral numbness and tingling. Patient has history of hypertension, history of CVA x2, history of pacemaker, diabetes mellitus. Patient denies unilateral weakness or vision loss. Historical: - Allergies: 03/23 23:03 PENICILLINS; as6 - Home Meds: 23:24 clopidogrel 75 mg oral tablet 1 tab daily [Active]; levothyroxine 75 mcg tablet 1 tab as6 daily [Active]; valsartan 320 mg oral tablet 1 tab daily [Active]; amlodipine 5 mg tablet 1 tab 2 times per day [Active]; carvedilol 6.25 mg oral tablet 1 tab 2 times per day [Active]; rosuvastatin 40 mg oral tablet 1 tab daily [Active]; - PMHx: 23:03 Hypertension; micro pacemaker; stroke x2; Diabetes mellitus; Cerebrovascular accident; as6 - PSHx: 23:03 knee; as6 - Immunization history:: Adult Immunizations up to date. - Social history:: Smoking status: Patient denies any tobacco usage or history of. - Family history:: not pertinent. ROS: 03/24 00:45 Constitutional: Negative for fever, chills, and weight loss, positive vomiting, sp4 positive dizziness , positive perioral numbness, positive generalized weakness All other systems are negative, Exam: 00:43 ECG was reviewed by the Attending Physician. EKG 2336, there use normal sinus rhythm at sp4 the rate of 67, no ectopy, normal EKG 00:45 Constitutional: This is a well developed, well nourished patient who is awake, alert, sp4 and in no acute distress. Head/Face: Normocephalic, atraumatic. Eyes: Pupils equal round and reactive to light, extra-ocular motions intact. Lids and lashes normal. Conjunctiva and sclera are not injected. Cornea within normal limits. Periorbital areas with no swelling, redness, or edema. ENT: Nares patent. No nasal discharge, no septal abnormalities noted. Tympanic membranes are normal and external auditory canals are clear. Oropharynx with no redness, swelling, or masses, exudates, or evidence of obstruction, uvula midline. Mucous membranes moist. Neck: Trachea midline, no thyromegaly or masses palpated, and no cervical lymphadenopathy. Supple, full range of motion without nuchal rigidity, or vertebral point tenderness. Chest/axilla: Normal chest wall appearance and motion. Nontender with no deformity. No lesions are appreciated. Cardiovascular: Regular rate and rhythm with a normal S1 and S2. No gallops, murmurs, or rubs. Normal PMI, no JVD. No pulse deficits. Respiratory: Lungs have equal breath sounds bilaterally, clear to auscultation and percussion. No rales, rhonchi or wheezes noted. No increased work of breathing, no retractions or nasal flaring. Abdomen/GI: Soft, non-tender, with normal bowel sounds. No distension or tympany. No guarding or rebound. No evidence of tenderness throughout. Back: No spinal tenderness. No costovertebral tenderness. Skin: Warm, dry with normal turgor. Normal color with no rashes, no lesions, and no evidence of cellulitis. MS/ Extremity: Pulses equal, no cyanosis. Neurovascular intact. Full, normal range of motion. Neuro: Awake and alert, GCS 15, oriented to person, place, time, and situation. Cranial nerves II-XII grossly intact. Motor strength 5/5 in all extremities. Sensory grossly intact. Psych: Awake, alert, with orientation to person, place and time. Behavior, mood, and affect are within normal limits Vital Signs: 03/23 23:02 BP 132 / 104; Pulse 73; Resp 16 S; Temp 98.8(TE); Pulse Ox 96% on R/A; Weight 68.04 kg as6 (R); Height 5 ft. 4 in. (R); Pain 0/10; 03/24 00:09 BP 124 / 81; Pulse 70; Resp 20 S; Pulse Ox 95% on R/A; as6 01:30 BP 120 / 73; Pulse 66; Resp 19 S; Pulse Ox 96% on R/A; as6 03:00 BP 126 / 76; Pulse 69; Resp 18 S; Pulse Ox 97% on R/A; as6 04:05 BP 132 / 77; Pulse 78; Resp 20 S; Pulse Ox 98% on R/A; as6 05:00 BP 112 / 68; Pulse 77; Resp 16 S; Pulse Ox 100% on R/A; as6 03/23 23:02 Body Mass Index 25.75 (68.04 kg, 162.56 cm) as6 03/23 23:02 Pain Scale: Adult as6 NIH Stroke Scale Scores: 00:45 NIHSS Score: 0 sp4 [place] Coma Score: 00:45 Eye Response: spontaneous(4). Motor Response: obeys commands(6). Verbal Response: sp4 oriented(5). Total: 15. MDM: 03/23 22:57 Patient medically screened. sp4 03/24 00:43 ED course: Chest X ray - CLINICAL HISTORY: The patient is 72 years old and is Female; sp4 CHEST PAIN TECHNIQUE: Frontal view of the chest. COMPARISON: No relevant prior studies available. FINDINGS: LUNGS: Unremarkable. No consolidation. PLEURAL SPACE: Unremarkable. No pneumothorax. HEART: Unremarkable. No cardiomegaly. MEDIASTINUM: Unremarkable. Normal mediastinal contour. BONES/JOINTS: Degenerative change of the spine is present. No acute fracture. UPPER ABDOMEN: Unremarkable as visualized. IMPRESSION: No acute cardiopulmonary process. . 02:07 Differential Diagnosis altered mental status, sepsis, flu. Data reviewed: vital signs, sp4 nurses notes, EMS record, old medical records, lab test result(s), EKG, radiologic studies, CT scan, plain films. Consideration of Admission/Observation Patient was admitted/placed on observation. Escalation of care including admission/observation considered. Management of patient was discussed with the following: Hospitalist: Tor Scruggs MD . Mechanical Assembler: Swetha Epps MD Neurology . ED course: On repeat exam patient was noted to have oscillating horizontal nystagmus particularly over the left eye. Patient complains of blurry vision persistent generalized weakness. At this time we will start IV hydration for acute renal insufficiency and p.o. potassium replacement. Patient warrants admission for consultation with neurology. We will also obtain CT head without contrast. . 02:52 ED course: CT head - COMPARISON: No relevant prior studies available. FINDINGS: Brain: sp4 There is a 1.4 cm partially calcified right parasagittal lesion along the anterior falx suggestive of a meningioma. No hemorrhage. No significant white matter disease. Ventricles: Unremarkable. No ventriculomegaly. Bones/joints: Unremarkable. No acute fracture. Soft tissues: Unremarkable. Sinuses: Unremarkable as visualized. Mastoid air cells: Unremarkable as visualized. No mastoid effusion. Sella: There is a 1.3 cm hyperdense sellar lesion with enlargement of the sella. IMPRESSION: 1. There is a 1.4 cm partially calcified right parasagittal lesion along the anterior falx suggestive of a meningioma. 2. There is a 1.3 cm hyperdense sellar lesion with enlargement of the sella. Consider pituitary protocol MRI for further evaluation. Electronically signed by: Vicente Johnson MD 03/24/2023 02:31 AM. 02:58 ED course: CT review - Prior medical record - IMPRESSION: No acute intracranial sp4 abnormality seen. 14 millimeter meningioma along the frontal convexity abutting the anterior falx without change. No surrounding edema Parasellar mass without obvious change may represent a meningioma or pituitary adenoma. Nonemergent MRI pituitary gland is recommended. Dictated By: James Olvera MD 08/20/20 1753 . 04:15 ED course: Patient was accepted by attending neurosurgeon without conference. Condition sp4 on transfer is stable. 03/23 22:57 Order name: Basic Metabolic Panel; Complete Time: :03/23 22:57 Order name: CBC with Diff; Complete Time: 03/23 22:57 Order name: LFT's; Complete Time: :03/23 22:57 Order name: Magnesium; Complete Time: :03/23 22:57 Order name: NT PRO-BNP; Complete Time: :03/23 22:57 Order name: PT-INR; Complete Time: :03/23 22:57 Order name: Troponin HS; Complete Time: 03/23 23:25 Order name: COVID-19 SARS RT PCR; Complete Time: 03/23 23:25 Order name: Influenza Screen (a \T\ B); Complete Time: 15 22:57 Order name: XRAY Chest (1 view) [facility] 03/24 01:46 Order name: CT Head Brain wo Cont [facility] 03/23 22:57 Order name: EKG; Complete Time: 22:57 [facility] 03/23 22:57 Order name: Cardiac monitoring; Complete Time: 23:27 [facility] 03/23 22:57 Order name: EKG - Nurse/Tech; Complete Time: 23:42 [facility] 03/23 22:57 Order name: IV Saline Lock; Complete Time: 23:16 [facility] 03/23 22:57 Order name: Labs collected and sent; Complete Time: 23:16 [facility] 03/23 22:57 Order name: O2 Per Protocol; Complete Time: 23:02 [facility] 03/23 22:57 Order name: O2 Sat Monitoring; Complete Time: 23:02 [facility] 03/23 23:38 Order name: Misc. Order: RECOLLECT ALL LABS; Complete Time: 00:06 rv1 EC:43 Rate is 67 beats/min. Rhythm is regular, Normal Sinus Rhythm. QRS [place] is Normal. VT sp4 interval is normal. QRS interval is normal. QT interval is normal. No Q waves. T waves are Normal. No ST changes noted. Clinical impression: Normal ECG. Interpreted by me. Administered Medications: 03/23 23:27 Drug: Ondansetron IVP 4 mg IVP once; over 2 minutes Route: IVP; Site: right antecubital;ha1 03/24 04:39 Follow up: Response: No adverse reaction as6 01:47 Drug: NS 0.9% IV 1000 ml IV at 1 bolus Per protocol; 1000 mL bolus Route: IV; Rate: 1 ha1 bolus; Site: right antecubital; 04:40 Follow up: Response: No adverse reaction; IV Status: Completed infusion; IV Intake: as6 1000ml 01:47 Drug: Potassium Chloride PO 40 mEq PO once Route: PO; ha1 04:39 Follow up: Response: No adverse reaction as6 03:57 Drug: metoCLOPramide IVP 10 mg IVP once; over 1 to 2 minutes Route: IVP; Site: right as6 antecubital; 04:40 Follow up: Response: No adverse reaction as6 Disposition Summary: 03/24/23 03:25 Transfer Ordered Notes: Transfer Location: [facility] sp4 Reason: Higher level of care sp4 Condition: Stable(03/24/23 03:25) sp4 Problem: new(03/24/23 03:25) sp4 Symptoms: have improved(03/24/23 03:25) sp4 Accepting Physician: Accepting Neurosurgeon (03/24/23 05:26) as6 Diagnosis - Pituitary adenoma, nausea vomiting, double vision, nystagmus, frontal meningioma sp4 Forms: - Medication Reconciliation Form sp4 - SBAR form sp4 NIH Stroke Scale - NIH Stroke Score Date: 03/24/2023 Time: 00:45 Total Score = 0 10. Dysarthria (speech clarity - read or repeat words) - 0(Normal) 11. Extinction and Inattention (visual/tactile/auditory/spatial/personal) - 0(No abnormality) 1a. Level of Consciousness (LOC) - 0(Alert) 1b. Level of Consciousness (LOC) (Month \T\ Age) - 0(Both) 1c. LOC Commands (Open \T\ Closes Eyes/Children'S Attendant) - 0(Both) 2. Best Gaze (Lateral Gaze Paresis) - 0(Normal) 3. Visual Field Loss - 0(No visual loss) 4. Facial Palsy - 0(Normal) 5a. Left Arm: Motor (10-second hold) - 0(No drift) 5b. Right Arm: Motor (10-second hold) - 0(No drift) 6a. Left Leg: Motor (5-second hold - always test supine) - 0(No drift) 6b. Right Leg: Motor (5-second hold - always test supine) - 0(No drift) 7. Limb Ataxia (finger/nose \T\ heel/hong - test with eyes open) - 0(Absent) 8. Sensory Loss (pinprick arms/legs/face) - 0(Normal) 9. Best Language: Aphasia (description/naming/reading) - 0(No aphasia) Initials: sp4 Signatures: Dispatcher [employer] Bruce Rollins RN RN as6 Autumn Aj RN RN ha1 Camilla Cary rv1 Mario Alberto Calle MD MD sp4 Corrections: (The following items were deleted from the chart) 01:59 01:52 sp4 rv1 03:21 01:52 Observation sp4 sp4 03: 01:52 Lentz, Kael sp4 sp4 03:21 01:52 Telemetry/MedSurg (observation) sp4 sp4 03: 01:52 Stable sp4 sp4 03:21 01:52 new sp4 sp4 03:21 01:52 have improved sp4 sp4 03:21 01:52 Standard sp4 sp4 03:21 01:52 Hypertension secondary to other renal disorders sp4 sp4 03: 01:52 Acute on chronic renal insufficiency, nausea and vomiting, sp4 gastroenteritis, acute horizontal nystagmus, double vision sp4 03: 01:59 219 rv1 sp4 05:26 03:25 Accepting Neurosurgeon sp4 as6
[2023-03-24] MEDS ORDERED: HYDRALAZINE HCL 20 MG/ML VIAL IV PRN (02:04)
[2023-03-24] MEDS ORDERED: ACETAMINOPHEN 325 MG TABLET PO PRN (03:15)
[2023-03-24] MEDS ORDERED: NA CHLORIDE 0.9% 1,000 ML IV SCH (03:15)
[2023-03-24] MEDS ORDERED: ALBUTEROL 2.5 MG/3 ML NEB SOL NEB PRN (03:15)
[2023-03-24] MEDS ORDERED: ZOLPIDEM TARTRATE 5 MG TABLET PO PRN (03:15)
[2023-03-24] MEDS ORDERED: METOCLOPRAMIDE 10 MG/2mL INJ ONE (04:08)
[2023-03-24 05:31] VITALS: TEMP 98.8
[2023-03-24 05:37] VITALS: BP 112/68; O2SAT 100
[2023-03-24] MEDS ORDERED: INSULIN REGULAR (HUMAN) 100 UNIT/ML SQ SCH (07:30)
--- NOTE | 2023-03-24 10:41 | EKG ---
Test Date: 2023-03-23 Test Time: 23:36:20 Administration Physician: MEASUREMENT RESULTS: Intervals: Rate: 67 MO: 170 QRSD: 106 QT: 440 QTc: 464 [place]: P: 57 MO: 170 QRS: 14 T: 51 INTERPRETIVE STATEMENTS: Normal sinus rhythm Normal ECG Compared to ECG 08/20/2020 17:35:13 Left ventricular hypertrophy no longer present ST (T wave) deviation no longer present Electronically Signed On 03-24-23 10:40:46 PLANT SAFETY LEADER by Chance Wang
--- NOTE | 2023-03-24 20:02 | RAD REPORT ---
EXAM DESCRIPTION: CT - Head Brain Wo Cont - 03/24/2023 5:52 am CLINICAL HISTORY: The patient is 72 years old and is Female; dizziness TECHNIQUE: Axial computed tomography images of the head/brain without intravenous contrast. Sagitt al and coronal reformatted images were created and reviewed. This CT exam was performed using one o r more of the following dose reduction techniques: automated exposure control, adjustment of the mA and/or kV according to patient size, and/or use of iterative reconstruction technique. COMPARISON: No relevant prior studies available. FINDINGS: Brain: There is a 1.4 cm partially calcified right parasagittal lesion along the anterio r falx suggestive of a meningioma. No hemorrhage. No significant white matter disease. Ventricles: Unremarkable. No ventriculomegaly. Bones/joints: Unremarkable. No acute fracture. Soft tissues: Unremarkable. Sinuses: Unremarkable as visualized. Mastoid air cells: Unremarkable as visualized. No mastoid effusion. Sella: There is a 1.3 cm hyperdense sellar lesion with enlargement of the sella. IMPRESSION: 1. There is a 1.4 cm partially calcified right parasagittal lesion along the anterior falx suggestive of a meningioma. 2. There is a 1.3 cm hyperdense sellar lesion with enlargement of the sella. Consider pituitary p rotocol MRI for further evaluation. Electronically signed by: Vicente Johnson MD 03/24/2023 02:31 AM ROOMS DIRECTOR Due to temporary technical issues with the PACS/Fluency reporting system, reports are being signed by the in house radiologists without review as a courtesy to insure prompt reporting. The interpreting radiologist is fully responsible for the content of the report.
--- NOTE | 2023-03-24 20:21 | RAD REPORT ---
EXAM DESCRIPTION: RAD - Chest Single View - 03/23/2023 11:33 pm CLINICAL HISTORY: The patient is 72 years old and is Female; CHEST PAIN TECHNIQUE: Frontal view of the chest. COMPARISON: No relevant prior studies available. FINDINGS: LUNGS: Unremarkable. No consolidation. PLEURAL SPACE: Unremarkable. No pneumothorax. HEART: Unremarkable. No cardiomegaly. MEDIASTINUM: Unremarkable. Normal mediastinal contour. BONES/JOINTS: Degenerative change of the spine is present. No acute fracture. UPPER ABDOMEN: Unremarkable as visualized. IMPRESSION: No acute cardiopulmonary process. Electronically signed by: Gracia Chaves MD 03/23/2023 11:43 PM SUPERVISOR INSPECTION Due to temporary technical issues with the PACS/Fluency reporting system, reports are being signed by the in house radiologists without review as a courtesy to insure prompt reporting. The interpreting radiologist is fully responsible for the content of the report.
== END 2023-03-24 05:25 | disposition short-term general hospital (02) ==
LOC: ER 22:52 → 2ND 03-24 01:53 → UNDOADMIN 03-24 01:53 → INTOOBSV 03-24 03:36 → ERHOLD 03-24 03:36
PROVIDERS: ADMIT Internal Medicine; ATTEND Internal Medicine
DX: D35.2 Benign neoplasm of pituitary gland (principal); D32.9 Benign neoplasm of meninges, unspecified; R11.2 Nausea with vomiting, unspecified; R42 Dizziness and giddiness; H53.2 Diplopia; H55.00 Unspecified nystagmus; I10 Essential (primary) hypertension; Z86.73 Personal history of transient ischemic attack (TIA), and cerebral infarction without residual deficits; E11.9 Type 2 diabetes mellitus without complications; Z95.0 Presence of cardiac pacemaker; Z88.0 Allergy status to penicillin; Z11.52 Encounter for screening for COVID-19
CPT/HCPCS: 96361; 93005; 85025; 80048; 36415; 83735; 85610; 80076; 84484; 83880; 87635; 87804 ×2; 70450; 71045; 96375; 96374; 99285; J2765; J2405; J7030; G0378